=== PATIENT | male | born 1960 | race Caucasian/White ===

== ENCOUNTER 2016-08-26 09:21 | Observation (INO) | payer OTHER ==
[~2016-08-26] VITALS: Ht 182.9 cm; Wt 100.7 kg
[~2016-08-26 09:21] MED LIST: IBUP-103 PO; LEVO50TA6 PO
[2016-08-26 09:26] VITALS: Ht 182.9 cm; Wt 100.7 kg
[2016-08-26] MEDS ORDERED: SODIUM CHLORIDE 0.9% 1000ML 1,000 ML IV STA (10:02)
[2016-08-26] MEDS ORDERED: MoRPHine SULFATE 10 MG/ML CARP/VIAL IV STA (10:02)
[2016-08-26] MEDS ORDERED: ONDANSETRON INJ 2 MG/ML 2 ML VIAL IV STA (10:02)
[2016-08-26 10:05] LABS: BASO % 0.1 %; BASO ABS # 0.02 K/uL (0-0.2); COMPLETE YES; EOS % 0.1 %; HEMATOCRIT 48.1 % (42-52); IG% 0.3 %; LYMPH % 5.9 %; LYMPH ABS # 0.85 K/uL (1.2-3.4); MEAN CELL VOLUME 90.4 fL (80-100); MEAN CORPUSCULAR HEMOGLOBIN 30.1 pg (25-34); MEAN CORPUSCULAR HGB CONC 33.3 g/dl (32-36); MEAN PLATELET VOLUME 9.4 fL (7.4-10.4); MONO % 5.5 %; NEUT % 88.1 %; PLATELET COUNT 291 K/uL (130-400); RED BLOOD COUNT 5.32 M/uL (4.7-6.1)
[2016-08-26 10:35] LABS: ALT/SGPT 45 U/L (12-78); BLOOD UREA NITROGEN 16 mg/dl (7-18); BUN/CREATININE RATIO 14.1 (10-20); CALCIUM 9.2 mg/dl (8.5-10.1); CARBON DIOXIDE 25 mmol/L (21-32); CHLORIDE 105 mmol/L (98-107); GLUCOSE 131 mg/dl (70-99); POTASSIUM 3.9 mmol/L (3.5-5.1); SODIUM 139 mmol/L (136-145)
--- NOTE | 2016-08-26 10:35 | DIAGNOSTIC IMAGING REPORT ---
CHEST ONE VIEW PORTABLE HISTORY: Atypical chest pain. COMPARISON: Chest 02/26/2013. FINDINGS: The lungs are clear. Cardiac silhouette is normal in size. No pleural effusions. No pneumothorax. Cervical spinal fusion hardware is again noted. IMPRESSION: No significant change compared to the prior study. No acute process. Electronically signed by: Ranjith Whitman M.D. 08/26/2016 10:33 AM
[2016-08-26 10:39] LABS: ALKALINE PHOSPHATASE 82 U/L (45-117); AST/SGOT 27 U/L (15-37)
--- NOTE | 2016-08-26 11:49 | DIAGNOSTIC IMAGING REPORT ---
CT OF THE ABDOMEN AND PELVIS WITH CONTRAST CLINICAL HISTORY: Epigastric abdominal pain with vomiting. COMPARISON STUDY: None. TECHNIQUE: Following IV administration of 119 mL of Optiray-320, axial images of the abdomen and pelvis were obtained from the lung bases to the proximal femurs. Images were reviewed in the axial, sagittal, and coronal planes. IV contrast was administered without complication. CT DOSE: 998.14 mGycm FINDINGS: Visualized portions of the lower chest demonstrate groundglass opacities which favor atelectasis. No pneumatosis, free air or portal venous gas is present. The liver, spleen, adrenal glands and pancreas are normal. There is a 5 mm left renal calculus. There is no hydronephrosis. Images of the pelvis are degraded by streak artifact from bilateral hip arthroplasties. Note is made of at least one gallstone within the gallbladder. There is indistinctness of the gallbladder wall with mild to moderate pericholecystic infiltration. There is no peripancreatic infiltration. There is no biliary or pancreatic ductal dilatation. No suspicious osseous lesions are present with there is left colon diverticulosis without evidence for acute diverticulitis. IMPRESSION: 1. Cholelithiasis, gallbladder wall thickening and pericholecystic infiltration suggestive of acute cholecystitis. 2. No peripancreatic infiltration. No biliary or pancreatic ductal dilatation. 3. 5 mm left renal calculus. Electronically signed by: Abimael Frazier M.D. 08/26/2016 11:47 AM
[2016-08-26] MEDS ORDERED: PIPERACILLIN/TAZOBACTAM 4.5 GM/100ML D5W IV STA (12:02)
[2016-08-26] MEDS ORDERED: HYDROmorphone INJ 1 MG/ML SYR IV STA (12:05)
--- NOTE | 2016-08-26 12:42 | History and Physical ---
History & Physical Date & Time of Service: Aug 26, 2016 at 12:32 Chief Complaint: Gallstone Primary Care Physician: RV. Ross MD History of Present Illness Source: patient 56 y/o male began with epigastric pain at about midnight after eating a cheeseburger. The pain has persisted and is located in the epigastric and RUQ. The severity waxes and wanes. It sometimes radiates through to his back when he severity increases. It originally was radiating into his chest area. He has nausea and has had multiple episodes of vomiting. He had a normal bm yesterday morning. He has not had any melena or hematochezia and has not had any urinary symptoms. He has not had any fever. He had a similar episode about 1 1/2 years ago that resolved spontaneously. He had an ultrasound at that time that showed a gallstone Past Medical/Surgical History Medical Problems: (1) Alcohol abuse Status: Chronic Hypothyroidism PSH: Cervical disc Bilateral hip replacements Left inguinal hernia repair Family History Unobtainable due to patient's condition Social History Smoking Status: Current Every Day Smoker Smokeless Tobacco Use: No Alcohol Use: socially Occupational Status: employed Immunizations History of Influenza Vaccine: Yes History of Tetanus Vaccine?: Yes History of Pneumococcal: No History of Hepatitis B Vaccine: Unknown Multi-Drug Resistant Organisms History of MDRO: No Allergies Coded Allergies: Diphenhydramine (Verified Adverse Reaction, Mild, JITTERY/ANXIOUS, 03/20/16 ) ABLE TO TAKE REG. TYLENOL Home Medications Scheduled Levothyroxine Sodium (Levothyroxine Sodium), 1 TAB PO DAILY Review of Systems Constitutional: No chills, No fever Respiratory: No cough, No sputum Cardiovascular: + chest pain (as per hPI) Abdomen: + problem reported (as per HPI) Genitourinary - Male: + problem reported (as per HPI) Integumentary: No rash Physical Exam Vital Signs Date Time Temp Pulse Resp B/P Pulse Ox O2 Delivery O2 Flow Rate FiO2 08/26/16 11:06 83 18 189/118 97 Room Air 181/110 08/26/16 10:20 83 08/26/16 09:26 36.5 115 20 197/97 95 Room Air General Appearance: WD/WN Head: normocephalic Respiratory/Chest: chest non-tender, lungs clear Cardiovascular: regular rate, rhythm, no edema Abdomen/GI: normal bowel sounds, soft, + tenderness (right subcostal region) Back: normal inspection, no CVA tenderness Extremities/Musculoskelatal: normal inspection Skin: normal color Diagnostics Laboratory Results Results Past 24 Hours Test 08/26/16 09:50 08/26/16 09:53 Range/Units White Blood Count 14.40 4.8-10.8 K/uL Red Blood Count 5.32 4.7-6.1 M/uL Hemoglobin 16.0 14.0-18.0 g/dL Hematocrit 48.1 42-52 % Mean Corpuscular Volume 90.4 80-100 fL Mean Corpuscular Hemoglobin 30.1 25-34 pg Mean Corpuscular Hemoglobin Concent 33.3 32-36 g/dl Platelet Count 291 130-400 K/uL Mean Platelet Volume 9.4 7.4-10.4 fL Neutrophils (%) (Auto) 88.1 % Lymphocytes (%) (Auto) 5.9 % Monocytes (%) (Auto) 5.5 % Eosinophils (%) (Auto) 0.1 % Basophils (%) (Auto) 0.1 % Neutrophils # (Auto) 12.68 1.4-6.5 K/uL Lymphocytes # (Auto) 0.85 1.2-3.4 K/uL Monocytes # (Auto) 0.79 0.11-0.59 K/uL Eosinophils # (Auto) 0.01 0-0.5 K/uL Basophils # (Auto) 0.02 0-0.2 K/uL RDW Standard Deviation 47.4 36.4-46.3 fL RDW Coefficient of Variation 14.5 11.5-14.5 % Immature Granulocyte % (Auto) 0.3 % Immature Granulocyte # (Auto) 0.05 0.00-0.02 K/uL Sodium Level 139 136-145 mmol/L Potassium Level 3.9 3.5-5.1 mmol/L Chloride Level 105 98-107 mmol/L Carbon Dioxide Level 25 21-32 mmol/L Anion Gap 9.0 3-11 mmol/L Blood Urea Nitrogen 16 7-18 mg/dl Creatinine 1.10 0.60-1.40 mg/dl Est Creatinine Clear Calc Drug Dose 91.0 ml/min Estimated GFR () 85.9 Estimated GFR (Non- 74.1 BUN/Creatinine Ratio 14.1 10-20 Random Glucose 131 70-99 mg/dl Calcium Level 9.2 8.5-10.1 mg/dl Total Bilirubin 0.3 0.2-1 mg/dl Direct Bilirubin < 0.1 0-0.2 mg/dl Aspartate Amino Transf (AST/SGOT) 27 15-37 U/L Alanine Aminotransferase (ALT/SGPT) 45 12-78 U/L Alkaline Phosphatase 82 45-117 U/L Troponin I < 0.015 0-0.045 ng/ml Total Protein 7.8 6.4-8.2 gm/dl Albumin 3.8 3.4-5.0 gm/dl Lipase 91 73-393 U/L Diagnostic Radiology CT OF THE ABDOMEN AND PELVIS WITH CONTRAST CLINICAL HISTORY: Epigastric abdominal pain with vomiting. COMPARISON STUDY: None. TECHNIQUE: Following IV administration of 119 mL of Optiray-320, axial images of the abdomen and pelvis were obtained from the lung bases to the proximal femurs. Images were reviewed in the axial, sagittal, and coronal planes. IV contrast was administered without complication. CT DOSE: 998.14 mGycm FINDINGS: Visualized portions of the lower chest demonstrate groundglass opacities which favor atelectasis. No pneumatosis, free air or portal venous gas is present. The liver, spleen, adrenal glands and pancreas are normal. There is a 5 mm left renal calculus. There is no hydronephrosis. Images of the pelvis are degraded by streak artifact from bilateral hip arthroplasties. Note is made of at least one gallstone within the gallbladder. There is indistinctness of the gallbladder wall with mild to moderate pericholecystic infiltration. There is no peripancreatic infiltration. There is no biliary or pancreatic ductal dilatation. No suspicious osseous lesions are present with there is left colon diverticulosis without evidence for acute diverticulitis. IMPRESSION: 1. Cholelithiasis, gallbladder wall thickening and pericholecystic infiltration suggestive of acute cholecystitis. 2. No peripancreatic infiltration. No biliary or pancreatic ductal dilatation. 3. 5 mm left renal calculus. Impression Assessment and Plan This patient has RUQ and epigastric pain with a CT showing evidence of cholecystitis. I have recommend a laparoscopic cholecystectomy. I explained the possible need to convert to an open procedure and the possible complications. He has chosen to have the surgery and has signed a consent form.
[2016-08-26] MEDS ORDERED: LEVO50TA6 PO (12:46)
[2016-08-26] MEDS ORDERED: GLYCOPYRROLATE INJ 0.2 MG/ML VIAL ONE (14:51)
[2016-08-26] MEDS ORDERED: ROCURONIUM BROMIDE 10 MG/ML 5 ML VIAL ONE (14:51)
[2016-08-26] MEDS ORDERED: DEXAMETHASONE SOD INJ 4 MG/ML VIAL ONE (14:51)
[2016-08-26] MEDS ORDERED: NEOSTIGMINE METHYLSULFATE 5 MG/5 ML SYR ONE (14:51)
[2016-08-26] MEDS ORDERED: PROPOFOL IV EMULSION 10 MG/ML 20 ML VIAL IV ONE (14:51)
[2016-08-26] MEDS ORDERED: ONDANSETRON INJ 2 MG/ML 2 ML VIAL ONE (14:51)
[2016-08-26] MEDS ORDERED: LIDOCAINE HCL 2% 2 ML VIAL (20MG/ML) ONE (14:51)
[2016-08-26] MEDS ORDERED: FENTANYL CITRATE INJ 50 MCG/1 ML 2 ML VIAL ONE (14:52)
[2016-08-26] MEDS ORDERED: MIDAZOLAM HCL 1 MG/ML 2ML VIAL ONE (14:52)
[2016-08-26] MEDS ORDERED: HYDROmorphone INJ 2 MG/ML SYR/VIAL ONE (16:30)
[2016-08-26] MEDS ORDERED: CEFAZOLIN SOD 1 GM VIAL ONE (16:30)
--- NOTE | 2016-08-26 17:10 | EMERGENCY ROOM VISIT NOTE ---
History Report prepared by Mc: Dalia Cramer Under the Supervision of: Dr. Jakcson Noel D.O. First contact with patient: 09:51 Chief Complaint: ABDOMINAL PAIN Stated Complaint: GALLSTONE Nursing Triage Summary: Abdominal pain, started at approx midnight, hx of gallstone per pt History of Present Illness The patient is a 56 year old male who presents to the Emergency Room with complaints of persistent stabbing pains to his epigastrium, radiating up through his mid chest, over the past 10 hours.Currently, he rates his discomfort as a 10/10, and he describes it to feel like a stabbing sensation. Prior to the time of onset, the patient states that he ate a greasy hamburger, and shortly after, he developed the pain to his epigastrium, radiating through to his mid chest. Along with the pain, the patient states that he has felt nauseous, and he has had multiple episodes of mucousy emesis. He has not been able to keep any food or liquids down without bringing them back up since that time. Patient notes that he has a history of a gallstone, which was diagnosed 1.5 years prior, and he states that his symptoms today feel similar to that time. He has not yet followed up with surgery. Since that time, patient has been avoiding eating greasy foods and has not had additional episodes of discomfort until eating the hamburger last evening. Pt denies headache, change in vision, fevers, chest pain, shortness of breath, diarrhea, pain with urination, and melena. 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 A total of 10 systems reviewed and were otherwise negative. Past Medical & Surgical Medical Problems: (1) Alcohol abuse (2) Gallstone Family History Unobtainable due to patient's condition Social History Smoking Status: Current Every Day Smoker Alcohol Use: heavy Housing Status: lives alone Occupation Status: employed Current/Historical Medications Scheduled Levothyroxine Sodium (Levothyroxine Sodium), 1 TAB PO DAILY Allergies Coded Allergies: Diphenhydramine (Verified Adverse Reaction, Mild, JITTERY/ANXIOUS, 03/20/16 ) ABLE TO TAKE REG. TYLENOL Physical Exam Vital Signs Date Time Temp Pulse Resp B/P Pulse Ox O2 Delivery O2 Flow Rate FiO2 08/26/16 13:45 36.6 78 18 178/104 95 Room Air 08/26/16 13:38 82 18 162/126 95 Room Air 08/26/16 12:56 74 20 184/112 94 Room Air 08/26/16 11:06 83 18 189/118 97 Room Air 181/110 08/26/16 10:20 83 08/26/16 09:26 36.5 115 20 197/97 95 Room Air Physical Exam GENERAL: Sitting up in bed, uncomfortable appearing, in mild discomfort. EYE EXAM: normal conjunctiva. OROPHARYNX: no exudate, no erythema, lips, buccal mucosa, and tongue normal and mucous membranes are moist NECK: supple, no nuchal rigidity, no adenopathy, non-tender LUNGS: Clear to auscultation. Normal chest wall mechanics HEART: no murmurs, S1 normal and S2 normal ABDOMEN: abdomen soft, tender to palpation in the epigastrium, normo-active bowel sounds, no masses, no rebound or guarding. BACK: Back is symmetrical on inspection and there is no deformity, no midline tenderness, no CVA tenderness. SKIN: no rashes and no bruising UPPER EXTREMITIES: upper extremities are grossly normal. Radial pulses equal, bilaterally. LOWER EXTREMITIES: No pitting edema. NEURO EXAM: Normal sensorium, cranial nerves II-XII grossly intact, normal speech, no gross weakness of arms, no gross weakness of legs. Medical Decision & Procedures ER Provider Diagnostic Interpretation: Xray results per the radiologist and my interpretation. Other results have been interpreted by the radiologist and reviewed by me. CT:Per my review, radiologist interpretation. CHEST ONE VIEW PORTABLE HISTORY: Atypical chest pain. COMPARISON: Chest 02/26/2013. FINDINGS: The lungs are clear. Cardiac silhouette is normal in size. No pleural effusions. No pneumothorax. Cervical spinal fusion hardware is again noted. IMPRESSION: No significant change compared to the prior study. No acute process. Electronically signed by: Ranjith Whitman M.D. 08/26/2016 10:[address] OF THE ABDOMEN AND PELVIS WITH CONTRAST CLINICAL HISTORY: Epigastric abdominal pain with vomiting. COMPARISON STUDY: None. TECHNIQUE: Following IV administration of 119 mL of Optiray-320, axial images of the abdomen and pelvis were obtained from the lung bases to the proximal femurs. Images were reviewed in the axial, sagittal, and coronal planes. IV contrast was administered without complication. CT DOSE: 998.14 mGycm FINDINGS: Visualized portions of the lower chest demonstrate groundglass opacities which favor atelectasis. No pneumatosis, free air or portal venous gas is present. The liver, spleen, adrenal glands and pancreas are normal. There is a 5 mm left renal calculus. There is no hydronephrosis. Images of the pelvis are degraded by streak artifact from bilateral hip arthroplasties. Note is made of at least one gallstone within the gallbladder. There is indistinctness of the gallbladder wall with mild to moderate pericholecystic infiltration. There is no peripancreatic infiltration. There is no biliary or pancreatic ductal dilatation. No suspicious osseous lesions are present with there is left colon diverticulosis without evidence for acute diverticulitis. IMPRESSION: 1. Cholelithiasis, gallbladder wall thickening and pericholecystic infiltration suggestive of acute cholecystitis. 2. No peripancreatic infiltration. No biliary or pancreatic ductal dilatation. 3. 5 mm left renal calculus. Electronically signed by: Abimael Frazier M.D. 08/26/2016 11:47 AM Laboratory Results 08/26/16 09:50 Red Blood Count 5.32, Mean Corpuscular Volume 90.4, Mean Corpuscular Hemoglobin 30.1, Mean Corpuscular Hemoglobin Concent 33.3, Mean Platelet Volume 9.4, Neutrophils (%) (Auto) 88.1, Lymphocytes (%) (Auto) 5.9, Monocytes (%) (Auto) 5.5, Eosinophils (%) (Auto) 0.1, Basophils (%) (Auto) 0.1, Neutrophils # (Auto) 12.68, Lymphocytes # (Auto) 0.85, Monocytes # (Auto) 0.79, Eosinophils # (Auto) 0.01, Basophils # (Auto) 0.02 08/26/16 09:50 Test 08/26/16 09:50 White Blood Count 14.40 K/uL (4.8-10.8) Red Blood Count 5.32 M/uL (4.7-6.1) Hemoglobin 16.0 g/dL (14.0-18.0) Hematocrit 48.1 % (42-52) Mean Corpuscular Volume 90.4 fL (80-100) Mean Corpuscular Hemoglobin 30.1 pg (25-34) Mean Corpuscular Hemoglobin Concent 33.3 g/dl (32-36) Platelet Count 291 K/uL (130-400) Mean Platelet Volume 9.4 fL (7.4-10.4) Neutrophils (%) (Auto) 88.1 % Lymphocytes (%) (Auto) 5.9 % Monocytes (%) (Auto) 5.5 % Eosinophils (%) (Auto) 0.1 % Basophils (%) (Auto) 0.1 % Neutrophils # (Auto) 12.68 K/uL (1.4-6.5) Lymphocytes # (Auto) 0.85 K/uL (1.2-3.4) Monocytes # (Auto) 0.79 K/uL (0.11-0.59) Eosinophils # (Auto) 0.01 K/uL (0-0.5) Basophils # (Auto) 0.02 K/uL (0-0.2) RDW Standard Deviation 47.4 fL (36.4-46.3) RDW Coefficient of Variation 14.5 % (11.5-14.5) Immature Granulocyte % (Auto) 0.3 % Immature Granulocyte # (Auto) 0.05 K/uL (0.00-0.02) Anion Gap 9.0 mmol/L (3-11) Est Creatinine Clear Calc Drug Dose 91.0 ml/min Estimated GFR () 85.9 Estimated GFR (Non- 74.1 BUN/Creatinine Ratio 14.1 (10-20) Calcium Level 9.2 mg/dl (8.5-10.1) Total Bilirubin 0.3 mg/dl (0.2-1) Direct Bilirubin < 0.1 mg/dl (0-0.2) Aspartate Amino Transf (AST/SGOT) 27 U/L (15-37) Alanine Aminotransferase (ALT/SGPT) 45 U/L (12-78) Alkaline Phosphatase 82 U/L (45-117) Troponin I < 0.015 ng/ml (0-0.045) Total Protein 7.8 gm/dl (6.4-8.2) Albumin 3.8 gm/dl (3.4-5.0) Lipase 91 U/L (73-393) Laboratory results per my review. Medications Administered Medications (Trade) Dose Ordered Sig/Mariana Route Start Time Stop Time Status Last Admin Dose Admin Morphine Sulfate (MoRPHine SULFATE INJ) 6 mg NOW STAT IV 08/26/16 10:02 08/26/16 10:03 DC 08/26/16 10:16 6 MG Ondansetron HCl 4 mg 4 mg NOW STAT IV 08/26/16 10:02 08/26/16 10:03 DC 08/26/16 10:15 4 MG Sodium Chloride (Nss 1000ml) 1,000 ml @ 999 mls/hr Q1H1M STAT IV 08/26/16 10:02 08/26/16 11:02 DC 08/26/16 10:15 999 MLS/HR Piperacillin Sod/ Tazobactam Sod (Zosyn Iv) 4.5 gm NOW STAT IV 08/26/16 12:02 08/26/16 12:03 DC 08/26/16 12:12 4.5 GM Hydromorphone HCl (Dilaudid Inj) 1 mg NOW STAT IV 08/26/16 12:05 08/26/16 12:06 DC 08/26/16 12:13 1 MG ECG Indication: abdominal pain Rate (beats per minute): 85 Rhythm: normal sinus Findings: no ectopy, other (Normal axis. Early R wave progression.) ED Course ED COURSE: Vital signs were reviewed and showed hypertension and tachycardia. The patients medical record was reviewed The above diagnostic studies were performed and reviewed. ED treatments and interventions as stated above. 0956: The patient was evaluated in room B3. A complete history and physical examination was performed. 1002: NSS bolus IV, Zofran 4 mg IV and Morphine Sulfate 6 mg IV were ordered. 1202: I reevaluated the patient at this time and updated him on the results of his radiology reports and lab tests. Zosyn 6 mg IV and Dilaudid 1 mg IV were ordered. The general surgeon will be contacted. 1205: Discussed the patient's case with Dr. Summers of general surgery. he will evaluate the patient. 1245: Dr. Summers has evaluated the patient. He will take him for surgery. Patient verbalized understanding and agreement with this. Based on the patients age, coexisting illnesses, exam and lab findings the decision to treat as an inpatient was made. The patient remained stable while under my care. The patient will be evaluated for further management. Medical Decision Differential diagnoses includes but is not limited to gastritis, peptic ulcer disease, GERD, gallbladder disease, pancreatitis, small bowel obstruction, acute coronary syndrome, pericarditis, ischemic bowel, irritable bowel disease, irritable bowel syndrome, appendicitis, diverticulitis, malignancy, hernia, urinary tract infection, torsion, perforation, trauma, infectious. Patient is a 56-year-old male who presents the ER for epigastric bowel pain that started at 12:00 last night. He notes he does have a history of previous gallstones. On exam he is acutely tender. IV was established and is given a bolus normal saline along with 2 doses of Dilaudid. He had improvement of his pain. CT of the abdomen and pelvis shows acute cholecystitis. I discussed the findings with general surgery and I did give him a dose of Zosyn. Following this he was evaluated by general surgery and taken to the OR for acute cholecystitis. Consults Time Called: 1205 Consulting Physician: Dr. Summers Returned Call: 1205 and 1245 Discussed the patient's case. He will evaluate him 1245: Patient was evaluated by Dr. Summers. He will take him in for surgery. Impression Primary Impression: Acute cholecystitis Scribe Attestation The scribe's documentation has been prepared under my direction and personally reviewed by me in its entirety. I confirm that the note above accurately reflects all work, treatment, procedures, and medical decision making performed by me. Departure Information Dispostion Being Evaluated By Surgeon (Dr. Summers) Prescriptions Levothyroxine Sodium (LEVOTHYROXINE SODIUM) 50 Mcg Tab 1 TAB PO DAILY for 30 Days, #30 TAB 5 Refills Prov: Emiliano Summers M.D. 08/26/16 Referrals No Doctor, Assigned (PCP)
[2016-08-26] MEDS ORDERED: ONDANSETRON INJ 2 MG/ML 2 ML VIAL IV PRN ×2 (17:15→17:45)
[2016-08-26] MEDS ORDERED: ATROPINE SULFATE 0.1 MG/ML 5ML SYR IV PRN (17:15)
[2016-08-26] MEDS ORDERED: MEPERIDINE HCL 25 MG/ML CARP IV PRN (17:15)
[2016-08-26] MEDS ORDERED: FENTANYL CITRATE INJ 50 MCG/1 ML 2 ML VIAL IV PRN (17:15)
[2016-08-26] MEDS ORDERED: DEXAMETHASONE SOD INJ 4 MG/ML VIAL IV PRN (17:15)
[2016-08-26] MEDS ORDERED: EpHEDrine SULFATE INJ 50 MG/ML AMP IV PRN (17:15)
--- NOTE | 2016-08-26 17:32 | [facility] Post Operative Brief Note ---
Immediate Operative Summary Operative Date Aug 26, 2016. Pre-Operative Diagnosis CHOLECYSTITIS, CHOLELITHIASIS Post-Operative Diagnosis CHOLECYSTITIS Procedure(s) Performed LAPRASCOPIC CHOLECYSTECTOMY Surgeon DR Francie SKY Supervisor Yard Surgeon(s) EAN LYLES [facility] CENTERCharla Estimated Blood Loss 20 Findings See dictation Specimens GALLBLADDER Drains One J-P in the subhepatic space Complication(s) None Disposition Recovery Room / PACU
[2016-08-26] MEDS ORDERED: OXYCODONE/ACETAMINOPHEN 5-325 TAB PO PRN (17:45)
[2016-08-26] MEDS ORDERED: MoRPHine SULFATE 4 MG/ML 1 ML CARP\\VIAL IV PRN (17:45)
[2016-08-26 19:10] VITALS: BP 132/80; PULSE 81; TEMP 36.7; O2SAT 94
--- NOTE | 2016-08-26 19:19 | Anesthesiology Progress Note ---
Anesthesia Post Op Note Date & Time Aug 26, 2016 at 19:18 Vital Signs Pain Intensity: 0 Vital Signs Past 12 Hours Date Time Temp Pulse Resp B/P Pulse Ox O2 Delivery O2 Flow Rate FiO2 08/26/16 19:10 36.7 81 16 132/80 94 Nasal Cannula 2.0 08/26/16 18:50 89 20 123/79 96 Nasal Cannula 2 08/26/16 18:40 84 17 122/69 94 Nasal Cannula 2 08/26/16 18:30 84 17 121/76 96 Nasal Cannula 2 08/26/16 18:20 36.7 84 17 124/83 96 Nasal Cannula 2 08/26/16 18:10 89 17 135/75 96 Mask 10 08/26/16 18:00 87 15 132/72 99 Mask 10 08/26/16 17:50 85 15 131/71 96 Mask 10 08/26/16 17:43 36.2 79 16 123/82 98 Mask 10 08/26/16 13:45 36.6 78 18 178/104 95 Room Air 08/26/16 13:38 82 18 162/126 95 Room Air 08/26/16 12:56 74 20 184/112 94 Room Air 08/26/16 11:06 83 18 189/118 97 Room Air 181/110 08/26/16 10:20 83 08/26/16 09:26 36.5 115 20 197/97 95 Room Air Notes Mental Status: alert / awake / arousable Nausea / Vomiting: adequately controlled Pain: adequately controlled Airway Patency, RR, SpO2: stable & adequate BP & HR: stable & adequate Hydration State: stable & adequate Anesthetic Complications: no major complications apparent
--- NOTE | 2016-08-26 19:28 | Discharge Instructions ---
Discharge Instructions Admission Reason for Admission: Cholecystitis, Cholelithiasis Discharge Discharge Diagnosis / Problem: Same Discharge Goals Goal(s): Decrease discomfort Activity Recommendations Activity Limitations: per Instructions/Follow-up section Lifting Limitations: no more than 10 pounds Shower/Bathe: tomorrow (Shower only) . Instructions / Follow-Up Instructions / Follow-Up Post-Surgical ~ Discharge Instructions Activity Recommendations: - lifting limitation: (10 pounds for 2 weeks), - exercise/sex/sports limit: (nonstrenuous for 2 weeks), - driving or machine use limit: (none for 1 week), - Shower/bathe limit: (may shower beginning tomorrow) Diet: - Resume previous diet SPECIAL CARE INSTRUCTIONS: - May shower in 24 hours. Let water run over area and pat dry. - Leave steri strips on for one week. - Call the surgeon's office with any questions or concerns - - (ex. temperature higher than 101 degrees F, excessive bleeding or pain). MEDICATIONS: - Resume previous medications unless instructed otherwise by your surgeon. - Ibuprofen 600 mg every 6 hours with food - Percocet 1 every 4 hours, as needed for pain FOLLOW UP VISIT: - If not already scheduled, please call the office to schedule a two week follow-up appointment. Office number Current Hospital Diet Patient's current hospital diet: Regular Diet Discharge Diet Recommended Diet: Regular Diet Procedures Procedures Performed: LAPRASCOPIC CHOLECYSTECTOMY Pending Studies Studies pending at discharge: no Medical Emergencies . Who to Call and When: Medical Emergencies: If at any time you feel your situation is an emergency, please call 911 immediately. . Non-Emergent Contact Non-Emergency issues call your: Primary Care Provider, Surgeon Call Non-Emergent contact if: your pain is worsening, wound has increased redness, wound has increased pain . "Provider Documentation" section prepared by Emiliano Summers. VTE Core Measure Inpt VTE Proph given/why not?: Treatment not indicated
[2016-08-26 19:40] VITALS: BP 130/78; PULSE 79; TEMP 36.3; O2SAT 95
--- NOTE | 2016-08-26 20:00 | OPERATIVE REPORT ---
DATE OF OPERATION: 08/26/2016 PREOPERATIVE DIAGNOSES: Acute cholecystitis, cholelithiasis. POSTOPERATIVE DIAGNOSES: Same. PROCEDURE: Laparoscopic cholecystectomy. SURGEON: Emiliano Summers MD FINDINGS: Gallbladder wall was thickened. The gallbladder was dilated. There was omental adhesion caking the body and infundibulum area. The cystic duct was not dilated. The liver was of normal size and contour. The visible bowel appeared normal. There were stones within the lumen of the gallbladder. TECHNIQUE: The patient was given a general anesthetic and the area was prepped and draped in the usual sterile fashion. Transverse incision was made below the umbilicus, carried down through the subcutaneous tissue to the fascia which was grasped with 2 Jonathan clamps and incised between. The peritoneum was identified, incised, and the introducer was placed bluntly. The abdomen was then insufflated to a pressure of 15 mmHg with carbon dioxide. The upper midline, midclavicular and anterior axillary introducers were placed under direct vision through small skin incisions. I could not grasp the gallbladder, so was drained using the drainage needle. It was then able to be grasped and elevated. The omentum was caked to the gallbladder wall and it was dissected away from the gallbladder wall using cautery, working from the fundus distal portion of the body down to the infundibulum. There were some adhesions also to the undersurface of the right lobe of the liver that were divided as well so as to not tear the capsule with elevation of the gallbladder. Careful dissection using blunt and cautery dissection exposed the lateral and anterior aspects of the gallbladder. I was then able to elevate the infundibulum and dissect over towards the triangle of Calot and peeling additional adhesions down towards the common bile duct. That exposed the undersurface of the infundibulum. The tissues there had a lot of edema within them. That some of the spaces and I was able to elevate the infundibulum first on the lateral side and separate the infundibulum away from the liver on the lateral side and then I worked with a similar dissection on the medial side allowing better mobility of the infundibulum. That allowed me to peel connective tissue and some lymphatics away from the anterior surface of the infundibulum and identify the cystic duct. I was able to isolate the cystic duct in 360 degrees and identified its junction with the gallbladder. Three clips were placed on the proximal cystic duct, 1 near the junction with the gallbladder and was divided. That allowed me then to further dissect in the triangle of Calot and isolate the cystic artery which was clamped twice proximally and once near the gallbladder and divided. There was another posterior branch of the artery or a large lymphatic that was isolated, clamped and divided. There was 1 additional other small area of bleeding behind the cystic artery from a small branch that was clamped. The gallbladder was then peeled off the liver bed using electrocautery. It was placed into an Endobag and brought out through the upper midline incision. I had to enlarge the skin incision as well as the fascial incision in order to extract the gallbladder within the bag, and that was accomplished. That introducer was replaced and liver edge was elevated. Subdiaphragmatic and subhepatic spaces were irrigated with a copious amount of saline solution, that was removed. The gallbladder bed of the liver was inspected. There was no bleeding. The previously placed clips were inspected and were intact. The subdiaphragmatic and subhepatic spaces were again irrigated, and the irrigation removed. A 10 mm flat Kieran-Mccord drain was placed in the subhepatic space and brought out through the anterior axillary introducer site, secured there with a 3-0 nylon. The gas was allowed to escape and the introducers were removed. The fascia of the umbilical and upper midline introducer sites were closed with interrupted 0 Vicryl and skin of all the incisions was closed with 4-0 Monocryl in either interrupted or running subcuticular fashion. The skin was anesthetized with 0.5% Marcaine. The skin was cleansed, dried, benzoin placed, Steri-Strips applied. Estimated blood loss was 20 mL. Sponge, needle and instrument counts were correct prior to closure. The patient tolerated the surgical procedure without complication and was transferred to recovery. I attest to the content of the Intraoperative Record and any orders documented therein. Any exceptio ns are noted below.
[2016-08-26 20:10] VITALS: BP 133/84; PULSE 8; PULSE 80; TEMP 36.6; O2SAT 96
[2016-08-26] MEDS: D5W AND 1/2NSS + 20MEQ KCL 1,000 ML IV SCH (20:12)
[2016-08-26 21:10] VITALS: BP 138/79; PULSE 87; TEMP 36.6; O2SAT 96
[2016-08-26] MEDS ORDERED: INFLUENZA VIRUS QUAD VACCINE 0.5 ML SYR IM. ONE (22:00)
[2016-08-26] MEDS ORDERED: INFLUENZA ADMINISTRATION CHARGE ONE (22:00)
[2016-08-26 22:10] VITALS: BP 158/82; PULSE 73; TEMP 36.4; O2SAT 93
[2016-08-26 23:00] VITALS: BP 152/79; PULSE 81; TEMP 36.7; O2SAT 93
[2016-08-27 03:11] VITALS: BP 151/78; PULSE 84; TEMP 36.7; O2SAT 92
[2016-08-27] MEDS: D5W AND 1/2NSS + 20MEQ KCL 1,000 ML IV SCH (05:54)
[2016-08-27 07:00] VITALS: BP 150/83; PULSE 75; TEMP 36.8; O2SAT 92
--- NOTE | 2016-08-27 08:39 | Anesthesiology Progress Note ---
Anesthesia Post Op Note Date & Time Aug 27, 2016 at 08:38 Vital Signs Pain Intensity: 0.0 Vital Signs Past 12 Hours Date Time Temp Pulse Resp B/P Pulse Ox O2 Delivery O2 Flow Rate FiO2 08/27/16 07:00 36.8 75 20 150/83 92 Room Air 08/27/16 03:11 36.7 84 16 151/78 92 Room Air 08/27/16 00:10 Room Air 08/26/16 23:00 36.7 81 16 152/79 93 Room Air 08/26/16 22:10 36.4 73 18 158/82 93 Room Air 08/26/16 21:10 36.6 87 18 138/79 96 Nasal Cannula 2.0 Notes Mental Status: alert / awake / arousable, participated in evaluation Pt Amnestic to Procedure: Yes Nausea / Vomiting: adequately controlled Pain: adequately controlled Airway Patency, RR, SpO2: stable & adequate BP & HR: stable & adequate Hydration State: stable & adequate Anesthetic Complications: no major complications apparent
--- NOTE | 2016-08-27 11:52 | Surgery Progress Note ---
Surgery Progress Note Date of Service Aug 27, 2016. Subjective Post OP Day: 1 + diet (toerated regular diet), No nausea, No vomiting Objective Vital Signs: Date Time Temp Pulse Resp B/P Pulse Ox O2 Delivery O2 Flow Rate FiO2 08/27/16 08:30 Room Air 08/27/16 07:00 36.8 75 20 150/83 92 Room Air 08/27/16 03:11 36.7 84 16 151/78 92 Room Air 08/27/16 00:10 Room Air 08/26/16 23:00 36.7 81 16 152/79 93 Room Air 08/26/16 22:10 36.4 73 18 158/82 93 Room Air 08/26/16 21:10 36.6 87 18 138/79 96 Nasal Cannula 2.0 08/26/16 20:10 36.6 80 18 133/84 96 Nasal Cannula 2.0 08/26/16 19:40 36.3 79 16 130/78 95 Nasal Cannula 2.0 08/26/16 19:10 94 Nasal Cannula 2.0 08/26/16 19:10 94 Nasal Cannula 2.0 08/26/16 19:10 36.7 81 16 132/80 94 Nasal Cannula 2.0 08/26/16 18:50 89 20 123/79 96 Nasal Cannula 2 08/26/16 18:40 84 17 122/69 94 Nasal Cannula 2 08/26/16 18:30 84 17 121/76 96 Nasal Cannula 2 08/26/16 18:20 36.7 84 17 124/83 96 Nasal Cannula 2 08/26/16 18:10 89 17 135/75 96 Mask 10 08/26/16 18:00 87 15 132/72 99 Mask 10 08/26/16 17:50 85 15 131/71 96 Mask 10 08/26/16 17:43 36.2 79 16 123/82 98 Mask 10 08/26/16 13:45 36.6 78 18 178/104 95 Room Air 08/26/16 13:38 82 18 162/126 95 Room Air 08/26/16 12:56 74 20 184/112 94 Room Air Physical Exam: STEVENSON drainage (20 cc yesterday, 10 cc last shift, serosanguinous) Abdomen: normal bowel sounds, non distended, soft Incision(s): clean, dry, intact, no erythema, no drainage Laboratory Results: Results Past 24 Hours Test 08/27/16 06:48 Range/Units Hepatitis C Antibody NEG NEG Assessment & Plan S/P lap laxmi Doing well D/C to home Instructions discussed D/C J-P drain
[2016-08-27 12:09] VITALS: BP 150/83; PULSE 75; TEMP 36.8; O2SAT 92
--- NOTE | 2016-09-14 00:52 | DISCHARGE SUMMARY ---
PRINCIPAL DIAGNOSIS: Acute and chronic cholecystitis. SECONDARY DIAGNOSIS: Hypothyroidism. PRINCIPAL PROCEDURE: Laparoscopic cholecystectomy. OTHER PROCEDURES: None. CONSULTATIONS: None. HISTORY AND PHYSICAL: As per H\T\P on chart. Briefly, this is a 56-year-old male who developed epigastric pain after eating a cheeseburger at about midnight prior to admission. The pain persisted in the epigastric and right upper quadrant. It originally radiated to the chest area. He had some nausea and had multiple episodes of vomiting. He had normal bowel habits the day before. There was no hematochezia or any urinary symptoms. He had no fever. Physical exam revealed normal bowel sounds. His abdomen was soft. There was tenderness in the right subcostal region. His white blood cell count was 14.4. CT scan of the abdomen and pelvis showed cholelithiasis with gallbladder wall thickening and pericholecystic inflammation, suggestive of acute cholecystitis. There was no peripancreatic inflammation. The patient was felt to have acute cholecystitis and was taken to the operating room. HOSPITAL COURSE: The patient underwent laparoscopic cholecystectomy. Findings at that time revealed a thickened gallbladder wall. The gallbladder was dilated. There was omental adhesion and caking to the body and infundibulum area. The cystic duct was not dilated. The liver was of normal size and contour. The visible bowel appeared normal. There were stones within the lumen of the gallbladder. Pathology on the specimen revealed evidence of acute and chronic cholecystitis. By postoperative day 1, he was feeling well. He had no vomiting. He was tolerating a regular diet. He remained afebrile. His abdomen was soft and nondistended with active bowel sounds. He was discharged to home on that day in stable condition. His discharge medications included only levothyroxine that he was on prior to discharge as well as Percocet and ibuprofen for pain. He is to follow up with me in 2 weeks.
[2016-12-03] MEDS ORDERED: MULT-589 PO (12:47)
[2016-12-03] MEDS ORDERED: LORA-741 PO (12:47)
[2016-12-03] MEDS ORDERED: NCDT21 TD (12:47)
[2016-12-03] MEDS ORDERED: FLV1 PO (12:47)
[2016-12-03] MEDS ORDERED: CTP1 PO (12:47)
[2016-12-03] MEDS ORDERED: THM100 PO (12:47)
[2016-12-03] MEDS ORDERED: LPR25 PO (12:47)
[2017-04-16] MEDS ORDERED: TPRSR50 PO (12:01)
[2017-04-16] MEDS ORDERED: NRV5 PO (12:01)
== END 2016-08-27 12:37 | disposition home or self-care (01) ==
LOC: ENRESERVTM → ENRESERVDT → C.EDB 09:23 → C.MSW 17:35
PROVIDERS: ADMIT Surgery; ATTEND Surgery
DX: K80.13 Calculus of gallbladder with acute and chronic cholecystitis with obstruction (principal); K66.0 Peritoneal adhesions (postprocedural) (postinfection); F17.200 Nicotine dependence, unspecified, uncomplicated; F10.10 Alcohol abuse, uncomplicated; E03.9 Hypothyroidism, unspecified; Z96.643 Presence of artificial hip joint, bilateral

== ENCOUNTER 2016-11-29 23:50 | Observation (INO) | payer OTHER ==
[~2016-11-29] VITALS: Ht 182.9 cm; Wt 97.1 kg
[~2016-11-29 23:50] MED LIST changes: -IBUP-103 PO
[2016-11-30] VITALS (7 sets, daily range): BP systolic 168–180; BP diastolic 92–118; PULSE 71–99; TEMP 36.4–36.8; O2SAT 91–99; Ht 182.9 cm; Wt 97.1 kg
--- NOTE | 2016-11-30 00:09 | EMERGENCY ROOM VISIT NOTE ---
History Report prepared by Mc: Omar Fuentes Under the Supervision of: Dr. Dm Nickerson M.D. First contact with patient: 23:56 Chief Complaint: ALCOHOL OVERDOSE Stated Complaint: MENTAL HEALTH History of Present Illness The patient is a 56 year old male who presents to the Emergency Room with an acute alcohol overdose that occurred earlier tonight. The patient drove himself to [employer] while intoxicated and attempted to check himself in for suicidal ideations. He now denies being suicidal. The patient blew a 0.40 UMU into a breathalyzer afterwards. The patient admits that he was drinking vodka tonight. He stated earlier that he drank poison, which he is now denying. 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 He admits to being an alcoholic. He has had withdrawal symptoms in the past, including seizure. The patient has been to rehab several times. Complete history is limited secondary to intoxication. Source of History: patient History Limited By: intoxication Onset: earlier tonight Position: other (global) Quality: other (alcohol overdose) Timing: other (acute) Review of Systems ROS is limited secondary to intoxication. Past Medical & Surgical Medical Problems: (1) Alcohol abuse (2) Gallstone Family History Unobtainable due to patient's condition Social History Smoking Status: Current Every Day Smoker Alcohol Use: heavy Housing Status: lives alone Occupation Status: employed Current/Historical Medications No Active Prescriptions or Reported Meds Allergies Coded Allergies: Diphenhydramine (Verified Adverse Reaction, Mild, JITTERY/ANXIOUS, 11/30/16 ) ABLE TO TAKE REG. TYLENOL Physical Exam Vital Signs Date Time Temp Pulse Resp B/P Pulse Ox O2 Delivery O2 Flow Rate FiO2 11/30/16 01:57 79 16 148/87 96 Room Air 11/30/16 00:43 93 Nasal Cannula 2.0 11/30/16 00:36 88 16 148/98 92 Room Air 11/30/16 00:23 81 11/30/16 00:02 36.6 84 18 145/93 94 Room Air Physical Exam GENERAL: Patient is heavily intoxicated. Slurring speech. Smells of alcohol. Well appearing and in no acute distress. HEAD: No evidence of Trauma. AT/NC EYES: Injected conjunctiva. Normal EOM. Pupils equal/reactive. ENT: Mucous membranes moist, no nasal congestion, . NECK: No step-offs, no adenopathy, no meningismus, trachea is midline. LUNGS: No dyspnea. Clear to auscultation and equal bilaterally. No wheeze, no rhonchi. HEART: Regular rate and rhythm. No murmurs, rubs, gallops appreciated. ABDOMEN: Soft, nontender, bowel sounds positive, no masses appreciated, no peritonitis. BACK: No midline tenderness, no CVA tenderness EXTREMITIES: Normal motion all extremities, no cyanosis, no edema. NEUROLOGIC: Intoxicated. No acute motor or sensory deficits, no focal weakness, cranial nerves grossly intact. SKIN: No rash, no jaundice, no diaphoresis. PSYCH: Talking about killing himself, but unable to comprehend if he has a plan. Medical Decision & Procedures ER Provider Diagnostic Interpretation: X ray results are stated below per my interpretation: Chest: 1 view: No infiltrate, no effusion, normal cardiac border. Laboratory Results 11/30/16 00:26 Red Blood Count 5.28, Mean Corpuscular Volume 91.1, Mean Corpuscular Hemoglobin 30.7, Mean Corpuscular Hemoglobin Concent 33.7, Mean Platelet Volume 8.8, Neutrophils (%) (Auto) 61.8, Lymphocytes (%) (Auto) 30.2, Monocytes (%) (Auto) 6.1, Eosinophils (%) (Auto) 1.0, Basophils (%) (Auto) 0.4, Neutrophils # (Auto) 5.80, Lymphocytes # (Auto) 2.84, Monocytes # (Auto) 0.57, Eosinophils # (Auto) 0.09, Basophils # (Auto) 0.04 11/30/16 00:26 Test 11/30/16 00:26 White Blood Count 9.39 K/uL (4.8-10.8) Red Blood Count 5.28 M/uL (4.7-6.1) Hemoglobin 16.2 g/dL (14.0-18.0) Hematocrit 48.1 % (42-52) Mean Corpuscular Volume 91.1 fL (80-100) Mean Corpuscular Hemoglobin 30.7 pg (25-34) Mean Corpuscular Hemoglobin Concent 33.7 g/dl (32-36) Platelet Count 292 K/uL (130-400) Mean Platelet Volume 8.8 fL (7.4-10.4) Neutrophils (%) (Auto) 61.8 % Lymphocytes (%) (Auto) 30.2 % Monocytes (%) (Auto) 6.1 % Eosinophils (%) (Auto) 1.0 % Basophils (%) (Auto) 0.4 % Neutrophils # (Auto) 5.80 K/uL (1.4-6.5) Lymphocytes # (Auto) 2.84 K/uL (1.2-3.4) Monocytes # (Auto) 0.57 K/uL (0.11-0.59) Eosinophils # (Auto) 0.09 K/uL (0-0.5) Basophils # (Auto) 0.04 K/uL (0-0.2) RDW Standard Deviation 52.6 fL (36.4-46.3) RDW Coefficient of Variation 15.8 % (11.5-14.5) Immature Granulocyte % (Auto) 0.5 % Immature Granulocyte # (Auto) 0.05 K/uL (0.00-0.02) Anion Gap 8.0 mmol/L (3-11) Est Creatinine Clear Calc Drug Dose 89.1 ml/min Estimated GFR () 85.9 Estimated GFR (Non- 74.1 BUN/Creatinine Ratio 12.7 (10-20) Osmolality 385 mOsm/kg (280-300) Calcium Level 8.3 mg/dl (8.5-10.1) Total Bilirubin 0.2 mg/dl (0.2-1) Aspartate Amino Transf (AST/SGOT) 32 U/L (15-37) Alanine Aminotransferase (ALT/SGPT) 52 U/L (12-78) Alkaline Phosphatase 106 U/L (45-117) Total Protein 7.5 gm/dl (6.4-8.2) Albumin 3.5 gm/dl (3.4-5.0) Globulin 4.0 gm/dl (2.5-4.0) Albumin/Globulin Ratio 0.9 (0.9-2) Thyroid Stimulating Hormone (TSH) 3.840 uIu/ml (0.300-4.500) Salicylates Level < 1.7 mg/dl (2.8-20) Acetaminophen Level < 2 ug/ml (10-30) Ethyl Alcohol mg/dL 298.0 mg/dl (0-3) Laboratory results as reviewed by me. Medications Administered Medications (Trade) Dose Ordered Sig/Mariana Route Start Time Stop Time Status Last Admin Dose Admin Multivitamins/ Thiamine HCl/ Folic Acid/Sodium Chloride (Mvi Infusion Inj/Vitamin B-1 Inj/Folvite Inj/ Nss 1000ml) 1,011.2 ml @ 200 mls/ hr Q5H4M ONCE IV 11/30/16 00:15 11/30/16 05:18 DC 11/30/16 01:17 200 MLS/HR ECG Indication: toxicologic Rate (beats per minute): 83 Rhythm: normal sinus Findings: no acute ischemic change, no ectopy ED Course 2355: The patient was evaluated in room B7. A complete history and physical exam was performed. 0015 Multivitamins 10 ml / thiamine HCl 100 mg / folic acid 1 mg / NSS 1011.2 ml @ 200 mls/hr IV. 0045: The patient fell asleep and was hypoxic. He is now on nasal cannula oxygen. 0140: The case was discussed the Dr. Cordova's resident, [facility]. The patient will be evaluated. 0315: Discussed the case with Poison Control. Medical Decision Differential: Mood Disorder, Overdose, Infectious, Electrolyte Abnormality, Cardiac, Hepatic, Endocrine, Toxicologic, Neurologic, amongst other pathologies entertained. 56 yr old heavily intoxicated poor history with somewhat confusing story. Apparently went to the [employer] [place] and started drinking heavily. Told someone there that he wished to kill himself and that he may or may not have drank other substance than alcohol. He denies this here in ER. Admits seizure with withdrawal from alcohol. Labs unremarkable other than significantly elevated Etoh. Osmolality consistent with amount he has consumed and gap is just above normal at 11. Regardless treatment is hydration. Unable to medically clear for mental health evaluation due to intoxication, hypoxia, and fact he reports seizures with withdrawal, plus he may or may not have ingested foreign substance. Will bring in to medicine for further work-up and evaluation. Consults Time Called: 129 Consulting Physician: Dr. Cordova's resident, [facility]. Returned Call: [phone]: The case was discussed the Dr. Cordova's resident, [facility]. The patient will be evaluated. Impression Primary Impression: Alcoholic intoxication Additional Impressions: Suicidal ideation Hypoxia Scribe Attestation The scribe's documentation has been prepared under my direction and personally reviewed by me in its entirety. I confirm that the note above accurately reflects all work, treatment, procedures, and medical decision making performed by me. Departure Information Dispostion Being Evaluated By Hospitalist Prescriptions No Active Prescriptions or Reported Meds Referrals RV. Ross MD (PCP) Patient Instructions My [facility] Health Problem Qualifiers Primary Impression: Alcoholic intoxication Complication of substance-induced condition: with delirium Qualified Codes: F10.121 - Alcohol abuse with intoxication delirium
[2016-11-30] MEDS ORDERED: MULTI-VITAMIN INFUSION INJ 10 ML, THIAMINE HCL INJ 100 MG, FoLIC ACID INJ 1 MG in SODIU... IV ONE ×2 (00:15→16:15)
[2016-11-30 00:36] LABS: BASO % 0.4 %; BASO ABS # 0.04 K/uL (0-0.2); COMPLETE YES; HEMATOCRIT 48.1 % (42-52); IG% 0.5 %; LYMPH % 30.2 %; LYMPH ABS # 2.84 K/uL (1.2-3.4); MEAN CELL VOLUME 91.1 fL (80-100); MEAN CORPUSCULAR HEMOGLOBIN 30.7 pg (25-34); MEAN CORPUSCULAR HGB CONC 33.7 g/dl (32-36); MEAN PLATELET VOLUME 8.8 fL (7.4-10.4); MONO % 6.1 %; NEUT % 61.8 %; PLATELET COUNT 292 K/uL (130-400); RED BLOOD COUNT 5.28 M/uL (4.7-6.1); WHITE BLOOD COUNT 9.39 K/uL (4.8-10.8)
[2016-11-30 01:07] LABS: BUN/CREATININE RATIO 12.7 (10-20); CALCIUM 8.3 mg/dl (8.5-10.1); CREATININE 1.1 mg/dl (0.60-1.40); POTASSIUM 3.6 mmol/L (3.5-5.1)
[2016-11-30 01:17] LABS: ACETAMINOPHEN < 2 ug/ml (10-30)
[2016-11-30 01:18] LABS: ALB/GLOB RATIO 0.9 (0.9-2); THYROID STIMULATING HORMONE 3.84 uIu/ml (0.300-4.500)
[2016-11-30] MEDS ORDERED: LORAZEPAM 1 MG TAB PO PRN ×2 (03:00→16:15)
[2016-11-30] MEDS ORDERED: ONDANSETRON INJ 2 MG/ML 2 ML VIAL IV PRN (03:00)
[2016-11-30] MEDS ORDERED: ALUMINUM/MAGNESIUM/SIMETH (MAALOX MAX) 30 ML UDC PO PRN (03:00)
[2016-11-30] MEDS ORDERED: MAGNESIUM HYDROXIDE SUSP 30 ML UDC PO PRN (03:00)
[2016-11-30] MEDS ORDERED: GABAPENTIN 600 MG TAB PO SCH ×2 (03:00→16:15)
[2016-11-30] MEDS ORDERED: POLYETHYLENE (MIRALAX) 17 GM PACK PO PRN (03:00)
[2016-11-30] MEDS ORDERED: ACETAMINOPHEN 325 MG TAB PO PRN (03:00)
[2016-11-30] MEDS ORDERED: IV FLUIDS COMPLETED PRN (04:15)
[2016-11-30] MEDS ORDERED: GABAPENTIN 1200MG LOADING DOSE PO SCH (05:00)
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
--- NOTE | 2016-11-30 07:52 | DIAGNOSTIC IMAGING REPORT ---
SINGLE VIEW CHEST CLINICAL HISTORY: Intoxication. Hypoxia. FINDINGS: An AP, portable, upright chest radiograph is compared to study dated 08/26/2016. The heart is mildly enlarged. The pulmonary vasculature is noncongested. Emphysema and chronic interstitial thickening are similar to previous. No airspace consolidation or large pleural effusion is identified. No pneumothorax is seen. The bony thorax is grossly intact. Fusion hardware is noted in the lower cervical region. Degenerative change is noted in the thoracic spine. IMPRESSION: Mild cardiac enlargement and emphysema. There is no acute cardiopulmonary abnormality. Electronically signed by: Alejanrdo Murphy M.D. 11/30/2016 7:50 AM Dictated Date/Time: 11/30/2016 7:49 AM
[2016-11-30] MEDS: GABAPENTIN 600MG Q6H DOSE PO SCH ×2 (12:07→17:05)
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
[2016-11-30] MEDS ORDERED: NURSING VERBAL MED ORDER ONE ×5 (15:15→22:00)
--- NOTE | 2016-11-30 16:01 | Progress Note ---
Subjective Date of Service: Nov 30, 2016. Subjective Pt evaluation today including: conversation w/ patient, conversation w/ family , physical exam, chart review, lab review, review of studies, review of inpatient medication list Feeling anxious and requests Ativan, he was wanting to go home this morning Problem List Medical Problems: (1) Acute cholecystitis Status: Acute (2) Alcoholic intoxication Status: Acute (3) Hypoxia Status: Acute (4) Suicidal ideation Status: Acute Review of Systems Constitutional: No chills, No fatigue, No fever, No problem reported, No sweats , No weakness, No weight loss Eyes: No diplopia, No discharge, No eye pain, No redness, No worsening of vision ENT: No dental problems, No hearing loss, No nasal symptoms, No sore throat, No tinnitus, No trouble swallowing, No unusual epistaxis Respiratory: No cough, No dyspnea at rest, No dyspnea on exertion, No hemoptysis, No shortness of breath, No sputum, No wheezing Cardiac: No PND, No chest pain, No claudication, No edema, No orthopnea, No palpitations Abdomen: No constipation, No diarrhea, No nausea, No pain, No vomiting Musculoskeletal: No calf pain, No joint pain, No muscle pain, No swelling Male : No dysuria, No hematuria, No incontinence, No nocturia more than once/ night, No slowing stream, No urinary frequency Neurologic: No balance problems, No memory loss, No numbness/tingling, No paralysis, No vertigo, No weakness Psychiatric: + anxiety, No anhedonism, No depression symptoms, No insomnia, No substance abuse Heme: No abnormal bleeding/bruising, No clotting problems, No night sweats, No swollen lymph nodes Endo: No excessive thirst, No excessive urination, No fatigue Skin: No bleeding, No color change, No itch, No new/changing skin lesions, No rash Objective Vital Signs Date Time Temp Pulse Resp B/P Pulse Ox O2 Delivery O2 Flow Rate FiO2 11/30/16 12:00 Nasal Cannula 2.0 11/30/16 11:42 36.7 89 20 180/92 95 Room Air 11/30/16 08:12 36.4 95 19 170/97 96 Nasal Cannula 2.0 11/30/16 08:00 Nasal Cannula 2.0 11/30/16 04:25 36.4 71 20 168/96 99 Room Air 11/30/16 03:30 71 20 151/91 98 11/30/16 01:57 79 16 148/87 96 Room Air 11/30/16 00:43 93 Nasal Cannula 2.0 11/30/16 00:36 88 16 148/98 92 Room Air 11/30/16 00:23 81 11/30/16 00:02 36.6 84 18 145/93 94 Room Air Physical Exam General Appearance: WD/WN, no apparent distress, + obese Eyes: normal inspection, PERRL, EOMI, sclerae normal ENT: normal ENT inspection, hearing grossly normal, pharynx normal Neck: supple, no adenopathy, thyroid normal, no JVD, no carotid bruits, trachea midline Respiratory/Chest: chest non-tender, lungs clear, normal breath sounds, no respiratory distress, no accessory muscle use Cardiovascular: regular rate, rhythm, no edema, no gallop, no JVD, no murmur Abdomen: normal bowel sounds, non tender, soft, no organomegaly, no pulsatile mass Extremities: normal range of motion, non-tender, normal inspection, no pedal edema, no calf tenderness, normal capillary refill, pelvis stable Neurologic/Psychiatric: 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 as tested, no motor/sensory deficits, alert, normal mood/affect, oriented x 3 Skin: normal color, warm/dry, no rash Lymphatic: no adenopathy Laboratory Results Last 24 Hours Test 11/30/16 00:00 11/30/16 00:26 11/30/16 04:30 11/30/16 06:04 Urine Osmolality 1016 mOms/kg White Blood Count 9.39 K/uL Red Blood Count 5.28 M/uL Hemoglobin 16.2 g/dL Hematocrit 48.1 % Mean Corpuscular Volume 91.1 fL Mean Corpuscular Hemoglobin 30.7 pg Mean Corpuscular Hemoglobin Concent 33.7 g/dl Platelet Count 292 K/uL Mean Platelet Volume 8.8 fL Neutrophils (%) (Auto) 61.8 % Lymphocytes (%) (Auto) 30.2 % Monocytes (%) (Auto) 6.1 % Eosinophils (%) (Auto) 1.0 % Basophils (%) (Auto) 0.4 % Neutrophils # (Auto) 5.80 K/uL Lymphocytes # (Auto) 2.84 K/uL Monocytes # (Auto) 0.57 K/uL Eosinophils # (Auto) 0.09 K/uL Basophils # (Auto) 0.04 K/uL RDW Standard Deviation 52.6 fL RDW Coefficient of Variation 15.8 % Immature Granulocyte % (Auto) 0.5 % Immature Granulocyte # (Auto) 0.05 K/uL Sodium Level 149 mmol/L Potassium Level 3.6 mmol/L Chloride Level 110 mmol/L Carbon Dioxide Level 31 mmol/L Anion Gap 8.0 mmol/L Blood Urea Nitrogen 14 mg/dl Creatinine 1.10 mg/dl Est Creatinine Clear Calc Drug Dose 89.1 ml/min Estimated GFR () 85.9 Estimated GFR (Non- 74.1 BUN/Creatinine Ratio 12.7 Random Glucose 104 mg/dl Osmolality 385 mOsm/kg Calcium Level 8.3 mg/dl Total Bilirubin 0.2 mg/dl Aspartate Amino Transf (AST/SGOT) 32 U/L Alanine Aminotransferase (ALT/SGPT) 52 U/L Alkaline Phosphatase 106 U/L Total Protein 7.5 gm/dl Albumin 3.5 gm/dl Globulin 4.0 gm/dl Albumin/Globulin Ratio 0.9 Thyroid Stimulating Hormone (TSH) 3.840 uIu/ml Salicylates Level < 1.7 mg/dl Acetaminophen Level < 2 ug/ml Ethyl Alcohol mg/dL 298.0 mg/dl Lactic Acid Level 2.1 mmol/L 2.8 mmol/L Test 11/30/16 15:33 Assessment and Plan 56-year-old male with a past medical history of chronic alcohol abuse presented with an acute alcohol intoxication on 11/29/2016 Admitted to telemetry to monitor for withdrawal symptoms. Acute alcohol intoxication: - Blood alcohol level 298 - Banana bag started in ER, will continue - Alcohol withdrawal protocol with gabapentin, we'll continue - fall precautions - Seizure precautions Hypernatremia: Likely hypovolemic, encourage plenty oral intake Sodium at 149 Continue follow-up Suicidal ideation: Psychiatry saw patient Will reevaluation Not allowed even he want to AMA to home, If he want AMA we need to call to please possible need 302 him Tobacco abuse disorder, nicotine patch DVT prophylaxis: SCDs Full code Disposition: Telemetry. monitor for withdrawal Continued [facility] stay due to: multiple IV medications needed Discharge planning: uncertain
[2016-11-30 16:23] LABS: BASO % 0.6 %; BASO ABS # 0.05 K/uL (0-0.2); COMPLETE YES; HEMATOCRIT 43.4 % (42-52); IG% 0.3 %; LYMPH % 22.7 %; LYMPH ABS # 2.01 K/uL (1.2-3.4); MEAN CELL VOLUME 88.9 fL (80-100); MEAN CORPUSCULAR HEMOGLOBIN 30.1 pg (25-34); MEAN CORPUSCULAR HGB CONC 33.9 g/dl (32-36); MEAN PLATELET VOLUME 8.7 fL (7.4-10.4); MONO % 8.1 %; NEUT % 67.3 %; PLATELET COUNT 264 K/uL (130-400); RED BLOOD COUNT 4.88 M/uL (4.7-6.1); WHITE BLOOD COUNT 8.87 K/uL (4.8-10.8)
[2016-11-30 17:01] LABS: BUN/CREATININE RATIO 13.2 (10-20); CREATININE 0.94 mg/dl (0.60-1.40); MAGNESIUM 1.8 mg/dl (1.8-2.4); POTASSIUM 3.6 mmol/L (3.5-5.1)
[2016-11-30] MEDS: NICOTINE 21 MG/24 HR TDSY TD SCH (17:05)
[2016-11-30] MEDS ORDERED: GABAPENTIN 1200MG LOADING DOSE PO ONE (18:00)
[2016-11-30] MEDS ORDERED: LORAZEPAM 1 MG TAB ONE (20:02)
[2016-11-30] MEDS ORDERED: CLONIDINE HCL 0.1 MG TAB PO ONE (21:45)
[2016-11-30] MEDS ORDERED: LORAZEPAM 2 MG/ML 1 ML VIAL ONE (22:04)
[2016-11-30] MEDS: CLONIDINE HCL 0.1 MG TAB PO SCH (23:50)
[2016-12-01] VITALS (7 sets, daily range): BP systolic 152–165; BP diastolic 88–108; PULSE 66–86; TEMP 36.6–37; O2SAT 95–97
[2016-12-01] MEDS ORDERED: GABAPENTIN 600MG Q6H DOSE PO SCH
[2016-12-01] MEDS: GABAPENTIN 600MG Q8H DOSE PO SCH ×3 (05:26→21:29)
[2016-12-01] MEDS: CLONIDINE HCL 0.1 MG TAB PO SCH ×3 (05:26→17:44)
[2016-12-01 06:35] LABS: BASO % 0.3 %; BASO ABS # 0.03 K/uL (0-0.2); COMPLETE YES; IG% 0.2 %; LYMPH % 14.9 %; LYMPH ABS # 1.61 K/uL (1.2-3.4); MEAN CELL VOLUME 90.3 fL (80-100); MEAN CORPUSCULAR HEMOGLOBIN 30.8 pg (25-34); MEAN CORPUSCULAR HGB CONC 34.1 g/dl (32-36); MONO % 10.4 %; NEUT % 73.2 %; PLATELET COUNT 252 K/uL (130-400); RED BLOOD COUNT 4.54 M/uL (4.7-6.1); WHITE BLOOD COUNT 10.82 K/uL (4.8-10.8)
[2016-12-01 06:51] LABS: BUN/CREATININE RATIO 11.5 (10-20); CALCIUM 8.2 mg/dl (8.5-10.1); CREATININE 0.9 mg/dl (0.60-1.40); MAGNESIUM 1.9 mg/dl (1.8-2.4); POTASSIUM 3.6 mmol/L (3.5-5.1)
[2016-12-01] MEDS: NICOTINE 21 MG/24 HR TDSY TD SCH (08:59)
[2016-12-01] MEDS ORDERED: MULTI-VITAMIN INFUSION INJ 10 ML, THIAMINE HCL INJ 100 MG, FoLIC ACID INJ 1 MG in SODIU... IV SCH (09:00)
[2016-12-01] MEDS ORDERED: GABAPENTIN 600MG Q8H DOSE PO SCH (14:00)
[2016-12-01] MEDS ORDERED: METOPROLOL TARTRATE 25 MG TAB PO STA (14:02)
[2016-12-01 14:57] LABS: CALCIUM 8.7 mg/dl (8.5-10.1)
--- NOTE | 2016-12-01 15:43 | Progress Note ---
Subjective Date of Service: Dec 01, 2016. Subjective Pt evaluation today including: conversation w/ patient, physical exam, chart review, lab review, review of studies, review of inpatient medication list Voiding: no voiding problems Sitting up, feeling okay, however heart rate and blood pressure is accelerated, patient reported feeling anxious need oral Ativan now Problem List Medical Problems: (1) Acute cholecystitis Status: Acute (2) Alcoholic intoxication Status: Acute (3) Hypoxia Status: Acute (4) Suicidal ideation Status: Acute Review of Systems Constitutional: + fatigue, + weakness, No chills, No fever, No problem reported , No sweats, No weight loss Eyes: No diplopia, No discharge, No eye pain, No redness, No worsening of vision ENT: No dental problems, No hearing loss, No nasal symptoms, No sore throat, No tinnitus, No trouble swallowing, No unusual epistaxis Respiratory: No cough, No dyspnea at rest, No dyspnea on exertion, No hemoptysis, No shortness of breath, No sputum, No wheezing Cardiac: No PND, No chest pain, No claudication, No edema, No orthopnea, No palpitations Abdomen: No constipation, No diarrhea, No nausea, No pain, No vomiting Musculoskeletal: No calf pain, No joint pain, No muscle pain, No swelling Male : No dysuria, No hematuria, No incontinence, No nocturia more than once/ night, No slowing stream, No urinary frequency Neurologic: No balance problems, No memory loss, No numbness/tingling, No paralysis, No vertigo, No weakness Psychiatric: + anxiety, No anhedonism, No depression symptoms, No insomnia, No substance abuse Heme: No abnormal bleeding/bruising, No clotting problems, No night sweats, No swollen lymph nodes Endo: No excessive thirst, No excessive urination, No fatigue Skin: No bleeding, No color change, No itch, No new/changing skin lesions, No rash Objective Vital Signs Date Time Temp Pulse Resp B/P Pulse Ox O2 Delivery O2 Flow Rate FiO2 12/01/16 12:00 Room Air 12/01/16 11:29 36.6 81 18 164/104 95 Room Air 12/01/16 08:20 Room Air 12/01/16 07:02 37.0 75 20 152/100 95 Room Air 153/88 12/01/16 04:00 Nasal Cannula 2.0 12/01/16 03:28 36.6 86 20 165/97 97 Room Air 11/30/16 23:59 Nasal Cannula 2.0 11/30/16 23:25 36.7 99 20 176/103 91 Room Air 11/30/16 22:35 170/110 11/30/16 20:00 Nasal Cannula 2.0 11/30/16 19:37 36.8 91 18 177/118 92 Room Air 11/30/16 16:00 Nasal Cannula 2.0 Physical Exam General Appearance: WD/WN, no apparent distress, + obese Eyes: normal inspection, PERRL, EOMI, sclerae normal ENT: normal ENT inspection, hearing grossly normal, pharynx normal Neck: supple, no adenopathy, thyroid normal, no JVD, no carotid bruits, trachea midline Respiratory/Chest: chest non-tender, lungs clear, normal breath sounds, no respiratory distress, no accessory muscle use Cardiovascular: regular rate, rhythm, no edema, no gallop, no JVD, no murmur, + tachycardia Abdomen: normal bowel sounds, non tender, soft, no organomegaly, no pulsatile mass Extremities: normal range of motion, non-tender, normal inspection, no pedal edema, no calf tenderness, normal capillary refill, pelvis stable Neurologic/Psychiatric: 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 nml as tested, no motor/sensory deficits, alert, normal mood/affect, oriented x 3 Skin: normal color, warm/dry, no rash Lymphatic: no adenopathy Laboratory Results Last 24 Hours Test 11/30/16 16:13 12/01/16 06:10 White Blood Count 8.87 K/uL 10.82 K/uL Red Blood Count 4.88 M/uL 4.54 M/uL Hemoglobin 14.7 g/dL 14.0 g/dL Hematocrit 43.4 % 41.0 % Mean Corpuscular Volume 88.9 fL 90.3 fL Mean Corpuscular Hemoglobin 30.1 pg 30.8 pg Mean Corpuscular Hemoglobin Concent 33.9 g/dl 34.1 g/dl Platelet Count 264 K/uL 252 K/uL Mean Platelet Volume 8.7 fL 9.0 fL Neutrophils (%) (Auto) 67.3 % 73.2 % Lymphocytes (%) (Auto) 22.7 % 14.9 % Monocytes (%) (Auto) 8.1 % 10.4 % Eosinophils (%) (Auto) 1.0 % 1.0 % Basophils (%) (Auto) 0.6 % 0.3 % Neutrophils # (Auto) 5.97 K/uL 7.92 K/uL Lymphocytes # (Auto) 2.01 K/uL 1.61 K/uL Monocytes # (Auto) 0.72 K/uL 1.13 K/uL Eosinophils # (Auto) 0.09 K/uL 0.11 K/uL Basophils # (Auto) 0.05 K/uL 0.03 K/uL RDW Standard Deviation 48.7 fL 49.4 fL RDW Coefficient of Variation 15.0 % 14.8 % Immature Granulocyte % (Auto) 0.3 % 0.2 % Immature Granulocyte # (Auto) 0.03 K/uL 0.02 K/uL Sodium Level 140 mmol/L 138 mmol/L Potassium Level 3.6 mmol/L 3.6 mmol/L Chloride Level 105 mmol/L 103 mmol/L Carbon Dioxide Level 28 mmol/L 29 mmol/L Anion Gap 7.0 mmol/L 6.0 mmol/L Blood Urea Nitrogen 12 mg/dl 10 mg/dl Creatinine 0.94 mg/dl 0.90 mg/dl Est Creatinine Clear Calc Drug Dose 104.3 ml/min 110.6 ml/min Estimated GFR () 103.9 109.5 Estimated GFR (Non- 89.6 94.5 BUN/Creatinine Ratio 13.2 11.5 Random Glucose 112 mg/dl 122 mg/dl Calcium Level 8.7 mg/dl 8.2 mg/dl Magnesium Level 1.8 mg/dl 1.9 mg/dl Assessment and Plan 56-year-old male with a past medical history of chronic alcohol abuse presented with an acute alcohol intoxication on 11/29/2016 Admitted to telemetry to monitor for withdrawal symptoms. Acute alcohol intoxication: Stable and improving Banana bag started in ER, will continue Alcohol withdrawal protocol with gabapentin, we'll continue fall precautions Seizure precautions Hypernatremia: Likely hypovolemic, encourage plenty oral intake Resolved Continue follow-up Accelerated hypertension, likely from alcohol intoxication of alcohol withdrawal , possible has underlying hypertension Because of tachycardia and hypertension has started beta obdulia Suicidal ideation: No more has suicidal ideation or homicidal ideation Psychiatry saw patient Will reevaluation Not allowed even he want to AMA to home, If he want AMA we need to call to please possible need 302 him Psychiatry service call me this morning possible referral to behavioral health rehabilitation Tobacco abuse disorder, nicotine patch DVT prophylaxis: SCDs Full code Disposition: Telemetry. monitor for withdrawal Continued [facility] stay due to: multiple IV medications needed Discharge planning: uncertain
[2016-12-01] MEDS: LORAZEPAM 1 MG TAB PO PRN (19:25)
[2016-12-01 20:51] LABS: URINE APPEARANCE CLEAR (CLEAR); URINE BILIRUBIN NEG (NEG); URINE COLOR YELLOW; URINE NITRITE NEG (NEG); URINE SPECIFIC GRAVITY 1.009 (1.000-1.030); UROBILINOGEN NEG (NEG)
[2016-12-01 20:55] LABS: MANUAL MICROSCOPIC REQUIRED? NO; REVIEW REQ? NO
[2016-12-02] MEDS: CLONIDINE HCL 0.1 MG TAB PO SCH ×4 (00:30→23:36)
[2016-12-02 03:34] VITALS: BP 130/89; PULSE 61; TEMP 36.6; O2SAT 96
[2016-12-02 07:50] VITALS: BP_SYST 154; BP_SYST 170; BP_DIAS 102; PULSE 73; TEMP 36.8; O2SAT 95
[2016-12-02] MEDS: GABAPENTIN 600MG Q12H DOSE PO SCH ×2 (08:15→20:44)
[2016-12-02] MEDS: METOPROLOL TARTRATE 25 MG TAB PO SCH (08:15)
[2016-12-02] MEDS: MULTIVITAMIN TAB PO SCH (09:00)
[2016-12-02] MEDS: THIAMINE HCL 100 MG TAB PO SCH (09:00)
[2016-12-02] MEDS: LORAZEPAM 1 MG TAB PO PRN (09:00)
[2016-12-02] MEDS: NICOTINE 21 MG/24 HR TDSY TD SCH (10:09)
[2016-12-02 10:52] VITALS: BP 136/83; PULSE 60; TEMP 36.4; O2SAT 95
[2016-12-02] MEDS ORDERED: DOCUSATE SODIUM 100 MG CAP PO PRN (15:30)
[2016-12-02] MEDS ORDERED: POLYETHYLENE (MIRALAX) 17 GM PACK PO PRN (15:30)
--- NOTE | 2016-12-02 15:36 | Progress Note ---
Subjective Date of Service: Dec 02, 2016. Subjective Pt evaluation today including: conversation w/ patient, physical exam, chart review, lab review, review of studies, conversation w/ hr consultant, review of inpatient medication list Was having anxiousness morning, need Ativan by mouth, blood pressure was accelerated, which improved this pm, eating /voiding okay Problem List Medical Problems: (1) Acute cholecystitis Status: Acute (2) Alcoholic intoxication Status: Acute (3) Hypoxia Status: Acute (4) Suicidal ideation Status: Acute Review of Systems Constitutional: + fatigue, + weakness, No chills, No fever, No problem reported , No sweats, No weight loss Eyes: No diplopia, No discharge, No eye pain, No redness, No worsening of vision ENT: No dental problems, No hearing loss, No nasal symptoms, No sore throat, No tinnitus, No trouble swallowing, No unusual epistaxis Respiratory: No cough, No dyspnea at rest, No dyspnea on exertion, No hemoptysis, No shortness of breath, No sputum, No wheezing Cardiac: No PND, No chest pain, No claudication, No edema, No orthopnea, No palpitations Abdomen: No constipation, No diarrhea, No nausea, No pain, No vomiting Musculoskeletal: No calf pain, No joint pain, No muscle pain, No swelling Male : No dysuria, No hematuria, No incontinence, No nocturia more than once/ night, No slowing stream, No urinary frequency Neurologic: No balance problems, No memory loss, No numbness/tingling, No paralysis, No vertigo, No weakness Psychiatric: + anxiety, No anhedonism, No depression symptoms, No insomnia, No substance abuse Heme: No abnormal bleeding/bruising, No clotting problems, No night sweats, No swollen lymph nodes Endo: No excessive thirst, No excessive urination, No fatigue Skin: No bleeding, No color change, No itch, No new/changing skin lesions, No rash Objective Vital Signs Date Time Temp Pulse Resp B/P Pulse Ox O2 Delivery O2 Flow Rate FiO2 12/02/16 10:52 36.4 60 20 136/83 95 Room Air 12/02/16 08:00 Room Air 12/02/16 07:50 36.8 73 20 170/102 95 Room Air 154/102 12/02/16 04:00 Room Air 12/02/16 03:34 36.6 61 20 130/89 96 Room Air 12/01/16 23:59 Room Air 12/01/16 23:53 36.6 66 18 161/89 96 Room Air 12/01/16 20:00 36.9 78 20 165/91 95 Room Air 12/01/16 20:00 Room Air 12/01/16 16:16 84 97 12/01/16 16:00 Room Air 12/01/16 15:57 36.6 71 18 156/96 97 Room Air Physical Exam General Appearance: WD/WN, no apparent distress Eyes: normal inspection, PERRL, EOMI, sclerae normal ENT: normal ENT inspection, hearing grossly normal, pharynx normal Neck: supple, no adenopathy, thyroid normal, no JVD, no carotid bruits, trachea midline Respiratory/Chest: chest non-tender, lungs clear, normal breath sounds, no respiratory distress, no accessory muscle use Cardiovascular: regular rate, rhythm, no edema, no gallop, no JVD, no murmur Abdomen: normal bowel sounds, non tender, soft, no organomegaly, no pulsatile mass Extremities: normal range of motion, non-tender, normal inspection, no pedal edema, no calf tenderness, normal capillary refill, pelvis stable 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 Acute alcohol intoxication: Stable and slowly improving Banana bag started in ER, will continue Alcohol withdrawal protocol with gabapentin, we'll continue fall precautions Seizure precautions Hypernatremia: Likely hypovolemic, encourage plenty oral intake Resolved Continue follow-up Accelerated hypertension, Continue little frustration likely from alcohol intoxication of alcohol withdrawal, possible has underlying hypertension Generally getting better after add beta obdulia Suicidal ideation: No more has suicidal ideation or homicidal ideation Psychiatry saw patient Discussed with psychiatry service, possible referral to and discharge to [facility] Psychiatry service call me this morning possible referral to behavioral health rehabilitation Tobacco abuse disorder, nicotine patch Discontinue IV fluid, start oral thiamine, folic acid and multiple vitamin by mouth, and Ativan as needed DVT prophylaxis: SCDs Full code Continued [facility] stay due to: multiple IV medications needed Discharge planning: uncertain, other (acute mental health rehabilitation facility)
[2016-12-02 15:42] VITALS: BP_SYST 165; BP_SYST 166; BP_DIAS 101; BP_DIAS 103; PULSE 74; TEMP 36.6; O2SAT 95
[2016-12-02] MEDS ORDERED: DOCUSATE SODIUM 100 MG CAP PO ONE (16:00)
[2016-12-02] MEDS ORDERED: POLYETHYLENE (MIRALAX) 17 GM PACK PO ONE (16:00)
[2016-12-02] MEDS ORDERED: GABAPENTIN 600MG Q12H DOSE PO SCH (18:00)
[2016-12-02 19:53] VITALS: BP 154/95; PULSE 74; TEMP 36.9; O2SAT 95
[2016-12-02 23:36] VITALS: BP_SYST 157; BP_SYST 163; BP_DIAS 105; BP_DIAS 111; PULSE 75; TEMP 36.4; O2SAT 95
[2016-12-03 03:13] VITALS: BP 153/90; PULSE 72; TEMP 36.6; O2SAT 95
[2016-12-03] MEDS: CLONIDINE HCL 0.1 MG TAB PO SCH ×2 (06:17→12:12)
[2016-12-03 07:01] LABS: BUN/CREATININE RATIO 10.8 (10-20); CALCIUM 8.7 mg/dl (8.5-10.1); CREATININE 0.92 mg/dl (0.60-1.40); MAGNESIUM 2.1 mg/dl (1.8-2.4); POTASSIUM 3.8 mmol/L (3.5-5.1)
[2016-12-03 07:45] VITALS: BP 147/88; PULSE 65; TEMP 36.5; O2SAT 97
[2016-12-03] MEDS: METOPROLOL TARTRATE 25 MG TAB PO SCH (08:19)
[2016-12-03] MEDS: THIAMINE HCL 100 MG TAB PO SCH (08:19)
[2016-12-03] MEDS: MULTIVITAMIN TAB PO SCH (08:20)
[2016-12-03] MEDS ORDERED: GABAPENTIN 600MG X1 DOSE PO SCH (09:00)
[2016-12-03] MEDS ORDERED: NICOTINE 21 MG/24 HR TDSY TD SCH (09:00)
--- NOTE | 2016-12-03 11:27 | Psychiatric Progress Notes ---
Psychiatric Progress Note Date of Service Dec 03, 2016. Notes ID: Patient reviewed with liaison nurse. Initial consult completed by KENDRA Brothers on 11/30/16. Patient presented to the [facility] with depression/SI and intoxicated. CC: "I want to go back to the [facility]" HPI: no issues overnight, tremors improved. BP also improving. Taking PO. No longer requiring prn benzos ROS: denies N/V/D/DANG MSE: alert, cooperative, thoughts organized, oriented, no SI/HI/murphy currently, desires treatment for depression Imp: same as initial consult Plan: 302 petition on chart, patient remains very agreeable to a 201. Liaison to facilitate referral when medically cleared.
[2016-12-03 11:31] VITALS: BP 152/91; PULSE 69; TEMP 36.4; O2SAT 97
[2016-12-03] MEDS ORDERED: NCDT21 TD (12:47)
[2016-12-03] MEDS ORDERED: FLV1 PO (12:47)
[2016-12-03] MEDS ORDERED: THM100 PO (12:47)
[2016-12-03] MEDS ORDERED: MULT-589 PO (12:47)
[2016-12-03] MEDS ORDERED: CTP1 PO (12:47)
[2016-12-03] MEDS ORDERED: LPR25 PO (12:47)
[2016-12-03] MEDS ORDERED: LORA-741 PO (12:47)
--- NOTE | 2016-12-03 12:48 | Discharge Instructions ---
Discharge Instructions Date of Service Dec 03, 2016. Admission Reason for Admission: Alcohol Overdose Discharge Discharge Diagnosis / Problem: Acute alcohol intoxication Discharge Goals Goal(s): Decrease discomfort, Improve function, Increase independence, Improve disease control, Improve nutritional status, Learn about illness, Diagnostic testing, Therapeutic intervention, Prevent Disease Progression, Specific goals Activity Recommendations Activity Limitations: resume your previous activity (fall precaution) . Instructions / Follow-Up Instructions / Follow-Up you have Acute alcohol intoxication: you have Hypernatremia: you have Accelerated hypertension, your blood pressure medicine need to be adjusted by your famil continue [facility] you was smoking, I recommend stop smoking, and continue nicotine patch - you need to follow up with your primary care physician in 1 week, - take medication as instructed, never overdose or any misuse, or take with alcohol, because misuse of medicine may cause organ damage or , call your primary care physician if have questions of medicaitons. - call your primary care physician OR go to local emergency room if has any fever/chill, chest pain, shortness of breathing, nausea/vomiting/abdominal pain , facial droop/slurry speech/local weakness, or if has any questions. - fall precaution - diet as instructed - you should understand that it is important to follow up the above instruction , and "not following the above instruction" may cause delayed or missed care of your medical conditions which may cause permanent organ damage and even . Current Hospital Diet Patient's current hospital diet: Regular Diet Discharge Diet Recommended Diet: Regular Diet Pending Studies Studies pending at discharge: no Medical Emergencies . Who to Call and When: Medical Emergencies: If at any time you feel your situation is an emergency, please call 911 immediately. . Non-Emergent Contact Non-Emergency issues call your: Primary Care Provider, Specialist (psychiatry) . . "Provider Documentation" section prepared by Dm Shearer. VTE Core Measure Inpt VTE Proph given/why not?: SCD's
--- NOTE | 2016-12-03 13:05 | Discharge Summary ---
Discharge Summary Date of Service Dec 03, 2016. Discharge Summary Admission Date: Nov 30, 2016 at 03:00 Discharge Date: Dec 03, 2016 Principal Diagnosis: Acute alcohol intoxication: Problems/Secondary Diagnoses: HTN Immunizations: Have You Had Influenza Vaccine: Yes History of Tetanus Vaccine?: Yes History of Pneumococcal: No History of Hepatitis B Vaccine: Unknown Procedures: no Consultations: psych Medication Reconciliation New Medications: Lorazepam (Ativan) 0.5 Mg Tab 0.5 MG PO Q6H PRN for Anxiety for 3 Days, #12 TAB Clonidine HCl (Clonidine HCl) 0.1 Mg Tab 0.1 MG PO Q6 for 7 Days, #28 TAB Folic Acid (Folic Acid) 1 Mg Tab 1 MG PO QAM for 30 Days, #30 TAB Metoprolol Tartrate (Lopressor) 25 Mg Tab 25 MG PO QAM for 30 Days, #30 TAB Multivitamins (Daily Calin) 1 Tab Tab 1 TAB PO QAM for 30 Days, #30 TAB Nicotine (Nicotine) 1 Patch Tdsy 1 PATCH TD QAM for 30 Days Thiamine HCl (Vitamin B-1) 100 Mg Tab 100 MG PO QAM for 30 Days, #30 TAB Discharge Exam doing ok, BP better, last dose of Ativan was last night Review of Systems: Constitutional: No chills, No fatigue, No fever, No problem reported, No sweats, No weakness, No weight loss Eyes: No diplopia, No discharge, No eye pain, No problem reported, No redness, No worsening of vision ENT: No dental problems, No hearing loss, No nasal symptoms, No problem reported, No sore throat, No tinnitus, No trouble swallowing, No unusual epistaxis Respiratory: No cough, No dyspnea at rest, No dyspnea on exertion, No hemoptysis, No problem reported, No shortness of breath, No sputum, No wheezing Cardiovascular: No PND, No chest pain, No claudication, No edema, No orthopnea, No palpitations, No problem reported Genitourinary - Male: No dysuria, No hematuria, No impotence, No lesions, No penile discharge, No problem reported, No urinary frequency, No urinary hesitancy, No urinary incontinence, No urinary retention, No urinary urgency Neurologic: + problem reported (mild anxious), No balance problems, No memory loss, No numbness/tingling, No paralysis, No vertigo, No weakness Psychiatric: No anhedonism, No anxiety, No depression symptoms, No insomnia , No problem reported, No substance abuse Endocrine: No excessive thirst, No excessive urination, No fatigue, No problem reported Hematologic / Lymphatic: No abnormal bleeding/bruising, No clotting problems , No night sweats, No problem reported, No swollen lymph nodes Integumentary: No bleeding, No color change, No itch, No new/changing skin lesions, No problem reported, No rash Physical Exam: General Appearance: WD/WN, no apparent distress Eyes: normal inspection, PERRL ENT: normal ENT inspection, hearing grossly normal Neck: supple, no adenopathy Respiratory/Chest: chest non-tender, normal breath sounds, no respiratory distress, no accessory muscle use, + decreased breath sounds Cardiovascular: regular rate, rhythm, no edema, no gallop Abdomen / GI: normal bowel sounds, non tender, soft, no organomegaly, no pulsatile mass Extremities: normal inspection, no calf tenderness, normal capillary refill 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 Acute alcohol intoxication: Stable and slowly improving has been on Banana bag started in ER,, Alcohol withdrawal protocol with gabapentin, Hypernatremia Upon admission : Likely hypovolemic, encourage plenty oral intake Resolved Accelerated hypertension, better likely from alcohol intoxication of alcohol withdrawal, possible has underlying hypertension Generally getting better after add beta obdulia, cont bb Suicidal ideation: No more has suicidal ideation or homicidal ideation Psychiatry saw patient Discussed with psychiatry service, possible referral to and discharge to [facility] Psychiatry service call me this morning possible referral to behavioral health rehabilitation Tobacco abuse disorder, nicotine patch cont oral thiamine, folic acid and multiple vitamin by mouth, and Ativan as needed DVT prophylaxis: SCDs Full code Instructions / Follow-Up you have Acute alcohol intoxication: you have Hypernatremia: you have Accelerated hypertension, your blood pressure medicine need to be adjusted by your famil continue [facility] rehab you was smoking, I recommend stop smoking, and continue nicotine patch - you need to follow up with your primary care physician in 1 week, - take medication as instructed, never overdose or any misuse, or take with alcohol, because misuse of medicine may cause organ damage or , call your primary care physician if have questions of medicaitons. - call your primary care physician OR go to local emergency room if has any fever/chill, chest pain, shortness of breathing, nausea/vomiting/abdominal pain , facial droop/slurry speech/local weakness, or if has any questions. - fall precaution - diet as instructed - you should understand that it is important to follow up the above instruction , and "not following the above instruction" may cause delayed or missed care of your medical conditions which may cause permanent organ damage and even . Total Time Spent: Greater than 30 minutes This includes examination of the patient, discharge planning, medication reconciliation, and communication with other providers. Discharge Instructions Please refer to the electronic Patient Visit Report (Discharge Instructions) for additional information. Additional Copies To RV. Ross MD
[2016-12-03 13:13] VITALS: BP 152/91; PULSE 69; TEMP 36.4; O2SAT 97
[2016-12-04] MEDS ORDERED: GABAPENTIN 600MG X1 DOSE PO SCH (06:00)
[2017-04-16] MEDS ORDERED: TPRSR50 PO (12:01)
[2017-04-16] MEDS ORDERED: NRV5 PO (12:01)
== END 2016-12-03 15:22 ==
LOC: ENRESERVDT → ENRESERVTM → EDBD 23:50 → C.EDA 23:52 → C.2T 11-30 03:00
PROVIDERS: ADMIT Family Medicine; ATTEND Hospitalist
DX: F10.129 Alcohol abuse with intoxication, unspecified (principal); I10 Essential (primary) hypertension; Z79.899 Other long term (current) drug therapy; R45.851 Suicidal ideations; F17.210 Nicotine dependence, cigarettes, uncomplicated; R09.02 Hypoxemia; K81.0 Acute cholecystitis; F32.9 Major depressive disorder, single episode, unspecified; K44.9 Diaphragmatic hernia without obstruction or gangrene; M19.91 Primary osteoarthritis, unspecified site

== ENCOUNTER 2016-12-29 13:48 | Emergency (ER) | payer OTHER ==
[~2016-12-29] VITALS: Ht 180.3 cm; Wt 97.8 kg
[~2016-12-29 13:48] MED LIST changes: +CTP1 PO; +FLV1 PO; -LEVO50TA6 PO; +LPR25 PO; +MULT-589 PO; +NCDT21 TD; +THM100 PO
[2016-12-29 13:52] VITALS: Ht 180.3 cm; Wt 97.8 kg
[2016-12-29 14:26] VITALS: O2SAT 96
[2016-12-29] MEDS ORDERED: CHLORDIAZEPOXIDE 25 MG CAP PO ONE ×2 (14:30→18:00)
[2016-12-29] MEDS ORDERED: MULTI-VITAMIN INFUSION INJ 10 ML, THIAMINE HCL INJ 100 MG, FoLIC ACID INJ 1 MG in SODIU... IV ONE (14:30)
[2016-12-29 14:47] LABS: BASO % 0.3 %; BASO ABS # 0.05 K/uL (0-0.2); COMPLETE YES; EOS % 0.3 %; HEMATOCRIT 46.8 % (42-52); IG% 0.3 %; LYMPH % 8.9 %; LYMPH ABS # 1.35 K/uL (1.2-3.4); MEAN CELL VOLUME 90.7 fL (80-100); MEAN CORPUSCULAR HEMOGLOBIN 30.8 pg (25-34); MONO % 6.7 %; NEUT % 83.5 %; PLATELET COUNT 277 K/uL (130-400); RED BLOOD COUNT 5.16 M/uL (4.7-6.1); WHITE BLOOD COUNT 15.19 K/uL (4.8-10.8)
[2016-12-29 15:15] LABS: BUN/CREATININE RATIO 17.2 (10-20); CALCIUM 9.2 mg/dl (8.5-10.1); CREATININE 0.99 mg/dl (0.60-1.40); POTASSIUM 3.4 mmol/L (3.5-5.1)
--- NOTE | 2016-12-29 16:29 | DIAGNOSTIC IMAGING REPORT ---
CHEST 2 VIEWS ROUTINE CLINICAL HISTORY: cough eval for pnea dyspnea COMPARISON STUDY: 11/30/2016 FINDINGS: The bones soft tissues and hemidiaphragms are normal. The cardiomediastinal silhouette is normal. The lungs are clear. The pulmonary vasculature is normal. IMPRESSION: Negative chest. Electronically signed by: Emiliano De La Rosa M.D. 12/29/2016 4:28 PM Dictated Date/Time: 12/29/2016 4:27 PM
[2016-12-29 17:50] VITALS: BP 170/85; PULSE 71; TEMP 36.6; O2SAT 98
--- NOTE | 2016-12-29 17:52 | EMERGENCY ROOM VISIT NOTE ---
History Report prepared by Mc: Etta Villegas Under the Supervision of: Dr. Fuentes Garber M.D. First contact with patient: 14:11 Chief Complaint: DETOX REQUEST Stated Complaint: PRISON DRINKING,NEED TO DETOX Nursing Triage Summary: request detox. last detox a month ago at [facility], [place] History of Present Illness The patient is a 56 year old male who presents to the Emergency Room for alcohol detox request. The patient started drinking about 5-6 days ago and has been drinking about a fifth a day. His last alcoholic drink was at 2 am last night. The patient currently feels anxious and restless with palpitations. He has a history of similar withdrawal symptoms. The patient denies any history of seizures with alcohol withdrawal or delirium tremens. The patient was here last month for detox. He states he was admitted at that time because his alcohol level was in the 400s. He has been drinking alcohol for the past 40 years. He was recently fired from his job and states that he has no coping skills so he binge drink for 5-6 days. The patient denies any suicidal ideation. He currently denies any pain. He denies chest discomfort, shortness of breath, or any other complaints. He does not have any medical problems. Source of History: patient Onset: today Position: other (global) Symptom Intensity: moderate (No pain) Quality: other (withdrawal symptoms) Timing: constant Associated Symptoms: No SOB, No chest pain Review of Systems See HPI for pertinent positives & negatives. A total of 10 systems reviewed and were otherwise negative. Past Medical & Surgical Medical Problems: (1) Alcohol abuse (2) Alcohol dependence (3) Gallstone (4) Hiatal hernia (5) Osteoarthritis Family History Unobtainable due to patient's condition Social History Smoking Status: Current Every Day Smoker Alcohol Use: heavy Housing Status: lives alone Occupation Status: employed Current/Historical Medications No Active Prescriptions or Reported Meds Allergies Coded Allergies: Diphenhydramine (Verified Adverse Reaction, Mild, JITTERY/ANXIOUS, 11/30/16 ) ABLE TO TAKE REG. TYLENOL Physical Exam Vital Signs Date Time Temp Pulse Resp B/P Pulse Ox O2 Delivery O2 Flow Rate FiO2 12/29/16 16:46 175/91 12/29/16 16:44 85 18 176/104 96 Room Air 12/29/16 14:28 100 16 167/95 96 Room Air 12/29/16 14:27 82 5/10/17 14:26 96 Room Air 12/29/16 13:52 36.6 110 20 148/81 94 Room Air Physical Exam Constitutional: Vital signs reviewed. Eyes: Pupils are equal round reactive to light. Conjunctiva are noninjected. ENT: Pharynx is clear without erythema or exudate. Mucous membranes are moist. Neck supple without meningeal signs. Respiratory: Clear to auscultation bilaterally. Breath sounds are equal bilaterally. Cardiovascular: Regular rate and rhythm. No rubs or gallops. GI: Soft, nondistended and nontender. Bowel sounds are present. Musculoskeletal: No peripheral edema. Integumentary: No cyanosis. Neurological: The patient is awake and alert. No focal deficits. Psychiatric: Anxious. Medical Decision & Procedures ER Provider Diagnostic Interpretation: X-ray results as stated below per interpretation by me and the radiologist: CHEST 2 VIEWS ROUTINE CLINICAL HISTORY: cough eval for pnea dyspnea COMPARISON STUDY: 11/30/2016 FINDINGS: The bones soft tissues and hemidiaphragms are normal. The cardiomediastinal silhouette is normal. The lungs are clear. The pulmonary vasculature is normal. IMPRESSION: Negative chest. Electronically signed by: Emiliano De La Rosa M.D. 12/29/2016 4:28 PM Dictated Date/Time: 12/29/2016 4:27 PM Laboratory Results 12/29/16 14:20 Red Blood Count 5.16, Mean Corpuscular Volume 90.7, Mean Corpuscular Hemoglobin 30.8, Mean Corpuscular Hemoglobin Concent 34.0, Mean Platelet Volume 9.0, Neutrophils (%) (Auto) 83.5, Lymphocytes (%) (Auto) 8.9, Monocytes (%) (Auto) 6.7, Eosinophils (%) (Auto) 0.3, Basophils (%) (Auto) 0.3, Neutrophils # (Auto) 12.69, Lymphocytes # (Auto) 1.35, Monocytes # (Auto) 1.02, Eosinophils # (Auto) 0.04, Basophils # (Auto) 0.05 12/29/16 14:20 Test 12/29/16 14:20 White Blood Count 15.19 K/uL (4.8-10.8) Red Blood Count 5.16 M/uL (4.7-6.1) Hemoglobin 15.9 g/dL (14.0-18.0) Hematocrit 46.8 % (42-52) Mean Corpuscular Volume 90.7 fL (80-100) Mean Corpuscular Hemoglobin 30.8 pg (25-34) Mean Corpuscular Hemoglobin Concent 34.0 g/dl (32-36) Platelet Count 277 K/uL (130-400) Mean Platelet Volume 9.0 fL (7.4-10.4) Neutrophils (%) (Auto) 83.5 % Lymphocytes (%) (Auto) 8.9 % Monocytes (%) (Auto) 6.7 % Eosinophils (%) (Auto) 0.3 % Basophils (%) (Auto) 0.3 % Neutrophils # (Auto) 12.69 K/uL (1.4-6.5) Lymphocytes # (Auto) 1.35 K/uL (1.2-3.4) Monocytes # (Auto) 1.02 K/uL (0.11-0.59) Eosinophils # (Auto) 0.04 K/uL (0-0.5) Basophils # (Auto) 0.05 K/uL (0-0.2) RDW Standard Deviation 49.0 fL (36.4-46.3) RDW Coefficient of Variation 14.7 % (11.5-14.5) Immature Granulocyte % (Auto) 0.3 % Immature Granulocyte # (Auto) 0.04 K/uL (0.00-0.02) Anion Gap 9.0 mmol/L (3-11) Est Creatinine Clear Calc Drug Dose 98.1 ml/min Estimated GFR () 97.6 Estimated GFR (Non- 84.2 BUN/Creatinine Ratio 17.2 (10-20) Calcium Level 9.2 mg/dl (8.5-10.1) Troponin I 0.034 ng/ml (0-0.045) Ethyl Alcohol mg/dL < 3.0 mg/dl (0-3) Laboratory results as reviewed by me. Medications Administered Medications (Trade) Dose Ordered Sig/Mariana Route Start Time Stop Time Status Last Admin Dose Admin Multivitamins/ Thiamine HCl/ Folic Acid/Sodium Chloride (Mvi Infusion Inj/Vitamin B-1 Inj/Folvite Inj/ Nss 1000ml) 1,011.2 ml @ 500 mls/ hr Q2H2M ONCE IV 12/29/16 14:30 5/10/17 16:31 DC 12/29/16 15:13 500 MLS/HR Chlordiazepoxide (Librium Cap) 50 mg NOW ONCE PO 12/29/16 14:30 12/29/16 14:31 DC 12/29/16 14:33 50 MG ECG Indication: palpitations Rate (beats per minute): 86 Rhythm: sinus rhythm Findings: PAC, no acute ischemic change ED Course 1411: The patient was evaluated in room C11B. A complete history and physical exam was performed. 1430: Librium Cap 50 mg PO, Multivitamins 10 ml/Thiamine HCl 100 mg/Folic Acid 1 mg/Sodium Chloride 1,011.2 ml @ 500 mls/hr IV 1510: I reevaluated the patient who is feeling better. His vital signs are normal. He does complain of a cough but denies any fevers or signs of infection. I discussed test results with him. 1652: The patient is slightly hypertensive but denies any worsening of his symptoms. He is waiting to talk to the case management director. Medical Decision This is a 56-year-old male who presents with palpitations. Differential diagnosis includes alcohol withdrawal, delirium tremens, alcohol intoxication, anxiety, metabolic derangement, electrolyte abnormality. I did perform a limited focused review of portions of the patient's old chart on the electronic medical record. The patient was admitted in November for alcohol detox and was discharged on December 03. He has prior history of severe withdrawal. I did evaluate the patient as noted above. IV access was established. The patient was placed on a continuous court monitor. I did order and personally review the patient's 12-lead EKG and chest x-ray as described above. I did order and review the patient's blood work as noted in the electronic medical record. I did treat patient with Librium 50 mg. He was also given a banana bag IV. I did reevaluate the patient several times. He is feeling better. I did discuss the case with the case management director who evaluated the patient and got him admitted to [facility] for alcohol detox. He will be discharged home and they will pick him up later this evening. The patient was given a dose of Librium 25 mg to take later today should he need it. He was discharged in good condition. Impression Primary Impression: Alcohol withdrawal Scribe Attestation The scribe's documentation has been prepared under my direct and personally reviewed by me in its entirety. I confirm that the note above accurately reflects all work, treatment, procedures, and medical decision making performed by me. Departure Information Dispostion Other (home to let her go to alcohol detox) Prescriptions No Active Prescriptions or Reported Meds Referrals No Doctor, Assigned (PCP) Patient Instructions My [facility] Problem Qualifiers Primary Impression: Alcohol withdrawal Complication of substance-induced condition: uncomplicated Qualified Codes: F10.230 - Alcohol dependence with withdrawal, uncomplicated
[2017-04-16] MEDS ORDERED: TPRSR50 PO (12:01)
[2017-04-16] MEDS ORDERED: NRV5 PO (12:01)
== END 2016-12-29 17:50 | disposition home or self-care (01) ==
LOC: C.EDB 13:50 → C.EDC 17:50
DX: F10.230 Alcohol dependence with withdrawal, uncomplicated (principal); M19.90 Unspecified osteoarthritis, unspecified site; K80.20 Calculus of gallbladder without cholecystitis without obstruction; F17.200 Nicotine dependence, unspecified, uncomplicated; Z88.8 Allergy status to other drugs, medicaments and biological substances

== ENCOUNTER 2017-04-05 18:30 | Inpatient (IN) | payer OTHER ==
[~2017-04-05] VITALS: Ht 180.3 cm; Wt 102.0 kg
[2017-04-05] MEDS ORDERED: SODIUM CHLORIDE 0.9% 1000ML 1,000 ML IV STA ×2 (19:15→20:39)
[2017-04-05 19:40] LABS: BASO % 0.3 %; BASO ABS # 0.04 K/uL (0-0.2); COMPLETE YES; EOS % 0.8 %; HEMATOCRIT 50.8 % (42-52); IG% 0.4 %; MEAN CORPUSCULAR HEMOGLOBIN 30.7 pg (25-34); MEAN CORPUSCULAR HGB CONC 32.3 g/dl (32-36); MEAN PLATELET VOLUME 9.2 fL (7.4-10.4); NEUT % 80.5 %; PLATELET COUNT 278 K/uL (130-400); RED BLOOD COUNT 5.35 M/uL (4.7-6.1); WHITE BLOOD COUNT 15.93 K/uL (4.8-10.8)
[2017-04-05] MEDS ORDERED: BUPR100T8 PO (19:40)
[2017-04-05 19:44] LABS: PARTIAL THROMBOPLASTIN RATIO 1.3; PROTHROMBIN TIME (PATIENT) 10.6 SECONDS (9.0-12.0)
[2017-04-05] MEDS ORDERED: MULT-506 PO (19:46)
[2017-04-05 20:07] LABS: ACETAMINOPHEN < 2 ug/ml (10-30)
[2017-04-05 20:28] LABS: BUN/CREATININE RATIO 7.7 (10-20); CALCIUM 8.2 mg/dl (8.5-10.1); CREATININE 2.6 mg/dl (0.60-1.40); POTASSIUM 4.6 mmol/L (3.5-5.1); THYROID STIMULATING HORMONE 3.41 uIu/ml (0.300-4.500)
[2017-04-05] MEDS ORDERED: MULTI-VITAMIN INFUSION INJ 10 ML, THIAMINE HCL INJ 100 MG, FoLIC ACID INJ 1 MG in SODIU... IV ONE (21:00)
[2017-04-05] MEDS ORDERED: LORAZEPAM 1 MG TAB PO PRN (21:15)
[2017-04-05 21:19] LABS: MAGNESIUM 2.1 mg/dl (1.8-2.4)
--- NOTE | 2017-04-05 21:50 | History and Physical ---
History & Physical Date & Time of Service: Apr 05, 2017 at 21:34 Chief Complaint: Overdose, Dizzy Primary Care Physician: RV. Ross MD History of Present Illness Source: patient, hospital records This is a 57 yo m with a history of alcohol abuse that is presenting to us with a presumed accidental overdose of Vistiril and Clonidine. The patient is lethargic but conversive. He states that he was recently fired from his job and he needed to "calm down". He had taken seven Vistiril and seven clonidine over the past 24 hours. He was concerned because of how dizzy he was and came to the ED for evaluation. He notes the dizziness has subsided, he also denies any pain. He states that his PCP did not prescribe the medications but the rehab that he was at recently. He notes that was his second visit to rehab for alcohol however he has been drinking since. He had a pint of alcohol yesterday. He notes he has not eaten or drank anything in the last 24 hours as well. Poison control was contacted by ED physician and recommend supportive care. Past Medical/Surgical History Medical Problems: (1) Alcohol abuse Status: Chronic (2) Alcohol dependence Status: Chronic Family History Unobtainable due to patient's condition Social History Smoking Status: Current Every Day Smoker Smokeless Tobacco Use: No Alcohol Use: heavy Drug Use: none Marital Status: single Housing status: lives alone Occupational Status: employed Immunizations History of Influenza Vaccine: Yes History of Tetanus Vaccine?: Yes History of Pneumococcal: No History of Hepatitis B Vaccine: Unknown Multi-Drug Resistant Organisms History of MDRO: No Allergies Coded Allergies: Diphenhydramine (Verified Adverse Reaction, Mild, JITTERY/ANXIOUS, 11/30/16 ) ABLE TO TAKE REG. TYLENOL Home Medications Scheduled Bupropion (Wellbutrin Sr), 100 MG PO DAILY Multivitamin (Multivitamin), 1 TAB PO DAILY Review of Systems Constitutional: + fatigue, No fever Eyes: No worsening of vision ENT: No hearing loss Respiratory: No cough, No sputum, No wheezing, No shortness of breath Cardiovascular: No chest pain Abdomen: No pain, No nausea, No vomiting, No diarrhea, No constipation Musculoskeletal: No joint pain, No muscle pain Genitourinary - Male: No hematuria Neurologic: + balance problems, No weakness, No numbness/tingling Psychiatric: + substance abuse Endocrine: + fatigue Hematologic / Lymphatic: No abnormal bleeding/bruising Integumentary: No rash Physical Exam Vital Signs Date Time Temp Pulse Resp B/P (MAP) Pulse Ox O2 Delivery O2 Flow Rate FiO2 04/05/17 19:07 73 04/05/17 18:41 36.4 73 20 103/70 99 Room Air General Appearance: no apparent distress Head: normocephalic, atraumatic Eyes: normal inspection ENT: + pertinent finding (dry mucus membranes) Neck: supple Respiratory/Chest: normal breath sounds, no respiratory distress, no accessory muscle use Cardiovascular: regular rate, rhythm, no murmur Abdomen/GI: normal bowel sounds, non tender, soft Back: normal inspection Extremities/Musculoskelatal: no calf tenderness, no pedal edema, normal range of motion Neurologic/Psych: oriented x 3 (but lethargic) Skin: normal color, warm/dry, no rash Lymphatic: no adenopathy Diagnostics Laboratory Results Results Past 24 Hours Test 04/05/17 17:30 04/05/17 19:44 Range/Units White Blood Count 15.93 4.8-10.8 K/uL Red Blood Count 5.35 4.7-6.1 M/uL Hemoglobin 16.4 14.0-18.0 g/dL Hematocrit 50.8 42-52 % Mean Corpuscular Volume 95.0 80-100 fL Mean Corpuscular Hemoglobin 30.7 25-34 pg Mean Corpuscular Hemoglobin Concent 32.3 32-36 g/dl Platelet Count 278 130-400 K/uL Mean Platelet Volume 9.2 7.4-10.4 fL Neutrophils (%) (Auto) 80.5 % Lymphocytes (%) (Auto) 10.0 % Monocytes (%) (Auto) 8.0 % Eosinophils (%) (Auto) 0.8 % Basophils (%) (Auto) 0.3 % Neutrophils # (Auto) 12.83 1.4-6.5 K/uL Lymphocytes # (Auto) 1.60 1.2-3.4 K/uL Monocytes # (Auto) 1.27 0.11-0.59 K/uL Eosinophils # (Auto) 0.13 0-0.5 K/uL Basophils # (Auto) 0.04 0-0.2 K/uL RDW Standard Deviation 54.6 36.4-46.3 fL RDW Coefficient of Variation 15.8 11.5-14.5 % Immature Granulocyte % (Auto) 0.4 % Immature Granulocyte # (Auto) 0.06 0.00-0.02 K/uL Prothrombin Time 10.6 9.0-12.0 SECONDS Prothromb Time International Ratio 1.0 0.9-1.1 Activated Partial Thromboplast Time 32.5 21.0-31.0 SECONDS Partial Thromboplastin Ratio 1.3 Sodium Level 139 136-145 mmol/L Potassium Level 4.6 3.5-5.1 mmol/L Chloride Level 105 98-107 mmol/L Carbon Dioxide Level 14 21-32 mmol/L Anion Gap 20.0 3-11 mmol/L Blood Urea Nitrogen 20 7-18 mg/dl Creatinine 2.60 0.60-1.40 mg/dl Est Creatinine Clear Calc Drug Dose 37.2 ml/min Estimated GFR () 30.2 Estimated GFR (Non- 26.0 BUN/Creatinine Ratio 7.7 10-20 Random Glucose 100 70-99 mg/dl Calcium Level 8.2 8.5-10.1 mg/dl Magnesium Level 2.1 1.8-2.4 mg/dl Total Bilirubin 0.5 0.2-1 mg/dl Direct Bilirubin 0.1 0-0.2 mg/dl Aspartate Amino Transf (AST/SGOT) 37 15-37 U/L Alanine Aminotransferase (ALT/SGPT) 54 12-78 U/L Alkaline Phosphatase 96 45-117 U/L Total Creatine Kinase 160 39-308 U/L Total Protein 7.7 6.4-8.2 gm/dl Albumin 3.6 3.4-5.0 gm/dl Thyroid Stimulating Hormone (TSH) 3.410 0.300-4.500 uIu/ml Free Thyroxine 0.74 0.80-1.60 ng/dl Salicylates Level < 1.7 2.8-20 mg/dl Acetaminophen Level < 2 10-30 ug/ml Ethyl Alcohol mg/dL < 3.0 0-3 mg/dl Diagnostic Radiology Normal sinus rhythm Normal ECG When compared with ECG of 29-DEC-2016 14:16, Premature atrial complexes are no longer Present QTc 475 Impression Assessment and Plan This is a 57 yo m here for overdose of Vistiril and Clondine resulting in NITIN; questionably other substances; history of alcohol abuse; assumption that this is accidental Overdose of medications - tele admission - psych consult - supportive care - O2 per nursing protocol - prolonged QTc from medications most likely; recheck EKG in am NITIN secondary to dehydration vs overdose - NSS @150cc/h - recheck BMP in am History of alcohol abuse - alcohol withdrawal protocol - received banana bag in ED Depression - on Wellbutrin however with prolonged QTc will hold overnight and if normalized can restart tomorrow DVT Prophylaxis heparin bid Resident Physician Supervision Note: Pt seen/examined independently. I discussed the case with the resident and agree with the findings and plan as documented in the note. Any exceptions or clarifications are listed here: 57 y/o M Hx ETOH abuse, depression - stated he overdosed on Vistaril and Clonidine Labs notable for ARF Flushed and anxious middle-aged male - AAO x 1 S1,2 R CTAB NT, ND No CCE P: Treat for ETOH withdrawal - psych consult Aggressive IVF and trend BMP - consult renal if no immed improvement Documented By: William Daniels Level of Care Telemetry Resuscitation Status FULL RESUSCITATION VTE Prophylaxis VTE Risk Assessment Done? Y/N: Yes Risk Level: Moderate Given or contraindicated: Unfractionated heparin SQ Note Total Time: Critical Care 30 - 74 minutes Additional Copies To RV. Ross MD
[2017-04-05 22:25] LABS: URINE APPEARANCE CLEAR (CLEAR); URINE BILIRUBIN NEG (NEG); URINE COLOR YELLOW; URINE NITRITE NEG (NEG); UROBILINOGEN NEG (NEG); ZZUR CULT IF INDIC CLEAN CATCH NO
[2017-04-05 22:27] LABS: MANUAL MICROSCOPIC REQUIRED? NO; REVIEW REQ? NO
[2017-04-05 22:45] LABS: BENZODIAZEPINE, URINE NEG (NEG); COCAINE,URINE NEG (NEG); PHENCYCLIDINE, URINE NEG (NEG)
[2017-04-05 22:50] VITALS: BP 120/76; PULSE 75; TEMP 36.6; O2SAT 96
[2017-04-05 23:47] VITALS: BP 121/76; PULSE 74; TEMP 36.5; O2SAT 97
[2017-04-06] VITALS (8 sets, daily range): BP systolic 121–166; BP diastolic 76–97; PULSE 69–88; TEMP 36.5–37.5; O2SAT 95–98; Ht 180.3 cm; Wt 102.0 kg
--- NOTE | 2017-04-06 00:33 | EMERGENCY ROOM VISIT NOTE ---
History Report prepared by Mc: Junior Jones Under the Supervision of: Dr. Fuentes Garber M.D. First contact with patient: 19:03 Chief Complaint: OVERDOSE (ACCIDENTAL) Stated Complaint: OVERDOSE, DIZZY Nursing Triage Summary: Patient arrived ALS. Patient called EMS due to dizziness. Patient overdosed on vistaril and clonidine, patient able to name medications. Patient states he got fired from his job a few days ago and was feeling anxious. Patient states he was not trying to harm himself he was just trying to relax. Patient states he has done this before. When asked how many pills he took he states he took 7-8 of each but then when questioned again he states he took a couple of each last nigth and a couple of each this morning. Patient was unclear with EMS as well. History of Present Illness The patient is a 57 year old male who presents to the Emergency Room via EMS with a drug overdose. This history is limited secondary to the patient's mental status. This morning at 0400, the patient took 4 Clonidine 0.1 mg PO and 4 Vistaril 25 mg PO. He took the same amount last night. He was just trying to relax. He has these medications for his anxiety. He states that he has been going through a lot of stress lately, and he was recently fired from his job. He states that he was not trying to hurt himself. He denies any suicidal or homicidal ideation. He did not drink any alcohol today or take any other medications. He denies any physical complaints other than feeling tired. Source of History: patient History Limited By: AMS Onset: Last night and this morning Position: other (global) Symptom Intensity: 8 Clonidine, 8Vistaril Quality: other (Drug overdose) Timing: constant Associated Symptoms: No vomiting Review of Systems ROS limited secondary to altered mental status. Past Medical & Surgical Medical Problems: (1) Accidental overdose (2) NITIN (acute kidney injury) (3) Alcohol abuse (4) Alcohol dependence (5) Gallstone (6) Hiatal hernia (7) Osteoarthritis Family History Unobtainable due to patient's condition Social History Smoking Status: Current Every Day Smoker Alcohol Use: heavy Housing Status: lives alone Occupation Status: employed Current/Historical Medications Scheduled Bupropion (Wellbutrin Sr), 100 MG PO DAILY Multivitamin (Multivitamin), 1 TAB PO DAILY Allergies Coded Allergies: Diphenhydramine (Verified Adverse Reaction, Mild, JITTERY/ANXIOUS, 11/30/16 ) ABLE TO TAKE REG. TYLENOL Physical Exam Vital Signs Date Time Temp Pulse Resp B/P (MAP) Pulse Ox O2 Delivery O2 Flow Rate FiO2 04/05/17 21:00 73 19 117/71 95 Room Air 04/05/17 20:30 69 23 119/70 100 Room Air 04/05/17 20:05 75 20 105/71 98 Room Air 04/05/17 19:30 76 30 97 Room Air 04/05/17 19:07 73 04/05/17 19:00 74 29 97 Room Air 04/05/17 18:41 36.4 73 20 103/70 99 Room Air 04/05/17 18:32 103/70 Physical Exam Constitutional: Vital signs reviewed. Eyes: Pupils are equal round reactive to light. Conjunctiva are noninjected. ENT: Pharynx is clear without erythema or exudate. Mucous membranes are dry. Neck supple without meningeal signs. Respiratory: Clear to auscultation bilaterally. Breath sounds are equal bilaterally. Cardiovascular: Regular rate and rhythm. No rubs or gallops. GI: Soft, nondistended and nontender. Bowel sounds are present. Musculoskeletal: No peripheral edema. No lower extremity tenderness. Integumentary: No cyanosis. Neurological: No focal deficits. Lethargic, slurred speech. Psychiatric: Unable to assess. Medical Decision & Procedures Laboratory Results 04/05/17 17:30 Red Blood Count 5.35, Mean Corpuscular Volume 95.0, Mean Corpuscular Hemoglobin 30.7, Mean Corpuscular Hemoglobin Concent 32.3, Mean Platelet Volume 9.2, Neutrophils (%) (Auto) 80.5, Lymphocytes (%) (Auto) 10.0, Monocytes (%) (Auto) 8.0, Eosinophils (%) (Auto) 0.8, Basophils (%) (Auto) 0.3, Neutrophils # (Auto) 12.83, Lymphocytes # (Auto) 1.60, Monocytes # (Auto) 1.27, Eosinophils # (Auto) 0.13, Basophils # (Auto) 0.04 04/05/17 17:30 Test 04/05/17 17:30 04/05/17 19:44 White Blood Count 15.93 K/uL (4.8-10.8) Red Blood Count 5.35 M/uL (4.7-6.1) Hemoglobin 16.4 g/dL (14.0-18.0) Hematocrit 50.8 % (42-52) Mean Corpuscular Volume 95.0 fL (80-100) Mean Corpuscular Hemoglobin 30.7 pg (25-34) Mean Corpuscular Hemoglobin Concent 32.3 g/dl (32-36) Platelet Count 278 K/uL (130-400) Mean Platelet Volume 9.2 fL (7.4-10.4) Neutrophils (%) (Auto) 80.5 % Lymphocytes (%) (Auto) 10.0 % Monocytes (%) (Auto) 8.0 % Eosinophils (%) (Auto) 0.8 % Basophils (%) (Auto) 0.3 % Neutrophils # (Auto) 12.83 K/uL (1.4-6.5) Lymphocytes # (Auto) 1.60 K/uL (1.2-3.4) Monocytes # (Auto) 1.27 K/uL (0.11-0.59) Eosinophils # (Auto) 0.13 K/uL (0-0.5) Basophils # (Auto) 0.04 K/uL (0-0.2) RDW Standard Deviation 54.6 fL (36.4-46.3) RDW Coefficient of Variation 15.8 % (11.5-14.5) Immature Granulocyte % (Auto) 0.4 % Immature Granulocyte # (Auto) 0.06 K/uL (0.00-0.02) Prothrombin Time 10.6 SECONDS (9.0-12.0) Prothromb Time International Ratio 1.0 (0.9-1.1) Activated Partial Thromboplast Time 32.5 SECONDS (21.0-31.0) Partial Thromboplastin Ratio 1.3 Anion Gap 20.0 mmol/L (3-11) Est Creatinine Clear Calc Drug Dose 37.2 ml/min Estimated GFR () 30.2 Estimated GFR (Non- 26.0 BUN/Creatinine Ratio 7.7 (10-20) Calcium Level 8.2 mg/dl (8.5-10.1) Magnesium Level 2.1 mg/dl (1.8-2.4) Total Bilirubin 0.5 mg/dl (0.2-1) Direct Bilirubin 0.1 mg/dl (0-0.2) Aspartate Amino Transf (AST/SGOT) 37 U/L (15-37) Alanine Aminotransferase (ALT/SGPT) 54 U/L (12-78) Alkaline Phosphatase 96 U/L (45-117) Total Creatine Kinase 160 U/L (39-308) Total Protein 7.7 gm/dl (6.4-8.2) Albumin 3.6 gm/dl (3.4-5.0) Lipase 89 U/L (73-393) Thyroid Stimulating Hormone (TSH) 3.410 uIu/ml (0.300-4.500) Free Thyroxine 0.74 ng/dl (0.80-1.60) Salicylates Level < 1.7 mg/dl (2.8-20) Acetaminophen Level < 2 ug/ml (10-30) Ethyl Alcohol mg/dL < 3.0 mg/dl (0-3) Laboratory results as reviewed by me. Medications Administered Medications (Trade) Dose Ordered Sig/Mariana Route Start Time Stop Time Status Last Admin Dose Admin Sodium Chloride 1,000 ml @ 999 mls/hr Q1H1M STAT IV 04/05/17 19:15 04/05/17 20:15 DC 04/05/17 20:00 999 MLS/HR Multivitamins 10 ml/Thiamine HCl 100 mg/Folic Acid 1 mg/Sodium Chloride 1,011.2 ml @ 500 mls/ hr Q2H2M ONCE IV 04/05/17 21:00 04/05/17 23:01 DC 04/05/17 21:34 500 MLS/HR Sodium Chloride 1,000 ml @ 150 mls/hr Q6H40M IV 04/05/17 21:15 05/05/17 21:14 04/06/17 00:00 150 MLS/HR ECG Indication: toxicologic Rate (beats per minute): 71 Rhythm: normal sinus Findings: no acute ischemic change, no ectopy ED Course 1902: The patient was evaluated in room C9. A complete history and physical exam was performed. 1914: Ordered Sodium Chloride 1000 ml @ 999 mls/hr IV 1999: I reassessed the patient at this time. He appears to be less lethargic and he is answering questions more easily. His speech is a little clearer, and he is complaining of being thirsty. 2038: Ordered Sodium Chloride 1000 ml @ 200 mls/hr IV 2040: I spoke with [facility] at this time. We discussed the patient's case. They recommended supportive care for the patient. I also reassessed the patient soon after and updated him. I discussed his results and the plan with him as well. His blood pressure is 119/70. 2044: I spoke with Dr. Daniels of [facility] at this time. We discussed the patient's case. He will be evaluating the patient for further management and care. Medical Decision This is a 57-year-old male who presents with lethargy. Differential diagnosis includes medication overdose, alcohol intoxication, illicit drug use, metabolic derangement, mood disorder, substance abuse disorder. I did perform a limited focused review of portions of the patient's old chart on the electronic medical record. The patient was seen by me in December of this year requesting alcohol detoxification. He was accepted into a detox facility and transferred there. I did evaluate the patient as noted above. The patient is somewhat lethargic and has significantly slurred speech. He does admit to an overdose on Vistaril and clonidine. He denies suicidal ideation. IV access was established. The patient was placed on a continuous rn cardiac. His blood pressure was slightly low. I did treat him with normal saline IV. I did order and personally review the patient's 12-lead EKG as described above. I did order and review the patient's blood work as noted in the electronic medical record. He does have acute renal failure. His white count is also elevated. I did treat him with a banana bag IV. I did recommend hospitalization for further care and evaluation. He did agree to this. His blood pressure did improve in his mental status seemed to be improved as well. I did discuss the case with poison control who recommended supportive care. I did discuss the case with the hospitalist and director case. Medication Reconcilliation Current Medication List: was personally reviewed by me Blood Pressure Screening Patient's blood pressure: Low blood pressure Consults Time Called: 2040 Consulting Physician: [facility] Returned Call: N/A We discussed the patient's case. They recommended supportive care. Additional Consults: Time Called: 2042 Consulted Physician: Dr. Daniels - [facility] Returned Call: 2044 Additional Comments: We discussed the patient's case. He will be evaluating the patient for further management and care. Impression Primary Impression: Acute renal failure Additional Impressions: Overdose Altered mental status Scribe Attestation The scribe's documentation has been prepared under my direct and personally reviewed by me in its entirety. I confirm that the note above accurately reflects all work, treatment, procedures, and medical decision making performed by me. Departure Information Referrals RV. Ross MD (PCP) Patient Instructions My [facility] Problem Qualifiers Primary Impression: Acute renal failure Acute renal failure type: unspecified Qualified Codes: N17.9 - Acute kidney failure, unspecified Additional Impressions: Overdose Encounter type: initial encounter Injury intent: undetermined intent Qualified Codes: T50.904A - Poisoning by unspecified drugs, medicaments and biological substances, undetermined, initial encounter Altered mental status Altered mental status type: somnolence Qualified Codes: R40.0 - Somnolence
[2017-04-06] MEDS ORDERED: GABAPENTIN 600 MG TAB PO SCH (04:45)
[2017-04-06] MEDS: SODIUM CHLORIDE 0.9% 1000ML 1,000 ML IV SCH ×5 (05:12→23:14)
[2017-04-06 05:48] LABS: BASO % 0.2 %; BASO ABS # 0.03 K/uL (0-0.2); COMPLETE YES; EOS % 0.7 %; IG% 0.3 %; LYMPH % 9.8 %; MEAN CELL VOLUME 91.9 fL (80-100); MEAN CORPUSCULAR HEMOGLOBIN 31.2 pg (25-34); MEAN CORPUSCULAR HGB CONC 33.9 g/dl (32-36); MONO % 9.4 %; NEUT % 79.6 %; PLATELET COUNT 211 K/uL (130-400); RED BLOOD COUNT 4.46 M/uL (4.7-6.1); WHITE BLOOD COUNT 15.32 K/uL (4.8-10.8)
[2017-04-06 06:10] LABS: PARTIAL THROMBOPLASTIN RATIO 1.3; PROTHROMBIN TIME (PATIENT) 10.8 SECONDS (9.0-12.0)
[2017-04-06] MEDS: GABAPENTIN 1200MG LOADING DOSE PO SCH (06:30)
[2017-04-06] MEDS ORDERED: LORAZEPAM INJ 1 MG in SYRINGE 0.5 ML IV PRN (06:30)
[2017-04-06] MEDS ORDERED: LORAZEPAM INJ 2 MG in SYRINGE 1 ML IV PRN (06:30)
[2017-04-06 06:33] LABS: ALB/GLOB RATIO 0.9 (0.9-2); BUN/CREATININE RATIO 8.4 (10-20); CALCIUM 6.7 mg/dl (8.5-10.1); CREATININE 3.4 mg/dl (0.60-1.40); POTASSIUM 3.8 mmol/L (3.5-5.1)
[2017-04-06] MEDS: MULTIVITAMIN TAB PO SCH (07:31)
[2017-04-06] MEDS: HEPARIN SOD 5000 UNIT/0.5 ML CARP SQ SCH ×2 (07:32→21:37)
[2017-04-06] MEDS: GABAPENTIN 600MG Q6H DOSE PO SCH ×2 (11:44→18:14)
--- NOTE | 2017-04-06 13:07 | Psychiatric Consultation ---
Consultation Date of Consultation Apr 06, 2017. Identifying Data 57-year-old single white male from [place] who has a history of alcohol dependence and depression, and presented to the emergency room last night via EMS for overdose. He reported taking clonidine and hydroxyzine to relax, is very lethargic, and was admitted to the hospitalist service. Psychiatry is consulted for overdose. Chief Complaint "I took too many pills". History of Present Illness The patient is very sedated, and although he will wake up briefly to respond to questions, quickly falls back asleep, and the full interview could not be completed. According to records, and presented to the emergency room last night via EMS after an overdose on hydroxyzine and clonidine, which he stated he took to relax. He has given various reports about what happened, telling the emergency room physician that he took 4 tablets each of clonidine and Vistaril, but told the hospitalist that he took 7 tablets of each. He admitted to being under a lot of stress as he was recently fired from his job, but denied that he was trying to harm himself with the overdose, and stated he was just trying to relax. He then felt dizzy, so called EMS and came to the emergency room. He said he receives the prescriptions from an inpatient rehabilitation he recently attended for his alcoholism, and admitted that he continued to drink after discharge from rehabilitation, last drink 04/04/2017. His EKG showed prolonged QTC, and drug screen was negative. He has been started on alcohol withdrawal protocol. Case management met with his sisters who were at the bedside, and expressed concerns about him returning home alone at discharge, as they believe he is at risk for harming himself. They feel he needs to go to rehabilitation or a mental health facility. The patient was only partially cooperative with my assessment, as he was repeatedly falling asleep. He states that he overdosed on 7 or 8 tablets each of clonidine and Vistaril, and says he took them all at once and intentionally because "things weren't going well at work." He says he "wasn't really" trying to kill himself , but understands that the overdose could have been dangerous. He says he is not sure what he thought would happen after he took the medications or what is true intent was. He admits to feeling depressed lately, but was unable to continue with the interview as he continued to fall asleep repeatedly. Of note, the patient was recently seen by Jazmyn GARDNER on 11/30/2016 when he was admitted medically for alcohol withdrawal. He reported drinking at least a pint of vodka daily. At that time, he stated he had just been fired from his job due to coming to work intoxicated, reported a history of multiple DUIs having lost his license and being placed on probation. He had gone to the [facility][1] the night before for suicidal thoughts, and was then sent to our emergency room for medical clearance, where he was admitted medically due to intoxication and withdrawal. On her assessment, he had sobered up, and was denying suicidal thoughts. He stated that he typically only feel suicidal when under the influence. He was reported to [facility].due to driving while under the influence with recommendations that his license be revoked. The recommendations were for inpatient rehabilitation, which he refused. He ultimately was transferred back to the [facility][1] for inpatient psychiatric treatment. He was then seen in the interim in the emergency room on 12/29/2016 for alcohol withdrawal and a request for detox. He was referred to peer med and discharged to home with a plan to go to rehabilitation that evening. Past Psychiatric History Current OP Treatment: no current treatment Prior OP Treatment: no prior treatment Prior Psych Hospitalizations: [facility] (December 2016) Access to a Gun: No Suicide Attempts: No Past Medical/Surgical History (1) Hiatal hernia (2) Osteoarthritis (3) Alcohol dependence (4) Acute renal failure (5) Overdose Allergies Allergies: Coded Allergies: Diphenhydramine (Verified Adverse Reaction, Mild, JITTERY/ANXIOUS, 11/30/16 ) ABLE TO TAKE REG. TYLENOL Home Medications Scheduled Bupropion (Wellbutrin Sr), 100 MG PO DAILY Multivitamin (Multivitamin), 1 TAB PO DAILY Family History Unobtainable due to patient's condition Alcohol Use Alcohol Use In Past 12 Months: Yes (daily heavy drinker, history of withdrawal) Has been admitted multiple times for alcohol withdrawal, and was referred to [facility] in December 2016. Attended [facility] in 2002 and was able to maintain sobriety for 2-1/2 years. Previously seen [facility] as a condition of probation for DUI. Smoking Use Smoking Status: Current Every Day Smoker Personal History [place] Education: graduated from high school, graduated college Work History: Recently fired from job due to coming to work intoxicated Relationship History: never Children: none Legal History: reported (DUI in 2016, public drunkenness, probation) Review of Systems Patient unable to participate in review of systems due to somnolence. Examination Vital Signs Vital Signs Past 12 Hours Date Time Temp Pulse Resp B/P (MAP) Pulse Ox O2 Delivery O2 Flow Rate FiO2 04/06/17 12:00 Room Air 04/06/17 11:38 37.5 75 18 149/85 (106) 98 Room Air 04/06/17 08:00 Room Air 04/06/17 07:59 36.8 69 20 149/91 (110) 97 Room Air 04/06/17 04:00 Room Air 04/06/17 04:00 36.8 76 20 124/78 (93) 97 Room Air Laboratory Results Last 24 Hours Test 04/05/17 17:30 04/05/17 19:44 04/05/17 22:10 04/06/17 05:14 White Blood Count 15.93 K/uL 15.32 K/uL Red Blood Count 5.35 M/uL 4.46 M/uL Hemoglobin 16.4 g/dL 13.9 g/dL Hematocrit 50.8 % 41.0 % Mean Corpuscular Volume 95.0 fL 91.9 fL Mean Corpuscular Hemoglobin 30.7 pg 31.2 pg Mean Corpuscular Hemoglobin Concent 32.3 g/dl 33.9 g/dl Platelet Count 278 K/uL 211 K/uL Mean Platelet Volume 9.2 fL 9.0 fL Neutrophils (%) (Auto) 80.5 % 79.6 % Lymphocytes (%) (Auto) 10.0 % 9.8 % Monocytes (%) (Auto) 8.0 % 9.4 % Eosinophils (%) (Auto) 0.8 % 0.7 % Basophils (%) (Auto) 0.3 % 0.2 % Neutrophils # (Auto) 12.83 K/uL 12.19 K/uL Lymphocytes # (Auto) 1.60 K/uL 1.50 K/uL Monocytes # (Auto) 1.27 K/uL 1.44 K/uL Eosinophils # (Auto) 0.13 K/uL 0.11 K/uL Basophils # (Auto) 0.04 K/uL 0.03 K/uL RDW Standard Deviation 54.6 fL 52.6 fL RDW Coefficient of Variation 15.8 % 15.6 % Immature Granulocyte % (Auto) 0.4 % 0.3 % Immature Granulocyte # (Auto) 0.06 K/uL 0.05 K/uL Prothrombin Time 10.6 SECONDS 10.8 SECONDS Prothromb Time International Ratio 1.0 1.0 Activated Partial Thromboplast Time 32.5 SECONDS 32.6 SECONDS Partial Thromboplastin Ratio 1.3 1.3 Sodium Level 139 mmol/L 140 mmol/L Potassium Level 4.6 mmol/L 3.8 mmol/L Chloride Level 105 mmol/L 110 mmol/L Carbon Dioxide Level 14 mmol/L 20 mmol/L Anion Gap 20.0 mmol/L 10.0 mmol/L Blood Urea Nitrogen 20 mg/dl 29 mg/dl Creatinine 2.60 mg/dl 3.40 mg/dl Est Creatinine Clear Calc Drug Dose 37.2 ml/min 28.5 ml/min Estimated GFR () 30.2 21.8 Estimated GFR (Non- 26.0 18.8 BUN/Creatinine Ratio 7.7 8.4 Random Glucose 100 mg/dl 110 mg/dl Calcium Level 8.2 mg/dl 6.7 mg/dl Magnesium Level 2.1 mg/dl Total Bilirubin 0.5 mg/dl 0.6 mg/dl Direct Bilirubin 0.1 mg/dl Aspartate Amino Transf (AST/SGOT) 37 U/L 21 U/L Alanine Aminotransferase (ALT/SGPT) 54 U/L 40 U/L Alkaline Phosphatase 96 U/L 83 U/L Total Creatine Kinase 160 U/L Total Protein 7.7 gm/dl 6.2 gm/dl Albumin 3.6 gm/dl 2.9 gm/dl Lipase 89 U/L Thyroid Stimulating Hormone (TSH) 3.410 uIu/ml Free Thyroxine 0.74 ng/dl Salicylates Level < 1.7 mg/dl Acetaminophen Level < 2 ug/ml Ethyl Alcohol mg/dL < 3.0 mg/dl Urine Color YELLOW Urine Appearance CLEAR Urine pH 5.0 Urine Specific [place] 1.020 Urine Protein 2+ Urine Glucose (UA) TRACE Urine Ketones NEG Urine Occult Blood 2+ Urine Nitrite NEG Urine Bilirubin NEG Urine Urobilinogen NEG Urine Leukocyte Esterase SMALL Urine WBC (Auto) 1-5 /hpf Urine RBC (Auto) 10-30 /hpf Urine Hyaline Casts (Auto) 1-5 /lpf Urine Epithelial Cells (Auto) 10-20 /lpf Urine Bacteria (Auto) NEG Urine Opiates Screen NEG Urine Methadone, Qualitative NEG Urine Barbiturates NEG Urine Phencyclidine (PCP) Level NEG Ur Amphetamine/Methamphetamine NEG MDMA (Ecstasy) Screen NEG Urine Benzodiazepines Screen NEG Urine Cocaine Metabolite NEG Urine Marijuana (THC) NEG Globulin 3.3 gm/dl Albumin/Globulin Ratio 0.9 Mental Examination During interview pt is: other (oversedated and only partially able to participate in interview) Eye contact is: poor Speech: other (minimal, slowed) Affect: constricted (2 sedated) Mood is: other (depressed) Thought process: goal directed Thought content: reality based without delusions Cognition: other (all spheres impaired) Insight: impaired Judgement: impaired Impression / Recommendations Impression Patient admits to intentionally overdosing on prescription medications due to stress, unable to clearly state whether or not this was a suicide attempt. He will require reassessment by psychiatry prior to discharge from the hospital, as it is unclear at this time whether inpatient rehabilitation or inpatient mental health would be the most appropriate disposition for him. Recommendations (1) Overdose Medical care per primary team. He admits to intentional overdose on prescription medications, stating he was overwhelmed, and is unclear what his intent was. He should not be discharged from the hospital until reassessed by psychiatry. His sisters expressed concerns about his safety at home, and would recommend that he be discharged either to inpatient rehabilitation to address his ongoing substance abuse, or inpatient mental health, depending on the outcome of assessment once he is more alert. (2) Major depressive disorder May resume home dose of bupropion when medically stable to do so. We will need to identify his outpatient provider for coordination of care. (3) Alcohol dependence Patient continues to abuse substances, and would not recommend he have access to any controlled substances or medications that are addictive or abusable outside of the hospital due to the high risk of him abusing them.
--- NOTE | 2017-04-06 13:58 | Progress Note ---
Subjective Date of Service: Apr 06, 2017. Subjective Pt evaluation today including: conversation w/ patient, conversation w/ family Pt is still feeling groggy. Denies lightheadedness in bed, but states he hasn' t been OOB much to test this otherwise. Tolerated some PO earlier. No SOB or chest pain. Pt denies fever, abd pain, n/v/c/d, LE pain or swelling. Sisters are present and pt states that I can speak with them about his care. They are concerned about pt as he has hx of SI/SA. Problem List Medical Problems: (1) Acute cholecystitis Status: Acute (2) Acute renal failure Status: Acute (3) Alcohol withdrawal Status: Acute (4) Alcoholic intoxication Status: Acute (5) Altered mental status Status: Acute (6) Hypoxia Status: Acute (7) Overdose Status: Acute (8) Suicidal ideation Status: Acute Review of Systems All Other Systems: Reviewed and Negative Objective Vital Signs Date Time Temp Pulse Resp B/P (MAP) Pulse Ox O2 Delivery O2 Flow Rate FiO2 04/06/17 12:00 Room Air 04/06/17 11:38 37.5 75 18 149/85 (106) 98 Room Air 04/06/17 08:00 Room Air 04/06/17 07:59 36.8 69 20 149/91 (110) 97 Room Air 04/06/17 04:00 Room Air 04/06/17 04:00 36.8 76 20 124/78 (93) 97 Room Air 04/06/17 00:00 36.5 74 20 121/76 Room Air 04/05/17 23:47 36.5 74 20 121/76 (91) 97 Room Air 04/05/17 22:50 36.6 75 20 120/76 (91) 96 Room Air 04/05/17 22:30 74 21 114/65 95 Room Air 04/05/17 22:05 74 21 95 04/05/17 22:00 74 19 119/72 95 Room Air 04/05/17 21:30 74 21 109/66 95 Room Air 04/05/17 21:00 73 19 117/71 95 Room Air 04/05/17 20:30 69 23 119/70 100 Room Air 04/05/17 20:05 75 20 105/71 98 Room Air 04/05/17 19:30 76 30 97 Room Air 04/05/17 19:07 73 04/05/17 19:00 74 29 97 Room Air 04/05/17 18:41 36.4 73 20 103/70 99 Room Air 04/05/17 18:32 103/70 Physical Exam General Appearance: WD/WN, no apparent distress Eyes: normal inspection, EOMI Respiratory/Chest: normal breath sounds, no respiratory distress Cardiovascular: regular rate, rhythm, no edema Abdomen: non tender, soft, + distended Extremities: non-tender, no pedal edema Neurologic/Psychiatric: alert (but falls asleep easily), + pertinent finding ( answers questions appropriately) Skin: normal color, warm/dry Laboratory Results Last 24 Hours Test 04/05/17 17:30 04/05/17 19:44 04/05/17 22:10 04/06/17 05:14 White Blood Count 15.93 K/uL 15.32 K/uL Red Blood Count 5.35 M/uL 4.46 M/uL Hemoglobin 16.4 g/dL 13.9 g/dL Hematocrit 50.8 % 41.0 % Mean Corpuscular Volume 95.0 fL 91.9 fL Mean Corpuscular Hemoglobin 30.7 pg 31.2 pg Mean Corpuscular Hemoglobin Concent 32.3 g/dl 33.9 g/dl Platelet Count 278 K/uL 211 K/uL Mean Platelet Volume 9.2 fL 9.0 fL Neutrophils (%) (Auto) 80.5 % 79.6 % Lymphocytes (%) (Auto) 10.0 % 9.8 % Monocytes (%) (Auto) 8.0 % 9.4 % Eosinophils (%) (Auto) 0.8 % 0.7 % Basophils (%) (Auto) 0.3 % 0.2 % Neutrophils # (Auto) 12.83 K/uL 12.19 K/uL Lymphocytes # (Auto) 1.60 K/uL 1.50 K/uL Monocytes # (Auto) 1.27 K/uL 1.44 K/uL Eosinophils # (Auto) 0.13 K/uL 0.11 K/uL Basophils # (Auto) 0.04 K/uL 0.03 K/uL RDW Standard Deviation 54.6 fL 52.6 fL RDW Coefficient of Variation 15.8 % 15.6 % Immature Granulocyte % (Auto) 0.4 % 0.3 % Immature Granulocyte # (Auto) 0.06 K/uL 0.05 K/uL Prothrombin Time 10.6 SECONDS 10.8 SECONDS Prothromb Time International Ratio 1.0 1.0 Activated Partial Thromboplast Time 32.5 SECONDS 32.6 SECONDS Partial Thromboplastin Ratio 1.3 1.3 Sodium Level 139 mmol/L 140 mmol/L Potassium Level 4.6 mmol/L 3.8 mmol/L Chloride Level 105 mmol/L 110 mmol/L Carbon Dioxide Level 14 mmol/L 20 mmol/L Anion Gap 20.0 mmol/L 10.0 mmol/L Blood Urea Nitrogen 20 mg/dl 29 mg/dl Creatinine 2.60 mg/dl 3.40 mg/dl Est Creatinine Clear Calc Drug Dose 37.2 ml/min 28.5 ml/min Estimated GFR () 30.2 21.8 Estimated GFR (Non- 26.0 18.8 BUN/Creatinine Ratio 7.7 8.4 Random Glucose 100 mg/dl 110 mg/dl Calcium Level 8.2 mg/dl 6.7 mg/dl Magnesium Level 2.1 mg/dl Total Bilirubin 0.5 mg/dl 0.6 mg/dl Direct Bilirubin 0.1 mg/dl Aspartate Amino Transf (AST/SGOT) 37 U/L 21 U/L Alanine Aminotransferase (ALT/SGPT) 54 U/L 40 U/L Alkaline Phosphatase 96 U/L 83 U/L Total Creatine Kinase 160 U/L Total Protein 7.7 gm/dl 6.2 gm/dl Albumin 3.6 gm/dl 2.9 gm/dl Lipase 89 U/L Thyroid Stimulating Hormone (TSH) 3.410 uIu/ml Free Thyroxine 0.74 ng/dl Salicylates Level < 1.7 mg/dl Acetaminophen Level < 2 ug/ml Ethyl Alcohol mg/dL < 3.0 mg/dl Urine Color YELLOW Urine Appearance CLEAR Urine pH 5.0 Urine Specific [place] 1.020 Urine Protein 2+ Urine Glucose (UA) TRACE Urine Ketones NEG Urine Occult Blood 2+ Urine Nitrite NEG Urine Bilirubin NEG Urine Urobilinogen NEG Urine Leukocyte Esterase SMALL Urine WBC (Auto) 1-5 /hpf Urine RBC (Auto) 10-30 /hpf Urine Hyaline Casts (Auto) 1-5 /lpf Urine Epithelial Cells (Auto) 10-20 /lpf Urine Bacteria (Auto) NEG Urine Opiates Screen NEG Urine Methadone, Qualitative NEG Urine Barbiturates NEG Urine Phencyclidine (PCP) Level NEG Ur Amphetamine/Methamphetamine NEG MDMA (Ecstasy) Screen NEG Urine Benzodiazepines Screen NEG Urine Cocaine Metabolite NEG Urine Marijuana (THC) NEG Globulin 3.3 gm/dl Albumin/Globulin Ratio 0.9 Assessment and Plan This is a 57 yo m here for overdose of Vistiril and Clondine resulting in NITIN; questionably other substances; history of alcohol abuse; states that this is accidental Overdose of medications - tele admission QTc prolongation on arrival with some improvement however still not WNL - psych consult attempted however pt has been too groggy for complete assessment - supportive care - O2 per nursing protocol NITIN secondary to dehydration vs overdose - NSS @150cc/h - continue to monitor, will recheck this afternoon ALBARO??--pt feels this may been an issue contributing to his anxiety Overnight pulse ox and monitor History of alcohol abuse - alcohol withdrawal protocol - received banana bag in ED Depression - on Wellbutrin however with prolonged QTc will continue to hold DVT Prophylaxis heparin bid
[2017-04-06 14:34] LABS: BUN/CREATININE RATIO 8.5 (10-20); CALCIUM 7.1 mg/dl (8.5-10.1); CREATININE 4.1 mg/dl (0.60-1.40); POTASSIUM 4.2 mmol/L (3.5-5.1)
[2017-04-06] MEDS: ACETAMINOPHEN 325 MG TAB PO PRN (23:15)
[2017-04-07] VITALS (9 sets, daily range): BP systolic 143–195; BP diastolic 68–116; PULSE 69–80; TEMP 36.4–37.4; O2SAT 95–97
[2017-04-07] MEDS: GABAPENTIN 1200MG LOADING DOSE PO SCH (05:25)
[2017-04-07] MEDS: SODIUM CHLORIDE 0.9% 1000ML 1,000 ML IV SCH ×4 (05:26→22:08)
[2017-04-07 06:54] LABS: BUN/CREATININE RATIO 8.2 (10-20); CALCIUM 7.3 mg/dl (8.5-10.1); CREATININE 5.3 mg/dl (0.60-1.40)
[2017-04-07] MEDS: MULTIVITAMIN TAB PO SCH (08:15)
[2017-04-07] MEDS: HEPARIN SOD 5000 UNIT/0.5 ML CARP SQ SCH ×2 (08:16→21:34)
[2017-04-07] MEDS: GABAPENTIN 600MG Q8H DOSE PO SCH ×3 (08:16→21:27)
--- NOTE | 2017-04-07 13:33 | Psychiatric Progress Notes ---
Progress Note Date of Service Apr 07, 2017. Interval History 57-year-old single white male from [place] who has a history of alcohol dependence and depression, and presented to the emergency room via EMS for overdose. He reported taking clonidine and hydroxyzine, and was admitted to the hospitalist service. Psychiatry was consulted for overdose, and he was seen yesterday, but was quite sedated. He is seen today in follow-up. Chief Complaint "I took too much of my medicines". Subjective Patient was seen & assessed, and interval progress reviewed. He states that he intentionally took 6 or 7 each of clonidine and hydroxyzine on Tuesday, as he was "feeling very anxious, had just been fired." He then says he is not sure if he was actually fired, "but there was a misunderstanding. I'm not sure it wasn't age discrimination." He states that this past weekend, he did not show up for a wedding he was scheduled to work through his job at the [employer], he says because he was not told he was supposed to work it, and thought he was working a different shift. He was told not to bother coming in, and then Tuesday night when he tried to check his work schedule online, he was unable to walk into it, "and I know what that means." He states he was also fired from a job at [employer] [place] in November 2016, when he last saw him on the consult service, after coming to work intoxicated. He says that he was feeling upset about losing another job, and took the overdose "to forget about life for a while, thought I'd just sorta get numb and stupid for a while, didn't expect it to be that strong." He himself called 911 because he felt dizzy. He denies that he was feeling depressed prior to the incident with his work, and states that he only felt anxious and upset for about a day. He denies current symptoms of depression, suicidal thoughts, and anxiety. He admits to at times thinking that "it would be easier" if he were not alive, as "I wouldn't have any more problems." He denies any plan or intent to harm himself however. He states that he did go to rehabilitation after his emergency room visit here in December, and was able to maintain sobriety for about a month, but is now drinking a pint of vodka 2-3 times a week. He says his last drink was on Tuesday, and denies that he was drinking on Tuesday when he took the overdose. He denies abusing any other substances. He is in outpatient substance abuse treatment at [facility] where he sees a therapist, but has not been honest with her about the fact that he continues to drink. He states that he is on probation, and that his substance abuse treatment is court ordered. He says he was started on multiple medications at rehabilitation, including bupropion, clonidine, and Vistaril, the last 2 of which were used when necessary for anxiety. He does not see an outpatient psychiatrist, and was planning to have his PCP, Dr. Murry, prescribes his psychotropic medications. When informed that his sisters expressed concerns to hospital staff about his safety, he states "they' re probably worried I'm drinking." Mental Status Exam During interview pt is: alert and oriented, cooperative Appearance: appropriately dressed, appropriately groomed, other (red-faced, appears older than stated age) Eye contact is: good Motor behavior is: no abnormal motor movements Speech: normal in rate, rhythm & volume, other (minimal, slowed) Affect: mood congruent, euthymic Mood is: other ("okay") Thought process: goal directed Thought content: reality based without delusions Suicidal thought are: denied Homicidal thoughts are: denied Hallucinations: denies auditory, denies visual Cognition: memory grossly intact, attention grossly intact, language grossly intact Intelligence estimated to be: average Insight: impaired Judgement: impaired Impression Patient admits to intentionally overdosing on prescription medications due to stress, but denies that it was a suicide attempt, and states that he intended only to make himself feel numb as he was distraught about being fired from another job. He denies depressive symptoms other then in the immediate 24 hours after being fired, but admits to ongoing alcohol abuse, and has not been honest with his outpatient substance abuse counselor about that. Ideally, he would return to inpatient rehabilitation, as his ongoing alcohol abuse presents the biggest risk factor, however he is unwilling to consider this. We'll need to coordinate care with his substance abuse counselor, get collateral from his sisters who have expressed concerns about his safety, and coordinate with his PCP will be prescribing his medications in order to provide for safety discharge plan. Plan (1) Overdose Patient states the overdose was intentional, but denies that he intended to harm or kill himself. He should not be prescribed any medications that are addictive, abusable, or dangerous in overdose. Would recommend that hydroxyzine and clonidine both be discontinued. Ideally, somebody at home would hold his medications and dispense them daily, but he lives alone and says there is no one to do this. I do not believe he meets involuntary commitment criteria, but he has agreed to allow staff to speak with his sisters to determine if he is made suicidal statements or if they have any recent believe the overdose was a suicide attempt. (2) Major depressive disorder May resume home dose of bupropion when medically stable to do so. Patient states he was planning on having his PCP prescribe an antidepressant. We will get a release for Dr. Murry, so that she can be sent our records, and would encourage him to see a psychiatrist, possibly through [facility]. (3) Alcohol dependence Patient continues to abuse substances, and would not recommend he have access to any controlled substances or medications that are addictive or abusable outside of the hospital due to the high risk of him abusing them. 04/07 - patient admits to ongoing alcohol abuse. Recommend a return to inpatient rehabilitation, which she declines. He has agreed to sign a release and I will ask the psychiatric nurse liaison to call his counselor at [facility] to advise them of his ongoing drinking and this admission, to determine whether they can continue to see him there, or whether they recommended a higher level of care. Visit Code E&M Code: 73537 Data Vital Signs Last 24 Hrs: Date Time Temp Pulse Resp B/P (MAP) Pulse Ox O2 Delivery O2 Flow Rate FiO2 04/07/17 12:22 36.8 77 18 195/116 (142) 96 186/105 (132) 04/07/17 08:00 Room Air 04/07/17 07:48 36.4 69 18 162/109 (126) 96 Room Air 156/102 (120) 04/07/17 04:00 Room Air 04/07/17 03:20 36.6 74 18 145/93 (110) 96 Room Air 04/07/17 00:00 Room Air 04/06/17 23:37 36.9 88 20 166/97 (120) 95 Room Air 04/06/17 20:15 Room Air 04/06/17 20:00 36.8 81 18 141/92 (108) 95 Room Air 04/06/17 16:30 97 Room Air 04/06/17 16:30 97 Room Air 04/06/17 15:49 36.8 81 20 143/96 (112) 97 Room Air Meds Administered Last 24 Hrs: Meds Administered (Past 24Hrs) Medications (Trade) Dose Ordered Sig/Mariana Route Start Time Stop Time Status Last Admin Dose Admin Sodium Chloride 1,000 ml @ 999 mls/hr Q1H1M STAT IV 04/05/17 19:15 04/05/17 20:15 DC 04/05/17 20:00 999 MLS/HR Multivitamins 10 ml/Thiamine HCl 100 mg/Folic Acid 1 mg/Sodium Chloride 1,011.2 ml @ 500 mls/ hr Q2H2M ONCE IV 04/05/17 21:00 04/05/17 23:01 DC 04/05/17 21:34 500 MLS/HR Sodium Chloride 1,000 ml @ 200 mls/hr Q5H IV 04/05/17 21:15 05/05/17 21:14 04/07/17 12:58 200 MLS/HR Heparin Sodium (Porcine) (Heparin Sq 5000 Unit/0.5ml) 5,000 unit Q12H SQ 04/06/17 09:00 05/06/17 08:59 04/06/17 21:37 5,000 UNIT Acetaminophen (Tylenol Tab) 650 mg Q4H PRN PO 04/05/17 21:15 05/05/17 21:14 04/06/17 23:15 650 MG Lorazepam (Ativan Tab) 1 mg ONE PRN PO 04/05/17 21:15 04/07/17 12:58 DC 04/07/17 12:58 1 MG Multivitamins (Multivitamin Tab) 1 tab DAILY PO 04/06/17 09:00 05/06/17 08:59 04/07/17 08:15 1 TAB Gabapentin (Neurontin Tab) 1,200 mg TODAY@0600 PO 04/06/17 06:00 05/06/17 05:59 04/07/17 05:25 1,200 MG Gabapentin (Neurontin Tab) 600 mg Q6H PO 04/06/17 12:00 04/06/17 18:01 DC 04/06/17 18:14 600 MG Gabapentin (Neurontin Tab) 600 mg Q8H PO 04/07/17 06:00 04/07/17 22:01 04/07/17 08:16 600 MG Lorazepam 2 mg/ Syringe 2 ml @ 0.5 mls/min Q4H PRN IV 04/06/17 06:30 05/06/17 06:29 04/06/17 07:56 0.5 MLS/MIN Lab Results Last 24 Hrs: Last 24 Hours Test 04/06/17 13:56 04/07/17 05:18 Sodium Level 139 mmol/L 140 mmol/L Potassium Level 4.2 mmol/L 4.0 mmol/L Chloride Level 110 mmol/L 113 mmol/L Carbon Dioxide Level 22 mmol/L 18 mmol/L Anion Gap 7.0 mmol/L 9.0 mmol/L Blood Urea Nitrogen 35 mg/dl 44 mg/dl Creatinine 4.10 mg/dl 5.30 mg/dl Est Creatinine Clear Calc Drug Dose 24.2 ml/min 18.9 ml/min Estimated GFR () 17.4 12.7 Estimated GFR (Non- 15.0 11.0 BUN/Creatinine Ratio 8.5 8.2 Random Glucose 98 mg/dl 109 mg/dl Calcium Level 7.1 mg/dl 7.3 mg/dl Problem Qualifiers (1) Overdose: Encounter type: initial encounter Injury intent: undetermined intent Qualified Codes: T50.904A - Poisoning by unspecified drugs, medicaments and biological substances, undetermined, initial encounter
[2017-04-07 14:43] LABS: BUN/CREATININE RATIO 7.8 (10-20); CALCIUM 7.9 mg/dl (8.5-10.1); CREATININE 5.9 mg/dl (0.60-1.40); POTASSIUM 4.1 mmol/L (3.5-5.1)
[2017-04-07] MEDS ORDERED: NURSING VERBAL MED ORDER ONE ×2 (15:45→17:30)
[2017-04-07] MEDS: METOPROLOL TARTRATE 1 MG/ML VIAL IV PRN ×2 (16:32→17:36)
--- NOTE | 2017-04-07 16:48 | Progress Note ---
Subjective Date of Service: Apr 07, 2017. Subjective Pt evaluation today including: conversation w/ patient Pt is feeling much improved today. Still tired, but has been out walking around a bit. Tolerating PO without issue. States he is urinating without issue. Pt denies fever, SOB, chest pain, abd pain, n/v/c/d, LE pain or swelling. Problem List Medical Problems: (1) Acute cholecystitis Status: Acute (2) Acute renal failure Status: Acute (3) Alcohol withdrawal Status: Acute (4) Alcoholic intoxication Status: Acute (5) Altered mental status Status: Acute (6) Hypoxia Status: Acute (7) Overdose Status: Acute (8) Suicidal ideation Status: Acute Review of Systems All Other Systems: Reviewed and Negative Objective Vital Signs Date Time Temp Pulse Resp B/P (MAP) Pulse Ox O2 Delivery O2 Flow Rate FiO2 04/07/17 16:32 76 177/107 04/07/17 15:23 37.4 76 20 177/107 (130) 97 04/07/17 12:22 36.8 77 18 195/116 (142) 96 186/105 (132) 04/07/17 12:00 Room Air 04/07/17 08:00 Room Air 04/07/17 07:48 36.4 69 18 162/109 (126) 96 Room Air 156/102 (120) 04/07/17 04:00 Room Air 04/07/17 03:20 36.6 74 18 145/93 (110) 96 Room Air 04/07/17 00:00 Room Air 04/06/17 23:37 36.9 88 20 166/97 (120) 95 Room Air 04/06/17 20:15 Room Air 04/06/17 20:00 36.8 81 18 141/92 (108) 95 Room Air Physical Exam Comments: General Appearance: WD/WN, no apparent distress Eyes: normal inspection, EOMI Respiratory/Chest: normal breath sounds, no respiratory distress Cardiovascular: regular rate, rhythm, no edema Abdomen: non tender, soft, + distended--improved Extremities: non-tender, no pedal edema Neurologic/Psychiatric: alert, + pertinent finding (appears fully awake and much more interactive than yesterday) Skin: normal color, warm/dry Laboratory Results Last 24 Hours Test 04/07/17 05:18 04/07/17 14:06 Sodium Level 140 mmol/L 141 mmol/L Potassium Level 4.0 mmol/L 4.1 mmol/L Chloride Level 113 mmol/L 113 mmol/L Carbon Dioxide Level 18 mmol/L 20 mmol/L Anion Gap 9.0 mmol/L 8.0 mmol/L Blood Urea Nitrogen 44 mg/dl 46 mg/dl Creatinine 5.30 mg/dl 5.90 mg/dl Est Creatinine Clear Calc Drug Dose 18.9 ml/min 16.9 ml/min Estimated GFR () 12.7 11.2 Estimated GFR (Non- 11.0 9.7 BUN/Creatinine Ratio 8.2 7.8 Random Glucose 109 mg/dl 101 mg/dl Calcium Level 7.3 mg/dl 7.9 mg/dl Assessment and Plan This is a 57 yo m here for overdose of Vistiril and Clondine resulting in NITIN; questionably other substances; history of alcohol abuse; states that this is accidental Overdose of medications - tele admission QTc prolongation on arrival is now resolved - psych consult noted, they will be meeting with pt and family to discuss psych care moving forward, possible inpt psych if pt is interested vs rehab vs outpt care - supportive care - O2 per nursing protocol NITIN secondary to dehydration vs overdose - NSS increased to 200cc/hr today given ongoing increase in cr - pt continues to make urine without issue -renal US pending ALBARO??--pt feels this may been an issue contributing to his anxiety Overnight pulse ox was neg Pt is possibly having irregular breathing patterns at home due to substance abuse History of alcohol abuse - alcohol withdrawal protocol - received banana bag in ED Depression - on Wellbutrin but held due to prolonged QT/QTc, will resume once renal function is more stable DVT Prophylaxis heparin bid
[2017-04-07] MEDS: ACETAMINOPHEN 325 MG TAB PO PRN (17:23)
[2017-04-07] MEDS ORDERED: METOPROLOL TARTRATE 1 MG/ML VIAL IV ONE (18:45)
--- NOTE | 2017-04-07 23:02 | DIAGNOSTIC IMAGING REPORT ---
(RENAL)RETROPERITON COMP CLINICAL HISTORY: 57 years-old Male presenting with ARF. TECHNIQUE: Real-time grayscale and limited color Doppler ultrasound imaging of the kidneys and bladder was performed. COMPARISON: CT from 08/26/2016. FINDINGS: Right kidney: Normal echogenicity. Right kidney measures 13.9 cm. No hydronephrosis. No convincing evidence of calculus or mass. Normal perfusion. Left kidney: Normal echogenicity. Left kidney measures 14.2 cm. No hydronephrosis. Echogenic focus at the lower pole measuring 8 mm with posterior acoustic shadowing and twinkling artifact, consistent with nonobstructing renal calculus. Normal perfusion. Bladder: Under distended and incompletely evaluated. Other: None. IMPRESSION: 1. Nonobstructing 8 mm calculus at the left lower pole. No hydronephrosis. Electronically signed by: Frank Elizondo M.D. 04/07/2017 11:01 PM Dictated Date/Time: 04/07/2017 10:59 PM
[2017-04-08] VITALS (7 sets, daily range): BP systolic 125–156; BP diastolic 79–91; PULSE 60–69; TEMP 36.6–36.9; O2SAT 94–98
[2017-04-08] MEDS: SODIUM CHLORIDE 0.9% 1000ML 1,000 ML IV SCH ×3 (03:27→13:00)
[2017-04-08] MEDS: GABAPENTIN 1200MG LOADING DOSE PO SCH (06:03)
[2017-04-08 06:48] LABS: HEMATOCRIT 39.7 % (42-52); MEAN CELL VOLUME 93.2 fL (80-100); MEAN CORPUSCULAR HEMOGLOBIN 30.3 pg (25-34); MEAN CORPUSCULAR HGB CONC 32.5 g/dl (32-36); MEAN PLATELET VOLUME 9.6 fL (7.4-10.4); PLATELET COUNT 189 K/uL (130-400); RED BLOOD COUNT 4.26 M/uL (4.7-6.1); WHITE BLOOD COUNT 9.44 K/uL (4.8-10.8)
[2017-04-08] MEDS: MULTIVITAMIN TAB PO SCH (08:05)
[2017-04-08] MEDS: HEPARIN SOD 5000 UNIT/0.5 ML CARP SQ SCH ×2 (08:06→21:10)
[2017-04-08] MEDS: GABAPENTIN 600MG Q12H DOSE PO SCH ×2 (09:25→21:10)
[2017-04-08 09:41] LABS: URINE APPEARANCE CLEAR (CLEAR); URINE BILIRUBIN NEG (NEG); URINE COLOR YELLOW; URINE NITRITE NEG (NEG); URINE SPECIFIC GRAVITY 1.016 (1.000-1.030); UROBILINOGEN NEG (NEG)
--- NOTE | 2017-04-08 09:47 | Psychiatric Progress Notes ---
Psychiatric Progress Note Date of Service Apr 08, 2017. Notes ID: Patient reviewed with liaison nurse. Interim progress reviewed CC: depression HPI: patient's sisters were contacted (3 hours away) and expressed concerns about his drinking and impact on his mood, has made passive SI statements in the past. He did admit to minimize his depressive symptoms initially on follow up communications with out staff. Weight is apparently up a significant amount today and concerns exist about fluid balance. Renal status discussed briefly with attending on floor. ROS: states he feels a pit puffy/distended, denies acute pain this am, denies any intention to harm himself on medical floor, denies withdrawal symptoms. MSE: alert, cooperative, speech normal, thoughts organized, denies SI currently , no HI, no murphy. Continues to state ingestion wasn't a suicide attempt Imp: unspecified depressive disorder with substance use disorder Plan: patient is high risk given limited social support and co-morbid substance abuse, I agree with Dr. Jensen's assessment that he is not actively commitable on a 302 at this time but do feel he would benefit from inpatient mental health hospitalization. He is agreeable to a 201 voluntary stay when medically cleared. It is not anticipated he will be cleared today. If patient is discharged unexpectedly, please notify liaison.
[2017-04-08 09:51] LABS: MANUAL MICROSCOPIC REQUIRED? NO; REVIEW REQ? NO
[2017-04-08 09:53] LABS: ALB/GLOB RATIO 0.7 (0.9-2); BUN/CREATININE RATIO 7.3 (10-20); CALCIUM 7.8 mg/dl (8.5-10.1); CREATININE 6.5 mg/dl (0.60-1.40); POTASSIUM 4.2 mmol/L (3.5-5.1)
--- NOTE | 2017-04-08 14:54 | Progress Note ---
Subjective Date of Service: Apr 08, 2017. Subjective Pt evaluation today including: conversation w/ patient, physical exam, chart review, lab review, review of studies, review of inpatient medication list Resting in bed comfortably No concerns Good urine output Agreeable for voluntary 201 admission to psych Problem List Medical Problems: (1) Acute cholecystitis Status: Acute (2) Acute renal failure Status: Acute (3) Alcohol withdrawal Status: Acute (4) Alcoholic intoxication Status: Acute (5) Altered mental status Status: Acute (6) Hypoxia Status: Acute (7) Overdose Status: Acute (8) Suicidal ideation Status: Acute Review of Systems Constitutional: No fever, No chills, No sweats, No weakness Respiratory: No cough, No sputum, No wheezing, No shortness of breath Cardiac: + edema, No chest pain, No orthopnea, No PND Abdomen: No pain, No nausea, No vomiting, No diarrhea, No constipation Musculoskeletal: No joint pain, No muscle pain, No swelling, No calf pain Male : No dysuria, No urinary frequency, No incontinence, No slowing stream Neurologic: No memory loss, No paralysis, No weakness, No numbness/tingling Psychiatric: No depression symptoms, No anhedonism, No anxiety, No insomnia Skin: No rash, No itch Objective Vital Signs Date Time Temp Pulse Resp B/P (MAP) Pulse Ox O2 Delivery O2 Flow Rate FiO2 04/08/17 12:05 Room Air 04/08/17 11:35 36.6 60 16 135/79 (97) 96 Room Air 04/08/17 08:00 Room Air 04/08/17 07:05 98 Room Air 04/08/17 07:02 36.7 68 16 137/87 (104) Room Air 04/08/17 04:00 Room Air 04/08/17 04:00 36.6 69 20 125/80 (95) 94 Room Air 69 04/08/17 00:01 Room Air 04/07/17 23:28 36.5 74 20 176/91 (119) 96 Room Air 04/07/17 20:33 73 161/95 (117) 04/07/17 20:15 Room Air 04/07/17 19:32 80 167/103 04/07/17 19:11 37.0 78 20 167/103 (124) 95 Room Air 04/07/17 18:09 80 171/103 (125) 04/07/17 17:36 76 183/113 04/07/17 16:32 76 177/107 04/07/17 16:20 Room Air 04/07/17 15:23 37.4 76 20 177/107 (130) 97 Physical Exam General Appearance: WD/WN, no apparent distress Eyes: normal inspection, PERRL, EOMI, sclerae normal Neck: supple, no adenopathy, thyroid normal, no JVD Respiratory/Chest: chest non-tender, lungs clear, normal breath sounds, no respiratory distress Cardiovascular: regular rate, rhythm, no gallop, no JVD, no murmur Abdomen: normal bowel sounds, non tender, soft, no organomegaly Extremities: normal range of motion, non-tender, normal inspection, + pedal edema Neurologic/Psychiatric: no motor/sensory deficits, alert, normal mood/affect, oriented x 3 Laboratory Results Last 24 Hours Test 04/08/17 06:22 04/08/17 08:41 04/08/17 09:20 White Blood Count 9.44 K/uL Red Blood Count 4.26 M/uL Hemoglobin 12.9 g/dL Hematocrit 39.7 % Mean Corpuscular Volume 93.2 fL Mean Corpuscular Hemoglobin 30.3 pg Mean Corpuscular Hemoglobin Concent 32.5 g/dl RDW Standard Deviation 51.9 fL RDW Coefficient of Variation 15.3 % Platelet Count 189 K/uL Mean Platelet Volume 9.6 fL Sodium Level 142 mmol/L Potassium Level 4.2 mmol/L Chloride Level 116 mmol/L Carbon Dioxide Level 17 mmol/L Anion Gap 9.0 mmol/L Blood Urea Nitrogen 48 mg/dl Creatinine 6.50 mg/dl Est Creatinine Clear Calc Drug Dose 15.7 ml/min Estimated GFR () 10.0 Estimated GFR (Non- 8.6 BUN/Creatinine Ratio 7.3 Random Glucose 133 mg/dl Osmolality 302 mOsm/kg Calcium Level 7.8 mg/dl Total Bilirubin 0.3 mg/dl Aspartate Amino Transf (AST/SGOT) 19 U/L Alanine Aminotransferase (ALT/SGPT) 31 U/L Alkaline Phosphatase 65 U/L Total Protein 5.8 gm/dl Albumin 2.4 gm/dl Globulin 3.4 gm/dl Albumin/Globulin Ratio 0.7 Urine Color YELLOW Urine Appearance CLEAR Urine pH 5.0 Urine Specific [place] 1.016 Urine Protein TRACE Urine Glucose (UA) NEG Urine Ketones NEG Urine Occult Blood 1+ Urine Nitrite NEG Urine Bilirubin NEG Urine Urobilinogen NEG Urine Leukocyte Esterase TRACE Urine WBC (Auto) 1-5 /hpf Urine RBC (Auto) 5-10 /hpf Urine Hyaline Casts (Auto) 5-10 /lpf Urine Epithelial Cells (Auto) 10-20 /lpf Urine Bacteria (Auto) NEG Urine Osmolality 255 mOms/kg Urine Random Creatinine 100.0 mg/dl Urine Random Sodium 47 mEq/L Assessment and Plan This is a 57 yo m here for overdose of Vistiril and Clondine resulting in NITIN; questionably other substances; history of alcohol abuse; states that this is accidental Overdose of medications -Admitted to tele -QTc prolongation now resolved -Psych consult, pt agreeable to 20 voluntary stay for substance abuse NITIN secondary to dehydration vs overdose -Worsening despite IVF -Stop IVF due to hypervolemia and congestion -Nephrology consulted, urine lytes ordered, renal US unremarkable ALBARO?? --pt feels this may been an issue contributing to his anxiety Overnight pulse ox was neg Pt is possibly having irregular breathing patterns at home due to substance abuse History of alcohol abuse - alcohol withdrawal protocol - received banana bag in ED Depression - on Wellbutrin but held due to prolonged QT/QTc, will resume once renal function is more stable DVT Prophylaxis heparin bid
--- NOTE | 2017-04-08 15:19 | Nephrology Consultation ---
Nephrology Consultation Date & Providers Date of Consultation: Apr 08, 2017. Primary Care Provider: RV. Ross MD Referring Provider: Reason for Consultation Acute renal insufficiency History of Present Illness Mr. Alejandro Centeno is a 57-year-old male Who was admitted to [facility] on April 05 with alcohol intoxication as well as an overdose on clonidine and Vistaril. he presented dizziness and some confusion. Patient reports that he had situational depression associated with recent loss of his job. He has a history of depression in the past. He also has a history of alcohol abuse and dependence. There is no reported history of alcohol withdrawal. He denies any intention for self-harm. he is planning on a voluntary psychiatric commitment following discharge from hospital. Unfortunately, his hospitalization has been complicated by evolving acute renal insufficiency. The patient is nonoliguric. Baseline creatinine in December was 0.9 milligram/deciliter. On admission serum creatinine was 2.6 milligram/ deciliter. It has steadily been increasing since that time. Metabolic profile is otherwise appropriate. Initial toxic effect including QT prolongation which is improving. Renal ultrasound documented a 14 centimeter right kidney and a 14 centimeter left kidney. A nonobstructing 8 millimeter renal calculus in the right. There is no evidence of hydronephrosis or obstruction. Urinalysis with microcopy documented microscopic hematuria and 2+ proteinuria as well as hyaline cast on admission. Urinalysis with microscopy was repeated this morning showed improving microscopic hematuria, no pyuria, improving proteinuria and persistent hyaline cast. Alejandro was seen and evaluated in his hospital room this morning. He felt well and denies any acute complaints. He denies significant NSAID use and toxicology screen was negative for salicylates. Past Medical/Surgical History Medical: Alcohol abuse and dependence Depression Surgical: None Allergies Coded Allergies: Diphenhydramine (Verified Adverse Reaction, Mild, JITTERY/ANXIOUS, 11/30/16 ) ABLE TO TAKE REG. TYLENOL Inpatient Medications Current Inpatient Medications Medications (Trade) Dose Ordered Sig/Mariana Route Start Time Stop Time Status Last Admin Dose Admin Sodium Chloride 1,000 ml @ 200 mls/hr Q5H IV 04/05/17 21:15 05/05/17 21:14 04/08/17 03:27 200 MLS/HR Heparin Sodium (Porcine) (Heparin Sq 5000 Unit/0.5ml) 5,000 unit Q12H SQ 04/06/17 09:00 05/06/17 08:59 04/08/17 08:06 5,000 UNIT Acetaminophen (Tylenol Tab) 650 mg Q4H PRN PO 04/05/17 21:15 05/05/17 21:14 04/07/17 17:23 650 MG Multivitamins (Multivitamin Tab) 1 tab DAILY PO 04/06/17 09:00 05/06/17 08:59 04/08/17 08:05 1 TAB Gabapentin (Neurontin Tab) 1,200 mg TODAY@0600 PO 04/06/17 06:00 05/06/17 05:59 04/08/17 06:03 1,200 MG Gabapentin (Neurontin Tab) 600 mg Q12H PO 04/08/17 10:00 04/08/17 22:01 04/08/17 09:25 600 MG Gabapentin (Neurontin Tab) 600 mg Q24H PO 04/09/17 22:00 04/09/17 22:01 Lorazepam 1 mg/ Syringe 1 ml @ 0.5 mls/min Q4H PRN IV 04/06/17 06:30 05/06/17 06:29 Lorazepam 2 mg/ Syringe 2 ml @ 0.5 mls/min Q4H PRN IV 04/06/17 06:30 05/06/17 06:29 04/06/17 07:56 0.5 MLS/MIN Metoprolol Tartrate (Lopressor Iv) 5 mg Q6H PRN IV 04/06/17 21:00 05/06/17 20:59 04/07/17 17:36 5 MG Family History Unobtainable due to patient's condition Social History Smoking Status: Current Every Day Smoker Smokeless Tobacco Use: No Alcohol Use: heavy Drug Use: none Marital Status: single Housing Status: lives alone Occupation: employed Review of Systems Constitutional: No weight loss, No weakness A complete review of systems was performed. Pertinent positives are noted above. All other systems are negative. Physical Exam Date Time Temp Pulse Resp B/P (MAP) Pulse Ox O2 Delivery O2 Flow Rate FiO2 04/08/17 12:05 Room Air 04/08/17 11:35 36.6 60 16 135/79 (97) 96 Room Air 04/08/17 08:00 Room Air 04/08/17 07:05 98 Room Air 04/08/17 07:02 36.7 68 16 137/87 (104) Room Air 04/08/17 04:00 Room Air 04/08/17 04:00 36.6 69 20 125/80 (95) 94 Room Air 69 04/08/17 00:01 Room Air 04/07/17 23:28 36.5 74 20 176/91 (119) 96 Room Air 04/07/17 20:33 73 161/95 (117) 04/07/17 20:15 Room Air 04/07/17 19:32 80 167/103 04/07/17 19:11 37.0 78 20 167/103 (124) 95 Room Air 04/07/17 18:09 80 171/103 (125) 04/07/17 17:36 76 183/113 04/07/17 16:32 76 177/107 04/07/17 16:20 Room Air 04/07/17 15:23 37.4 76 20 177/107 (130) 97 General Appearance: WD/WN, no apparent distress Head: normocephalic, atraumatic Eyes: normal inspection, sclerae normal ENT: normal ENT inspection, pharynx normal Neck: supple, no JVD Respiratory/Chest: lungs clear, no respiratory distress, no accessory muscle use Cardiovascular: regular rate, rhythm, no gallop Abdomen/GI: non tender, soft Extremities/Musculoskelatal: normal inspection, no pedal edema Neurologic/Psych: alert, oriented x 3 Skin: no rash Laboratory Results Last 24 Hours Test 04/08/17 06:22 04/08/17 08:41 04/08/17 09:20 White Blood Count 9.44 K/uL Red Blood Count 4.26 M/uL Hemoglobin 12.9 g/dL Hematocrit 39.7 % Mean Corpuscular Volume 93.2 fL Mean Corpuscular Hemoglobin 30.3 pg Mean Corpuscular Hemoglobin Concent 32.5 g/dl RDW Standard Deviation 51.9 fL RDW Coefficient of Variation 15.3 % Platelet Count 189 K/uL Mean Platelet Volume 9.6 fL Sodium Level 142 mmol/L Potassium Level 4.2 mmol/L Chloride Level 116 mmol/L Carbon Dioxide Level 17 mmol/L Anion Gap 9.0 mmol/L Blood Urea Nitrogen 48 mg/dl Creatinine 6.50 mg/dl Est Creatinine Clear Calc Drug Dose 15.7 ml/min Estimated GFR () 10.0 Estimated GFR (Non- 8.6 BUN/Creatinine Ratio 7.3 Random Glucose 133 mg/dl Osmolality 302 mOsm/kg Calcium Level 7.8 mg/dl Total Bilirubin 0.3 mg/dl Aspartate Amino Transf (AST/SGOT) 19 U/L Alanine Aminotransferase (ALT/SGPT) 31 U/L Alkaline Phosphatase 65 U/L Total Protein 5.8 gm/dl Albumin 2.4 gm/dl Globulin 3.4 gm/dl Albumin/Globulin Ratio 0.7 Urine Color YELLOW Urine Appearance CLEAR Urine pH 5.0 Urine Specific [place] 1.016 Urine Protein TRACE Urine Glucose (UA) NEG Urine Ketones NEG Urine Occult Blood 1+ Urine Nitrite NEG Urine Bilirubin NEG Urine Urobilinogen NEG Urine Leukocyte Esterase TRACE Urine WBC (Auto) 1-5 /hpf Urine RBC (Auto) 5-10 /hpf Urine Hyaline Casts (Auto) 5-10 /lpf Urine Epithelial Cells (Auto) 10-20 /lpf Urine Bacteria (Auto) NEG Urine Osmolality 255 mOms/kg Urine Random Creatinine 100.0 mg/dl Urine Random Sodium 47 mEq/L Impression (1) NITIN (acute kidney injury) (2) Alcohol dependence (3) Major depressive disorder (4) Medication overdose Mr. Alejandro Centeno is a 57-year-old male who was admitted amount [facility] on April 05 with an overdose of Vistaril and clonidine. Blood pressure was low but acceptable on admission. It has been stable inappropriate during this hospitalization. He was admitted with acute renal insufficiency. Creatinine has increased from 2.5 to 6.5 milligram/deciliter. He is nonoliguric. Metabolic profile is otherwise normal. His volume status appears appropriate. He has been maintained on an infusion of saline. No specific nephrotoxic medications were identified. Renal ultrasound documented normal size kidney without evidence of chronic changes. There are no acute changes and no evidence of obstruction. An 8 millimeter calculus which is nonobstructing can be appreciated. Urinalysis with microscopic evaluation show some microscopic hematuria. There is trace proteinuria. There is no pyuria. CK was not elevated (measured at 160). Urine microscopy dose show persistent hyaline cast. Recommendations -- Stop saline infusion -- Document I/O's -- Monitor renal profile q 12 hours -- Check hepatitis profile -- Maintain even fluid balance -- Clinical presentation consistent ATN and less likely AIN or acute GN -- I would repeat urine microscopy in several days -- Medications are appropriate for renal function -- Volume status is acceptable -- There is no current indication for SPOOL SALVAGER -- Start HCO3 replacement with NaHCO3 1300 BID
[2017-04-08] MEDS: SODIUM BICARBONATE 650 MG TAB PO SCH (21:09)
[2017-04-09] VITALS (13 sets, daily range): BP systolic 146–203; BP diastolic 87–108; PULSE 60–87; TEMP 36.6–37; O2SAT 95–99
[2017-04-09] MEDS: GABAPENTIN 1200MG LOADING DOSE PO SCH (05:34)
[2017-04-09] MEDS: SODIUM BICARBONATE 650 MG TAB PO SCH ×2 (08:13→21:16)
[2017-04-09] MEDS: MULTIVITAMIN TAB PO SCH (08:13)
[2017-04-09] MEDS: HEPARIN SOD 5000 UNIT/0.5 ML CARP SQ SCH ×2 (08:18→21:18)
[2017-04-09 09:11] LABS: BUN/CREATININE RATIO 6.8 (10-20); CALCIUM 8.1 mg/dl (8.5-10.1); CREATININE 7.2 mg/dl (0.60-1.40); POTASSIUM 4.1 mmol/L (3.5-5.1)
[2017-04-09] MEDS ORDERED: POLYETHYLENE (MIRALAX) 17 GM PACK PO ONE (09:48)
--- NOTE | 2017-04-09 10:28 | Nephrology Progress Note ---
Nephrology Progress Note Date of Service Apr 09, 2017. Chief Complaint Nonoliguric NITIN Subjective Mr. Centeno was seen & examined in his hospital room this morning. He complained of constipation but noted that he was given prune juice this morning. He is trying to remain physically active. He walked in the hallways yesterday accompanied by nursing staff. Mr. Centeno currently denies flank pain, dyspnea or angina Review of Systems Constitutional: No fever Cardiovascular: No chest pain Respiratory: No dyspnea at rest Abdomen: No pain, No nausea, No vomiting Extremities: No leg edema A complete review of systems was performed. Pertinent positives are noted above. All other systems are negative. Vital Signs Last 8 Hrs Date Time Temp Pulse Resp B/P (MAP) Pulse Ox O2 Delivery O2 Flow Rate FiO2 04/09/17 08:00 96 Room Air 04/09/17 07:59 36.7 60 20 151/91 (111) 96 Room Air 04/09/17 04:00 Room Air 04/09/17 03:56 37.0 67 18 146/87 (106) 95 Room Air Last Recorded Weight Weight (Kilograms): 112.600 Physical Exam General Appearance: WD/WN, no apparent distress Head: normocephalic, atraumatic Eyes: PERRL, EOMI Neck: no adenopathy Respiratory/Chest: lungs clear, no respiratory distress Cardiovascular: regular rate, rhythm Abdomen/GI: normal bowel sounds, non tender, soft Extremities/Musculoskelatal: no calf tenderness, no pedal edema Neurologic/Psych: alert, oriented x 3 Family History Unobtainable due to patient's condition Social History Smoking Status: Current every day smoker Smokeless Tobacco Use: No Alcohol Use: heavy Drug Use: none Marital Status: single Housing Status: lives alone Occupation: employed Laboratory Results Past 24 Hours 04/09/17 07:40 Test 04/09/17 07:40 Anion Gap 9.0 mmol/L (3-11) Est Creatinine Clear Calc Drug Dose 14.3 ml/min Estimated GFR () 8.8 Estimated GFR (Non- 7.6 BUN/Creatinine Ratio 6.8 (10-20) Calcium Level 8.1 mg/dl (8.5-10.1) Phosphorus Level 5.0 mg/dl (2.5-4.9) Albumin 2.4 gm/dl (3.4-5.0) Allergies Coded Allergies: Diphenhydramine (Verified Adverse Reaction, Mild, JITTERY/ANXIOUS, 11/30/16 ) ABLE TO TAKE REG. TYLENOL Medications Current Inpatient Medications Medications (Trade) Dose Ordered Sig/Mariana Route Start Time Stop Time Status Last Admin Dose Admin Heparin Sodium (Porcine) (Heparin Sq 5000 Unit/0.5ml) 5,000 unit Q12H SQ 04/06/17 09:00 05/06/17 08:59 04/09/17 08:18 5,000 UNIT Acetaminophen (Tylenol Tab) 650 mg Q4H PRN PO 04/05/17 21:15 05/05/17 21:14 04/07/17 17:23 650 MG Multivitamins (Multivitamin Tab) 1 tab DAILY PO 04/06/17 09:00 05/06/17 08:59 04/09/17 08:13 1 TAB Gabapentin (Neurontin Tab) 1,200 mg TODAY@0600 PO 04/06/17 06:00 05/06/17 05:59 04/09/17 05:34 1,200 MG Gabapentin (Neurontin Tab) 600 mg Q24H PO 04/09/17 22:00 04/09/17 22:01 Lorazepam 1 mg/ Syringe 1 ml @ 0.5 mls/min Q4H PRN IV 04/06/17 06:30 05/06/17 06:29 Lorazepam 2 mg/ Syringe 2 ml @ 0.5 mls/min Q4H PRN IV 04/06/17 06:30 05/06/17 06:29 04/06/17 07:56 0.5 MLS/MIN Metoprolol Tartrate (Lopressor Iv) 5 mg Q6H PRN IV 04/06/17 21:00 05/06/17 20:59 04/07/17 17:36 5 MG Sodium Bicarbonate (Sodium Bicarbonate Tab) 1,300 mg BID PO 04/08/17 21:00 05/08/17 20:59 04/09/17 08:13 1,300 MG Polyethylene (Miralax Powder Packet) 17 gm DAILY PO 04/10/17 09:00 05/10/17 08:59 Impression (1) NITIN (acute kidney injury) (2) Alcohol dependence (3) Major depressive disorder (4) Medication overdose Mr. Centeno was admitted 04/05/17 following an unintentional overdose of Vistaril and Clonidine. Blood pressure was relatively low on admission. His creatinine janay from a baseline of 0.8 to ~6.0. He has remained nonoliguric. Urinalysis revealed low grade hematuria and proteinuria. Renal US was negative for obstruction but did reveal an 8 mm L lower pole calculus. CPK was checked and found to be within normal limits. Recommendations ACUTE KIDNEY INJURY: -- Probable hemodynamically mediated ATN -- Patient remains nonoliguric. Electrolyte balance is acceptable. No acute indication for HD at this time. Monitor daily PRP METABOLIC ACIDOSIS: -- BLAYNE related to NITIN -- Continue w/ NaHCO3 supplementation HYPERTENSION: -- Avoid Clonidine -- Consider low dose Amlodipine w/ target SBP 140 mm HG
--- NOTE | 2017-04-09 12:06 | Progress Note ---
Subjective Date of Service: Apr 09, 2017. Subjective Pt evaluation today including: conversation w/ patient, physical exam, chart review, lab review, review of studies, conversation w/ assessment consultant, review of inpatient medication list Pt resting in bed comfortably No complaints at this time Good urine output No events overnight Problem List Medical Problems: (1) Acute cholecystitis Status: Acute (2) Acute renal failure Status: Acute (3) Alcohol withdrawal Status: Acute (4) Alcoholic intoxication Status: Acute (5) Altered mental status Status: Acute (6) Hypoxia Status: Acute (7) Overdose Status: Acute (8) Suicidal ideation Status: Acute Review of Systems Constitutional: No fever, No chills, No sweats, No weight loss ENT: No hearing loss, No unusual epistaxis, No nasal symptoms, No sore throat Respiratory: No cough, No sputum, No wheezing, No shortness of breath Cardiac: No chest pain, No orthopnea, No PND, No edema Abdomen: No pain, No nausea, No vomiting, No constipation Musculoskeletal: No joint pain, No muscle pain, No swelling, No calf pain Male : No dysuria, No urinary frequency, No incontinence, No slowing stream Neurologic: No memory loss, No paralysis, No weakness, No numbness/tingling Psychiatric: No depression symptoms, No anhedonism, No anxiety, No insomnia Endo: No fatigue, No excessive thirst Skin: No rash, No itch Objective Vital Signs Date Time Temp Pulse Resp B/P (MAP) Pulse Ox O2 Delivery O2 Flow Rate FiO2 04/09/17 11:45 36.7 62 20 174/105 (128) 98 Room Air 173/103 (126) 04/09/17 08:00 96 Room Air 04/09/17 07:59 36.7 60 20 151/91 (111) 96 Room Air 04/09/17 04:00 Room Air 04/09/17 03:56 37.0 67 18 146/87 (106) 95 Room Air 04/09/17 00:00 Room Air 04/08/17 23:36 36.7 69 20 153/88 (109) 96 Room Air 04/08/17 20:00 Room Air 04/08/17 19:57 36.9 61 20 156/91 (112) 96 Room Air 04/08/17 16:00 Room Air 04/08/17 15:30 36.7 67 20 146/91 (109) 97 Room Air 04/08/17 12:05 Room Air Physical Exam General Appearance: WD/WN, no apparent distress Eyes: normal inspection, PERRL, EOMI, sclerae normal ENT: normal ENT inspection, hearing grossly normal, TMs normal, pharynx normal Neck: supple, no adenopathy, thyroid normal Respiratory/Chest: chest non-tender, lungs clear, normal breath sounds, no respiratory distress Cardiovascular: regular rate, rhythm, no edema, no gallop, no JVD Abdomen: normal bowel sounds, non tender, soft, no organomegaly Extremities: normal range of motion, non-tender, normal inspection, no pedal edema Neurologic/Psychiatric: no motor/sensory deficits, alert, normal mood/affect, oriented x 3 Skin: normal color, warm/dry, no rash Lymphatic: no adenopathy Laboratory Results Last 24 Hours Test 04/09/17 07:40 Sodium Level 143 mmol/L Potassium Level 4.1 mmol/L Chloride Level 115 mmol/L Carbon Dioxide Level 19 mmol/L Anion Gap 9.0 mmol/L Blood Urea Nitrogen 49 mg/dl Creatinine 7.20 mg/dl Est Creatinine Clear Calc Drug Dose 14.3 ml/min Estimated GFR () 8.8 Estimated GFR (Non- 7.6 BUN/Creatinine Ratio 6.8 Random Glucose 99 mg/dl Calcium Level 8.1 mg/dl Phosphorus Level 5.0 mg/dl Albumin 2.4 gm/dl Assessment and Plan This is a 57 yo m here for overdose of Vistiril and Clondine resulting in NITIN; questionably other substances; history of alcohol abuse; states that this is accidental Overdose of medications -Admitted to tele -QTc prolongation now resolved -Psych consult, pt agreeable to 201 voluntary stay for substance abuse NITIN secondary to dehydration vs overdose -Worsening despite IVF, Cr 6 04/09 -Stop IVF due to hypervolemia and congestion -Nephrology consulted, renal US unremarkable, sodium bicarb added, no further recs at this time ALBARO?? --pt feels this may been an issue contributing to his anxiety Overnight pulse ox was neg Pt is possibly having irregular breathing patterns at home due to substance abuse History of alcohol abuse - alcohol withdrawal protocol - received banana bag in ED Depression - on Wellbutrin but held due to prolonged QT/QTc, will resume once renal function is more stable DVT Prophylaxis heparin bid
[2017-04-09] MEDS: METOPROLOL TARTRATE 1 MG/ML VIAL IV PRN (17:07)
[2017-04-09] MEDS ORDERED: NURSING VERBAL MED ORDER ONE ×2 (17:30→17:45)
[2017-04-09] MEDS: HydrALAZINE HCL 20 MG/ML VIAL IV. PRN (18:27)
[2017-04-09] MEDS ORDERED: AMLODIPINE BESYLATE 5 MG TAB PO ONE (19:45)
[2017-04-09] MEDS: ACETAMINOPHEN 325 MG TAB PO PRN (20:02)
[2017-04-09] MEDS ORDERED: GABAPENTIN 600MG X1 DOSE PO SCH (22:00)
[2017-04-10] VITALS (15 sets, daily range): BP systolic 158–207; BP diastolic 87–106; PULSE 73–98; TEMP 36.3–37.1; O2SAT 92–98
[2017-04-10] MEDS: METOPROLOL TARTRATE 1 MG/ML VIAL IV PRN ×2 (04:34→17:26)
[2017-04-10] MEDS: GABAPENTIN 1200MG LOADING DOSE PO SCH (05:52)
[2017-04-10] MEDS: HydrALAZINE HCL 20 MG/ML VIAL IV. PRN ×3 (05:54→21:03)
[2017-04-10] MEDS: AMLODIPINE BESYLATE 5 MG TAB PO SCH (08:21)
[2017-04-10] MEDS: SODIUM BICARBONATE 650 MG TAB PO SCH ×2 (08:21→21:05)
[2017-04-10] MEDS: MULTIVITAMIN TAB PO SCH (08:21)
[2017-04-10] MEDS: POLYETHYLENE (MIRALAX) 17 GM PACK PO SCH (08:22)
[2017-04-10] MEDS: NICOTINE 14 MG/24 HR TDSY TD SCH (08:22)
[2017-04-10] MEDS: HEPARIN SOD 5000 UNIT/0.5 ML CARP SQ SCH ×2 (08:26→20:57)
[2017-04-10 08:46] LABS: BUN/CREATININE RATIO 7.1 (10-20); CALCIUM 8.5 mg/dl (8.5-10.1); CREATININE 7.2 mg/dl (0.60-1.40); POTASSIUM 4.3 mmol/L (3.5-5.1)
[2017-04-10] MEDS ORDERED: AMLODIPINE BESYLATE 5 MG TAB PO SCH (09:00)
[2017-04-10] MEDS ORDERED: CLONIDINE HCL 0.1 MG TAB PO SCH (09:00)
--- NOTE | 2017-04-10 10:36 | Nephrology Progress Note ---
Nephrology Progress Note Date of Service Apr 10, 2017. Chief Complaint Nonoliguric NITIN Subjective Mr. Centeno was seen & examined in his hospital room this morning. He denies fever , flank pain or difficulty voiding. He has had no dyspnea or nausea. Mr. Centeno remains active by ambulating in the hallway. His blood pressure has been elevated. His Amlodipine dose has been increased and Clonidine added to his medical regimen. Review of Systems Constitutional: No fever Cardiovascular: No chest pain Respiratory: No dyspnea at rest Abdomen: No pain, No nausea, No vomiting Genitourinary - Male: No dysuria, No gross hematuria, No urinary hesitancy Extremities: + leg edema A complete review of systems was performed. Pertinent positives are noted above. All other systems are negative. Vital Signs Last 8 Hrs Date Time Temp Pulse Resp B/P (MAP) Pulse Ox O2 Delivery O2 Flow Rate FiO2 04/10/17 08:00 97 Room Air 04/10/17 08:00 36.7 86 20 172/91 (118) 96 Room Air 04/10/17 07:31 36.7 82 20 178/94 (122) 97 Room Air 04/10/17 06:33 83 173/92 (119) 04/10/17 05:51 73 178/102 (127) 04/10/17 04:34 74 181/106 04/10/17 04:31 36.7 74 18 181/106 (131) 97 04/10/17 04:00 Room Air Last Recorded Weight Weight (Kilograms): 113.400 Physical Exam General Appearance: no apparent distress Head: normocephalic, atraumatic Eyes: PERRL, EOMI Neck: no adenopathy Respiratory/Chest: lungs clear Cardiovascular: regular rate, rhythm Abdomen/GI: normal bowel sounds, non tender, soft Extremities/Musculoskelatal: no calf tenderness, + swelling (trace to 1+ pretibial pitting edema) Neurologic/Psych: alert, oriented x 3 Family History Unobtainable due to patient's condition Social History Smoking Status: Current every day smoker Smokeless Tobacco Use: No Alcohol Use: heavy Drug Use: none Marital Status: single Housing Status: lives alone Occupation: employed Laboratory Results Past 24 Hours 04/10/17 07:35 Test 04/10/17 07:35 Anion Gap 8.0 mmol/L (3-11) Est Creatinine Clear Calc Drug Dose 14.3 ml/min Estimated GFR () 8.8 Estimated GFR (Non- 7.6 BUN/Creatinine Ratio 7.1 (10-20) Calcium Level 8.5 mg/dl (8.5-10.1) Allergies Coded Allergies: Diphenhydramine (Verified Adverse Reaction, Mild, JITTERY/ANXIOUS, 11/30/16 ) ABLE TO TAKE REG. TYLENOL Medications Current Inpatient Medications Medications (Trade) Dose Ordered Sig/Mariana Route Start Time Stop Time Status Last Admin Dose Admin Heparin Sodium (Porcine) (Heparin Sq 5000 Unit/0.5ml) 5,000 unit Q12H SQ 04/06/17 09:00 05/06/17 08:59 04/10/17 08:26 5,000 UNIT Acetaminophen (Tylenol Tab) 650 mg Q4H PRN PO 04/05/17 21:15 05/05/17 21:14 04/09/17 20:02 650 MG Multivitamins (Multivitamin Tab) 1 tab DAILY PO 04/06/17 09:00 05/06/17 08:59 04/10/17 08:21 1 TAB Gabapentin (Neurontin Tab) 1,200 mg TODAY@0600 PO 04/06/17 06:00 05/06/17 05:59 04/10/17 05:52 1,200 MG Lorazepam 1 mg/ Syringe 1 ml @ 0.5 mls/min Q4H PRN IV 04/06/17 06:30 05/06/17 06:29 Lorazepam 2 mg/ Syringe 2 ml @ 0.5 mls/min Q4H PRN IV 04/06/17 06:30 05/06/17 06:29 04/06/17 07:56 0.5 MLS/MIN Metoprolol Tartrate (Lopressor Iv) 5 mg Q6H PRN IV 04/06/17 21:00 05/06/17 20:59 04/10/17 04:34 5 MG Sodium Bicarbonate (Sodium Bicarbonate Tab) 1,300 mg BID PO 04/08/17 21:00 05/08/17 20:59 04/10/17 08:21 1,300 MG Polyethylene (Miralax Powder Packet) 17 gm DAILY PO 04/10/17 09:00 05/10/17 08:59 Hydralazine HCl (HydrALAZINE INJ) 10 mg Q6H PRN IV. 04/09/17 17:45 05/09/17 17:44 04/10/17 05:54 10 MG Nicotine (Nicoderm Cq 14MG Patch) 1 patch QAM TD 04/10/17 09:00 05/10/17 08:59 04/10/17 08:22 1 PATCH Miscellaneous (Remove Nicoderm Patch) 1 ea HS N/A 04/10/17 21:00 05/10/17 20:59 Amlodipine Besylate (Norvasc Tab) 10 mg QAM PO 04/10/17 09:00 05/10/17 08:59 04/10/17 08:21 10 MG Clonidine HCl (Catapres Tab) 0.1 mg QAM PO 04/10/17 09:00 05/10/17 08:59 04/10/17 08:21 0.1 MG Impression (1) NITIN (acute kidney injury) (2) Alcohol dependence (3) Major depressive disorder (4) Medication overdose Mr. Centeno was admitted 04/05/17 following an unintentional overdose of Vistaril and Clonidine. Blood pressure was relatively low on admission. His creatinine janay from a baseline of 0.8 to ~6.0. He has remained nonoliguric. Urinalysis revealed low grade hematuria and proteinuria. Renal US was negative for obstruction but did reveal an 8 mm L lower pole calculus. CPK was checked and found to be within normal limits. Recommendations ACUTE KIDNEY INJURY: -- Probable hemodynamically mediated ATN. Serum creatinine has stabilized. Expect to see patient enter recovery phase within next 48 - 72 hours -- Patient remains nonoliguric. Electrolyte balance is acceptable. No acute indication for HD at this time. Monitor daily PRP METABOLIC ACIDOSIS: -- BLAYNE related to NITIN -- Continue w/ NaHCO3 supplementation HYPERTENSION: -- Will stop Clonidine -- Continue Amlodipine -- Patient is nearly 6 L volume positive since admission. Will start low dose Furosemide and monitor bp, volume status and kidney function.
--- NOTE | 2017-04-10 13:51 | Progress Note ---
Subjective Date of Service: Apr 10, 2017. Subjective Pt evaluation today including: conversation w/ patient, physical exam, chart review, lab review, review of studies, review of inpatient medication list Resting comfortably in bed Denies any symptoms No acute events overnight Problem List Medical Problems: (1) Acute cholecystitis Status: Acute (2) Acute renal failure Status: Acute (3) Alcohol withdrawal Status: Acute (4) Alcoholic intoxication Status: Acute (5) Altered mental status Status: Acute (6) Hypoxia Status: Acute (7) Overdose Status: Acute (8) Suicidal ideation Status: Acute Review of Systems Constitutional: No fever, No chills, No sweats, No weight loss, No weakness Eyes: No worsening of vision, No eye pain, No redness, No discharge Respiratory: No cough, No sputum, No wheezing, No shortness of breath, No dyspnea on exertion Cardiac: No chest pain, No orthopnea, No PND, No edema, No claudication Abdomen: No pain, No nausea, No vomiting, No diarrhea, No constipation Musculoskeletal: No joint pain, No muscle pain, No swelling, No calf pain Male : No dysuria, No urinary frequency, No incontinence, No slowing stream Neurologic: No memory loss, No paralysis, No weakness, No numbness/tingling Psychiatric: No depression symptoms, No anhedonism, No anxiety, No insomnia Endo: No fatigue, No excessive thirst Skin: No rash, No itch Objective Vital Signs Date Time Temp Pulse Resp B/P (MAP) Pulse Ox O2 Delivery O2 Flow Rate FiO2 04/10/17 12:18 36.7 79 20 164/92 (116) 96 Room Air 04/10/17 12:00 96 Room Air 04/10/17 08:00 97 Room Air 04/10/17 08:00 36.7 86 20 172/91 (118) 96 Room Air 04/10/17 07:31 36.7 82 20 178/94 (122) 97 Room Air 04/10/17 06:33 83 173/92 (119) 04/10/17 05:51 73 178/102 (127) 04/10/17 04:34 74 181/106 04/10/17 04:31 36.7 74 18 181/106 (131) 97 04/10/17 04:00 Room Air 04/10/17 00:52 36.8 98 20 158/91 (113) 92 Room Air 04/10/17 00:00 Room Air 04/09/17 22:06 76 166/96 (119) 04/09/17 21:21 79 192/101 (131) 04/09/17 20:17 36.6 86 20 203/97 (132) 96 Room Air 04/09/17 20:00 99 Room Air 04/09/17 19:10 87 200/108 (138) 04/09/17 18:30 84 187/100 (129) 04/09/17 17:07 80 213/125 04/09/17 16:00 99 Room Air 04/09/17 15:41 36.6 68 20 182/103 (129) 99 Room Air Physical Exam General Appearance: WD/WN, no apparent distress Eyes: normal inspection, PERRL, EOMI, sclerae normal Neck: supple, no adenopathy, thyroid normal, no JVD Respiratory/Chest: chest non-tender, lungs clear, normal breath sounds, no respiratory distress Cardiovascular: regular rate, rhythm, no edema, no gallop, no JVD Abdomen: normal bowel sounds, non tender, soft Neurologic/Psychiatric: no motor/sensory deficits, alert, normal mood/affect Laboratory Results Last 24 Hours Test 04/10/17 07:35 Sodium Level 141 mmol/L Potassium Level 4.3 mmol/L Chloride Level 114 mmol/L Carbon Dioxide Level 19 mmol/L Anion Gap 8.0 mmol/L Blood Urea Nitrogen 51 mg/dl Creatinine 7.20 mg/dl Est Creatinine Clear Calc Drug Dose 14.3 ml/min Estimated GFR () 8.8 Estimated GFR (Non- 7.6 BUN/Creatinine Ratio 7.1 Random Glucose 111 mg/dl Calcium Level 8.5 mg/dl Assessment and Plan This is a 57 yo m here for overdose of Vistiril and Clondine resulting in NITIN; questionably other substances; history of alcohol abuse; states that this is accidental Overdose of medications -Admitted to tele -QTc prolongation now resolved -Psych consult, pt agreeable to 201 voluntary stay for substance abuse NITIN secondary to dehydration vs overdose -Pleateau at 7.2 04/10 -Stop IVF due to hypervolemia and congestion -Nephrology consulted, renal US unremarkable, sodium bicarb cont, no further recs at this time ALBARO?? --pt feels this may been an issue contributing to his anxiety Overnight pulse ox was neg Pt is possibly having irregular breathing patterns at home due to substance abuse History of alcohol abuse - alcohol withdrawal protocol - received banana bag in ED Depression - on Wellbutrin but held due to prolonged QT/QTc, will resume once renal function is more stable DVT Prophylaxis heparin bid
[2017-04-10] MEDS: ACETAMINOPHEN 325 MG TAB PO PRN ×2 (16:11→21:04)
[2017-04-10] MEDS ORDERED: NURSING VERBAL MED ORDER ONE (17:45)
[2017-04-11] VITALS (7 sets, daily range): BP systolic 132–195; BP diastolic 67–91; PULSE 75–101; TEMP 36.4–36.8; O2SAT 95–98
[2017-04-11] MEDS: HydrALAZINE HCL 20 MG/ML VIAL IV. PRN ×2 (00:56→20:53)
[2017-04-11] MEDS: ACETAMINOPHEN 325 MG TAB PO PRN (00:57)
[2017-04-11 05:50] LABS: MEAN CELL VOLUME 90.3 fL (80-100); MEAN CORPUSCULAR HGB CONC 34.4 g/dl (32-36); MEAN PLATELET VOLUME 9.4 fL (7.4-10.4); PLATELET COUNT 229 K/uL (130-400); RED BLOOD COUNT 4.32 M/uL (4.7-6.1)
[2017-04-11] MEDS: GABAPENTIN 1200MG LOADING DOSE PO SCH (06:15)
[2017-04-11 06:32] LABS: BUN/CREATININE RATIO 7.1 (10-20); CALCIUM 8.4 mg/dl (8.5-10.1); CREATININE 6.9 mg/dl (0.60-1.40); POTASSIUM 4.1 mmol/L (3.5-5.1)
[2017-04-11] MEDS: MULTIVITAMIN TAB PO SCH (08:38)
[2017-04-11] MEDS: NICOTINE 14 MG/24 HR TDSY TD SCH (08:38)
[2017-04-11] MEDS: SODIUM BICARBONATE 650 MG TAB PO SCH ×2 (08:38→20:45)
[2017-04-11] MEDS: FUROSEMIDE 20 MG TAB PO SCH (08:39)
[2017-04-11] MEDS: HEPARIN SOD 5000 UNIT/0.5 ML CARP SQ SCH ×2 (08:43→20:45)
[2017-04-11] MEDS: POLYETHYLENE (MIRALAX) 17 GM PACK PO SCH (08:45)
[2017-04-11] MEDS: AMLODIPINE BESYLATE 5 MG TAB PO SCH (09:12)
--- NOTE | 2017-04-11 10:17 | Nephrology Progress Note ---
Nephrology Progress Note Date of Service Apr 11, 2017. Chief Complaint Nonoliguric NITIN Subjective Mr. Centeno was seen & examined in his hospital room this morning. He denies fever , flank pain, nausea or dyspnea. He notes that his blood pressure is improved and his urine output has increased following Lasix therapy. Mr. Centeno remains active by ambulating in the hallway each day Review of Systems Constitutional: No fever Cardiovascular: No chest pain Respiratory: No dyspnea at rest Abdomen: No pain, No nausea, No vomiting Genitourinary - Male: No dysuria, No gross hematuria Extremities: + leg edema A complete review of systems was performed. Pertinent positives are noted above. All other systems are negative. Vital Signs Last 8 Hrs Date Time Temp Pulse Resp B/P (MAP) Pulse Ox O2 Delivery O2 Flow Rate FiO2 04/11/17 08:00 Room Air 04/11/17 07:20 36.4 77 20 144/88 (106) 95 Room Air 04/11/17 04:30 Room Air 04/11/17 04:23 36.7 75 132/67 (88) 95 Room Air Last Recorded Weight Weight (Kilograms): 112.700 Physical Exam General Appearance: no apparent distress Head: normocephalic, atraumatic Eyes: PERRL, EOMI Neck: supple Respiratory/Chest: lungs clear Cardiovascular: regular rate, rhythm Back: no CVA tenderness Abdomen/GI: normal bowel sounds, non tender, soft Extremities/Musculoskelatal: no calf tenderness, no pedal edema Neurologic/Psych: alert, oriented x 3 Family History Unobtainable due to patient's condition Social History Smoking Status: Current every day smoker Smokeless Tobacco Use: No Alcohol Use: heavy Drug Use: none Marital Status: single Housing Status: lives alone Occupation: employed Laboratory Results Past 24 Hours 04/11/17 05:29 04/11/17 05:29 Test 04/11/17 05:29 Red Blood Count 4.32 M/uL (4.7-6.1) Mean Corpuscular Volume 90.3 fL (80-100) Mean Corpuscular Hemoglobin 31.0 pg (25-34) Mean Corpuscular Hemoglobin Concent 34.4 g/dl (32-36) RDW Standard Deviation 50.4 fL (36.4-46.3) RDW Coefficient of Variation 15.2 % (11.5-14.5) Mean Platelet Volume 9.4 fL (7.4-10.4) Anion Gap 11.0 mmol/L (3-11) Est Creatinine Clear Calc Drug Dose 14.9 ml/min Estimated GFR () 9.3 Estimated GFR (Non- 8.0 BUN/Creatinine Ratio 7.1 (10-20) Calcium Level 8.4 mg/dl (8.5-10.1) Allergies Coded Allergies: Diphenhydramine (Verified Adverse Reaction, Mild, JITTERY/ANXIOUS, 11/30/16 ) ABLE TO TAKE REG. TYLENOL Medications Current Inpatient Medications Medications (Trade) Dose Ordered Sig/Mariana Route Start Time Stop Time Status Last Admin Dose Admin Heparin Sodium (Porcine) (Heparin Sq 5000 Unit/0.5ml) 5,000 unit Q12H SQ 04/06/17 09:00 05/06/17 08:59 04/11/17 08:43 5,000 UNIT Acetaminophen (Tylenol Tab) 650 mg Q4H PRN PO 04/05/17 21:15 05/05/17 21:14 04/11/17 00:57 650 MG Multivitamins (Multivitamin Tab) 1 tab DAILY PO 04/06/17 09:00 05/06/17 08:59 04/11/17 08:38 1 TAB Gabapentin (Neurontin Tab) 1,200 mg TODAY@0600 PO 04/06/17 06:00 05/06/17 05:59 04/11/17 06:15 1,200 MG Lorazepam 1 mg/ Syringe 1 ml @ 0.5 mls/min Q4H PRN IV 04/06/17 06:30 05/06/17 06:29 Lorazepam 2 mg/ Syringe 2 ml @ 0.5 mls/min Q4H PRN IV 04/06/17 06:30 05/06/17 06:29 04/06/17 07:56 0.5 MLS/MIN Metoprolol Tartrate (Lopressor Iv) 5 mg Q6H PRN IV 04/06/17 21:00 05/06/17 20:59 04/10/17 17:26 5 MG Sodium Bicarbonate (Sodium Bicarbonate Tab) 1,300 mg BID PO 04/08/17 21:00 05/08/17 20:59 04/11/17 08:38 1,300 MG Polyethylene (Miralax Powder Packet) 17 gm DAILY PO 04/10/17 09:00 05/10/17 08:59 Nicotine (Nicoderm Cq 14MG Patch) 1 patch QAM TD 04/10/17 09:00 05/10/17 08:59 04/11/17 08:38 1 PATCH Miscellaneous (Remove Nicoderm Patch) 1 ea HS N/A 04/10/17 21:00 05/10/17 20:59 04/10/17 21:06 1 EA Amlodipine Besylate (Norvasc Tab) 10 mg QAM PO 04/10/17 09:00 05/10/17 08:59 04/11/17 09:12 10 MG Furosemide (Lasix Tab) 20 mg QAM PO 04/11/17 09:00 05/11/17 08:59 04/11/17 08:39 20 MG Hydralazine HCl (HydrALAZINE INJ) 10 mg Q4H PRN IV. 04/10/17 18:00 05/10/17 17:59 04/11/17 00:56 10 MG Impression (1) NITIN (acute kidney injury) (2) Alcohol dependence (3) Major depressive disorder (4) Medication overdose Mr. Centeno was admitted 04/05/17 following an unintentional overdose of Vistaril and Clonidine. Blood pressure was relatively low on admission. His creatinine janay from a baseline of 0.8 to ~6.0. He has remained nonoliguric. Urinalysis revealed low grade hematuria and proteinuria. Renal US was negative for obstruction but did reveal an 8 mm L lower pole calculus. CPK was checked and found to be within normal limits. Recommendations ACUTE KIDNEY INJURY: -- Probable hemodynamically mediated ATN. Serum creatinine is mildly improved this am. Patient may be entering recovery phase -- Patient remains nonoliguric. Electrolyte balance is acceptable. No acute indication for HD at this time. Monitor daily PRP METABOLIC ACIDOSIS: -- BLAYNE related to NITIN -- Continue w/ NaHCO3 supplementation HYPERTENSION: -- Recommend avoiding Clonidine -- Continue Amlodipine -- Continue low dose Furosemide
--- NOTE | 2017-04-11 12:43 | Progress Note ---
Subjective Date of Service: Apr 11, 2017. Subjective Pt evaluation today including: conversation w/ patient, physical exam, chart review, lab review, review of studies, review of inpatient medication list Pt resting comfortably in bed States new rash located in center of back is itchy Denies any pain or distress No acute events overnight Problem List Medical Problems: (1) Acute cholecystitis Status: Acute (2) Acute renal failure Status: Acute (3) Alcohol withdrawal Status: Acute (4) Alcoholic intoxication Status: Acute (5) Altered mental status Status: Acute (6) Hypoxia Status: Acute (7) Overdose Status: Acute (8) Suicidal ideation Status: Acute Review of Systems Constitutional: No fever, No chills, No sweats, No weight loss Respiratory: No cough, No sputum, No wheezing, No shortness of breath Cardiac: No chest pain, No orthopnea, No PND, No edema Abdomen: No pain, No nausea, No vomiting, No diarrhea, No constipation Musculoskeletal: No joint pain, No muscle pain, No swelling, No calf pain Male : No dysuria, No urinary frequency, No incontinence, No slowing stream Neurologic: No memory loss, No paralysis, No weakness, No numbness/tingling Psychiatric: No depression symptoms, No anhedonism, No anxiety, No insomnia Endo: No fatigue, No excessive thirst Skin: + rash, No itch Objective Vital Signs Date Time Temp Pulse Resp B/P (MAP) Pulse Ox O2 Delivery O2 Flow Rate FiO2 04/11/17 12:00 Room Air 04/11/17 11:12 36.8 85 18 150/81 (104) 96 04/11/17 08:00 Room Air 04/11/17 07:20 36.4 77 20 144/88 (106) 95 Room Air 04/11/17 04:30 Room Air 04/11/17 04:23 36.7 75 132/67 (88) 95 Room Air 04/11/17 00:52 86 168/88 (114) 04/11/17 00:00 Room Air 04/10/17 23:10 36.7 87 20 162/87 (112) 95 Room Air 04/10/17 20:59 80 170/98 (122) 04/10/17 20:00 98 Room Air 04/10/17 19:57 37.1 82 20 172/97 (122) 96 Room Air 04/10/17 17:26 93 187/101 04/10/17 17:14 93 187/101 (129) 04/10/17 16:04 36.3 24 207/103 (137) 98 Room Air 04/10/17 16:00 98 Room Air Physical Exam General Appearance: WD/WN, no apparent distress Eyes: normal inspection, PERRL, EOMI, sclerae normal Neck: supple, no adenopathy, thyroid normal, no JVD Respiratory/Chest: chest non-tender, lungs clear, normal breath sounds, no respiratory distress Cardiovascular: regular rate, rhythm, no edema, no gallop, no JVD Abdomen: normal bowel sounds, non tender, soft, no organomegaly Extremities: normal range of motion, non-tender, normal inspection, no pedal edema Neurologic/Psychiatric: no motor/sensory deficits, alert, normal mood/affect, oriented x 3 Skin: normal color, warm/dry, + rash (raised red papular rash located on center of back) Laboratory Results Last 24 Hours Test 04/11/17 05:29 White Blood Count 10.00 K/uL Red Blood Count 4.32 M/uL Hemoglobin 13.4 g/dL Hematocrit 39.0 % Mean Corpuscular Volume 90.3 fL Mean Corpuscular Hemoglobin 31.0 pg Mean Corpuscular Hemoglobin Concent 34.4 g/dl RDW Standard Deviation 50.4 fL RDW Coefficient of Variation 15.2 % Platelet Count 229 K/uL Mean Platelet Volume 9.4 fL Sodium Level 144 mmol/L Potassium Level 4.1 mmol/L Chloride Level 114 mmol/L Carbon Dioxide Level 19 mmol/L Anion Gap 11.0 mmol/L Blood Urea Nitrogen 49 mg/dl Creatinine 6.90 mg/dl Est Creatinine Clear Calc Drug Dose 14.9 ml/min Estimated GFR () 9.3 Estimated GFR (Non- 8.0 BUN/Creatinine Ratio 7.1 Random Glucose 108 mg/dl Calcium Level 8.4 mg/dl Assessment and Plan This is a 57 yo m here for overdose of Vistiril and Clondine resulting in NITIN; questionably other substances; history of alcohol abuse; states that this is accidental Overdose of medications -Admitted to tele -QTc prolongation now resolved -Psych consult, pt agreeable to 201 voluntary stay for substance abuse NITIN secondary to likely ATN -[place] at 7.2 8/20 now improved to 6.9, no oliguria noted -Stop IVF due to hypervolemia and congestion -Nephrology consulted, renal US unremarkable, sodium bicarb cont, no further recs at this time ALBARO?? --pt feels this may been an issue contributing to his anxiety Overnight pulse ox was neg Pt is possibly having irregular breathing patterns at home due to substance abuse History of alcohol abuse - alcohol withdrawal protocol - received banana bag in ED Depression - on Wellbutrin but held due to prolonged QT/QTc, will resume once renal function is more stable DVT Prophylaxis heparin bid
[2017-04-11] MEDS: METOPROLOL TARTRATE 1 MG/ML VIAL IV PRN (22:05)
[2017-04-11] MEDS ORDERED: LABETALOL HCL IV 5 MG/ML 20ML IV STA (22:54)
[2017-04-12] VITALS (10 sets, daily range): BP systolic 135–179; BP diastolic 77–95; PULSE 74–91; TEMP 36.3–36.9; O2SAT 95–98
[2017-04-12] MEDS: GABAPENTIN 1200MG LOADING DOSE PO SCH (06:13)
[2017-04-12 06:59] LABS: BUN/CREATININE RATIO 7.7 (10-20); CALCIUM 8.4 mg/dl (8.5-10.1); CREATININE 5.9 mg/dl (0.60-1.40); POTASSIUM 3.9 mmol/L (3.5-5.1)
[2017-04-12] MEDS: AMLODIPINE BESYLATE 5 MG TAB PO SCH (07:56)
[2017-04-12] MEDS: SODIUM BICARBONATE 650 MG TAB PO SCH (07:57)
[2017-04-12] MEDS: NICOTINE 14 MG/24 HR TDSY TD SCH (07:57)
[2017-04-12] MEDS: FUROSEMIDE 20 MG TAB PO SCH ×2 (07:57→16:57)
[2017-04-12] MEDS: MULTIVITAMIN TAB PO SCH (07:57)
[2017-04-12] MEDS: POLYETHYLENE (MIRALAX) 17 GM PACK PO SCH (07:57)
[2017-04-12] MEDS: HEPARIN SOD 5000 UNIT/0.5 ML CARP SQ SCH ×2 (07:58→22:23)
--- NOTE | 2017-04-12 09:31 | Nephrology Progress Note ---
Nephrology Progress Note Date of Service Apr 12, 2017. Chief Complaint Nonoliguric NITIN Subjective Mr. Centeno was seen & examined in his hospital room this morning. He denies fever , flank pain or nausea. He reports good urine output. Mr. Centeno remains active by ambulating in the hallway. His only complaint is persistent LE swelling. Review of Systems Constitutional: No fever Cardiovascular: No chest pain Respiratory: No dyspnea at rest Abdomen: No pain, No nausea, No vomiting Extremities: + leg edema A complete review of systems was performed. Pertinent positives are noted above. All other systems are negative. Vital Signs Last 8 Hrs Date Time Temp Pulse Resp B/P (MAP) Pulse Ox O2 Delivery O2 Flow Rate FiO2 04/12/17 08:00 Room Air 04/12/17 07:24 36.6 78 16 167/94 (118) 97 Room Air 04/12/17 04:10 36.4 75 18 135/77 (96) 96 Room Air 04/12/17 04:00 Room Air Last Recorded Weight Weight (Kilograms): 110.000 Physical Exam General Appearance: no apparent distress Head: normocephalic, atraumatic Eyes: PERRL, EOMI Neck: no adenopathy Respiratory/Chest: lungs clear, no respiratory distress Cardiovascular: regular rate, rhythm Abdomen/GI: normal bowel sounds, non tender, soft Extremities/Musculoskelatal: no calf tenderness, no pedal edema, + swelling (1 + pretibial pitting edema) Neurologic/Psych: alert, oriented x 3 Family History Unobtainable due to patient's condition Social History Smoking Status: Current every day smoker Smokeless Tobacco Use: No Alcohol Use: heavy Drug Use: none Marital Status: single Housing Status: lives alone Occupation: employed Laboratory Results Past 24 Hours 04/12/17 05:44 Test 04/12/17 05:44 Anion Gap 9.0 mmol/L (3-11) Est Creatinine Clear Calc Drug Dose 17.2 ml/min Estimated GFR () 11.2 Estimated GFR (Non- 9.7 BUN/Creatinine Ratio 7.7 (10-20) Calcium Level 8.4 mg/dl (8.5-10.1) Allergies Coded Allergies: Diphenhydramine (Verified Adverse Reaction, Mild, JITTERY/ANXIOUS, 11/30/16 ) ABLE TO TAKE REG. TYLENOL Medications Current Inpatient Medications Medications (Trade) Dose Ordered Sig/Mariana Route Start Time Stop Time Status Last Admin Dose Admin Heparin Sodium (Porcine) (Heparin Sq 5000 Unit/0.5ml) 5,000 unit Q12H SQ 04/06/17 09:00 05/06/17 08:59 04/12/17 07:58 5,000 UNIT Acetaminophen (Tylenol Tab) 650 mg Q4H PRN PO 04/05/17 21:15 05/05/17 21:14 04/11/17 00:57 650 MG Multivitamins (Multivitamin Tab) 1 tab DAILY PO 04/06/17 09:00 05/06/17 08:59 04/12/17 07:57 1 TAB Gabapentin (Neurontin Tab) 1,200 mg TODAY@0600 PO 04/06/17 06:00 05/06/17 05:59 04/12/17 06:13 1,200 MG Lorazepam 1 mg/ Syringe 1 ml @ 0.5 mls/min Q4H PRN IV 04/06/17 06:30 05/06/17 06:29 Lorazepam 2 mg/ Syringe 2 ml @ 0.5 mls/min Q4H PRN IV 04/06/17 06:30 05/06/17 06:29 04/06/17 07:56 0.5 MLS/MIN Metoprolol Tartrate (Lopressor Iv) 5 mg Q6H PRN IV 04/06/17 21:00 05/06/17 20:59 04/11/17 22:05 5 MG Sodium Bicarbonate (Sodium Bicarbonate Tab) 1,300 mg BID PO 04/08/17 21:00 05/08/17 20:59 04/12/17 07:57 1,300 MG Polyethylene (Miralax Powder Packet) 17 gm DAILY PO 04/10/17 09:00 05/10/17 08:59 Nicotine (Nicoderm Cq 14MG Patch) 1 patch QAM TD 04/10/17 09:00 05/10/17 08:59 04/12/17 07:57 1 PATCH Miscellaneous (Remove Nicoderm Patch) 1 ea HS N/A 04/10/17 21:00 05/10/17 20:59 04/11/17 20:45 1 EA Amlodipine Besylate (Norvasc Tab) 10 mg QAM PO 04/10/17 09:00 05/10/17 08:59 04/12/17 07:56 10 MG Furosemide (Lasix Tab) 20 mg QAM PO 04/11/17 09:00 05/11/17 08:59 04/12/17 07:57 20 MG Hydralazine HCl (HydrALAZINE INJ) 10 mg Q4H PRN IV. 04/10/17 18:00 05/10/17 17:59 04/11/17 20:53 10 MG Impression (1) NITIN (acute kidney injury) (2) Alcohol dependence (3) Major depressive disorder (4) Medication overdose Mr. Centeno was admitted 04/05/17 following an unintentional overdose of Vistaril and Clonidine. Blood pressure was relatively low on admission. His creatinine janay from a baseline of 0.8 to ~ 6.0. He has remained nonoliguric. Urinalysis revealed low grade hematuria and proteinuria. Renal US was negative for obstruction but did reveal an 8 mm L lower pole calculus. CPK was checked and found to be within normal limits. Recommendations ACUTE KIDNEY INJURY: -- Probable hemodynamically mediated ATN. Patient is now in the recovery phase. Creatinine is trending downward -- Patient remains nonoliguric. Electrolyte balance is acceptable. No acute indication for HD at this time. Monitor daily PRP METABOLIC ACIDOSIS: -- BLAYNE related to NITIN -- Will reduce NaHCO3 to once daily HYPERTENSION: -- Recommend avoiding Clonidine -- Continue Amlodipine -- Patient does have LE edema. Will increase Furosemide to 20 mg po BID to improve volume status and blood pressure.
[2017-04-12] MEDS: HydrALAZINE HCL 20 MG/ML VIAL IV. PRN ×2 (10:49→16:07)
--- NOTE | 2017-04-12 14:57 | Progress Note ---
Subjective Date of Service: Apr 12, 2017. Subjective Pt evaluation today including: conversation w/ patient, physical exam, chart review, lab review, review of studies, review of inpatient medication list Pt resting comfortably in bed No concerns at this time Reports rash has resolved Problem List Medical Problems: (1) Acute cholecystitis Status: Acute (2) Acute renal failure Status: Acute (3) Alcohol withdrawal Status: Acute (4) Alcoholic intoxication Status: Acute (5) Altered mental status Status: Acute (6) Hypoxia Status: Acute (7) Overdose Status: Acute (8) Suicidal ideation Status: Acute Review of Systems Constitutional: No fever, No chills, No sweats, No weakness Eyes: No worsening of vision, No eye pain, No redness, No discharge Respiratory: No cough, No sputum, No wheezing, No shortness of breath, No dyspnea on exertion Cardiac: No chest pain, No orthopnea, No PND, No edema Abdomen: No pain, No nausea, No vomiting, No diarrhea, No constipation Musculoskeletal: No joint pain, No muscle pain, No swelling, No calf pain Male : No dysuria, No urinary frequency, No incontinence, No nocturia more than once/night Neurologic: No memory loss, No paralysis, No weakness, No numbness/tingling Psychiatric: No depression symptoms, No anhedonism, No anxiety, No insomnia Skin: No rash, No itch, No color change, No bleeding Objective Vital Signs Date Time Temp Pulse Resp B/P (MAP) Pulse Ox O2 Delivery O2 Flow Rate FiO2 04/12/17 12:30 Room Air 04/12/17 11:24 36.9 85 18 159/88 (111) 98 04/12/17 08:00 Room Air 04/12/17 07:24 36.6 78 16 167/94 (118) 97 Room Air 04/12/17 04:10 36.4 75 18 135/77 (96) 96 Room Air 04/12/17 04:00 Room Air 04/12/17 00:00 36.6 79 18 160/89 (112) 95 Room Air 04/12/17 00:00 Room Air 04/11/17 22:05 101 195/91 04/11/17 22:04 101 195/91 (125) 04/11/17 20:05 36.7 86 20 188/91 (123) 97 Room Air 04/11/17 20:00 Room Air 04/11/17 16:00 Room Air 04/11/17 15:03 36.6 87 20 161/86 111 98 Room Air Physical Exam General Appearance: WD/WN, no apparent distress Eyes: normal inspection, PERRL, EOMI, sclerae normal ENT: normal ENT inspection, hearing grossly normal, TMs normal, pharynx normal Neck: supple, no adenopathy, thyroid normal, no JVD Respiratory/Chest: chest non-tender, lungs clear, normal breath sounds, no respiratory distress Cardiovascular: regular rate, rhythm, no edema, no gallop, no JVD Abdomen: normal bowel sounds, non tender, soft, no organomegaly Extremities: normal range of motion, non-tender, normal inspection, no pedal edema Neurologic/Psychiatric: no motor/sensory deficits, alert, normal mood/affect, oriented x 3 Laboratory Results Last 24 Hours Test 04/12/17 05:44 Sodium Level 144 mmol/L Potassium Level 3.9 mmol/L Chloride Level 114 mmol/L Carbon Dioxide Level 21 mmol/L Anion Gap 9.0 mmol/L Blood Urea Nitrogen 46 mg/dl Creatinine 5.90 mg/dl Est Creatinine Clear Calc Drug Dose 17.2 ml/min Estimated GFR () 11.2 Estimated GFR (Non- 9.7 BUN/Creatinine Ratio 7.7 Random Glucose 99 mg/dl Calcium Level 8.4 mg/dl Assessment and Plan This is a 57 yo m here for overdose of Vistiril and Clondine resulting in NITIN; questionably other substances; history of alcohol abuse; states that this is accidental Overdose of medications -Admitted to tele -QTc prolongation now resolved -Psych consult, pt agreeable to 201 voluntary stay for substance abuse NITIN secondary to likely ATN -[place] at 7.2 04/10 now improved from 6.9 and now 5.9, no oliguria noted -Stop IVF due to hypervolemia and congestion -Nephrology consulted, renal US unremarkable, sodium bicarb cont, no further recs at this time ALBARO?? --pt feels this may been an issue contributing to his anxiety Overnight pulse ox was neg Pt is possibly having irregular breathing patterns at home due to substance abuse History of alcohol abuse - alcohol withdrawal protocol - received banana bag in ED Depression - on Wellbutrin but held due to prolonged QT/QTc, will resume once renal function is more stable DVT Prophylaxis heparin bid
[2017-04-12] MEDS: ACETAMINOPHEN 325 MG TAB PO PRN ×2 (16:07→22:31)
[2017-04-13] VITALS (12 sets, daily range): BP systolic 137–186; BP diastolic 78–98; PULSE 75–89; TEMP 36.4–36.9; O2SAT 94–97
[2017-04-13] MEDS: AMLODIPINE BESYLATE 5 MG TAB PO SCH ×2 (05:14→07:22)
[2017-04-13] MEDS: GABAPENTIN 1200MG LOADING DOSE PO SCH (05:15)
[2017-04-13] MEDS: HydrALAZINE HCL 20 MG/ML VIAL IV. PRN ×2 (07:29→23:58)
[2017-04-13] MEDS: ACETAMINOPHEN 325 MG TAB PO PRN (07:29)
[2017-04-13] MEDS: FUROSEMIDE 20 MG TAB PO SCH ×2 (07:30→18:05)
[2017-04-13] MEDS: MULTIVITAMIN TAB PO SCH (07:33)
[2017-04-13] MEDS: POLYETHYLENE (MIRALAX) 17 GM PACK PO SCH (07:33)
[2017-04-13] MEDS: NICOTINE 14 MG/24 HR TDSY TD SCH (07:34)
[2017-04-13] MEDS: SODIUM BICARBONATE 650 MG TAB PO SCH (07:34)
[2017-04-13 07:38] LABS: BUN/CREATININE RATIO 9.1 (10-20); CALCIUM 8.8 mg/dl (8.5-10.1); CREATININE 4.6 mg/dl (0.60-1.40); POTASSIUM 3.5 mmol/L (3.5-5.1)
[2017-04-13] MEDS: HEPARIN SOD 5000 UNIT/0.5 ML CARP SQ SCH ×2 (07:39→21:59)
[2017-04-13] MEDS ORDERED: METOPROLOL SUCC 25MG EXT REL TAB PO ONE (09:29)
--- NOTE | 2017-04-13 09:34 | Nephrology Progress Note ---
Nephrology Progress Note Date of Service Apr 13, 2017. Chief Complaint Nonoliguric NITIN Subjective Mr. Centeno was seen & examined in his hospital room this morning. He complains of a mild DANG but denies angina, dyspnea or uremic symptoms. He is voiding without difficulty and denies flank pain. He remains active by ambulating in the hallway. Mr. Centeno reports that his leg swelling is improved with Furosemide therapy Review of Systems Constitutional: No fever Cardiovascular: No chest pain Respiratory: No dyspnea at rest Abdomen: No pain, No nausea, No vomiting Extremities: + leg edema A complete review of systems was performed. Pertinent positives are noted above. All other systems are negative. Vital Signs Last 8 Hrs Date Time Temp Pulse Resp B/P (MAP) Pulse Ox O2 Delivery O2 Flow Rate FiO2 04/13/17 08:00 94 Room Air 04/13/17 07:21 36.4 89 16 172/93 (119) 94 04/13/17 06:34 178/94 (122) 04/13/17 04:10 36.4 79 20 186/92 (123) 96 Room Air 04/13/17 04:00 Room Air Last Recorded Weight Weight (Kilograms): 106.700 Physical Exam General Appearance: no apparent distress Head: normocephalic, atraumatic Eyes: PERRL, EOMI Neck: no adenopathy Respiratory/Chest: lungs clear Cardiovascular: regular rate, rhythm Abdomen/GI: normal bowel sounds, non tender, soft Extremities/Musculoskelatal: + swelling (1+ pretibial pitting edema) Neurologic/Psych: alert, oriented x 3 Family History Unobtainable due to patient's condition Social History Smoking Status: Current every day smoker Smokeless Tobacco Use: No Alcohol Use: heavy Drug Use: none Marital Status: single Housing Status: lives alone Occupation: employed Laboratory Results Past 24 Hours 04/13/17 06:18 Test 04/13/17 06:18 Anion Gap 8.0 mmol/L (3-11) Est Creatinine Clear Calc Drug Dose 21.7 ml/min Estimated GFR () 15.1 Estimated GFR (Non- 13.1 BUN/Creatinine Ratio 9.1 (10-20) Calcium Level 8.8 mg/dl (8.5-10.1) Allergies Coded Allergies: Diphenhydramine (Verified Adverse Reaction, Mild, JITTERY/ANXIOUS, 11/30/16 ) ABLE TO TAKE REG. TYLENOL Medications Current Inpatient Medications Medications (Trade) Dose Ordered Sig/Mariana Route Start Time Stop Time Status Last Admin Dose Admin Heparin Sodium (Porcine) (Heparin Sq 5000 Unit/0.5ml) 5,000 unit Q12H SQ 04/06/17 09:00 05/06/17 08:59 04/13/17 07:39 5,000 UNIT Acetaminophen (Tylenol Tab) 650 mg Q4H PRN PO 04/05/17 21:15 05/05/17 21:14 04/13/17 07:29 650 MG Multivitamins (Multivitamin Tab) 1 tab DAILY PO 04/06/17 09:00 05/06/17 08:59 04/13/17 07:33 1 TAB Gabapentin (Neurontin Tab) 1,200 mg TODAY@0600 PO 04/06/17 06:00 05/06/17 05:59 04/13/17 05:15 1,200 MG Lorazepam 1 mg/ Syringe 1 ml @ 0.5 mls/min Q4H PRN IV 04/06/17 06:30 05/06/17 06:29 Lorazepam 2 mg/ Syringe 2 ml @ 0.5 mls/min Q4H PRN IV 04/06/17 06:30 05/06/17 06:29 04/06/17 07:56 0.5 MLS/MIN Metoprolol Tartrate (Lopressor Iv) 5 mg Q6H PRN IV 04/06/17 21:00 05/06/17 20:59 04/11/17 22:05 5 MG Polyethylene (Miralax Powder Packet) 17 gm DAILY PO 04/10/17 09:00 05/10/17 08:59 04/13/17 07:33 17 GM Nicotine (Nicoderm Cq 14MG Patch) 1 patch QAM TD 04/10/17 09:00 05/10/17 08:59 04/13/17 07:34 1 PATCH Miscellaneous (Remove Nicoderm Patch) 1 ea HS N/A 04/10/17 21:00 05/10/17 20:59 04/12/17 21:00 1 EA Amlodipine Besylate (Norvasc Tab) 10 mg QAM PO 04/10/17 09:00 05/10/17 08:59 04/13/17 05:14 10 MG Hydralazine HCl (HydrALAZINE INJ) 10 mg Q4H PRN IV. 04/10/17 18:00 05/10/17 17:59 04/13/17 07:29 10 MG Furosemide (Lasix Tab) 20 mg BID17 PO 04/12/17 17:00 05/12/17 16:59 04/13/17 07:30 20 MG Sodium Bicarbonate (Sodium Bicarbonate Tab) 1,300 mg QAM PO 04/13/17 09:00 05/08/17 20:59 04/13/17 07:34 1,300 MG Impression (1) NITIN (acute kidney injury) (2) Alcohol dependence (3) Major depressive disorder (4) Medication overdose Mr. Centeno was admitted 04/05/17 following an unintentional overdose of Vistaril and Clonidine. Blood pressure was relatively low on admission. His creatinine janay from a baseline of 0.8 to ~ 6.0. He has remained nonoliguric. Urinalysis revealed low grade hematuria and proteinuria. Renal US was negative for obstruction but did reveal an 8 mm L lower pole calculus. CPK was checked and found to be within normal limits. Recommendations ACUTE KIDNEY INJURY: -- Probable hemodynamically mediated ATN. Patient is now in the recovery phase. Creatinine is trending downward -- Patient remains nonoliguric. Electrolyte balance is acceptable. No acute indication for HD at this time. Monitor daily PRP METABOLIC ACIDOSIS: -- BLAYNE related to NITIN -- Continue NaHCO3 daily HYPERTENSION: -- Recommend avoiding Clonidine -- Continue Amlodipine -- Patient has been receiving IV Metoprolol and Hydralazine. Blood pressure and HR remain elevated. Will schedule Metoprolol Succinate 25 mg po qAM -- Patient does have LE edema. Continue Furosemide 20 mg po BID to improve volume status and blood pressure.
--- NOTE | 2017-04-13 11:06 | Psychiatric Progress Notes ---
Psychiatric Progress Note Date of Service Apr 13, 2017. Notes ID: Patient reviewed with liaison nurse. Interim progress reviewed. CC: "Great, I'm doing really well." HPI: Patient is being seen for follow-up of depression. He states that his mood has improved significantly as his medical issues improve. He states that the problems with his kidneys scared him, and he understands its related to the medications that he took. He is very grateful that he is improving, and feels recommitted to sobriety and taking better care of himself. He denies feeling depressed, and denies thoughts of self injury or suicide. We discussed the option of inpatient psychiatric care, and answered his questions about what this would entail. He ultimately decided that he does not wish to pursue psychiatric hospitalization at this time, and would prefer to follow-up with his outpatient substance abuse counselor, Kelly, at [facility]. He also plans to resume AA. He is able to review his safety plan, and agrees to return to the hospital if he feels suicidal or unsafe. ROS: Continues to report swelling, but is improved, no pain, hallucinations, paranoia, or thoughts of harming others. MSE: White male appearing his stated age, seated in no acute distress in the bedside chair, dressed in a hospital gown, with adequate hygiene and grooming. Alert, cooperative, good eye contact, no abnormal movements. Speech is normal rate, volume, and tone; thoughts are organized and goal-directed, denies SI, HI , hallucinations, and paranoia. Continues to state ingestion wasn't a suicide attempt. Level of intelligence estimated to be average. Insight and judgment are fair. Imp: unspecified depressive disorder and substance use disorder (alcohol). Plan: 1. Depression: Primary team may restart his antidepressant once he is medically stable to do so. He is now declining the offer for a voluntary psychiatric admission, and prefers to follow-up with outpatient care. He does not meet involuntary commitment criteria, and is psychiatrically stable for discharge. He is able to review his discharge safety plan, including returning to AA and working with a sponsor, weekly appointments with his therapist, Kelly , at [facility], and agrees to return to the hospital if he feels suicidal or unsafe. He will need to follow up with a physician for medication management, and prefers to see his PCP if she is willing to manage his antidepressant. We will get a release for Dr. Murry and forward our records, and he indicates he has an appointment with her 04/21/2017. Encouraged him to consider working with a psychiatrist, especially if his mood does not remain stable. We will also forward records to his therapist at [facility], and will ensure he has a follow-up appointment scheduled with her. 2. Alcohol use disorder: Patient has been educated about the risks of ongoing alcohol use and the recommendations for abstinence. He is willing to abstain from alcohol, and plans to return to and his outpatient counselor.
[2017-04-13] MEDS: BUTALBITAL/ACETAMIN/CAFFEINE TAB PO PRN ×2 (11:45→18:05)
--- NOTE | 2017-04-13 15:18 | Progress Note ---
Subjective Date of Service: Apr 13, 2017. Subjective Pt evaluation today including: conversation w/ patient, physical exam, chart review, lab review, review of studies, review of inpatient medication list Resting comfortably in bed No concerns at this time Problem List Medical Problems: (1) Acute cholecystitis Status: Acute (2) Acute renal failure Status: Acute (3) Alcohol withdrawal Status: Acute (4) Alcoholic intoxication Status: Acute (5) Altered mental status Status: Acute (6) Hypoxia Status: Acute (7) Overdose Status: Acute (8) Suicidal ideation Status: Acute Review of Systems Constitutional: No fever, No chills, No sweats, No weight loss, No weakness ENT: No hearing loss, No unusual epistaxis, No nasal symptoms, No sore throat Respiratory: No cough, No sputum, No wheezing, No shortness of breath, No dyspnea on exertion Cardiac: No chest pain, No orthopnea, No PND, No edema Abdomen: No pain, No nausea, No vomiting, No diarrhea, No constipation Musculoskeletal: No joint pain, No muscle pain, No swelling, No calf pain Male : No dysuria, No urinary frequency, No incontinence, No slowing stream Neurologic: No memory loss, No paralysis, No weakness, No numbness/tingling Psychiatric: No depression symptoms, No anhedonism, No anxiety Endo: No fatigue, No excessive thirst, No excessive urination Skin: No rash, No itch Objective Vital Signs Date Time Temp Pulse Resp B/P (MAP) Pulse Ox O2 Delivery O2 Flow Rate FiO2 04/13/17 14:42 36.7 84 18 167/86 (113) 96 Room Air 04/13/17 12:00 94 Room Air 04/13/17 11:14 36.4 82 17 157/85 (109) 97 04/13/17 09:50 137/78 (97) 04/13/17 08:00 94 Room Air 04/13/17 07:21 36.4 89 16 172/93 (119) 94 04/13/17 06:34 178/94 (122) 04/13/17 04:10 36.4 79 20 186/92 (123) 96 Room Air 04/13/17 04:00 Room Air 04/13/17 00:00 Room Air 04/12/17 23:53 36.9 74 20 171/91 (117) 95 Room Air 04/12/17 20:00 96 Room Air 04/12/17 20:00 36.3 88 18 153/82 (105) 95 Room Air 04/12/17 16:57 91 174/94 (120) 04/12/17 16:08 88 179/92 (121) 04/12/17 16:00 96 Room Air 04/12/17 15:41 36.5 88 20 163/95 (117) 96 Physical Exam General Appearance: WD/WN, no apparent distress ENT: normal ENT inspection, hearing grossly normal, TMs normal, pharynx normal Neck: supple, no adenopathy, thyroid normal, no JVD Respiratory/Chest: chest non-tender, lungs clear, normal breath sounds, no respiratory distress Cardiovascular: regular rate, rhythm, no edema, no gallop, no JVD Abdomen: normal bowel sounds, non tender, soft, no organomegaly Extremities: normal range of motion, non-tender, normal inspection, no pedal edema Neurologic/Psychiatric: no motor/sensory deficits, alert, normal mood/affect, oriented x 3 Laboratory Results Last 24 Hours Test 04/13/17 06:18 Sodium Level 145 mmol/L Potassium Level 3.5 mmol/L Chloride Level 113 mmol/L Carbon Dioxide Level 24 mmol/L Anion Gap 8.0 mmol/L Blood Urea Nitrogen 42 mg/dl Creatinine 4.60 mg/dl Est Creatinine Clear Calc Drug Dose 21.7 ml/min Estimated GFR () 15.1 Estimated GFR (Non- 13.1 BUN/Creatinine Ratio 9.1 Random Glucose 100 mg/dl Calcium Level 8.8 mg/dl Assessment and Plan This is a 57 yo m here for overdose of Vistiril and Clondine resulting in NITIN; questionably other substances; history of alcohol abuse; states that this is accidental Overdose of medications -Admitted to tele -QTc prolongation now resolved -Psych consult, pt states he would like to be discharged home now and f/u with [facility] on [place] NITIN secondary to likely ATN -Plateau at 7.2 04/10 now improved from 6.9 --> 5.9 --> 4.6, no oliguria noted -Stop IVF due to hypervolemia and congestion -Nephrology consulted, renal US unremarkable, sodium bicarb cont, no further recs at this time ALBARO?? --Pt feels this may been an issue contributing to his anxiety Overnight pulse ox was neg Pt is possibly having irregular breathing patterns at home due to substance abuse History of alcohol abuse -Alcohol withdrawal protocol -Received banana bag in ED Depression -On Wellbutrin but held due to prolonged QT/QTc, will resume once renal function is more stable DVT Prophylaxis -Heparin bid
[2017-04-13] MEDS: METOPROLOL TARTRATE 1 MG/ML VIAL IV PRN (22:01)
[2017-04-13] MEDS ORDERED: hydrOXYzine HCL 25 MG TAB PO STA (22:14)
[2017-04-14] VITALS (8 sets, daily range): BP systolic 138–167; BP diastolic 84–96; PULSE 70–76; TEMP 36.3–36.6; O2SAT 92–96
[2017-04-14] MEDS: GABAPENTIN 1200MG LOADING DOSE PO SCH (05:54)
[2017-04-14 06:57] LABS: HEMATOCRIT 39.4 % (42-52); MEAN CELL VOLUME 91.8 fL (80-100); MEAN CORPUSCULAR HGB CONC 33.8 g/dl (32-36); MEAN PLATELET VOLUME 9.2 fL (7.4-10.4); PLATELET COUNT 314 K/uL (130-400); RED BLOOD COUNT 4.29 M/uL (4.7-6.1); WHITE BLOOD COUNT 9.77 K/uL (4.8-10.8)
[2017-04-14 07:31] LABS: BUN/CREATININE RATIO 9.3 (10-20); CALCIUM 8.7 mg/dl (8.5-10.1); CREATININE 3.7 mg/dl (0.60-1.40); POTASSIUM 3.5 mmol/L (3.5-5.1)
[2017-04-14] MEDS: MULTIVITAMIN TAB PO SCH (07:44)
[2017-04-14] MEDS: BUTALBITAL/ACETAMIN/CAFFEINE TAB PO PRN (07:44)
[2017-04-14] MEDS: NICOTINE 14 MG/24 HR TDSY TD SCH (07:45)
[2017-04-14] MEDS: POLYETHYLENE (MIRALAX) 17 GM PACK PO SCH (07:45)
[2017-04-14] MEDS: AMLODIPINE BESYLATE 5 MG TAB PO SCH (07:45)
[2017-04-14] MEDS: FUROSEMIDE 20 MG TAB PO SCH ×2 (07:46→17:12)
[2017-04-14] MEDS: SODIUM BICARBONATE 650 MG TAB PO SCH (07:46)
[2017-04-14] MEDS: HEPARIN SOD 5000 UNIT/0.5 ML CARP SQ SCH ×2 (07:54→21:15)
[2017-04-14] MEDS ORDERED: METOPROLOL SUCC 25MG EXT REL TAB PO SCH (09:00)
--- NOTE | 2017-04-14 09:47 | Nephrology Progress Note ---
Nephrology Progress Note Date of Service Apr 14, 2017. Chief Complaint Nonoliguric NITIN Subjective Mr. Centeno was seen & examined in his hospital room this morning. He denies fever or flank pain. His DANG has resolved. Mr. Centeno notes that his blood pressure remains elevated. His leg swelling is markedly improved. Review of Systems Constitutional: No fever Cardiovascular: No chest pain Respiratory: No dyspnea at rest Abdomen: No pain, No nausea, No vomiting Genitourinary - Male: No gross hematuria Extremities: + leg edema A complete review of systems was performed. Pertinent positives are noted above. All other systems are negative. Vital Signs Last 8 Hrs Date Time Temp Pulse Resp B/P (MAP) Pulse Ox O2 Delivery O2 Flow Rate FiO2 04/14/17 07:11 36.5 74 18 167/84 (111) 94 Room Air 04/14/17 04:00 94 Room Air 04/14/17 04:00 36.4 76 18 138/89 (105) 94 Room Air Last Recorded Weight Weight (Kilograms): 105.000 Physical Exam General Appearance: no apparent distress Head: normocephalic, atraumatic Eyes: PERRL, EOMI Neck: no adenopathy Respiratory/Chest: lungs clear, no respiratory distress Cardiovascular: regular rate, rhythm Abdomen/GI: normal bowel sounds, non tender, soft Extremities/Musculoskelatal: + swelling (1+ pretibial pitting edema) Neurologic/Psych: alert, oriented x 3 Family History Unobtainable due to patient's condition Social History Smoking Status: Current every day smoker Smokeless Tobacco Use: No Alcohol Use: heavy Drug Use: none Marital Status: single Housing Status: lives alone Occupation: employed Laboratory Results Past 24 Hours 04/14/17 06:35 04/14/17 06:35 Test 04/14/17 06:35 Red Blood Count 4.29 M/uL (4.7-6.1) Mean Corpuscular Volume 91.8 fL (80-100) Mean Corpuscular Hemoglobin 31.0 pg (25-34) Mean Corpuscular Hemoglobin Concent 33.8 g/dl (32-36) RDW Standard Deviation 52.5 fL (36.4-46.3) RDW Coefficient of Variation 15.7 % (11.5-14.5) Mean Platelet Volume 9.2 fL (7.4-10.4) Anion Gap 9.0 mmol/L (3-11) Est Creatinine Clear Calc Drug Dose 26.8 ml/min Estimated GFR () 19.7 Estimated GFR (Non- 17.0 BUN/Creatinine Ratio 9.3 (10-20) Calcium Level 8.7 mg/dl (8.5-10.1) Allergies Coded Allergies: Diphenhydramine (Verified Adverse Reaction, Mild, JITTERY/ANXIOUS, 11/30/16 ) ABLE TO TAKE REG. TYLENOL Medications Current Inpatient Medications Medications (Trade) Dose Ordered Sig/Mariana Route Start Time Stop Time Status Last Admin Dose Admin Heparin Sodium (Porcine) (Heparin Sq 5000 Unit/0.5ml) 5,000 unit Q12H SQ 04/06/17 09:00 05/06/17 08:59 04/14/17 07:54 5,000 UNIT Acetaminophen (Tylenol Tab) 650 mg Q4H PRN PO 04/05/17 21:15 05/05/17 21:14 04/13/17 07:29 650 MG Multivitamins (Multivitamin Tab) 1 tab DAILY PO 04/06/17 09:00 05/06/17 08:59 04/14/17 07:44 1 TAB Gabapentin (Neurontin Tab) 1,200 mg TODAY@0600 PO 04/06/17 06:00 05/06/17 05:59 04/14/17 05:54 1,200 MG Lorazepam 1 mg/ Syringe 1 ml @ 0.5 mls/min Q4H PRN IV 04/06/17 06:30 05/06/17 06:29 Lorazepam 2 mg/ Syringe 2 ml @ 0.5 mls/min Q4H PRN IV 04/06/17 06:30 05/06/17 06:29 04/06/17 07:56 0.5 MLS/MIN Metoprolol Tartrate (Lopressor Iv) 5 mg Q6H PRN IV 04/06/17 21:00 05/06/17 20:59 04/13/17 22:01 5 MG Polyethylene (Miralax Powder Packet) 17 gm DAILY PO 04/10/17 09:00 05/10/17 08:59 04/13/17 07:33 17 GM Nicotine (Nicoderm Cq 14MG Patch) 1 patch QAM TD 04/10/17 09:00 05/10/17 08:59 04/14/17 07:45 1 PATCH Miscellaneous (Remove Nicoderm Patch) 1 ea HS N/A 04/10/17 21:00 05/10/17 20:59 04/13/17 22:06 1 EA Amlodipine Besylate (Norvasc Tab) 10 mg QAM PO 04/10/17 09:00 05/10/17 08:59 04/14/17 07:45 10 MG Hydralazine HCl (HydrALAZINE INJ) 10 mg Q4H PRN IV. 04/10/17 18:00 05/10/17 17:59 04/13/17 23:58 10 MG Furosemide (Lasix Tab) 20 mg BID17 PO 04/12/17 17:00 05/12/17 16:59 04/14/17 07:46 20 MG Sodium Bicarbonate (Sodium Bicarbonate Tab) 1,300 mg QAM PO 04/13/17 09:00 05/08/17 20:59 04/14/17 07:46 1,300 MG Metoprolol Succinate (Toprol Xl Tab) 25 mg QAM PO 04/14/17 09:00 05/14/17 08:59 04/14/17 07:44 25 MG Acetaminophen/ Butalbital/ Caffeine (Fioricet Tab) 1 tab Q4H PRN PO 04/13/17 11:15 05/13/17 11:14 04/14/17 07:44 1 TAB Impression (1) NITIN (acute kidney injury) (2) Alcohol dependence (3) Major depressive disorder (4) Medication overdose Mr. Centeno was admitted 04/05/17 following an unintentional overdose of Vistaril and Clonidine. Blood pressure was relatively low on admission. His creatinine janay from a baseline of 0.8 to ~ 6.0. He has remained nonoliguric. Urinalysis revealed low grade hematuria and proteinuria. Renal US was negative for obstruction but did reveal an 8 mm L lower pole calculus. CPK was checked and found to be within normal limits. Recommendations ACUTE KIDNEY INJURY: -- Probable hemodynamically mediated ATN. Patient is now in the recovery phase. Creatinine is trending downward -- Patient remains nonoliguric. Electrolyte balance is acceptable. No acute indication for HD at this time. Monitor daily PRP -- EGFR is 17 cc/min this morning. Recommend continued hospital observation until serum creatinine ~ 2.0 or less METABOLIC ACIDOSIS: -- BLAYNE related to NITIN -- BLAYNE has corrected. Will stop NaHCO3 HYPERTENSION: -- Recommend avoiding Clonidine -- Continue Amlodipine -- Patient has been receiving IV Metoprolol and Hydralazine. Blood pressure and HR remain elevated. Will increase Metoprolol Succinate to 50 mg po qAM -- Patient does have LE edema. Continue Furosemide 20 mg po BID to improve volume status and blood pressure.
[2017-04-14] MEDS ORDERED: METOPROLOL SUCC 25MG EXT REL TAB PO ONE (10:15)
--- NOTE | 2017-04-14 12:52 | Progress Note ---
Subjective Date of Service: Apr 14, 2017. Problem List Medical Problems: (1) Acute cholecystitis Status: Acute (2) Acute renal failure Status: Acute (3) Alcohol withdrawal Status: Acute (4) Alcoholic intoxication Status: Acute (5) Altered mental status Status: Acute (6) Hypoxia Status: Acute (7) Overdose Status: Acute (8) Suicidal ideation Status: Acute Objective Vital Signs Date Time Temp Pulse Resp B/P (MAP) Pulse Ox O2 Delivery O2 Flow Rate FiO2 04/14/17 11:23 36.6 71 18 149/96 (113) 96 Room Air 04/14/17 08:00 Room Air 04/14/17 07:11 36.5 74 18 167/84 (111) 94 Room Air 04/14/17 04:00 94 Room Air 04/14/17 04:00 36.4 76 18 138/89 (105) 94 Room Air 04/14/17 00:00 94 Room Air 04/13/17 23:40 36.6 76 18 166/90 (115) 94 Room Air 04/13/17 22:41 75 168/98 (121) 04/13/17 22:01 77 181/97 04/13/17 20:00 Room Air 04/13/17 18:47 36.9 80 20 167/92 (117) 96 Room Air 04/13/17 16:00 94 Room Air 04/13/17 14:42 36.7 84 18 167/86 (113) 96 Room Air Laboratory Results Last 24 Hours Test 04/14/17 06:35 White Blood Count 9.77 K/uL Red Blood Count 4.29 M/uL Hemoglobin 13.3 g/dL Hematocrit 39.4 % Mean Corpuscular Volume 91.8 fL Mean Corpuscular Hemoglobin 31.0 pg Mean Corpuscular Hemoglobin Concent 33.8 g/dl RDW Standard Deviation 52.5 fL RDW Coefficient of Variation 15.7 % Platelet Count 314 K/uL Mean Platelet Volume 9.2 fL Sodium Level 145 mmol/L Potassium Level 3.5 mmol/L Chloride Level 110 mmol/L Carbon Dioxide Level 26 mmol/L Anion Gap 9.0 mmol/L Blood Urea Nitrogen 34 mg/dl Creatinine 3.70 mg/dl Est Creatinine Clear Calc Drug Dose 26.8 ml/min Estimated GFR () 19.7 Estimated GFR (Non- 17.0 BUN/Creatinine Ratio 9.3 Random Glucose 99 mg/dl Calcium Level 8.7 mg/dl Assessment and Plan This is a 57 yo m here for overdose of Vistiril and Clondine resulting in NITIN; questionably other substances; history of alcohol abuse; states that this is accidental Overdose of medications -Admitted to tele -QTc prolongation now resolved -Psych consult, pt states he would like to be discharged home now and f/u with [facility] on [place] NITIN secondary to likely ATN -Plateau at 7.2 04/10 now improved from 6.9 --> 5.9 --> 4.6-->3.7, no oliguria noted -Stop IVF due to hypervolemia and congestion -Nephrology consulted, renal US unremarkable, sodium bicarb cont, DC home when Cr < 2.0 ALBARO?? --Pt feels this may been an issue contributing to his anxiety Overnight pulse ox was neg Pt is possibly having irregular breathing patterns at home due to substance abuse History of alcohol abuse -Alcohol withdrawal protocol, will DC gabapentin, not needed at this time -Received banana bag in ED Depression -On Wellbutrin but held due to prolonged QT/QTc, will resume once renal function is more stable DVT Prophylaxis -Heparin bid
[2017-04-15] VITALS (7 sets, daily range): BP systolic 130–175; BP diastolic 78–98; PULSE 64–75; TEMP 36.4–37; O2SAT 92–96
[2017-04-15] MEDS: BUTALBITAL/ACETAMIN/CAFFEINE TAB PO PRN ×3 (00:31→20:24)
[2017-04-15] MEDS: HydrALAZINE HCL 20 MG/ML VIAL IV. PRN (04:15)
[2017-04-15] MEDS: MULTIVITAMIN TAB PO SCH (08:12)
[2017-04-15] MEDS: AMLODIPINE BESYLATE 5 MG TAB PO SCH (08:12)
[2017-04-15] MEDS: METOPROLOL SUCC 50MG EXT REL TAB PO SCH (08:12)
[2017-04-15] MEDS: NICOTINE 14 MG/24 HR TDSY TD SCH (08:13)
[2017-04-15] MEDS: HEPARIN SOD 5000 UNIT/0.5 ML CARP SQ SCH ×2 (08:15→20:23)
[2017-04-15] MEDS: POLYETHYLENE (MIRALAX) 17 GM PACK PO SCH (08:17)
[2017-04-15] MEDS: FUROSEMIDE 20 MG TAB PO SCH ×2 (08:17→17:11)
[2017-04-15 09:22] LABS: BUN/CREATININE RATIO 10.5 (10-20); CALCIUM 9.2 mg/dl (8.5-10.1); CREATININE 2.9 mg/dl (0.60-1.40); POTASSIUM 3.4 mmol/L (3.5-5.1)
[2017-04-15] MEDS ORDERED: POTASSIUM CHLORIDE 20 MEQ TABCR PO ONE (09:45)
--- NOTE | 2017-04-15 09:50 | Nephrology Progress Note ---
Nephrology Progress Note Date of Service Apr 15, 2017. Chief Complaint Nonoliguric NITIN Subjective Mr. Centeno was seen & examined in his hospital room this morning. He reports that his DANG has resolved and LE edema is markedly improved. He voices no new medical concerns. He requests a medical order to allow him to shower each morning. Review of Systems Constitutional: No fever Cardiovascular: No chest pain Respiratory: No dyspnea at rest Abdomen: No pain, No nausea, No vomiting Genitourinary - Male: No dysuria, No gross hematuria Extremities: + leg edema A complete review of systems was performed. Pertinent positives are noted above. All other systems are negative. Vital Signs Last 8 Hrs Date Time Temp Pulse Resp B/P (MAP) Pulse Ox O2 Delivery O2 Flow Rate FiO2 04/15/17 08:00 Room Air 04/15/17 07:55 36.5 72 14 172/98 (122) 95 Room Air 04/15/17 04:00 36.4 69 16 175/82 (113) 96 Room Air 04/15/17 04:00 92 Room Air Last Recorded Weight Weight (Kilograms): 105.000 Physical Exam General Appearance: no apparent distress Head: normocephalic, atraumatic Eyes: PERRL, EOMI Neck: no adenopathy Respiratory/Chest: lungs clear, no respiratory distress Cardiovascular: regular rate, rhythm Abdomen/GI: normal bowel sounds, non tender, soft Extremities/Musculoskelatal: + swelling (1+ pretibial pitting edema) Neurologic/Psych: alert, oriented x 3 Family History Unobtainable due to patient's condition Social History Smoking Status: Current every day smoker Smokeless Tobacco Use: No Alcohol Use: heavy Drug Use: none Marital Status: single Housing Status: lives alone Occupation: employed Laboratory Results Past 24 Hours 04/15/17 08:21 Test 04/15/17 08:21 Anion Gap 8.0 mmol/L (3-11) Est Creatinine Clear Calc Drug Dose 34.2 ml/min Estimated GFR () 26.4 Estimated GFR (Non- 22.8 BUN/Creatinine Ratio 10.5 (10-20) Calcium Level 9.2 mg/dl (8.5-10.1) Allergies Coded Allergies: Diphenhydramine (Verified Adverse Reaction, Mild, JITTERY/ANXIOUS, 11/30/16 ) ABLE TO TAKE REG. TYLENOL Medications Current Inpatient Medications Medications (Trade) Dose Ordered Sig/Mariana Route Start Time Stop Time Status Last Admin Dose Admin Heparin Sodium (Porcine) (Heparin Sq 5000 Unit/0.5ml) 5,000 unit Q12H SQ 04/06/17 09:00 05/06/17 08:59 04/15/17 08:15 5,000 UNIT Acetaminophen (Tylenol Tab) 650 mg Q4H PRN PO 04/05/17 21:15 05/05/17 21:14 04/13/17 07:29 650 MG Multivitamins (Multivitamin Tab) 1 tab DAILY PO 04/06/17 09:00 05/06/17 08:59 04/15/17 08:12 1 TAB Lorazepam 1 mg/ Syringe 1 ml @ 0.5 mls/min Q4H PRN IV 04/06/17 06:30 05/06/17 06:29 Lorazepam 2 mg/ Syringe 2 ml @ 0.5 mls/min Q4H PRN IV 04/06/17 06:30 05/06/17 06:29 04/06/17 07:56 0.5 MLS/MIN Metoprolol Tartrate (Lopressor Iv) 5 mg Q6H PRN IV 04/06/17 21:00 05/06/17 20:59 04/13/17 22:01 5 MG Polyethylene (Miralax Powder Packet) 17 gm DAILY PO 04/10/17 09:00 05/10/17 08:59 04/13/17 07:33 17 GM Nicotine (Nicoderm Cq 14MG Patch) 1 patch QAM TD 04/10/17 09:00 05/10/17 08:59 04/15/17 08:13 1 PATCH Miscellaneous (Remove Nicoderm Patch) 1 ea HS N/A 04/10/17 21:00 05/10/17 20:59 04/14/17 21:09 1 EA Amlodipine Besylate (Norvasc Tab) 10 mg QAM PO 04/10/17 09:00 05/10/17 08:59 04/15/17 08:12 10 MG Hydralazine HCl (HydrALAZINE INJ) 10 mg Q4H PRN IV. 04/10/17 18:00 05/10/17 17:59 04/15/17 04:15 10 MG Furosemide (Lasix Tab) 20 mg BID17 PO 04/12/17 17:00 05/12/17 16:59 04/15/17 08:17 20 MG Acetaminophen/ Butalbital/ Caffeine (Fioricet Tab) 1 tab Q4H PRN PO 04/13/17 11:15 05/13/17 11:14 04/15/17 07:50 1 TAB Metoprolol Succinate (Toprol Xl Tab) 50 mg QAM PO 04/15/17 09:00 05/15/17 08:59 04/15/17 08:12 50 MG Impression (1) NITIN (acute kidney injury) (2) Alcohol dependence (3) Major depressive disorder (4) Medication overdose Mr. Centeno was admitted 04/05/17 following an unintentional overdose of Vistaril and Clonidine. Blood pressure was relatively low on admission. His creatinine janay from a baseline of 0.8 to ~ 6.0. He has remained nonoliguric. Urinalysis revealed low grade hematuria and proteinuria. Renal US was negative for obstruction but did reveal an 8 mm L lower pole calculus. CPK was checked and found to be within normal limits. Recommendations ACUTE KIDNEY INJURY: -- Probable hemodynamically mediated ATN. Patient remains in the recovery phase. Creatinine is trending downward -- Patient remains nonoliguric. No acute indication for HD at this time. Monitor daily PRP -- EGFR is 22 cc/min this morning. Recommend continued hospital observation until serum creatinine ~ 2.0 or less HYPOKALEMIA: -- Will supplement w/ KCl this morning METABOLIC ACIDOSIS: -- Resolved. NaHCO3 has been stopped HYPERTENSION: -- Recommend avoiding Clonidine -- Continue Amlodipine -- Metoprolol Succinate increased to 50 mg po qAM. Continue to monitor BP -- Patient does have LE edema. Continue Furosemide 20 mg po BID to improve volume status and blood pressure OTHER: -- Order provided to allow patient to shower each morning
--- NOTE | 2017-04-15 15:19 | Progress Note ---
Subjective Date of Service: Apr 15, 2017. Subjective Pt evaluation today including: conversation w/ patient, physical exam, chart review, lab review, review of studies, review of inpatient medication list Resting in bed comfortably No distress noted No acute events overnight Problem List Medical Problems: (1) Acute cholecystitis Status: Acute (2) Acute renal failure Status: Acute (3) Alcohol withdrawal Status: Acute (4) Alcoholic intoxication Status: Acute (5) Altered mental status Status: Acute (6) Hypoxia Status: Acute (7) Overdose Status: Acute (8) Suicidal ideation Status: Acute Review of Systems Constitutional: No fever, No chills, No sweats, No weight loss, No weakness Eyes: No worsening of vision, No eye pain, No redness, No discharge Respiratory: No cough, No sputum, No wheezing, No shortness of breath, No dyspnea on exertion Cardiac: No chest pain, No orthopnea, No PND, No edema, No claudication Abdomen: No pain, No nausea, No vomiting, No diarrhea, No constipation Musculoskeletal: No joint pain, No muscle pain, No swelling, No calf pain Male : No dysuria, No urinary frequency, No incontinence, No slowing stream Neurologic: No memory loss, No paralysis, No weakness, No numbness/tingling Psychiatric: No depression symptoms, No anhedonism, No anxiety, No insomnia Endo: No fatigue, No excessive thirst Skin: No rash, No itch Objective Vital Signs Date Time Temp Pulse Resp B/P (MAP) Pulse Ox O2 Delivery O2 Flow Rate FiO2 04/15/17 12:00 Room Air 04/15/17 11:10 37.0 71 16 131/78 (95) 94 Room Air 04/15/17 10:07 73 130/84 (99) 04/15/17 08:00 Room Air 04/15/17 07:55 36.5 72 14 172/98 (122) 95 Room Air 04/15/17 04:00 36.4 69 16 175/82 (113) 96 Room Air 04/15/17 04:00 92 Room Air 04/15/17 00:00 92 Room Air 04/14/17 23:55 36.5 70 16 157/95 (115) 94 Room Air 04/14/17 20:00 92 Room Air 04/14/17 19:58 36.3 72 16 142/88 (106) 92 Room Air 04/14/17 16:00 Room Air 04/14/17 15:34 36.4 73 18 145/84 (104) 94 Room Air Physical Exam General Appearance: WD/WN, no apparent distress Eyes: normal inspection, PERRL, EOMI, sclerae normal Neck: supple, no adenopathy, thyroid normal, no JVD Respiratory/Chest: chest non-tender, lungs clear, normal breath sounds, no respiratory distress Cardiovascular: regular rate, rhythm, no edema, no gallop, no JVD Abdomen: normal bowel sounds, non tender, soft, no organomegaly Neurologic/Psychiatric: no motor/sensory deficits, alert, normal mood/affect, oriented x 3 Laboratory Results Last 24 Hours Test 04/15/17 08:21 Sodium Level 143 mmol/L Potassium Level 3.4 mmol/L Chloride Level 109 mmol/L Carbon Dioxide Level 26 mmol/L Anion Gap 8.0 mmol/L Blood Urea Nitrogen 31 mg/dl Creatinine 2.90 mg/dl Est Creatinine Clear Calc Drug Dose 34.2 ml/min Estimated GFR () 26.4 Estimated GFR (Non- 22.8 BUN/Creatinine Ratio 10.5 Random Glucose 118 mg/dl Calcium Level 9.2 mg/dl Assessment and Plan This is a 57 yo m here for overdose of Vistiril and Clondine resulting in NITIN; questionably other substances; history of alcohol abuse; states that this is accidental Overdose of medications -Admitted to tele -QTc prolongation now resolved -Restarted on wellbutrin sr 100 mg PO daily -Psych consult, pt states he would like to be discharged home now and f/u with [facility] on [place] NITIN secondary to likely ATN -Plateau at 7.2 04/10 now improved from 6.9 --> 5.9 --> 4.6-->3.7-->2.9, no oliguria noted -Stop IVF due to hypervolemia and congestion -Nephrology consulted, renal US unremarkable, sodium bicarb cont, DC home when Cr < 2.0 ALBARO?? --Pt feels this may been an issue contributing to his anxiety Overnight pulse ox was neg Pt is possibly having irregular breathing patterns at home due to substance abuse History of alcohol abuse -Alcohol withdrawal protocol, will DC gabapentin, not needed at this time -Received banana bag in ED Depression -On Wellbutrin but held due to prolonged QT/QTc, will resume once renal function is more stable DVT Prophylaxis -Heparin bid
[2017-04-15] MEDS ORDERED: FEXOFENADINE HCL 60 MG TAB PO STA (22:21)
[2017-04-16 07:55] LABS: BUN/CREATININE RATIO 12.9 (10-20); CALCIUM 9.3 mg/dl (8.5-10.1); CREATININE 2.4 mg/dl (0.60-1.40); POTASSIUM 3.5 mmol/L (3.5-5.1)
[2017-04-16 07:56] VITALS: BP 148/83; PULSE 68; TEMP 36.6; O2SAT 96
[2017-04-16] MEDS: POLYETHYLENE (MIRALAX) 17 GM PACK PO SCH (08:32)
[2017-04-16] MEDS: BUTALBITAL/ACETAMIN/CAFFEINE TAB PO PRN (08:33)
[2017-04-16] MEDS: AMLODIPINE BESYLATE 5 MG TAB PO SCH (08:34)
[2017-04-16] MEDS: MULTIVITAMIN TAB PO SCH (08:34)
[2017-04-16] MEDS: NICOTINE 14 MG/24 HR TDSY TD SCH (08:34)
[2017-04-16] MEDS: METOPROLOL SUCC 50MG EXT REL TAB PO SCH (08:34)
[2017-04-16] MEDS: HEPARIN SOD 5000 UNIT/0.5 ML CARP SQ SCH (08:35)
[2017-04-16] MEDS: FUROSEMIDE 20 MG TAB PO SCH (08:35)
[2017-04-16] MEDS ORDERED: BuPROPion SR 100 MG TABCR PO SCH (09:00)
[2017-04-16] MEDS ORDERED: NRV5 PO (12:01)
[2017-04-16] MEDS ORDERED: TPRSR50 PO (12:01)
--- NOTE | 2017-04-16 12:04 | Discharge Instructions ---
Discharge Instructions Date of Service Apr 16, 2017. Admission Reason for Admission: Accidental Overdose,[facility] Discharge Diagnosis / Problem: Accidental overdose, acute kidney injury Discharge Goals Goal(s): Decrease discomfort, Improve function, Increase independence, Improve disease control, Learn about illness, Diagnostic testing, Therapeutic intervention, Prevent Disease Progression Activity Recommendations Activity Limitations: resume your previous activity Exercise/Sports Limitations: as tolerated . Instructions / Follow-Up Instructions / Follow-Up Patient to be discharged home Please note addition of norvasc 10 mg tablet to take once daily Please note metoprolol succinate ER 50 mg tablet to take once daily Will need to follow up with Dr Murry in 1-2 weeks Will also need repeat BMP on wednesday 04/18 to revevaluate kidney function Current Hospital Diet Patient's current hospital diet: Regular Diet Discharge Diet Recommended Diet: Regular Diet Pending Studies Studies pending at discharge: no Medical Emergencies . Who to Call and When: Medical Emergencies: If at any time you feel your situation is an emergency, please call 911 immediately. . Non-Emergent Contact Non-Emergency issues call your: Primary Care Provider Call Non-Emergent contact if: your pain is worsening . . "Provider Documentation" section prepared by Zackary Quintana. . VTE Core Measure Inpt VTE Proph given/why not?: Unfractionated heparin SQ
[2017-04-16 12:11] VITALS: BP 148/83; PULSE 68; TEMP 36.6; O2SAT 96
--- NOTE | 2017-04-16 12:49 | Nephrology Progress Note ---
Nephrology Progress Note Date of Service Apr 16, 2017. Chief Complaint Follow-up for acute kidney injury Subjective Mr. Centeno was seen and examined in his room this morning. He has been otherwise feeling well, blood pressure stable, renal function continues to improve creatinine 2.4, electrolyte acceptable, urine output decent. Review of Systems A complete review of systems was performed. Pertinent positives are noted above. All other systems are negative. Vital Signs Last 8 Hrs Date Time Temp Pulse Resp B/P (MAP) Pulse Ox O2 Delivery O2 Flow Rate FiO2 04/16/17 12:11 36.6 68 22 96 Room Air 04/16/17 08:00 Room Air 04/16/17 07:56 36.6 68 22 148/83 (104) 96 Last Recorded Weight Weight (Kilograms): 102.000 Physical Exam GENERAL: Middle-aged male, AAA x 3, pleasant, healthy-appearing, not in any distress. NECK: Supple, no JVD. RESPIRATORY: Normal breathing efforts, no accessory muscle use, clear to auscultation bilaterally, no wheezes or rales. CARDIOVASCULAR: S1, S2 normal, rate rhythm regular. EXTREMITY: No lower extremity edema NEURO: speech fluent. PSYCHIATRY: Normal mood and judgment Family History Unobtainable due to patient's condition Social History Smoking Status: Current every day smoker Smokeless Tobacco Use: No Alcohol Use: heavy Drug Use: none Marital Status: single Housing Status: lives alone Occupation: employed Laboratory Results Past 24 Hours 04/16/17 06:41 Test 04/16/17 06:41 Anion Gap 5.0 mmol/L (3-11) Est Creatinine Clear Calc Drug Dose 40.8 ml/min Estimated GFR () 33.2 Estimated GFR (Non- 28.7 BUN/Creatinine Ratio 12.9 (10-20) Calcium Level 9.3 mg/dl (8.5-10.1) Allergies Coded Allergies: Diphenhydramine (Verified Adverse Reaction, Mild, JITTERY/ANXIOUS, 11/30/16 ) ABLE TO TAKE REG. TYLENOL Impression (1) NITIN (acute kidney injury) (2) Alcohol dependence (3) Major depressive disorder (4) Medication overdose Mr. Centeno was admitted 04/05/17 following an unintentional overdose of Vistaril and Clonidine. Blood pressure was relatively low on admission. His creatinine janay from a baseline of 0.8 to ~ 6.0. He has remained nonoliguric. Urinalysis revealed low grade hematuria and proteinuria. Renal US was negative for obstruction but did reveal an 8 mm L lower pole calculus. CPK was checked and found to be within normal limits. Recommendations -- renal function continues to improve, creatinine came down to 2.4, remain non- oliguric, electrolyte acceptable blood pressure improved. --okay to be discharged with close outpatient lab monitoring, ordered lab in EMR for Tuesday and Tuesday of next week, will be monitored by Dr. Kang. -- continue on amlodipine and metoprolol Metoprolol Succinate 50 mg po qAM on discharge, discontinue Lasix as lower extremity edema improved and blood pressure better . advise patient to monitor blood pressure at home -- please schedule for outpatient follow-up with Dr. Jorge Luis Shaikh in next 2-3 weeks and renal panel before the follow-up visit
--- NOTE | 2017-04-16 12:50 | Discharge Summary ---
Discharge Summary Date of Service Apr 16, 2017. Discharge Summary Admission Date: Apr 05, 2017 at 21:18 Discharge Date: Apr 16, 2017 Discharge Disposition: Home Principal Diagnosis: accidental overdose, acute kidney injury Immunizations: Have You Had Influenza Vaccine: Yes History of Tetanus Vaccine?: Yes History of Pneumococcal: No History of Hepatitis B Vaccine: Unknown Consultations: nephrology psychiatry Medication Reconciliation New Medications: Amlodipine Besylate (Amlodipine Besylate) 5 Mg Tab 10 MG PO QAM for 30 Days, #30 TAB Metoprolol Succinate (Metoprolol Succinate ER) 50 Mg Tabcr 50 MG PO QAM, #30 TABS Continued Medications: Bupropion (Wellbutrin Sr) 100 Mg Ertab 100 MG PO DAILY Multivitamin (Multivitamin) Tab 1 TAB PO DAILY, TAB Discharge Exam Review of Systems: Constitutional: No fever, No chills, No sweats, No weakness Respiratory: No cough, No sputum, No wheezing, No shortness of breath, No dyspnea at rest Cardiovascular: No chest pain, No orthopnea, No PND, No edema Abdomen: No pain, No nausea, No vomiting, No diarrhea Musculoskeletal: No joint pain, No muscle pain, No swelling, No calf pain Genitourinary - Male: No hematuria, No dysuria, No urinary frequency, No urinary urgency Neurologic: No memory loss, No paralysis, No weakness, No numbness/tingling Psychiatric: + substance abuse, No depression symptoms, No anhedonism, No anxiety, No insomnia Endocrine: No fatigue, No excessive thirst Integumentary: No rash, No itch Physical Exam: General Appearance: WD/WN, no apparent distress Eyes: normal inspection, PERRL, EOMI, sclerae normal ENT: normal ENT inspection, hearing grossly normal, TMs normal, pharynx normal Neck: supple, no adenopathy, thyroid normal, no JVD Respiratory/Chest: chest non-tender, lungs clear, normal breath sounds, no respiratory distress Cardiovascular: regular rate, rhythm, no edema, no gallop, no JVD Abdomen / GI: normal bowel sounds, non tender, soft, no organomegaly Neurologic/Psychiatric: no motor/sensory deficits, alert, normal mood/affect , normal reflexes Skin: normal color, warm/dry, no rash Lymphatic: no adenopathy Hospital Course This is a 57 yo m here for overdose of Vistiril and Clondine resulting in NITIN; questionably other substances; history of alcohol abuse; states that this is accidental Overdose of medications -Admitted to tele -QTc prolongation now resolved -Restarted on wellbutrin sr 100 mg PO daily -Psych consult, pt states he would like to be discharged home now and f/u with [facility] on [place] NITIN secondary to likely ATN -Plateau at 7.2 04/10 now improved from 6.9 --> 5.9 --> 4.6-->3.7-->2.9-->2.4, no oliguria noted -Stop IVF due to hypervolemia and congestion -Nephrology consulted, renal US unremarkable, sodium bicarb cont -DC home with recheck BMP on 04/18 ALBARO?? --Pt feels this may been an issue contributing to his anxiety Overnight pulse ox was neg Pt is possibly having irregular breathing patterns at home due to substance abuse History of alcohol abuse -Alcohol withdrawal protocol, will DC gabapentin, not needed at this time -Received banana bag in ED Depression -On Wellbutrin but held due to prolonged QT/QTc, will resume once renal function is more stable DVT Prophylaxis -Heparin bid Total Time Spent: Greater than 30 minutes This includes examination of the patient, discharge planning, medication reconciliation, and communication with other providers. Discharge Instructions Please refer to the electronic Patient Visit Report (Discharge Instructions) for additional information. Additional Copies To RV. Ross MD
== END 2017-04-16 12:39 | disposition home or self-care (01) | DRG 684 ==
LOC: EDBD 18:30 → C.EDC 18:32 → C.MED 21:18 → ENRESERV 21:27
PROVIDERS: ADMIT Internal Medicine; ATTEND Hospitalist
DX: N17.9 Acute kidney failure, unspecified (principal); T43.591A Poisoning by other antipsychotics and neuroleptics, accidental (unintentional), initial encounter; T46.5X1A Poisoning by other antihypertensive drugs, accidental (unintentional), initial encounter; F17.200 Nicotine dependence, unspecified, uncomplicated; E86.0 Dehydration; F10.10 Alcohol abuse, uncomplicated; F32.9 Major depressive disorder, single episode, unspecified; G47.33 Obstructive sleep apnea (adult) (pediatric)

== ENCOUNTER → 2017-07-20 | Outpatient (CLI) | payer OTHER ==
[~2017-07-20] MED LIST changes: +BUPR100T8 PO; -CTP1 PO; -FLV1 PO; -LPR25 PO; +MULT-506 PO; -MULT-589 PO; -NCDT21 TD; +NRV5 PO; -THM100 PO; +TPRSR50 PO
== END | disposition home or self-care (01) ==
LOC: C.LAB1850 10:15
PROVIDERS: ATTEND Internal Medicine
DX: F10.99 Alcohol use, unspecified with unspecified alcohol-induced disorder (principal)

== ENCOUNTER 2017-09-21 18:26 | Emergency (ER) | payer SELFPAY ==
[~2017-09-21] VITALS: Ht 182.9 cm; Wt 102.0 kg
[2017-09-21 18:38] VITALS: Ht 182.9 cm; Wt 102.0 kg
--- NOTE | 2017-09-21 18:52 | EMERGENCY ROOM VISIT NOTE ---
History Report prepared by Timiibkunal: Jamshid Castro Under the Supervision of: Dr. Antonio Wong M.D. First contact with patient: 18:38 Chief Complaint: ALCOHOL OVERDOSE Stated Complaint: ETOH History of Present Illness The patient is a 57 year old male who presents to the Emergency Room with complaints of ETOH overdose that began 9 hours ago. The patient states he was fired from his job today and started drinking vodka this morning. Per the police , he was found by the [employer] publicly intoxicated on a bench. He denies head strike, fevers, and chills. He states he has been living in his sister's second home and states that she will not pick him up due to his intoxicated state. He states that he would prefer to go to penitentiary because he does not have insurance. Of note, he states that he regularly drinks a pint of vodka every day and it is unknown if he still attends AA meetings. Source of History: patient, police Onset: 9 hours ago Position: other (global) Timing: constant Associated Symptoms: No fevers, No chills Note: Patient denies any head strike. Review of Systems See HPI for pertinent positives and negatives. A total of ten systems were reviewed and were otherwise negative. Past Medical & Surgical Medical Problems: (1) Accidental overdose (2) NITIN (acute kidney injury) (3) Alcohol abuse (4) Alcohol dependence (5) Gallstone (6) Hiatal hernia (7) Medication overdose (8) Osteoarthritis Family History Unobtainable due to patient's condition Social History Smoking Status: Current Every Day Smoker Alcohol Use: heavy Drug Use: none Marital Status: single Housing Status: lives alone Occupation Status: unemployed (Fired prior to arrival) Current/Historical Medications Unable to Obtain Active Prescriptions or Reported Meds Allergies Coded Allergies: Diphenhydramine (Verified Adverse Reaction, Mild, JITTERY/ANXIOUS, 11/30/16 ) ABLE TO TAKE REG. TYLENOL Physical Exam Vital Signs Date Time Temp Pulse Resp B/P (MAP) Pulse Ox O2 Delivery O2 Flow Rate FiO2 09/21/17 22:56 89 18 153/114 95 Room Air 09/21/17 20:40 67 18 131/81 99 Room Air 09/21/17 19:23 80 09/21/17 18:38 85 18 126/29 91 Room Air Physical Exam GENERAL: Awake, alert, in no distress, slurred speech from ETOH, disheveled. HENT: Normocephalic, atraumatic. Oropharynx unremarkable. EYES: Normal conjunctiva. Sclera non-icteric. NECK: Supple. No nuchal rigidity. FROM. No JVD. RESPIRATORY: Clear to auscultation. CARDIAC: Regular rate, normal rhythm. Extremities warm and well perfused. Pulses equal. ABDOMEN: Soft, non-distended. No tenderness to palpation. No rebound or guarding. No masses. RECTAL: Deferred. MUSCULOSKELETAL: Chest examination reveals no tenderness. The back is symmetrical on inspection without obvious abnormality. There is no CVA tenderness to palpation. No joint edema. LOWER EXTREMITIES: Calves are equal size bilaterally and non-tender. No edema. No discoloration. NEURO: Normal sensorium. No sensory or motor deficits noted. SKIN: No rash or jaundice noted. Medical Decision & Procedures ED Course 183: The patient was evaluated in room B12B. A complete history and physical exam was performed. Medical Decision I reviewed the patient's past medical history, medications, and the nursing notes as described above. The patient's presentation and history were concerning for etiologies such as alcohol intoxication, toxicologic, infection, hypoglycemia, electrolyte abnormalities, cardiac sources, intracerebral event, neurologic, substance abuse as well as others were entertained. The patient is a 49-year-old gentleman with a past medical history of alcohol abuse, drinks 1 L of vodka daily since emergency Department accompanied by police after he was found sleeping on a bus bench per hpi. On arrival the patient is intoxicated but in no acute distress, cooperative, afebrile with stable vital signs. He is mildly slurred speech but otherwise no significant impairment in coordination. No evidence of trauma. Patient had a breathalyzer in the field of 0.2. Per police the patient is going to be fined for public intoxication but there are no charges to incarcerate the patient this time. Therefore, plan e to observe the patient until he is clinically sober and can be discharged safely where he can return to his home where he currently lives in his sister's house who is living out of state. The patient reports he got fired from his job today and so he began to drink early. Reports symptoms of withdrawal when he stops drinking etoh for more than a day. Denies f/c, cough, congestion, n/v. Patient reassessed after approximately 5 hours of observation and clinically sober. Agreeable to obtain detox facility information from CM. D/ c'd per [facility]. Medication Reconcilliation Current Medication List: was personally reviewed by me Blood Pressure Screening Patient's blood pressure: Normal blood pressure Blood pressure disposition: Did not require urgent referral Impression Primary Impression: Alcohol abuse with intoxication Scribe Attestation The scribe's documentation has been prepared under my direction and personally reviewed by me in its entirety. I confirm that the note above accurately reflects all work, treatment, procedures, and medical decision making performed by me. Departure Information Dispostion Home / Self-Care Prescriptions Unable to Obtain Active Prescriptions or Reported Meds Referrals RV. Ross MD (PCP) Patient Instructions Addiction Alcohol, Alcohol Withdrawal - [facility], Alcoholism, Alcoholism Get Help, My [facility] Additional Instructions Please follow up with your primary care physician in the next 1-3 days for re- evaluation. You should not abuse alcohol. Stopping abruptly without medical management can be dangerous if you experience withdrawal symptoms. Seek help if you are interested in quitting. Return to the emergency department for worsening symptoms as described in the accompanying instructions.
[2017-09-21 22:56] VITALS: BP 153/114; PULSE 89; O2SAT 95
== END 2017-09-21 23:01 | disposition home or self-care (01) ==
LOC: EDBD 18:26 → C.EDB 18:28
DX: F10.129 Alcohol abuse with intoxication, unspecified (principal); N17.9 Acute kidney failure, unspecified; M19.90 Unspecified osteoarthritis, unspecified site; F17.200 Nicotine dependence, unspecified, uncomplicated

== ENCOUNTER → 2017-12-19 | Outpatient (CLI) | payer OTHER ==
[2017-12-19 13:53] LABS: ALBUMIN 3.2 gm/dl (3.4-5.0); ALT/SGPT 23 U/L (12-78); AST/SGOT 17 U/L (15-37); BLOOD UREA NITROGEN 17 mg/dl (7-18); CALCIUM 8.8 mg/dl (8.5-10.1); CARBON DIOXIDE 26 mmol/L (21-32); CREATININE 1.01 mg/dl (0.60-1.40); GLUCOSE 82 mg/dl (70-99); SODIUM 139 mmol/L (136-145)
[2017-12-19 14:04] LABS: ALKALINE PHOSPHATASE 76 U/L (45-117); TOTAL PROTEIN 6.8 gm/dl (6.4-8.2)
== END | disposition home or self-care (01) ==
LOC: C.LAB1850 12:10
PROVIDERS: ATTEND Internal Medicine
DX: E03.9 Hypothyroidism, unspecified (principal); F10.99 Alcohol use, unspecified with unspecified alcohol-induced disorder

== ENCOUNTER → 2018-04-05 | Outpatient (CLI) | payer OTHER ==
--- NOTE | 2018-04-05 09:25 | DIAGNOSTIC IMAGING REPORT ---
R WRIST MIN 3 VIEWS ROUTINE CLINICAL HISTORY: 58 years-old Male presenting with M15.9 Generalized osteoarthritis of multiple [id number] Pain,. TECHNIQUE: Frontal, bilateral oblique, and lateral views of the right wrist were obtained. COMPARISON: Comparison made to plain radiographs of the left wrist performed the same day. FINDINGS: Mild joint space loss at the radial scaphoid articulation. No widening of the scapholunate articulation. Mild joint space loss, osteophytosis, subchondral sclerosis, and cystic change noted at the scaphoid-trapezium, trapezium-first metacarpal, and first metacarpophalangeal joints. There is also degenerative change at the articulation of the bases of the first and second metacarpals. Osteophytosis also suggested at the first interphalangeal joint. Prominent hook-like osteophytes also noted at the head of the third and fifth metacarpals along the radial aspects. No evidence of joint space loss at the third or fifth MCP joints. No acute fracture or malalignment. No radiographic soft tissue abnormality. IMPRESSION: 1. Hook-like osteophytes at the third and fifth metacarpals can be seen in the setting of calcium prior phosphate deposition or hemachromatosis. 2. Findings characteristic of osteoarthritis at the radial carpus, first CMC, and first interphalangeal joint. Electronically signed by: Frank Elizondo M.D. 04/05/2018 9:23 AM Dictated Date/Time: 04/05/2018 9:18 AM
--- NOTE | 2018-04-05 09:25 | DIAGNOSTIC IMAGING REPORT ---
RIGHT HAND 3 VIEWS CLINICAL HISTORY: Osteoarthritis. FINDINGS: 3 views of the right hand are obtained. No prior studies are available for comparison at the time of dictation. Mild periarticular osteopenia is observed. No fracture is seen. There is moderate osteoarthritic change with bony overgrowth, sclerosis, and mild subluxation seen at the first carpometacarpal joint. There is moderate osteoarthritic change seen involving the first metacarpophalangeal joint as well as the interphalangeal joints. 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 Soft tissue edema is noted in the fingers. Degenerative spurs are present arising from the metatarsal heads. IMPRESSION: 1. No acute bony abnormality is seen in the right hand. 2. Changes of osteoarthritis and erosive osteoarthritis as above. 3. Soft tissue swelling is noted in the fingers. Electronically signed by: Alejandro Murphy M.D. 04/05/2018 9:24 AM Dictated Date/Time: 04/05/2018 9:20 AM
--- NOTE | 2018-04-05 09:40 | DIAGNOSTIC IMAGING REPORT ---
LEFT HAND 3 VIEWS HISTORY: M15.9 Generalized osteoarthritis of multiple sites M25.539 Pain, COMPARISON: None. FINDINGS: No acute fracture or dislocation within the left hand. Mild soft tissue swelling within the wrist. No erosive changes identified. Moderate cartilage space narrowing with osteophyte seen within the interphalangeal joints of the left hand as well as the first carpometacarpal joint. There is mild osteoarthritis seen within the radiocarpal, STT, and MCP joints. Mild soft tissue swelling within the DIP and PIP joints may be due to the long-standing degenerative change. No radiopaque foreign bodies. IMPRESSION: 1. Mild to moderate osteoarthritis within the left hand as described above. 2. No erosive changes Electronically signed by: Ranjith Whitman M.D. 04/05/2018 9:38 AM Dictated Date/Time: 04/05/2018 9:35 AM
--- NOTE | 2018-04-05 09:55 | DIAGNOSTIC IMAGING REPORT ---
L WRIST MIN 3 VIEWS ROUTINE CLINICAL HISTORY: 58 years-old Male presenting with M15.9 Generalized osteoarthritis of multiple [id number] Pain,. TECHNIQUE: Frontal, bilateral oblique, and lateral views of the left wrist were obtained. COMPARISON: Comparison made to plain radiographs of the right wrist performed the same day. FINDINGS: Ossicle noted in the region of the triangular fibrocartilage complex. Joint space loss evident at the radial aspect of the radial scaphoid articulation. Osteophytosis and subchondral sclerosis evident at the scaphoid-trapezium and trapezium-metacarpal articulation. No acute fracture or malalignment. Hook-like osteophytes evident at the first through third as well as the fifth metacarpal heads. Deformity of the fifth metacarpal may suggest prior fracture. Mild degenerative changes of the interphalangeal joint of the first finger. IMPRESSION: 1. Hook-like osteophytes at the heads of multiple metacarpals can be seen in the setting of calcium pyrophosphate deposition disease or hemachromatosis. 2. Findings characteristic of osteoarthritis at the radial carpus, first CMC, and first interphalangeal joint. Electronically signed by: Frank Elizondo M.D. 04/05/2018 9:54 AM Dictated Date/Time: 04/05/2018 9:50 AM
[2018-04-05 10:01] LABS: BASO % 0.6 %; BASO ABS # 0.05 K/uL (0-0.2); EOS % 2.5 %; EOS ABS # 0.22 K/uL (0-0.5); HEMATOCRIT 47.9 % (42-52); HEMOGLOBIN 15.6 g/dL (14.0-18.0); IG# 0.06 K/uL (0.00-0.02); LYMPH % 23.7 %; LYMPH ABS # 2.11 K/uL (1.2-3.4); MEAN CELL VOLUME 90.7 fL (80-100); MEAN CORPUSCULAR HEMOGLOBIN 29.5 pg (25-34); MEAN CORPUSCULAR HGB CONC 32.6 g/dl (32-36); MEAN PLATELET VOLUME 9.5 fL (7.4-10.4); MONO % 8.7 %; MONO ABS # 0.77 K/uL (0.11-0.59); NEUT % 63.8 %; NEUT ABS # 5.69 K/uL (1.4-6.5); PLATELET COUNT 311 K/uL (130-400); RED CELL DISTRIBUTION WIDTH CV 14.7 % (11.5-14.5); RED CELL DISTRIBUTION WIDTH SD 49.1 fL (36.4-46.3)
[2018-04-05 10:24] LABS: ALBUMIN 3.6 gm/dl (3.4-5.0); ALKALINE PHOSPHATASE 87 U/L (45-117); ALT/SGPT 31 U/L (12-78); AST/SGOT 17 U/L (15-37); CREATININE 1.11 mg/dl (0.60-1.40); TOTAL PROTEIN 7.5 gm/dl (6.4-8.2)
== END | disposition home or self-care (01) ==
LOC: C.RAD1850 08:54
PROVIDERS: ATTEND Internal Medicine Rheumatology
DX: M15.9 Polyosteoarthritis, unspecified (principal); M25.539 Pain in unspecified wrist; M79.641 Pain in right hand; M79.642 Pain in left hand; Z79.1 Long term (current) use of non-steroidal anti-inflammatories (NSAID)

== ENCOUNTER 2020-01-30 13:34 | Inpatient (IN) ==
[2020-01-30 14:37] LABS: Appearance Urine Cloudy (Clear); Bacteria Urine Automated Negative (Negative); Blood Urine Negative (Negative); Color Urine Dark Yellow; Glucose Urine UA Trace (Negative); Ketones Urine 2+ (Negative); Leukocyte Esterase Urine Negative (Negative); Nitrite Urine Negative (Negative); Protein Urine 1+ (Negative); Specific Gravity Urine 1.035 (1.000-1.030); Urobilinogen Urine Negative (Negative); pH Urine 5.5 (4.5-7.5)
[2020-01-30 14:48] LABS: Bilirubin Urine Negative (Negative); Ictotest Urine Negative (Negative)
[2020-01-30 14:52] LABS: Basophils # (auto) 0.08 K/uL (0-0.2); Basophils % (auto) 1.4 %; Eosinophils # (auto) 0.06 K/uL (0-0.5); Hematocrit (blood only) 47.9 % (42-52); Hemoglobin 15.6 g/dL (14.0-18.0); Immature Granulocytes # (auto) 0.02 K/uL (0.00-0.02); Immature Granulocytes % (auto) 0.3 %; Lymphocytes # (auto) 1.95 K/uL (1.2-3.4); Lymphocytes % (auto) 34.1 %; Mean Corpuscular Hemoglobin 29.7 pg (25-34); Mean Corpuscular Hgb Conc 32.6 g/dL (32-36); Mean Corpuscular Volume 91.1 fL (80-100); Monocytes # (auto) 0.43 K/uL (0.11-0.59); Monocytes % (auto) 7.5 %; Neutrophils # (auto) 3.18 K/uL (1.4-6.5); Neutrophils % (auto) 55.7 %; Platelet Count 212 K/uL (130-400); RDW Coefficient of Variation 15.5 % (11.5-14.5); RDW Standard Deviation 50.8 fL (36.4-46.3); Red Blood Count 5.26 M/uL (4.7-6.1); White Blood Count 5.72 K/uL (4.8-10.8)
[2020-01-30 15:01] LABS: Calcium Oxalate Crystals Urine Present (None Prsent); RBC Urine Automated 0-4 /hpf (0-4)
[2020-01-30 15:09] LABS: Amphetamines+Metham, Urine Neg (Neg); Barbiturates, Urine Neg (Neg); Benzodiazepine, Urine Neg (Neg); Cocaine, Urine Neg (Neg); MDMA (Ecstacy), Urine Neg (Neg); Methadone, Urine Neg (Neg); Opiate, Urine Neg (Neg); Phencyclidine, Urine Neg (Neg)
[2020-01-30 15:15] LABS: Albumin Level 3.7 gm/dl (3.4-5.0); BUN Creatinine Ratio 15.8 (10-20); Calcium 8.7 mg/dl (8.5-10.1); Creatinine Clr Calc Pharmacy 95.2 ml/min; Est GFR (Non-African American) 77.7; Potassium 3.5 mmol/L (3.5-5.1)
[2020-01-30 15:17] LABS: Acetaminophen < 2 ug/ml (10-30); Salicylate < 1.7 mg/dl (2.8-20)
[2020-01-30 15:25] LABS: Albumin Globulin Ratio 0.9 (0.9-2); Bilirubin,Total 0.2 mg/dl (0.2-1); Globulin 4.2 gm/dl (2.5-4.0); Thyroid Stimulating Hormone 3.76 uIu/ml (0.300-4.500); Total Protein 7.9 gm/dl (6.4-8.2)
--- NOTE | 2020-01-30 15:33 | Emergency Department Note ---
History of Present Illness General Chief complaint: Detox Request Stated complaint: ALCOHOL WITHDRAWAL Time Seen by Provider: 01/30/20 14:01 History of Present Illness Provider complaint: Detox request Onset (ago): hour(s) 1 59-year-old chronic alcoholic male presents to the emergency department requesting detoxification treatment. He states he has been binge drinking and wants help with his alcoholism. He denies any falls. He does state that he smokes. He denies any suicidal homicidal ideation. He denies any loss of taste or loss of smell. Denies any chest pain, abdominal pain, or difficulty breathing. Patient states he had some vodka right before he came into the emergency department today. Home Medications Home Medications Medication Instructions Recorded Confirmed Type atorvastatin 10 mg tablet 10 mg PO DAILY #90 tab 11/13/19 01/30/20 Rx levothyroxine 75 mcg tablet 75 mcg PO DAILY #90 tab 11/13/19 01/30/20 Rx lisinopril 20 mg tablet 20 mg PO DAILY #90 tab 11/13/19 01/30/20 Rx pantoprazole 20 mg tablet,delayed 20 mg PO DAILY #90 tab 11/13/19 01/30/20 Rx release meloxicam 7.5 mg tablet 7.5 mg PO DAILY #90 tab 11/14/19 01/30/20 Rx Allergies Allergy/AdvReac Type Severity Reaction Status Date / Time acetaminophen Allergy Unknown Verified 01/04/20 09:48 [From Tylenol PM] diphenhydramine AdvReac Mild JITTERY/ANX Verified 01/04/20 09:48 IOUS Past Med/Surg History Medical History Accidental overdose NITIN (acute kidney injury) Alcohol abuse (Chronic) Alcohol dependence (Chronic) Basal cell carcinoma of skin (Inactive) Hiatal hernia Major depressive disorder (Acute) Medication overdose No pertinent family history Osteoarthritis Renal insufficiency (Chronic) Surgical History History of neck surgery (~1999) Herniated disc in neck History of total hip replacement (~2013) Double hip replacement No significant past surgical history S/P cholecystectomy (Inactive ~2015) S/P hernia repair (~2005) S/P lumbar fusion S/P thyroid biopsy Family History Father Emphysema, unspecified Diabetes Grandmother Stroke Mother Cancer Cardiovascular disease Heart disease Brother Myocardial infarction Sister Myocardial infarction Other Esophageal cancer Social History Preferred Language: Latvian Communication Ability: Effective Visual Impairment: No Limitations Hearing Ability: Normal marital status: Single current occupational status: employed 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 Feels Safe at Home: Yes Smoking Status: Current every day smoker Hx Alcohol Use: Yes (1 bottle of Vodka perday) Alcohol type: hard liquor Hx Substance Use: No Seatbelt Use: always Review of Systems A total of 10 systems reviewed and were otherwise negative Physical Exam Vital Signs Vital Signs - 24 hr 01/30/20 13:44 01/30/20 15:07 01/30/20 15:15 Temperature 37.1 C Temperature Source Oral Pulse Rate 109 H Pulse Rate [Right Finger] 88 Respiratory Rate 18 20 Respiratory Effort / Characteristics Non-Labored Spontaneous Respiratory Depth Normal Blood Pressure 110/67 Blood Pressure [Right Arm] 127/76 Blood Pressure Mean 81 Blood Pressure Mean [Right Arm] 93 Pulse Oximetry 94 88 L 88 L Oxygen Delivery Method Room Air Room Air Room Air Oxygen Flow Rate Sepsis Recent Fever Within 48 Hours No Sepsis New/Unexplained Change in Mental Status No Sepsis Action Taken by Nursing No Action Required Oxygen Flow Rate - Titration 2 Pulse Oximetry Post Tiitration 93 01/30/20 16:35 Temperature Temperature Source Pulse Rate Pulse Rate [Right Finger] 83 Respiratory Rate 20 Respiratory Effort / Characteristics Respiratory Depth Blood Pressure Blood Pressure [Right Arm] 166/100 H Blood Pressure Mean Blood Pressure Mean [Right Arm] 122 Pulse Oximetry 95 Oxygen Delivery Method Nasal Cannula Oxygen Flow Rate 2 Sepsis Recent Fever Within 48 Hours Sepsis New/Unexplained Change in Mental Status Sepsis Action Taken by Nursing Oxygen Flow Rate - Titration Pulse Oximetry Post Tiitration Physical Exam GENERAL: He is oriented to person, place, and time. He appears well-developed and well-nourished. He does not appear distressed. Patient appears intoxicated. HENT: Exam performed. - Head: Normocephalic and atraumatic. - Right Ear: External ear normal. No mastoid tenderness. - Left Ear: External ear normal. No mastoid tenderness. - Mouth/Throat: The oropharynx is clear and moist. No trismus in the jaw. No dental abscesses or uvula swelling. No oropharyngeal exudate or tonsillar abscesses. EYES: Conjunctivae and EOM are normal. Pupils are equal, round, and reactive to light. Right eye exhibits no discharge. Left eye exhibits no discharge. No scleral icterus. NECK: Normal range of motion. Neck supple. No JVD present. No spinous process tenderness present. No carotid bruit present. No rigidity. No tracheal deviation and normal range of motion present. No Brudzinski's sign and no Kernig's sign noted. CV: Normal rate, regular rhythm, normal heart sounds and intact distal pulses. There is no peripheral edema. Palpable radial pulses bue. PULM/CHEST: Effort normal and breath sounds normal. No respiratory distress. No stridor. He has no wheezes. He has no rales. - Chest Wall: He exhibits no tenderness. ABD: The abdomen is soft. Bowel sounds are normal. He has no distension. No mass is present. There is no tenderness. There is no rebound, no guarding, no Murp hy's sign and no tenderness at McBurney's point. Rovsig negative. MUSC/SKEL: Normal range of motion. There is no peripheral edema, tenderness or deformity. LYMPH: No cervical adenopathy. NEURO: He is alert and oriented to person, place, and time. He has normal strength. No cranial nerve deficit or sensory deficit. Coordination and gait normal. GCS eye subscore is 4. GCS verbal subscore is 5. GCS motor subscore is 6. Cerebellar tests wnl. SKIN: Skin is warm and dry. He is not diaphoretic. PSYCH: Patient denies suicidal or homicidal ideation. Course Course 1425: The patient was evaluated in room A8. A complete history and physical exam was performed. 1530: Patient was found to be hypoxic on room air. Supplemental oxygen was applied to the patient and improve the oxygen saturation. Patient was placed on residential monitor. Patient reports no chest pain or difficulty breathing. He reports no fevers or loss of taste or smell. Given his hypoxia, the patient will have further work-up done and we will plan on medical admission before possibly sending patient to rehab for his alcohol abuse. Cardiac monitoring: An order was placed for continuous cardiac monitoring. The monitor shows a rate of 88 with sinus rhythm 1705: Vital signs continue be stable on supplemental oxygen. Patient no respiratory distress. Labs and imaging within normal limits with exception of the serum alcohol concentration. Patient will be [facility]. Administered Medications Ioversol (Optiray 320 100ml) 120 ml IV ONCE PRN PRN Reason: Interaction Checking Stop: 02/03/20 16:17 Last Admin: 01/30/20 16:18 Dose: 120 ml Documented by: [id number] Discontinued Medications Lorazepam (Ativan) 1 mg in 2 mls @ 2 mls/min IV NOW STA Stop: 01/30/20 16:38 Last Admin: 01/30/20 16:44 Dose: 2 mls/min Documented by: [id number] Critical Care Time Critical Care Time: Yes Total Critical Care Time: 51 I have personally spent greater than 51 minutes of critical care time in the direct management of this patient. This includes bedside care, interpretation of diagnostic studies, and testing, discussion with consultants, patient, and family members, and other required patient management activities. This 51 minutes is in excess of all separately billable procedures. Medical Decision Making Laboratory Data Result diagrams: 01/30/20 14:35 01/30/20 14:35 Lab Results 01/30/20 01/30/20 01/30/20 Range/Units 14:10 14:10 14:35 WBC 5.72 (4.8-10.8) K/uL RBC 5.26 (4.7-6.1) M/uL Hgb 15.6 (14.0-18.0) g/dL Hct 47.9 (42-52) % MCV 91.1 (80-100) fL MCH 29.7 (25-34) pg MCHC 32.6 (32-36) g/dL RDW Std Deviation 50.8 H (36.4-46.3) fL RDW Coeff of Kendal 15.5 H (11.5-14.5) % Plt Count 212 (130-400) K/uL MPV 9.0 (7.4-10.4) fL Immature Gran % (Auto) 0.3 % Neut % (Auto) 55.7 % Lymph % (Auto) 34.1 % Callahan % (Auto) 7.5 % Eos % (Auto) 1.0 % Baso % (Auto) 1.4 % Immature Gran # (Auto) 0.02 (0.00-0.02) K/uL Neut # (Auto) 3.18 (1.4-6.5) K/uL Lymph # (Auto) 1.95 (1.2-3.4) K/uL Callahan # (Auto) 0.43 (0.11-0.59) K/uL Eos # (Auto) 0.06 (0-0.5) K/uL Baso # (Auto) 0.08 (0-0.2) K/uL VBG pH (7.36-7.41) VBG pCO2 (38-50) mmHg VBG pO2 mmHg VBG HCO3 mmol/L VBG O2 Saturation % VBG Base Excess mEq/L Barometric Pressure mm/Hg Sodium (136-145) mmol/L Potassium (3.5-5.1) mmol/L Chloride (98-107) mmol/L Carbon Dioxide (21-32) mmol/L Anion Gap (3-11) BUN (7-18) mg/dl Creatinine (0.6-1.4) mg/dl Est Cr Clr Drug Dosing ml/min Est GFR ( Amer) Est GFR (Non-Af Amer) BUN/Creatinine Ratio (10-20) Glucose (70-99) mg/dl Calcium (8.5-10.1) mg/dl Total Bilirubin (0.2-1) mg/dl AST (15-37) U/L ALT (12-78) U/L Alkaline Phosphatase (45-117) U/L Troponin I (0-0.045) ng/ml NT-Pro-B Natriuret Pep (0-900) pg/ml Total Protein (6.4-8.2) gm/dl Albumin (3.4-5.0) gm/dl Globulin (2.5-4.0) gm/dl Albumin/Globulin Ratio (0.9-2) TSH (0.300-4.500) uIu/ml Urine Color Dark Yellow Urine Appearance Cloudy A (Clear) Urine pH 5.5 (4.5-7.5) Ur Specific [place] 1.035 H (1.000-1.030) Urine Protein 1+ H (Negative) Urine Glucose (UA) Trace H (Negative) Urine Ketones 2+ H (Negative) Urine Blood Negative (Negative) Urine Nitrite Negative (Negative) Urine Bilirubin Negative (Negative) Urine Urobilinogen Negative (Negative) Ur Leukocyte Esterase Negative (Negative) Urine WBC (Auto) 1-5 (0-5) /hpf Urine RBC (Auto) 0-4 (0-4) /hpf U Hyaline Cast (Auto) 10-30 H (0-5) /lpf U Epithel Cells (Auto) 10-20 H (0-5) /lpf Urine Bacteria (Auto) Negative (Negative) Urine Crystals Not Reportable Calcium Oxalate Crystal Present A (None Prsent) Salicylates (2.8-20) mg/dl Urine Opiates Screen Neg (Neg) Ur Methadone, Qual Neg (Neg) Acetaminophen (10-30) ug/ml Urine Barbiturates Neg (Neg) Ur Phencyclidine (PCP) Neg (Neg) U Amphetamin/Meth Scrn Neg (Neg) MDMA (Ecstasy) Screen Neg (Neg) U Benzodiazepines Scrn Neg (Neg) Ur Cocaine Metabolite Neg (Neg) U Marijuana (THC) Screen Neg (Neg) Ethyl Alcohol mg/dL (0-3) mg/dl 01/30/20 01/30/20 01/30/20 Range/Units 14:35 14:35 14:35 WBC (4.8-10.8) K/uL RBC (4.7-6.1) M/uL Hgb (14.0-18.0) g/dL Hct (42-52) % MCV (80-100) fL MCH (25-34) pg MCHC (32-36) g/dL RDW Std Deviation (36.4-46.3) fL RDW Coeff of Kendal (11.5-14.5) % Plt Count (130-400) K/uL MPV (7.4-10.4) fL Immature Gran % (Auto) % Neut % (Auto) % Lymph % (Auto) % Callahan % (Auto) % Eos % (Auto) % Baso % (Auto) % Immature Gran # (Auto) (0.00-0.02) K/uL Neut # (Auto) (1.4-6.5) K/uL Lymph # (Auto) (1.2-3.4) K/uL Callahan # (Auto) (0.11-0.59) K/uL Eos # (Auto) (0-0.5) K/uL Baso # (Auto) (0-0.2) K/uL VBG pH (7.36-7.41) VBG pCO2 (38-50) mmHg VBG pO2 mmHg VBG HCO3 mmol/L VBG O2 Saturation % VBG Base Excess mEq/L Barometric Pressure mm/Hg Sodium 140 (136-145) mmol/L Potassium 3.5 (3.5-5.1) mmol/L Chloride 106 (98-107) mmol/L Carbon Dioxide 23 (21-32) mmol/L Anion Gap 11.0 (3-11) BUN 16 (7-18) mg/dl Creatinine 1.04 (0.6-1.4) mg/dl Est Cr Clr Drug Dosing 95.2 ml/min Est GFR ( Amer) 90.0 Est GFR (Non-Af Amer) 77.7 BUN/Creatinine Ratio 15.8 (10-20) Glucose 96 (70-99) mg/dl Calcium 8.7 (8.5-10.1) mg/dl Total Bilirubin 0.2 (0.2-1) mg/dl AST 71 H (15-37) U/L ALT 86 H (12-78) U/L Alkaline Phosphatase 126 H (45-117) U/L Troponin I (0-0.045) ng/ml NT-Pro-B Natriuret Pep (0-900) pg/ml Total Protein 7.9 (6.4-8.2) gm/dl Albumin 3.7 (3.4-5.0) gm/dl Globulin 4.2 H (2.5-4.0) gm/dl Albumin/Globulin Ratio 0.9 (0.9-2) TSH 3.760 (0.300-4.500) uIu/ml Urine Color Urine Appearance (Clear) Urine pH (4.5-7.5) Ur Specific [place] (1.000-1.030) Urine Protein (Negative) Urine Glucose (UA) (Negative) Urine Ketones (Negative) Urine Blood (Negative) Urine Nitrite (Negative) Urine Bilirubin (Negative) Urine Urobilinogen (Negative) Ur Leukocyte Esterase (Negative) Urine WBC (Auto) (0-5) /hpf Urine RBC (Auto) (0-4) /hpf U Hyaline Cast (Auto) (0-5) /lpf U Epithel Cells (Auto) (0-5) /lpf Urine Bacteria (Auto) (Negative) Urine Crystals Calcium Oxalate Crystal (None Prsent) Salicylates < 1.7 L (2.8-20) mg/dl Urine Opiates Screen (Neg) Ur Methadone, Qual (Neg) Acetaminophen < 2 L (10-30) ug/ml Urine Barbiturates (Neg) Ur Phencyclidine (PCP) (Neg) U Amphetamin/Meth Scrn (Neg) MDMA (Ecstasy) Screen (Neg) U Benzodiazepines Scrn (Neg) Ur Cocaine Metabolite (Neg) U Marijuana (THC) Screen (Neg) Ethyl Alcohol mg/dL 266.3 H (0-3) mg/dl 01/30/20 01/30/20 Range/Units 14:35 15:56 WBC (4.8-10.8) K/uL RBC (4.7-6.1) M/uL Hgb (14.0-18.0) g/dL Hct (42-52) % MCV (80-100) fL MCH (25-34) pg MCHC (32-36) g/dL RDW Std Deviation (36.4-46.3) fL RDW Coeff of Kendal (11.5-14.5) % Plt Count (130-400) K/uL MPV (7.4-10.4) fL Immature Gran % (Auto) % Neut % (Auto) % Lymph % (Auto) % Callahan % (Auto) % Eos % (Auto) % Baso % (Auto) % Immature Gran # (Auto) (0.00-0.02) K/uL Neut # (Auto) (1.4-6.5) K/uL Lymph # (Auto) (1.2-3.4) K/uL [place]ahan # (Auto) (0.11-0.59) K/uL Eos # (Auto) (0-0.5) K/uL Baso # (Auto) (0-0.2) K/uL VBG pH 7.44 H (7.36-7.41) VBG pCO2 40 (38-50) mmHg VBG pO2 43 mmHg VBG HCO3 27 mmol/L VBG O2 Saturation 79.0 % VBG Base Excess 2.4 mEq/L Barometric Pressure 728.7 mm/Hg Sodium (136-145) mmol/L Potassium (3.5-5.1) mmol/L Chloride (98-107) mmol/L Carbon Dioxide (21-32) mmol/L Anion Gap (3-11) BUN (7-18) mg/dl Creatinine (0.6-1.4) mg/dl Est Cr Clr Drug Dosing ml/min Est GFR ( Amer) Est GFR (Non-Af Amer) BUN/Creatinine Ratio (10-20) Glucose (70-99) mg/dl Calcium (8.5-10.1) mg/dl Total Bilirubin (0.2-1) mg/dl AST (15-37) U/L ALT (12-78) U/L Alkaline Phosphatase (45-117) U/L Troponin I < 0.015 (0-0.045) ng/ml NT-Pro-B Natriuret Pep 14 (0-900) pg/ml Total Protein (6.4-8.2) gm/dl Albumin (3.4-5.0) gm/dl Globulin (2.5-4.0) gm/dl Albumin/Globulin Ratio (0.9-2) TSH (0.300-4.500) uIu/ml Urine Color Urine Appearance (Clear) Urine pH (4.5-7.5) Ur Specific [place] (1.000-1.030) Urine Protein (Negative) Urine Glucose (UA) (Negative) Urine Ketones (Negative) Urine Blood (Negative) Urine Nitrite (Negative) Urine Bilirubin (Negative) Urine Urobilinogen (Negative) Ur Leukocyte Esterase (Negative) Urine WBC (Auto) (0-5) /hpf Urine RBC (Auto) (0-4) /hpf U Hyaline Cast (Auto) (0-5) /lpf U Epithel Cells (Auto) (0-5) /lpf Urine Bacteria (Auto) (Negative) Urine Crystals Calcium Oxalate Crystal (None Prsent) Salicylates (2.8-20) mg/dl Urine Opiates Screen (Neg) Ur Methadone, Qual (Neg) Acetaminophen (10-30) ug/ml Urine Barbiturates (Neg) Ur Phencyclidine (PCP) (Neg) U Amphetamin/Meth Scrn (Neg) MDMA (Ecstasy) Screen (Neg) U Benzodiazepines Scrn (Neg) Ur Cocaine Metabolite (Neg) U Marijuana (THC) Screen (Neg) Ethyl Alcohol mg/dL (0-3) mg/dl Imaging Data Radiologist's Impression: HEAD CT NONCONTRAST CT DOSE: 638.56 mGycm HISTORY: Altered mental status. TECHNIQUE: Multiaxial CT images of the head were performed without the use of intravenous contrast. Automated exposure control was utilized for this study. A dose lowering technique was utilized adhering to the principles of ALARA. Comparison: None. Findings: The paranasal sinuses and mastoid air cells are clear. No calvarial or skull base fractures. There is no mass, hematoma, midline shift, acute infarct. There is a 4 cm left frontal extra-axial CSF density lesion resulting in mild mass effect along the left frontal lobe and remodeling of the inner table of the calvarium. This likely represents an arachnoid cyst. Impression: 1. No acute intracranial abnormality. 2. A 4 cm left frontal arachnoid cyst. ACT 112: Negative or not required by law. Electronically signed by: Ranjith Whitman M.D. 01/30/2020 4:23 PM Dictated: 01/30/20 1619 Transcribed: 01/30/201618 XR chest 1V portable CLINICAL HISTORY: Shortness of breath COMPARISON STUDY: 08/03/2018 FINDINGS: The cardiac and mediastinal contours remain stable. Postsurgical changes are present within the cervical spine. There is no failure. There is no focal pulmonary consolidation. There are no pleural effusions. Degenerative changes are present within the left shoulder.[ IMPRESSION: No active disease in the chest. ACT 112: Negative or not required by law. Electronically signed by: Gilmer Watson M.D. 01/30/2020 4:10 PM Dictated: 01/30/20 1610 Transcribed: 01/30/20 1610 CHEST CTA for PULMONARY ARTERIES CT DOSE: 545.58 mGycm HISTORY: Hypoxia. Assess for pulmonary embolus. TECHNIQUE: Multiaxial CT images of the chest were performed following the intravenous administration of contrast to evaluate the pulmonary arteries. Maximal intensity projection images were also obtained. A dose lowering technique was utilized adhering to the principles of ALARA. COMPARISON STUDY: Chest CTA 08/03/2018. FINDINGS: CTA: Heart is normal in size. No pericardial effusion. Coronary arterial calcifications are noted. The ascending thoracic aorta measures 4.1 x 4.0 cm in AP and transverse dimension. Mild mixed plaque formation of the thoracic aorta. Patency of the imaged great vessels. The pulmonary arterial tree demonstrates no focal filling defects to suggest pulmonary thromboembolic disease. CT CHEST: 1.6 cm peripherally calcified nodule the right thyroid lobe, unchanged. No adenopathy. No pneumothorax or pleural effusion. Mild subsegmental bibasilar atelectasis. There are no suspicious pulmonary nodules or masses identified. Central airways appear patent. Hepatic steatosis. No acute process of the imaged upper abdomen. Soft tissues are unremarkable. Bones appear to be intact. Partially imaged anterior fusion hardware of the cervical spine. Degenerative changes are noted about the spine and shoulders. IMPRESSION: 1. No acute intrathoracic abnormality identified, specifically no evidence of pulmonary thromboembolic disease. 2. Mild aneurysmal dilatation of the ascending thoracic aorta, 4.1 x 4.0 cm. No dissection. 3. No focal airspace consolidation to suggest pneumonia. 4. No adenopathy. 5. Additional findings as above include coronary arterial disease and hepatic steatosis. ACT 112: Negative or not required by law. Electronically signed by: Ranjith Whitman M.D. 01/30/2020 4:36 PM Dictated: 01/30/201626 Transcribed: 01/30/201626 CT OF THE CERVICAL SPINE CLINICAL HISTORY: Neck pain status post trauma COMPARISON STUDY: No previous studies for comparison. CT DOSE: 508.63 mGycm TECHNIQUE: CT scan of the cervical spine was performed from the skull base to the thoracic inlet. Images are reviewed in the axial, sagittal, and coronal planes. IV contrast was not administered for this examination. A dose lowering technique was utilized adhering to the principles of ALARA. FINDINGS: There is a 17 mm rim calcified right lobe thyroid nodule. There is no pneumothorax. There are atherosclerotic carotid calcifications with possible aneurysmal dilatation of the right internal carotid with rim calcification just proximal to the carotid canal The prevertebral soft tissues are normal. No fractures or subluxations are visualized. There are multilevel degenerative changes. There is C5-6 spinal stenosis. There are postsurgical changes at the C6-T1 level. IMPRESSION: 1. No evidence of acute fracture or traumatic subluxation 2. 17 mm rim calcified right lobe thyroid nodule 3. Atherosclerotic carotid calcifications with possible mild aneurysmal dilatation of the right internal carotid with brain calcification just proximal to the carotid canal ACT 112: Negative or not required by law. Electronically signed by: Gilmer Watson M.D. 01/30/2020 4:27 PM Dictated: 01/30/20 1623 Transcribed: 01/30/20 1627 ECG Data Indication: + SOB/dyspnea Rate (beats per minute): 80 Rhythm: + normal sinus ECG Intervals/blocks: + Normal QRS, + Normal UT and + Normal QT-c ECG ST segments: + Normal ST segments [facility] Narrative 1425: The patient was evaluated in room A8. A complete history and physical exam was performed. 1530: Patient was found to be hypoxic on room air. Supplemental oxygen was applied to the patient and improve the oxygen saturation. Patient was placed on residential monitor. Patient reports no chest pain or difficulty breathing. He reports no fevers or loss of taste or smell. Given his hypoxia, the patient will have further work-up done and we will plan on medical admission before possibly sending patient to rehab for his alcohol abuse. Cardiac monitoring: An order was placed for continuous cardiac monitoring. The monitor shows a rate of 88 with sinus rhythm 1705: Vital signs continue be stable on supplemental oxygen. Patient no respiratory distress. Labs and imaging within normal limits with exception of the serum alcohol concentration. Patient will be admitted for hypoxia to Dr. [facility]ano [facility] hospitalist service. Impression & Plan Hypoxia, Alcohol abuse Discharge Plan Visit Data Chief Complaint: Detox Request Stated Complaint: ALCOHOL WITHDRAWAL ED Provider: Vinny Moya Discharge Problem: Hypoxia, Alcohol abuse Patient Disposition: Being Evaluated by Hospitalist Forms Stand Alone Forms: [facility], Suicide Prevention Resources Prescriptions Prescriptions: No Action atorvastatin 10 mg tablet 10 mg PO DAILY Qty: 90 RF: 3 levothyroxine 75 mcg tablet 75 mcg PO DAILY Qty: 90 RF: 3 lisinopril 20 mg tablet 20 mg PO DAILY Qty: 90 RF: 3 pantoprazole 20 mg tablet,delayed release (DR/EC) 20 mg PO DAILY Qty: 90 RF: 3 meloxicam 7.5 mg tablet 7.5 mg PO DAILY Qty: 90 RF: 3 Referrals Referrals: Melia Rodriguez MD [Primary Care Provider] -
[2020-01-30 15:56] LABS: NT Pro B Type Natriuretic Pept 14 pg/ml (0-900); Troponin I < 0.015 ng/ml (0-0.045)
[2020-01-30 16:08] LABS: Base Excess VBG 2.4 mEq/L; pH VBG 7.44 (7.36-7.41)
--- NOTE | 2020-01-30 16:12 | XRay Report ---
XR chest 1V portable CLINICAL HISTORY: Shortness of breath COMPARISON STUDY: 08/03/2018 FINDINGS: The cardiac and mediastinal contours remain stable. Postsurgical changes are present within the cervical spine. There is no failure. There is no focal pulmonary consolidation. There are no ple ural effusions. Degenerative changes are present within the left shoulder.[ IMPRESSION: No active disease in the chest. ACT 112: Negative or not required by law. Electronically signed by: Gilmer Watson M.D. 01/30/2020 4:10 PM
[2020-01-30] MEDS ORDERED: IOVERSOL 100ml IV PRN (16:18)
--- NOTE | 2020-01-30 16:24 | CT Scan Report ---
HEAD CT NONCONTRAST CT DOSE: 638.56 mGycm HISTORY: Altered mental status. TECHNIQUE: Multiaxial CT images of the head were performed without the use of intravenous contrast. A utomated exposure control was utilized for this study. A dose lowering technique was utilized adheri ng to the principles of ALARA. Comparison: None. Findings: The paranasal sinuses and mastoid air cells are clear. No calvarial or skull base fractures . There is no mass, hematoma, midline shift, acute infarct. There is a 4 cm left frontal extra-axial CSF density lesion resulting in mild mass effect along the left frontal lobe and remodeling of the in ner table of the calvarium. This likely represents an arachnoid cyst. Impression: 1. No acute intracranial abnormality. 2. A 4 cm left frontal arachnoid cyst. ACT 112: Negative or not required by law. Electronically signed by: Ranjith Whitman M.D. 01/30/2020 4:23 PM
--- NOTE | 2020-01-30 16:28 | CT Scan Report ---
CT OF THE CERVICAL SPINE CLINICAL HISTORY: Neck pain status post trauma COMPARISON STUDY: No previous studies for comparison. CT DOSE: 508.63 mGycm TECHNIQUE: CT scan of the cervical spine was performed from the skull base to the thoracic inlet. Milagros ges are reviewed in the axial, sagittal, and coronal planes. IV contrast was not administered for thi s examination. A dose lowering technique was utilized adhering to the principles of ALARA. FINDINGS: There is a 17 mm rim calcified right lobe thyroid nodule. There is no pneumothorax. There are atheros clerotic carotid calcifications with possible aneurysmal dilatation of the right internal carotid wit h rim calcification just proximal to the carotid canal The prevertebral soft tissues are normal. No fractures or subluxations are visualized. There are multilevel degenerative changes. There is C5-6 spinal stenosis. There are postsurgical martinez ges at the C6-T1 level. IMPRESSION: 1. No evidence of acute fracture or traumatic subluxation 2. 17 mm rim calcified right lobe thyroid nodule 3. Atherosclerotic carotid calcifications with possible mild aneurysmal dilatation of the right inter nal carotid with brain calcification just proximal to the carotid canal ACT 112: Negative or not required by law. Electronically signed by: Gilmer Watson M.D. 01/30/2020 4:27 PM
[2020-01-30] MEDS ORDERED: LORazepam 1 MG/2 ML VIAL IV STA (16:37)
--- NOTE | 2020-01-30 16:37 | CT Scan Report ---
CHEST CTA for PULMONARY ARTERIES CT DOSE: 545.58 mGycm HISTORY: Hypoxia. Assess for pulmonary embolus. TECHNIQUE: Multiaxial CT images of the chest were performed following the intravenous administration of contrast to evaluate the pulmonary arteries. Maximal intensity projection images were also obtaine d. A dose lowering technique was utilized adhering to the principles of ALARA. COMPARISON STUDY: Chest CTA 08/03/2018. FINDINGS: CTA: Heart is normal in size. No pericardial effusion. Coronary arterial calcifications are noted. The asc ending thoracic aorta measures 4.1 x 4.0 cm in AP and transverse dimension. Mild mixed plaque formati on of the thoracic aorta. Patency of the imaged great vessels. The pulmonary arterial tree demonstrat es no focal filling defects to suggest pulmonary thromboembolic disease. CT CHEST: 1.6 cm peripherally calcified nodule the right thyroid lobe, unchanged. No adenopathy. No pneumothorax or pleural effusion. Mild subsegmental bibasilar atelectasis. There are no suspicious pulmonary nodules or masses identified. Central airways appear patent. Hepatic steatosis. No acute process of the imaged upper abdomen. Soft tissues are unremarkable. Bones appear to be intact. Partially imaged anterior fusion hardware of the cervical spine. Degenerative c hanges are noted about the spine and shoulders. IMPRESSION: 1. No acute intrathoracic abnormality identified, specifically no evidence of pulmonary thromboemboli c disease. 2. Mild aneurysmal dilatation of the ascending thoracic aorta, 4.1 x 4.0 cm. No dissection. 3. No focal airspace consolidation to suggest pneumonia. 4. No adenopathy. 5. Additional findings as above include coronary arterial disease and hepatic steatosis. ACT 112: Negative or not required by law. Electronically signed by: Ranjith Whitman M.D. 01/30/2020 4:36 PM
--- NOTE | 2020-01-30 18:36 | History & Physical Report ---
Date of Service January 30, 2020 Assessment & Plan (1) Alcohol dependence: At risk of alcohol withdrawal. Jittery in ER therefore given lorazepam 1mg IV. AWSS with lorazepam PRN dosing No prior history of withdrawal seizures Thiamine 100mg PO daily (2) Hypoxia: Aim O2 sats > 94%. Suspect due to lorazepam and alcohol use causing sedation and reduced respiratory effort. (3) Nicotine dependence: Declines nicotine replacement at present (4) Hypothyroidism: TSH WNL Continue levothyroxine 75 mcg PO daily (5) Thyroid nodule: Suggest outpatient US if not previously performed to better clarify risk of malignancy although not changed in size since last scan in 2017 is reassuring (6) Elevated LFTs: Secondary to binge alcohol use. Trend to make sure downtrending and not resulting in acute hepatitis. (7) Intracranial arachnoid cyst: Follow up outpatient. Unclear if symptomatic from this given current alcohol intoxication. Majority are asymptomatic and no focal neurology on exam today. (8) DVT prophylaxis: Deferred as likely short stay and ambulatory Admission and Anticipated Discharge Date Admission Date: 01/30/20 History of Present Illness Chief Complaint: Alcohol detox requested, hypoxia Primary Care Provider: Melia Rodriguez MD Alejandro Centeno is a 59 year old male with known alcohol use disorder who presents to the ER requested detox. He reports drinking a 5th of vodka daily for the past 2 weeks, last time he drank was this morning. He has been to alcohol rehab previously and was most recently in outpatient counselling and rehab with and [facility]. Last went through alcohol withdrawal approximately a month a go without medications at home and gets very jittery for 2 days and then starts getting better. He denies any prior history of alcohol withdrawal seizures. No current tremors, anxiety, agitation, palpitations, diaphoresis, hallucinations. While in the ER he became hypoxic. This was prior to lorazepam being given. Th erefore he was referred to the medicine service for admission prior to potential placement with inpatient alcohol rehabilitation. When seen in the ER he was not having any tremors and appeared relatively lethargic after lorazepam was given. Workup with CT for PE, CXR, CT head, cervical spine unremarkable for acute pathology. Allergies Allergy/AdvReac Type Severity Reaction Status Date / Time acetaminophen Allergy Unknown Verified 01/04/20 09:48 [From Tylenol PM] diphenhydramine AdvReac Mild JITTERY/ANX Verified 01/04/20 09:48 IOUS Home Medications Home Medications Medication Instructions Recorded Confirmed Type atorvastatin 10 mg tablet 10 mg PO DAILY #90 tab 11/13/19 01/30/20 Rx levothyroxine 75 mcg tablet 75 mcg PO DAILY #90 tab 11/13/19 01/30/20 Rx lisinopril 20 mg tablet 20 mg PO DAILY #90 tab 11/13/19 01/30/20 Rx pantoprazole 20 mg tablet,delayed 20 mg PO DAILY #90 tab 11/13/19 01/30/20 Rx release meloxicam 7.5 mg tablet 7.5 mg PO DAILY #90 tab 11/14/19 01/30/20 Rx Past Med/Surg History Medical History Accidental overdose NITIN (acute kidney injury) Alcohol abuse (Chronic) Alcohol dependence (Chronic) Basal cell carcinoma of skin (Inactive) Hiatal hernia Major depressive disorder (Acute) Medication overdose No pertinent family history Osteoarthritis Renal insufficiency (Chronic) Surgical History History of neck surgery (~1999) Herniated disc in neck History of total hip replacement (~2013) Double hip replacement No significant past surgical history S/P cholecystectomy (Inactive ~2015) S/P hernia repair (~2005) S/P lumbar fusion S/P thyroid biopsy Family History Father Emphysema, unspecified Diabetes Grandmother Stroke Mother Cancer Cardiovascular disease Heart disease Brother Myocardial infarction Sister Myocardial infarction Other Esophageal cancer Social History Preferred Language: Yakut Communication Ability: Effective Visual Impairment: No Limitations Hearing Ability: Normal Bus Boy Required: No Beliefs That Will Affect Care: None marital status: Single Current Living Situation: Alone current occupational status: employed 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 Other Information That Helps Us Care for You: No Feels Safe at Home: Yes Safety Concerns: Feels Safe At This Time Smoking Status: Heavy tobacco smoker Tobacco Type: cigarettes ; Do You Dip or Chew Tobacco: No ; Second Hand Exposure: No ; Hx Alcohol Use: Yes Alcohol type: hard liquor Hx Substance Use: No Seatbelt Use: always Review of Systems Review of Systems: All systems reviewed & are unremarkable except as noted in HPI & below Physical Exam Constitutional: well developed; + not well nourished and no acute distress Eyes: PERRL, conjunctivae normal, anicteric sclerae ENMT: external ear and nose normal, oropharynx normal Neck: trachea midline, no thyromegaly Respiratory: normal respiratory effort, lungs clear to auscultation Cardiovascular: RRR, no murmur, no edema Gastrointestinal (Abdomen): normal bowel sounds, soft, nontender, no hepatosplenomegaly Musculoskeletal: no cyanosis or clubbing, extremities motor strength 5/5 Skin: no rashes, warm and dry Neurologic: moves all extremities and awake; no focal motor deficits and not confused Motor/Sensory: no tremor, no pronator drift and no sensory deficit Psychiatric: Orientation: alert and oriented x 3 Eye Contact: + fair eye contact Motor Behavior: no abnormal motor movements Speech: normal rate/rhythm/volume of speech Affect: + flat affect Thought Process: li near/logical thought process Thought Content: not paranoid and no delusions Results & Data Results & Data ([facility]) Vital Signs (Past 12 Hours) Vital Signs Temp Pulse Pulse Resp BP BP Pulse Ox 01/30/20 18:27 89 22 144/91 H 96 01/30/20 16:35 83 20 166/100 H 95 01/30/20 15:15 88 L 01/30/20 15:07 88 20 127/76 88 L 01/30/20 13:44 37.1 C 109 H 18 110/[address] NONCONTRAST Impression: 1. No acute intracranial abnormality. 2. A 4 cm left frontal arachnoid cyst. CT OF THE CERVICAL SPINE IMPRESSION: 1. No evidence of acute fracture or traumatic subluxation 2. 17 mm rim calcified right lobe thyroid nodule 3. Atherosclerotic carotid calcifications with possible mild aneurysmal di latation of the right internal carotid with brain calcification just proximal to the carotid canal XR chest 1V portable IMPRESSION: No active disease in the chest. CHEST CTA for PULMONARY ARTERIES IMPRESSION: 1. No acute intrathoracic abnormality identified, specifically no evidence of pulmonary thromboembolic disease. 2. Mild aneurysmal dilatation of the ascending thoracic aorta, 4.1 x 4.0 cm. No dissection. 3. No focal airspace consolidation to suggest pneumonia. 4. No adenopathy. 5. Additional findings as above include coronary arterial disease and hepatic steatosis. ECG Indication: altered mental status Rate (beats per minute): 80 Rhythm: normal sinus Findings: + RBBB (incomplete); no acute ischemic change Comparison ECG Date: from (08/03/2018) Change: no significant change Code Status & VTE Plan Code Status Full VTE Prophylaxis Plan VTE Prophylaxis will be ordered: No PG Care Time/CCT Total # of Minutes Spent Total Time Spent with Patient: Total time spent is greater than 50% in coordination of care (as documented) at patient's floor/unit and/or counseling patient: Coding Level of Care Code 85453 Initial Inpt Care Lvl 2 Diagnoses Alcohol dependence F10.29 Substance use status: unspecified alcohol-induced disorder Hypoxia R09.02 Nicotine dependence F17.200 Hypothyroidism E03.9 Thyroid nodule E04.1 Elevated LFTs R79.89 Intracranial arachnoid cyst G93.0 DVT prophylaxis Z29.9 (1) Alcohol dependence Substance use status: unspecified alcohol-induced disorder Qualified Code(s): F10.29 - Alcohol dependence with unspecified alcohol-induced disorder
[2020-01-30] MEDS ORDERED: MULTI-VITAMIN INFUSION 10 ML, THIAMINE HCL 100 MG, FOLIC ACID 1 MG in SODIUM CHLORIDE 0... IV ONE (19:00)
[2020-01-30] MEDS ORDERED: ALUMINUM/MAGNESIUM SUSP 30 ML UDC PO PRN (20:04)
[2020-01-30] MEDS ORDERED: POLYETHYLENE (MIRALAX) 17 GM PACK PO PRN (20:04)
[2020-01-30] MEDS ORDERED: LORazepam 1 MG TAB PO PRN (20:04)
[2020-01-30] MEDS ORDERED: ONDANSETRON INJ 2 MG/ML 2 ML VIAL IV PRN (20:04)
[2020-01-30] MEDS ORDERED: MAGNESIUM HYDROXIDE SUSP 30 ML UDC PO PRN (20:04)
[2020-01-30] MEDS: LACTATED RINGER'S 1,000 ML IV SCH (21:10)
[2020-01-31] MEDS: LORazepam 1 MG TAB PO PRN ×2 (04:59→21:05)
[2020-01-31] MEDS: LEVOTHYROXINE SODIUM 75 MCG TABLET PO SCH (05:00)
--- NOTE | 2020-01-31 06:07 | Electrocardiogram Report ---
Test Reason : Blood Pressure : / mmHG Vent. Rate : 080 BPM Atrial Rate : 080 BPM P-R Int : 160 ms QRS Dur : 092 ms QT Int : 366 ms P-R-T Axes : -02 076 048 degrees QTc Int : 422 ms Normal sinus rhythm Incomplete right bundle branch block Borderline ECG When compared with ECG of 03-AUG-2018 18:10, No significant change was found Confirmed by Freddie Domiinque ([id number]) on 01/31/2020 6:07:04 AM Referred By: REFERRED SELF Confirmed By:Freddie Dominique
[2020-01-31] MEDS: LACTATED RINGER'S 1,000 ML IV SCH ×2 (06:18→16:53)
[2020-01-31 07:54] LABS: Basophils # (auto) 0.04 K/uL (0-0.2); Basophils % (auto) 0.7 %; Eosinophils # (auto) 0.05 K/uL (0-0.5); Eosinophils % (auto) 0.9 %; Hemoglobin 13.8 g/dL (14.0-18.0); Immature Granulocytes # (auto) 0.01 K/uL (0.00-0.02); Immature Granulocytes % (auto) 0.2 %; Lymphocytes % (auto) 21.7 %; Mean Corpuscular Hemoglobin 29.8 pg (25-34); Mean Corpuscular Hgb Conc 32.9 g/dL (32-36); Mean Corpuscular Volume 90.7 fL (80-100); Mean Platelet Volume 9.1 fL (7.4-10.4); Monocytes # (auto) 0.46 K/uL (0.11-0.59); Monocytes % (auto) 8.3 %; Neutrophils # (auto) 3.77 K/uL (1.4-6.5); Neutrophils % (auto) 68.2 %; Platelet Count 167 K/uL (130-400); RDW Coefficient of Variation 15.3 % (11.5-14.5); RDW Standard Deviation 50.1 fL (36.4-46.3); Red Blood Count 4.63 M/uL (4.7-6.1); White Blood Count 5.53 K/uL (4.8-10.8)
[2020-01-31 08:26] LABS: Albumin Level 3.3 gm/dl (3.4-5.0); Calcium 8.7 mg/dl (8.5-10.1); Creatinine Clr Calc Pharmacy 124.1 ml/min; Est GFR (Non-African American) 96.6; Potassium 3.6 mmol/L (3.5-5.1)
[2020-01-31 08:37] LABS: Albumin Globulin Ratio 0.9 (0.9-2); Bilirubin,Total 0.7 mg/dl (0.2-1); Globulin 3.5 gm/dl (2.5-4.0); Total Protein 6.8 gm/dl (6.4-8.2)
[2020-01-31] MEDS: lisinopriL 20 MG TAB PO SCH (08:37)
[2020-01-31] MEDS: PANTOprazole 40 MG TAB PO SCH (08:37)
[2020-01-31] MEDS: THIAMINE HCL 100 MG TAB PO SCH (08:37)
[2020-01-31] MEDS: chlordiazePOXIDE HCl 25 MG CAP PO SCH ×2 (08:37→21:05)
--- NOTE | 2020-01-31 12:58 | Hospitalist Progress Note ---
Date of Service January 31, 2020 Assessment & Plan (1) Alcohol dependence: At lower risk of alcohol withdrawal as he has only been drinking again for 1 week. Jittery in ER therefore given lorazepam 1mg IV. - AWSS with lorazepam PRN dosing - Only one dose needed so far, and this was mostly for subjective agitation. - Thiamine 100mg PO daily (2) Hypoxia: Suspect due to lorazepam and alcohol use causing sedation and reduced respiratory effort. - Resolved by 01/30 (3) Nicotine dependence: Declines nicotine replacement at present (4) Hypothyroidism: TSH was 3.75 on 01/29. - Continue levothyroxine 75 mcg PO daily (5) Thyroid nodule: Suggest outpatient US if not previously performed to better clarify risk of malignancy although not changed in size since last scan in Jul 2018 is reassuring. (6) Elevated LFTs: Secondary to binge alcohol use. Resolving by 01/30. - No steroids needed; alcoholic hepatitis is very mild. (7) Intracranial arachnoid cyst: Follow up outpatient. Unclear if symptomatic from this given current alcohol intoxication. Majority are asymptomatic and no focal neurology on exam today. (8) DVT prophylaxis: SCDs - Low DVT risk per admission calculator Admission and Anticipated Discharge Date Admission Date: January 30, 2020 Subjective Minimal agitation today. No tremors. Not much withdrawal symptoms. Reports no fevers/chills, chest pain, shortness of breath, abdominal pain, nausea, or vomiting. Physical Exam Constitutional: WD/WN, vitals as above Eyes: EOM intact bilaterally; no conjunctival abnormality ENMT: external ear and nose normal, oropharynx normal (No tongue fasciulations) Neck: trachea midline, no thyromegaly normal visual inspection Respiratory: normal respiratory effort, lungs clear to auscultation no respiratory distress Cardiovascular: RRR, no murmur, no edema Gastrointestinal (Abdomen): Inspection/Auscultation: abdomen normal to inspection; abdomen not distended Musculoskeletal: no cyanosis or clubbing, extremities motor strength 5/5 Extremities: extremities normal to inspection (No arm tremor) Skin: no rashes, warm and dry Neurologic: moves all extremities and awake Psychiatric: Orientation: alert, oriented to person and cooperative Results & Data Results & Data ([facility]) Vital Signs (Past 12 Hours) Vital Signs Temp Pulse Pulse Resp BP Pulse Ox 01/31/20 11:02 36.7 C 63 20 154/89 H 94 01/31/20 08:00 36.8 C 82 22 173/80 H 95 01/31/20 07:06 75 01/31/20 04:07 36.6 C 75 19 145/85 H 95 01/31/20 01:49 78 PG Care Time/CCT Total # of Minutes Spent Total Time Spent with Patient: Total time spent is greater than 50% in coordination of care (as documented) at patient's floor/unit and/or counseling patient: Coding Level of Care Code 78663 Subseq Hosp Care Lvl 2 Diagnoses Alcohol dependence F10.29 Substance use status: unspecified alcohol-induced disorder Hypoxia R09.02 Nicotine dependence F17.200 Hypothyroidism E03.9 Thyroid nodule E04.1 Elevated LFTs R79.89 Intracranial arachnoid cyst G93.0 DVT prophylaxis Z29.9 (1) Alcohol dependence Substance use status: unspecified alcohol-induced disorder Qualified Code(s): F10.29 - Alcohol dependence with unspecified alcohol-induced disorder
[2020-02-01] MEDS: LACTATED RINGER'S 1,000 ML IV SCH (02:49)
[2020-02-01] MEDS: LEVOTHYROXINE SODIUM 75 MCG TABLET PO SCH (05:48)
[2020-02-01] MEDS: lisinopriL 20 MG TAB PO SCH (07:41)
[2020-02-01] MEDS: THIAMINE HCL 100 MG TAB PO SCH (07:42)
[2020-02-01] MEDS: PANTOprazole 40 MG TAB PO SCH (07:42)
--- NOTE | 2020-02-01 15:49 | Discharge Summary ---
Date of Service February 01, 2020 Admission HPI Per Admitting Provider Alejandro Centeno is a 59 year old male with known alcohol use disorder who presents to the ER requested detox. He reports drinking a 5th of vodka daily for the past 2 weeks, last time he drank was this morning. He has been to alcohol rehab previously and was most recently in outpatient counselling and rehab with and [facility]. Last went through alcohol withdrawal approximately a month a go without medications at home and gets very jittery for 2 days and then starts getting better. He denies any prior history of alcohol withdrawal seizures. No current tremors, anxiety, agitation, palpitations, diaphoresis, hallucinations. While in the ER he became hypoxic. This was prior to lorazepam being given. Therefore he was referred to the medicine service for admission prior to potential placement with inpatient alcohol rehabilitation. When seen in the ER he was not having any tremors and appeared relatively lethargic after lorazepam was given. Workup with CT for PE, CXR, CT head, cervical spine unremarkable for acute pathology. Principal Diagnosis Mild alcohol detox Discharge Exam Constitutional WD/WN, vitals as above Eyes EOM intact bilaterally; no conjunctival abnormality ENMT external ear and nose normal, oropharynx normal (No tongue fasciulations) Neck trachea midline, no thyromegaly normal visual inspection Respiratory normal respiratory effort, lungs clear to auscultation no respiratory distress Cardiovascular RRR, no murmur, no edema Gastrointestinal (Abdomen) Inspection/Auscultation: abdomen normal to inspection; abdomen not distended Musculoskeletal no cyanosis or clubbing, extremities motor strength 5/5 Extremities: extremities normal to inspection (No arm tremor) Skin no rashes, warm and dry Neurologic moves all extremities and awake Psychiatric Orientation: alert, oriented to person and cooperative Discharge Data Allergies Allergy/AdvReac Type Severity Reaction Status Date / Time acetaminophen Allergy Unknown Verified 01/04/20 09:48 [From Tylenol PM] diphenhydramine AdvReac Mild JITTERY/ANX Verified 01/04/20 09:48 IOUS Consultations 01/30/20 16:39 ED Decision to Admit Stat 01/30/20 20:22 Consult Case Management - Discharge Planning Routine Ordered Studies 01/30/20 15:27 CT angio chest PE protocol Stat CT cervical spine wo con Stat CT head/brain wo con Stat Hospital Course (1) Alcohol dependence: At lower risk of alcohol withdrawal as he has only been drinking again for 1 week. Jittery in ER therefore given lorazepam 1mg IV. - AWSS with lorazepam PRN dosing - Only one dose needed so far, and this was mostly for subjective agitation. - Thiamine 100mg PO daily - Will follow up with AA as outpatient. (2) Hypoxia: Suspect due to lorazepam and alcohol use causing sedation and reduced respiratory effort. - Resolved by 01/30 (3) Nicotine dependence: Declines nicotine replacement at present (4) Hypothyroidism: TSH was 3.75 on 01/29. - Continue levothyroxine 75 mcg PO daily (5) Thyroid nodule: Suggest outpatient US if not previously performed to better clarify risk of malignancy although not changed in size since last scan in Jul 2018 is reassuring. (6) Elevated LFTs: Secondary to binge alcohol use. Resolving by 01/30. - No steroids needed; alcoholic hepatitis is very mild. (7) Intracranial arachnoid cyst: Follow up outpatient. Unclear if symptomatic from this given current alcohol intoxication. Majority are asymptomatic and no focal neurology on exam today. (8) DVT prophylaxis: SCDs - Low DVT risk per admission calculator Total Time Total Time Spent Total Time Spent (In Minutes): 35 Discharge Plan Discharge Items Patient Disposition: Home - Self-Care Reason For Visit: DETOX,HYPOXIA Discharge Diagnosis: Alcohol detox Activity: Resume your previous activity Non-emergency contact: Primary Care Provider Call non-emergency contact if: your symptoms worsen Follow-up/Referrals: Melia Rodriguez MD [Primary Care Provider] - Diet: Regular Addtl Attending Provider Instructions: Please follow up with AA or other alcohol resources. Pending Studies at Discharge: No Stand-Alone Forms: My [facility], Smoking Cessation, Suicide Prevention Resources Medications and DC Order Prescriptions: Continued atorvastatin 10 mg tablet 10 mg PO DAILY Qty: 90 RF: 3 levothyroxine 75 mcg tablet 75 mcg PO DAILY Qty: 90 RF: 3 lisinopril 20 mg tablet 20 mg PO DAILY Qty: 90 RF: 3 pantoprazole 20 mg tablet,delayed release (DR/EC) 20 mg PO DAILY Qty: 90 RF: 3 meloxicam 7.5 mg tablet 7.5 mg PO DAILY Qty: 90 RF: 3 Discharge Orders: Discharge Order (Routine); Ordered 02/01/20 Ordered By: Fran Murrieta Admission Data Admit Date/Time: 01/30/20 18:33 Attending Provider: Fran Murrieta Admit Provider: Vern Castano Primary Care Provider: Melia Rodriguez V. Other Providers: Fran Murrieta Other Interventions: Discharge Summary Assessment (RN) Last Done: 02/01/20 10:20 DC Date/Time DO NOT enter until pt leaves facility: 02/01/20 11:15 Coding Level of Care Code D/C Day Management >30 mins Diagnoses Alcohol dependence F10.29 Substance use status: unspecified alcohol-induced disorder Hypoxia R09.02 Nicotine dependence F17.200 Hypothyroidism E03.9 Thyroid nodule E04.1 Elevated LFTs R79.89 Intracranial arachnoid cyst G93.0 DVT prophylaxis Z29.9
[2020-02-02] MEDS ORDERED: chlordiazePOXIDE HCl 5 MG CAP PO PRN (00:34)
== END 2020-02-01 11:15 | disposition home or self-care (01) | DRG 897 ==
LOC: ED 13:34 → 2W 18:33 → SUATTDRO 18:33 → 2W 19:30

== ENCOUNTER 2020-02-15 10:21 | Inpatient (IN) ==
[2020-02-15] MEDS ORDERED: LORazepam 2 MG/ML VIAL (IM USE) IM STA (11:05)
[2020-02-15] MEDS ORDERED: HALOPERIDOL LACTATE 5 MG/ML 1 ML VIAL IM STA (11:05)
[2020-02-15] MEDS ORDERED: LORazepam 2 MG/ML VIAL (IM USE) IM PRN (11:07)
--- NOTE | 2020-02-15 11:34 | Emergency Department Note ---
Impression & Plan Alcohol abuse, Suicidal ideation ED Provider Note NAME: ABUNDIO ORTIZ AGE: 59 SEX: M : 1960 ARRIVES VIA: Ambulance INFORMANT: Patient, ED PROVIDER(S): Remi Ortiz MD Chief Complaint: Alcohol intoxication, suicidal ideation HPI: She does present to be a police and sister due to concern for alcohol intoxication and suicidal ideation. The patient is currently intoxicated and admits to drinking 2 bottles of hard liquor. Reportedly from the sister the patient had been sending her test of suicidality. Patient is not very cooperative doing during the exam and declines to answer most questions. There was no reported trauma or falls. Patient does have a known history of alcohol abuse. ROS: Unobtainable secondary to clinical condition. Past medical history: See below Surgical history: See below Social history: See below Physical Exam: GENERAL: Clinically intoxicated, NAD, non-toxic. EYE EXAM: Normal conjunctiva. PERRL, no anisocoria and EOM's grossly intact w/o pain. NECK: Supple, no nuchal rigidity, no adenopathy, non-tender. No signs of meningismus. LUNGS: Clear to auscultation. Normal chest wall mechanics. HEART: NSR, no MRG. ABDOMEN: Abdomen soft, non-tender, normo-active bowel sounds, no masses, no rebound or guarding. BACK: No CVA TTP. SKIN: No rashes and no bruising. UPPER EXTREMITIES: Upper extremities are grossly normal. LOWER EXTREMITIES: Grossly normal, no edema. NEURO EXAM: Slurred speech, awake, moves all 4 extremities. Psych: Occasionally states "I want to ." Differential diagnoses: Mood disorder, infection, hypoglycemia, electrolyte abnormalities, cardiac sources, intracerebral event, toxicologic, trauma, neurologic, as well as other pathologies. Course: Patient was seen and evaluated the bedside. Full history physical exam was performed. EKG: None MDM: Patient was seen due to concern for alcohol abuse. Patient is wanting to leave and is slightly agitated and is not compliant with questioning or with an exam at this time. The patient reportedly had voiced suicidal statements to his sister. Currently the patient is not on a threat to warrant. Blood work is obtained. The patient does have a normal white count H&H and platelet count. K idney function is unremarkable. The patient's salicylate and Tylenol is not elevated but the patient's alcohol is 387. IV fluids thiamine folic acid and Ativan were ordered. Patient is pending reevaluation when he is more clinically sober. Patient does suffer from chronic alcohol abuse. Patient was signed out to Dr. good pending reevaluation disposition. Critical Care: I have personally spent 35 minutes of critical care time in direct management of this patient. This includes bedside care, interpretation of diagnostic studies, and testing, discussion with consultants, patient, and family members, and other require inpatient management activities. This 35 minutes is in excess of all separately billable procedures. Past Med/Surg History Medical History Accidental overdose NITIN (acute kidney injury) Alcohol abuse (Chronic) Alcohol dependence (Chronic) Basal cell carcinoma of skin (Inactive) Hiatal hernia Major depressive disorder (Acute) Medication overdose No pertinent family history Osteoarthritis Renal insufficiency (Chronic) Surgical History History of neck surgery (~1999) Herniated disc in neck History of total hip replacement (~2013) Double hip replacement No significant past surgical history S/P cholecystectomy (Inactive ~2015) S/P hernia repair (~2005) S/P lumbar fusion S/P thyroid biopsy Family History Father Emphysema, unspecified Diabetes Grandmother Stroke Mother Cancer Cardiovascular disease Heart disease Brother Myocardial infarction Sister Myocardial infarction Other Esophageal cancer Social History Preferred Language: Bulgarian Communication Ability: Effective Visual Impairment: No Limitations Hearing Ability: Normal Resource Development Director Required: No Beliefs That Will Affect Care: None marital status: Single Current Living Situation: Alone current occupational status: employed 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 Feels Safe at Home: Yes Smoking Status: Unknown if ever smoked Hx Alcohol Use: Yes Alcohol type: hard liquor Hx Substance Use: No Seatbelt Use: always Allergies Allergies Allergy/AdvReac Type Severity Reaction Status Date / Time acetaminophen Allergy Unknown Verified 01/04/20 09:48 [From Tylenol PM] diphenhydramine AdvReac Mild JITTERY/ANX Verified 01/04/20 09:48 IOUS Home Meds Previous Rx's Medication Instructions Recorded atorvastatin 10 mg tablet 10 mg PO DAILY #90 tab 11/13/19 levothyroxine 75 mcg tablet 75 mcg PO DAILY #90 tab 11/13/19 lisinopril 20 mg tablet 20 mg PO DAILY #90 tab 11/13/19 pantoprazole 20 mg tablet,delayed 20 mg PO DAILY #90 tab 11/13/19 release meloxicam 7.5 mg tablet 7.5 mg PO DAILY #90 tab 11/14/19 Results & Data (ED) Vital Signs Vital Signs - 24 hr 02/15/20 10:34 02/15/20 11:53 02/15/20 11:57 Temperature 36.7 C 36.6 C Temperature Source Oral Oral Pulse Rate 93 H 102 H Pulse Rate [Apical] Pulse Rhythm Regular Pulse Rhythm [Apical] Pulse Strength [Apical] Respiratory Rate 19 18 Respiratory Effort / Characteristics Non-Labored Spontaneous Respiratory Depth Normal Respiratory Pattern Regular Blood Pressure 161/102 H Blood Pressure [Right Arm] 143/94 H Blood Pressure Mean 121 Blood Pressure Mean [Right Arm] 110 Blood Pressure Position [Right Arm] Pulse Oximetry 93 92 93 Oxygen Delivery Method Room Air Room Air Room Air Oxygen Flow Rate Sepsis Recent Fever Within 48 Hours No Sepsis New/Unexplained Change in Mental Status No Sepsis Action Taken by Nursing No Action Required Oxygen Flow Rate - Titration Pulse Oximetry Post Tiitration 02/15/20 12:18 02/15/20 12:30 02/15/20 12:45 Temperature Temperature Source Pulse Rate Pulse Rate [Apical] 87 Pulse Rhythm Pulse Rhythm [Apical] Regular Pulse Strength [Apical] Normal Respiratory Rate 15 Respiratory Effort / Characteristics Non-Labored Spontaneous Respiratory Depth Normal Respiratory Pattern Regular Blood Pressure Blood Pressure [Right Arm] 122/74 Blood Pressure Mean Blood Pressure Mean [Right Arm] 90 Blood Pressure Position [Right Arm] Lying Pulse Oximetry 87 L 81 L 95 Oxygen Delivery Method Room Air Nasal Cannula Nasal Cannula Oxymask Oxymask Oxygen Flow Rate 3 4 Sepsis Recent Fever Within 48 Hours Sepsis New/Unexplained Change in Mental Status Sepsis Action Taken by Nursing Oxygen Flow Rate - Titration 3 4 Pulse Oximetry Post Tiitration 95 94 02/15/20 13:33 Temperature Temperature Source Pulse Rate Pulse Rate [Apical] 106 H Pulse Rhythm Pulse Rhythm [Apical] Pulse Strength [Apical] Respiratory Rate 24 Respiratory Effort / Characteristics Non-Labored Spontaneous Respiratory Depth Normal Respiratory Pattern Regular Blood Pressure Blood Pressure [Right Arm] 141/91 H Blood Pressure Mean Blood Pressure Mean [Right Arm] 107 Blood Pressure Position [Right Arm] Lying Pulse Oximetry 92 Oxygen Delivery Method Room Air Oxygen Flow Rate Sepsis Recent Fever Within 48 Hours Sepsis New/Unexplained Change in Mental Status Sepsis Action Taken by Nursing Oxygen Flow Rate - Titration Pulse Oximetry Post Tiitration Home Medications Current Medication List: was personally reviewed by me Laboratory Data Attestation: I reviewed the patient's lab results. Result diagrams: 02/15/20 11:44 02/15/20 11:44 Lab Results 02/15/20 02/15/20 02/15/20 Range/Units 11:44 11:44 11:44 WBC 5.61 (4.8-10.8) K/uL RBC 5.28 (4.7-6.1) M/uL Hgb 16.0 (14.0-18.0) g/dL Hct 48.7 (42-52) % MCV 92.2 (80-100) fL MCH 30.3 (25-34) pg MCHC 32.9 (32-36) g/dL RDW Std Deviation 55.8 H (36.4-46.3) fL RDW Coeff of [place] 16.4 H (11.5-14.5) % Plt Count 291 (130-400) K/uL MPV 9.0 (7.4-10.4) fL Immature Gran % (Auto) 0.5 % Neut % (Auto) 55.0 % Lymph % (Auto) 34.2 % [place] % (Auto) 7.1 % Eos % (Auto) 1.1 % Baso % (Auto) 2.1 % Neut # (Auto) 3.08 (1.4-6.5) K/uL Lymph # (Auto) 1.92 (1.2-3.4) K/uL [place] # (Auto) 0.40 (0.11-0.59) K/uL Eos # (Auto) 0.06 (0-0.5) K/uL Baso # (Auto) 0.12 (0-0.2) K/uL Immature Gran # (Auto) 0.03 H (0.00-0.02) K/uL Sodium 143 (136-145) mmol/L Potassium 3.5 (3.5-5.1) mmol/L Chloride 109 H (98-107) mmol/L Carbon Dioxide 24 (21-32) mmol/L Anion Gap 10.0 (3-11) BUN 12 (7-18) mg/dl Creatinine 1.01 (0.6-1.4) mg/dl Est Cr Clr Drug Dosing Not Reportable Est GFR ( Amer) 93.3 Est GFR (Non-Af Amer) 80.5 BUN/Creatinine Ratio 11.6 (10-20) Glucose 108 H (70-99) mg/dl Calcium 8.6 (8.5-10.1) mg/dl Total Bilirubin 0.2 (0.2-1) mg/dl AST 84 H (15-37) U/L ALT 126 H (12-78) U/L Alkaline Phosphatase 122 H (45-117) U/L Total Protein 7.8 (6.4-8.2) gm/dl Albumin 3.7 (3.4-5.0) gm/dl Globulin 4.1 H (2.5-4.0) gm/dl Albumin/Globulin Ratio 0.9 (0.9-2) TSH 2.520 (0.300-4.500) uIu/ml Salicylates (2.8-20) mg/dl Acetaminophen (10-30) ug/ml Ethyl Alcohol mg/dL 387.8 H (0-3) mg/dl 02/15/20 Range/Units 11:44 WBC (4.8-10.8) K/uL RBC (4.7-6.1) M/uL Hgb (14.0-18.0) g/dL Hct (42-52) % MCV (80-100) fL MCH (25-34) pg MCHC (32-36) g/dL RDW Std Deviation (36.4-46.3) fL RDW Coeff of [place] (11.5-14.5) % Plt Count (130-400) K/uL MPV (7.4-10.4) fL Immature Gran % (Auto) % Neut % (Auto) % Lymph % (Auto) % [place] % (Auto) % Eos % (Auto) % Baso % (Auto) % Neut # (Auto) (1.4-6.5) K/uL Lymph # (Auto) (1.2-3.4) K/uL [place] # (Auto) (0.11-0.59) K/uL Eos # (Auto) (0-0.5) K/uL Baso # (Auto) (0-0.2) K/uL Immature Gran # (Auto) (0.00-0.02) K/uL Sodium (136-145) mmol/L Potassium (3.5-5.1) mmol/L Chloride (98-107) mmol/L Carbon Dioxide (21-32) mmol/L Anion Gap (3-11) BUN (7-18) mg/dl Creatinine (0.6-1.4) mg/dl Est Cr Clr Drug Dosing Est GFR ( Amer) Est GFR (Non-Af Amer) BUN/Creatinine Ratio (10-20) Glucose (70-99) mg/dl Calcium (8.5-10.1) mg/dl Total Bilirubin (0.2-1) mg/dl AST (15-37) U/L ALT (12-78) U/L Alkaline Phosphatase (45-117) U/L Total Protein (6.4-8.2) gm/dl Albumin (3.4-5.0) gm/dl Globulin (2.5-4.0) gm/dl Albumin/Globulin Ratio (0.9-2) TSH (0.300-4.500) uIu/ml Salicylates < 1.7 L (2.8-20) mg/dl Acetaminophen < 2 L (10-30) ug/ml Ethyl Alcohol mg/dL (0-3) mg/dl Administered Medications Lorazepam (Ativan) 1 mg in 2 mls @ 2 mls/min IV Q1H PRN PRN Reason: Alcohol Withdrawal Stop: 03/16/20 13:43 Last Admin: 02/15/20 14:42 Dose: 2 mls/min Documented by: [id number] Discontinued Medications Haloperidol Lactate (Haldol) 5 mg IM NOW STA Stop: 02/15/20 11:06 Last Admin: 02/15/20 11:15 Dose: 5 mg Documented by: [id number] Lorazepam (Ativan) 1 mg in 2 mls @ 2 mls/min IV NOW STA Stop: 02/15/20 11:45 Last Admin: 02/15/20 11:45 Dose: 2 mls/min Documented by: [id number] Sodium Chloride (Nss 1000ml) 1,000 mls @ 999 mls/hr IV .Q1H1M ONE Stop: 02/15/20 14:43 Last Infusion: 02/15/20 14:29 Dose: 0 mls/hr Documented by: [id number] Admin: 02/15/20 13:45 Dose: 999 mls/hr Documented by: [id number] Folic Acid 1 mg/ Syringe 10 mls @ 5 mls/min IV NOW STA Stop: 02/15/20 13:44 Last Admin: 02/15/20 14:06 Dose: 5 mls/min Documented by: [id number] Thiamine HCl 200 mg/ Sodium (Chloride) 52 mls @ 208 mls/hr IV NOW STA Stop: 02/15/20 13:57 Last Infusion: 02/15/20 14:21 Dose: 0 mls/hr Documented by: [id number] Admin: 02/15/20 14:06 Dose: 208 mls/hr Documented by: [id number] Lorazepam (Ativan) 1 mg IM NOW STA Stop: 02/15/20 11:06 Last Admin: 02/15/20 11:14 Dose: 1 mg Documented by: [id number] Lorazepam (Ativan) Confirm Administered Dose 2 mg .ROUTE .STK-MED ONE Stop: 02/15/20 11:42 Last Admin: 02/15/20 11:52 Dose: Not Given Documented by: [id number] Discharge Plan Visit Data Chief Complaint: Mental Health Evaluation Stated Complaint: Alcohol Intox. Other Complaint: Alcohol Intoxication ED Provider: Remi Ortiz Discharge Problem: Alcohol abuse, Suicidal ideation Forms Stand Alone Forms: [facility], Suicide Prevention Resources Prescriptions Prescriptions: No Action atorvastatin 10 mg tablet 10 mg PO DAILY Qty: 90 RF: 3 levothyroxine 75 mcg tablet 75 mcg PO DAILY Qty: 90 RF: 3 lisinopril 20 mg tablet 20 mg PO DAILY Qty: 90 RF: 3 pantoprazole 20 mg tablet,delayed release (DR/EC) 20 mg PO DAILY Qty: 90 RF: 3 meloxicam 7.5 mg tablet 7.5 mg PO DAILY Qty: 90 RF: 3
[2020-02-15] MEDS ORDERED: LORazepam 2 MG/4 ML VIAL ONE (11:41)
[2020-02-15] MEDS ORDERED: LORazepam 1 MG/2 ML VIAL IV STA (11:44)
[2020-02-15 12:03] LABS: Basophils # (auto) 0.12 K/uL (0-0.2); Basophils % (auto) 2.1 %; Eosinophils # (auto) 0.06 K/uL (0-0.5); Eosinophils % (auto) 1.1 %; Hematocrit (blood only) 48.7 % (42-52); Immature Granulocytes # (auto) 0.03 K/uL (0.00-0.02); Immature Granulocytes % (auto) 0.5 %; Lymphocytes # (auto) 1.92 K/uL (1.2-3.4); Lymphocytes % (auto) 34.2 %; Mean Corpuscular Hemoglobin 30.3 pg (25-34); Mean Corpuscular Hgb Conc 32.9 g/dL (32-36); Mean Corpuscular Volume 92.2 fL (80-100); Monocytes % (auto) 7.1 %; Neutrophils # (auto) 3.08 K/uL (1.4-6.5); Platelet Count 291 K/uL (130-400); RDW Coefficient of Variation 16.4 % (11.5-14.5); RDW Standard Deviation 55.8 fL (36.4-46.3); Red Blood Count 5.28 M/uL (4.7-6.1); White Blood Count 5.61 K/uL (4.8-10.8)
[2020-02-15 12:22] LABS: Alanine Aminotransferase 126 U/L (12-78); Albumin Level 3.7 gm/dl (3.4-5.0); Aspartate Aminotransferase 84 U/L (15-37); BUN Creatinine Ratio 11.6 (10-20); Blood Urea Nitrogen 12 mg/dl (7-18); Calcium 8.6 mg/dl (8.5-10.1); Carbon Dioxide 24 mmol/L (21-32); Chloride 109 mmol/L (98-107); Est GFR (African American) 93.3; Est GFR (Non-African American) 80.5; Glucose 108 mg/dl (70-99); Potassium 3.5 mmol/L (3.5-5.1); Sodium 143 mmol/L (136-145)
[2020-02-15 12:24] LABS: Acetaminophen < 2 ug/ml (10-30); Salicylate < 1.7 mg/dl (2.8-20)
[2020-02-15 12:33] LABS: Albumin Globulin Ratio 0.9 (0.9-2); Alkaline Phosphatase 122 U/L (45-117); Bilirubin,Total 0.2 mg/dl (0.2-1); Globulin 4.1 gm/dl (2.5-4.0); Total Protein 7.8 gm/dl (6.4-8.2)
[2020-02-15] MEDS ORDERED: THIAMINE HCL 200 MG in SODIUM CHLORIDE 0.9% 50 ML IV STA (13:43)
[2020-02-15] MEDS ORDERED: SODIUM CHLORIDE 0.9% 1000ML 1,000 ML IV ONE (13:43)
[2020-02-15] MEDS ORDERED: FOLIC ACID 1 MG in SYRINGE 9.8 ML IV STA (13:43)
[2020-02-15] MEDS: LORazepam 1 MG/2 ML VIAL IV PRN ×3 (14:42→16:48)
[2020-02-15] MEDS ORDERED: LORazepam 1 MG TAB PO PRN ×2 (16:43→19:51)
[2020-02-15] MEDS ORDERED: ATIVAN IV ALCOHOL WITHDRAWL IV PRN ×2 (18:13→19:51)
[2020-02-15] MEDS ORDERED: LORazepam 2 MG/4 ML VIAL IV PRN (18:13)
[2020-02-15] MEDS ORDERED: LORazepam 1 MG/2 ML VIAL IV PRN (18:13)
[2020-02-15] MEDS ORDERED: LORazepam 3 MG/6 ML VIAL IV PRN ×2 (18:13→19:51)
[2020-02-15] MEDS ORDERED: MULTI-VITAMIN INFUSION 10 ML, THIAMINE HCL 100 MG, FOLIC ACID 1 MG in SODIUM CHLORIDE 0... IV ONE ×2 (18:13→23:00)
--- NOTE | 2020-02-15 18:23 | Emergency Department Note ---
ED Visit Note The patient was taken in signout from Dr. Ortiz at the change of shift. Please see that note for details. The patient was pending clinical sobriety after arriving intoxicated with report of suicidal comments to his sister. The patient had blood work which was unremarkable and the patient was medically cleared. Of note, the patient was agitated on arrival and did receive Haldol and Ativan. Subsequently he was given as needed Ativan for any restlessness and received 2 doses by nursing. However, they reported that he would not necessarily come down with this and continues to be restless and confused. Given the patient's alcohol was 387 on arrival and has now been here approximately 8 hours with worsening confusion suspicion is raised for alcohol withdrawal and delirium tremens. Therefore reasonable to admit the patient for further management of this. For completeness given lack of improvement we will repeat his BMP, perform a CT of the head as well as a chest x-ray. Case was discussed with Dr. Vane Flores, [facility] hospitalist, who will evaluate the patient for admission. CT head and CXR negative. Repeat BMP unremarkable. Troponin negative/undetectable. EKG without overt acute ischemia. --- EKG: NSR, 78 bpm, no ectopy, no overt ST elevation or depression, normal intervals. HEAD CT NONCONTRAST CT DOSE: 691.05 mGy.cm HISTORY: Altered mental status. Confusion. TECHNIQUE: Multiaxial CT images of the head were performed without the use of intravenous contrast. Automated exposure control was utilized for this study. A dose lowering technique was utilized adhering to the principles of ALARA. Comparison: Head CT 01/30/2020. Findings: The paranasal sinuses and mastoid air cells are clear. Motion artifact. The paranasal sinuses and mastoid air cells are clear. The calvarium and skull base appear intact. Peripheral calcified 1 cm structure within the right medial skull base which is either within or abutting the distal right internal carotid artery. This remains unchanged and is likely chronic. This is best seen image 2. Stable 4 cm left frontal arachnoid cyst. This results in mild mass effect along the left anterior frontal lobe. There is no definite mass, hematoma,, midline shift. The ventricles and sulci remain unchanged. Impression: Mild motion artifact. No definite acute intracranial abnormality. No significant change compared to the prior study. -- XR chest 1V portable HISTORY: Shortness of breath. COMPARISON: Chest CTA 01/30/2020. FINDINGS: Cervical spinal fusion hardware is again noted. No pneumothorax. No pleural effusions. The heart remains borderline enlarged. The lungs are clear. No evidence for pulmonary edema. Mildly tortuous thoracic aorta, unchanged. Degenerative changes noted within the shoulders. IMPRESSION: No significant change compared to the prior study. No acute process.
--- NOTE | 2020-02-15 18:35 | History & Physical Report ---
Date of Service February 15, 2020 Assessment & Plan (1) Alcohol abuse: EtOH on admission is 387, repeat pending PRN ativan Will hold on gabapentin protocol for now given sedation Neg for acetaminophen, salicylates CT head pending CBC, PRP WNL (2) Suicidal ideation: Planning for psych eval once sober Psych c/s pending (3) Elevated LFTs: Minimal, monitor (4) Essential hypertension: continue home meds (5) Hyperlipidemia: holding statin (6) Hypothyroidism: continue home meds (7) DVT prophylaxis: SCDs History of Present Illness Primary Care Provider: Melia Rodriguez MD 59 y/o M c/o accidental overdose. Per ED physician HPI: She does present to be a police and sister due to concern for alcohol intoxication and suicidal ideation. The patient is currently intoxicated and admits to drinking 2 bottles of hard liquor. Reportedly from the sister the patient had been sending her test of suicidality. Patient is not very cooperative doing during the exam and declines to answer most questions. There was no reported trauma or falls. Patient does have a known history of alcohol abuse. Per nursing: pt has been intermittently difficult to arouse and then agitated. He has been given multiple rounds of ativan. Pt has been shaky at times, but then sleeping soundly at other times. No c/o fever, SOB, chest pain, abd pain, n/v/c/d, LE pain or swelling per nursing. Pt has requested to go home several times as well. Allergies Allergy/AdvReac Type Severity Reaction Status Date / Time acetaminophen Allergy Unknown Verified 01/04/20 09:48 [From Tylenol PM] diphenhydramine AdvReac Mild JITTERY/ANX Verified 01/04/20 09:48 IOUS Home Medications Home Medications Medication Instructions Recorded Confirmed Type atorvastatin 10 mg tablet 10 mg PO DAILY #90 tab 11/13/19 02/15/20 Rx levothyroxine 75 mcg tablet 75 mcg PO DAILY #90 tab 11/13/19 02/15/20 Rx lisinopril 20 mg tablet 20 mg PO DAILY #90 tab 11/13/19 02/15/20 Rx pantoprazole 20 mg tablet,delayed 20 mg PO DAILY #90 tab 11/13/19 02/15/20 Rx release meloxicam 7.5 mg tablet 7.5 mg PO DAILY #90 tab 11/14/19 02/15/20 Rx Past Med/Surg History Medical History Accidental overdose NITIN (acute kidney injury) Alcohol abuse (Chronic) Alcohol dependence (Chronic) Basal cell carcinoma of skin (Inactive) Hiatal hernia Major depressive disorder (Acute) Medication overdose No pertinent family history Osteoarthritis Renal insufficiency (Chronic) Surgical History History of neck surgery (~1999) Herniated disc in neck History of total hip replacement (~2013) Double hip replacement No significant past surgical history S/P cholecystectomy (Inactive ~2015) S/P hernia repair (~2005) S/P lumbar fusion S/P thyroid biopsy Family History Father Emphysema, unspecified Diabetes Grandmother Stroke Mother Cancer Cardiovascular disease Heart disease Brother Myocardial infarction Sister Myocardial infarction Other Esophageal cancer Social History Preferred Language: Turkish Communication Ability: Effective Visual Impairment: No Limitations Hearing Ability: Normal Item Repair Manager Required: No Beliefs That Will Affect Care: None marital status: Single Current Living Situation: Alone current occupational status: employed 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 Feels Safe at Home: Yes Smoking Status: Unknown if ever smoked Hx Alcohol Use: Yes Alcohol type: hard liquor Hx Substance Use: No Seatbelt Use: always Review of Systems Review of Systems: Pertinent positives and negatives reviewed in HPI--all others negative Physical Exam Constitutional: WD/WN, vitals as above Eyes: normal visual dominguez by confrontation and + anicteric sclerae Neck: normal visual inspection and trachea midline Respiratory: normal respiratory effort, lungs clear to auscultation Cardiovascular: Rate/Rhythm: regular rate and regular rhythm Gastrointestinal (Abdomen): Inspection/Auscultation: abdomen not distended Percussion/Palpation: abdomen soft; abdomen nontender Musculoskeletal: Head/Neck/Chest: normocephalic and head atraumatic negative for edema, peripheral pulses intact Skin: no rashes, warm and dry Neurologic: + not awake Moving all extremities per nursing Psychiatric: Pt does not arouse to gentle verbal or physical stimuli, he is snoring and appears comfortable Results & Data Results & Data ([facility]) Vital Signs (Past 12 Hours) Vital Signs Temp Pulse Pulse Resp BP BP Pulse Ox 02/15/20 17:58 96 H 20 166/92 H 92 02/15/20 17:19 65 20 166/100 H 90 02/15/20 16:30 109 H 20 168/98 H 94 02/15/20 14:54 36.6 C 90 17 160/100 H 92 02/15/20 13:33 106 H 24 141/91 H 92 02/15/20 12:45 87 15 122/74 95 02/15/20 12:30 81 L 02/15/20 12:18 87 L 02/15/20 11:57 93 02/15/20 11:53 36.6 C 102 H 18 143/94 H 92 02/15/20 10:34 36.7 C 93 H 19 161/[address] head pending Code Status & VTE Plan Code Status Full code for now given pt unable to answer VTE Prophylaxis Plan VTE Prophylaxis will be ordered: Yes PG Care Time/CCT Total # of Minutes Spent Total Time Spent with Patient: Total time spent is greater than 50% in coordination of care (as documented) at patient's floor/unit and/or counseling patient: Coding Level of Care Code 44905 Initial Inpt Care Lvl 3 Diagnoses Alcohol abuse F10.10 Suicidal ideation R45.851 Elevated LFTs R79.89 Essential hypertension I10 Hyperlipidemia E78.5 Hypothyroidism E03.9 DVT prophylaxis Z29.9
--- NOTE | 2020-02-15 19:06 | CT Scan Report ---
HEAD CT NONCONTRAST CT DOSE: 691.05 mGy.cm HISTORY: Altered mental status. Confusion. TECHNIQUE: Multiaxial CT images of the head were performed without the use of intravenous contrast. A utomated exposure control was utilized for this study. A dose lowering technique was utilized adheri ng to the principles of ALARA. Comparison: Head CT 01/30/2020. Findings: The paranasal sinuses and mastoid air cells are clear. Motion artifact. The paranasal sinus es and mastoid air cells are clear. The calvarium and skull base appear intact. Peripheral calcified 1 cm structure within the right medial skull base which is either within or abutting the distal right internal carotid artery. This remains unchanged and is likely chronic. This is best seen image 2. St able 4 cm left frontal arachnoid cyst. This results in mild mass effect along the left anterior front al lobe. There is no definite mass, hematoma,, midline shift. The ventricles and sulci remain unchang ed. Impression: Mild motion artifact. No definite acute intracranial abnormality. No significant change compared to t prior study. ACT 112: Negative or not required by law. Electronically signed by: Ranjith Whitman M.D. 02/15/2020 7:04 PM
[2020-02-15 19:08] LABS: BUN Creatinine Ratio 10.9 (10-20); Blood Urea Nitrogen 10 mg/dl (7-18); Calcium 8.2 mg/dl (8.5-10.1); Carbon Dioxide 24 mmol/L (21-32); Chloride 110 mmol/L (98-107); Est GFR (African American) 99.2; Est GFR (Non-African American) 85.6; Glucose 91 mg/dl (70-99); Magnesium 1.8 mg/dl (1.8-2.4); Potassium 3.8 mmol/L (3.5-5.1); Sodium 143 mmol/L (136-145)
[2020-02-15 19:13] LABS: Phosphorus 2.6 mg/dl (2.5-4.9); Troponin I < 0.015 ng/ml (0-0.045)
--- NOTE | 2020-02-15 19:40 | XRay Report ---
XR chest 1V portable HISTORY: Shortness of breath. COMPARISON: Chest CTA 01/30/2020. FINDINGS: Cervical spinal fusion hardware is again noted. No pneumothorax. No pleural effusions. The heart remains borderline enlarged. The lungs are clear. No evidence for pulmonary edema. Mildly tortu ous thoracic aorta, unchanged. Degenerative changes noted within the shoulders. IMPRESSION: No significant change compared to the prior study. No acute process. ACT 112: Negative or not required by law. Electronically signed by: Ranjith Whitman M.D. 02/15/2020 7:39 PM
[2020-02-15] MEDS ORDERED: MAGNESIUM HYDROXIDE SUSP 30 ML UDC PO PRN (19:51)
[2020-02-15] MEDS: LORazepam 2 MG/4 ML VIAL IV PRN (22:08)
[2020-02-15 22:59] LABS: Appearance Urine Clear (Clear); Bilirubin Urine Negative (Negative); Blood Urine Negative (Negative); Color Urine Dark Yellow; Glucose Urine UA Negative (Negative); Ketones Urine 1+ (Negative); Leukocyte Esterase Urine Negative (Negative); Nitrite Urine Negative (Negative); Protein Urine Negative (Negative); Specific Gravity Urine 1.021 (1.000-1.030); Urobilinogen Urine Negative (Negative)
[2020-02-15 23:18] LABS: Amphetamines+Metham, Urine Neg (Neg); Barbiturates, Urine Neg (Neg); Benzodiazepine, Urine Neg (Neg); Cocaine, Urine Neg (Neg); MDMA (Ecstacy), Urine Neg (Neg); Methadone, Urine Neg (Neg); Opiate, Urine Neg (Neg); Phencyclidine, Urine Neg (Neg)
[2020-02-15] MEDS: NICOTINE 14 MG/24 HR PATCH TD SCH (23:30)
[2020-02-16] MEDS: LORazepam 2 MG/4 ML VIAL IV PRN ×2 (00:14→04:29)
[2020-02-16] MEDS: LEVOTHYROXINE SODIUM 75 MCG TABLET PO SCH (06:16)
[2020-02-16 06:18] LABS: Albumin Level 3.6 gm/dl (3.4-5.0); BUN Creatinine Ratio 12.9 (10-20); Calcium 8.7 mg/dl (8.5-10.1); Creatinine Clr Calc Pharmacy 106.1 ml/min; Est GFR (African American) 100.4; Est GFR (Non-African American) 86.7; Potassium 3.7 mmol/L (3.5-5.1)
[2020-02-16 06:32] LABS: Bilirubin Direct 0.1 mg/dl (0-0.2); Bilirubin,Total 0.8 mg/dl (0.2-1); Total Protein 7.4 gm/dl (6.4-8.2)
[2020-02-16] MEDS: lisinopriL 20 MG TAB PO SCH (08:28)
[2020-02-16] MEDS: NICOTINE 14 MG/24 HR PATCH TD SCH (08:30)
[2020-02-16] MEDS: LORazepam 1 MG/2 ML VIAL IV PRN ×2 (08:31→15:54)
--- NOTE | 2020-02-16 10:46 | Electrocardiogram Report ---
Test Reason : Blood Pressure : / mmHG Vent. Rate : 078 BPM Atrial Rate : 078 BPM P-R Int : 172 ms QRS Dur : 086 ms QT Int : 392 ms P-R-T Axes : 053 073 059 degrees QTc Int : 446 ms Poor data quality, interpretation may be adversely affected Normal sinus rhythm Normal ECG When compared with ECG of 30-JAN-2020 15:43, Incomplete right bundle branch block is no longer Present Confirmed by Christian Castillo ([id number]) on 02/16/2020 10:46:21 AM Referred By: REFERRED SELF Confirmed By:Ramy Castillo
--- NOTE | 2020-02-16 10:48 | Electrocardiogram Report ---
Test Reason : Blood Pressure : / mmHG Vent. Rate : 085 BPM Atrial Rate : 085 BPM P-R Int : 158 ms QRS Dur : 084 ms QT Int : 368 ms P-R-T Axes : 078 096 048 degrees QTc Int : 437 ms Poor data quality, interpretation may be adversely affected Normal sinus rhythm Rightward axis Incomplete right bundle branch block Abnormal ECG Confirmed by Christian Castillo ([id number]) on 02/16/2020 10:47:45 AM Referred By: REFERRED SELF Confirmed By:Ramy Castillo
[2020-02-16] MEDS: HydrALAZINE HCL 20 MG/ML VIAL IV PRN ×2 (12:09→18:48)
--- NOTE | 2020-02-16 13:56 | Psychiatric Consultation ---
Date of Consultation February 16, 2020 Impression / Recommendations Impression 59-year-old gentleman with what appears to be a long history of alcohol dependency. Looking through his record it appears he has relapsed since October 2019 with now 3 medical presentations associated with alcohol ingestion. Presently withdrawing being managed by primary team with Ativan as needed. Suicidal texts appear to have been made in setting of acute intoxication to sister however he does have a history of reported passive suicidal ideation and para-suicidal behavior in the past as well. Unfortunately psychiatric interview limited today due to suppressed sensorium. As such, sitter should be maintained for now until he is more alert and able to participate in psychiatric interview. I would suggest considering the gabapentin loading and taper in addition to ativan prn to help manage his alcohol withdrawal. Review of record suggests a history of sedation with Ativan previously. Presently it is unclear if he will require psychiatric hospitalization following resolution of acute detoxification from alcohol. We will also be encouraging consideration for inpatient rehab disposition for treatment of alcohol use disorder as appropriate. Thank you for allowing us to participate in this patient's care. We will continue to follow (1) Alcohol abuse: (2) Suicidal ideation: CPT Code 25550 Psych History Identifying Data Alejandro is a 59-year-old gentleman with a history of alcohol abuse and this appears to be his third medical presentation for alcohol related illness since October 2019. Chief Complaint Consultation requested due to concern for suicidal ideation in setting of intoxication History of Present Illness Unfortunately patient is not able to participate in psychiatric interview at time of consultation today after receiving 3 mg of Ativan triggered by alcohol withdrawal protocol. He appears confused, somnolent, disconjugate gaze when he opens his eyes, and does not respond to simple direct questions. Prior to the Ativan he reportedly had been more conversant but still mildly confused. As such, majority of information is obtained today from psychiatric liaison nurse contact and other available medical documentation. Per admission documentation, patient presented intoxicated reporting ingestion of 2 bottles of hard liquor. Patient had reportedly made suicidal statements via text to sister. He was not participatory with evaluation at that time. Agitated when aroused. Multiple administrations of Ativan reported. Shaky at times. Nursing note by Ariella Arias 02/15/2020 at 1235 indicates phone conversation with patient's sister, Eli Wilson. On that day around 0300 she reportedly received text message from patient expressing passive suicidal thoughts. She noted that she and her brother had witnessed their sister struck and killed by a car at a young age which she will bring up when feeling suicidal making comments such as "I would rather , and my only wishes to go to [facility] to be with her." She traveled from 3 hours away to assist him and upon arriving to the house was surrounded by 3-4 bottles of vodka and covered in vomit and brought to the ER by EMS and local police. She indicated that he has a history of similar episodes in the past "every couple of years" and that he has engaged in some para-suicidal behavior in the past. Per conversation with psychiatric liaison nurse, patient has been cleaning out home of sister who in June which has been a stressor. He complained of feeling that he has too much time on his hands contributing to recent alcohol use. He reported good sleep and appetite as well as focus and energy at that time. He denied suicidal ideation or intent at that time. Unit nursing staff deny any recurrence of expressed suicidal ideation since admission. He has received more than 10 mg of Ativan today per AWSS protocol. He is not known to have a formalized psychiatric history. It appears he was treated with Wellbutrin at some point in the past for smoking cessation. Past Psychiatric History Previous Psych History: Some form of treatment previously at [facility] Current Psychiatric Diagnosis: Alcohol use disorder Outpatient Services: None History of Previous Suicide Attempt: No Past Medication Trials: Wellbutrin for smoking cessation Clonidine Hydroxyzine Allergies Allergy/AdvReac Type Severity Reaction Status Date / Time acetaminophen Allergy Unknown Verified 01/04/20 09:48 [From Tylenol PM] diphenhydramine AdvReac Mild JITTERY/ANX Verified 01/04/20 09:48 IOUS Home Medications Home Medications Medication Instructions Recorded Confirmed Type atorvastatin 10 mg tablet 10 mg PO DAILY #90 tab 11/13/19 02/15/20 Rx levothyroxine 75 mcg tablet 75 mcg PO DAILY #90 tab 11/13/19 02/15/20 Rx lisinopril 20 mg tablet 20 mg PO DAILY #90 tab 11/13/19 02/15/20 Rx pantoprazole 20 mg tablet,delayed 20 mg PO DAILY #90 tab 11/13/19 02/15/20 Rx release meloxicam 7.5 mg tablet 7.5 mg PO DAILY #90 tab 11/14/19 02/15/20 Rx Family History Brother with history of alcohol use disorder. Otherwise denies family psychiatric history per available records. Substance Abuse History Patient is unable to provide substance abuse history at this time. Per available records it appears he has a long history of alcohol dependency, withdrawal, multiple presentations for alcohol detox. He has a history of inpatient alcohol rehab at [place]. Date of last inpatient rehabilitation program presently unknown. He has reported drinking 1/5 of vodka daily for the past 2 weeks earlier in this admission. Participates in Alcoholics Anonymous 5 days/week. He has reported a distant history of cocaine use. Smoking 5 cigarettes/day. Personal History Living Arrangements Comments: Reportedly born in [place]. 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 Most recently let go from [employer] in setting of [place] [id number] Beliefs That Will Affect Care: None Psychological Trauma History Comment: Witnessed of sister at young age Patient History Medical History Accidental overdose NITIN (acute kidney injury) Alcohol abuse (Chronic) Alcohol dependence (Chronic) Basal cell carcinoma of skin (Inactive) Hiatal hernia Major depressive disorder (Acute) Medication overdose No pertinent family history Osteoarthritis Renal insufficiency (Chronic) Surgical History History of neck surgery (~1999) Herniated disc in neck History of total hip replacement (~2013) Double hip replacement No significant past surgical history S/P cholecystectomy (Inactive ~2015) S/P hernia repair (~2005) S/P lumbar fusion S/P thyroid biopsy Family History Father Emphysema, unspecified Diabetes Grandmother Stroke Mother Cancer Cardiovascular disease Heart disease Brother Myocardial infarction Sister Myocardial infarction Other Esophageal cancer Social History Preferred Language: Pashto Communication Ability: Effective Visual Impairment: No Limitations Hearing Ability: Normal Fiber Worker Required: No Beliefs That Will Affect Care: None marital status: Single Current Living Situation: Alone current occupational status: employed 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 Other Information That Helps Us Care for You: No Feels Safe at Home: Yes Safety Concerns: Feels Safe At This Time Smoking Status: Current every day smoker Tobacco Type: cigarettes ; Cigarettes Per Day: 10 ; Do You Dip or Chew Tobacco: No ; Second Hand Exposure: No ; Hx Alcohol Use: Yes Alcohol type: hard liquor Hx Substance Use: No Seatbelt Use: always Physical Exam Psychiatric: Orientation: + not alert Patient appears confused, lethargic Apperance: + disheveled Eye Contact: + poor eye contact Gaze appears disconjugate Motor Behavior: + psychomotor retardation Nonverbal Affect: + flat affect Unable to characterize mood Thought Process: + incoherent thought process Unable to appreciate Unable to assess Unable to assess No overt evidence of response to internal stim. Certainly cannot be ruled out at this time Cognition: + attention not intact Unable to assess Judgement: + impaired judgement (Associated with recent alcohol ingestion) Vital Signs (Past 24 Hours): Last Vital Signs Temp 36.4 C L 02/16/20 12:21 Pulse 90 02/16/20 12:21 Resp 22 02/16/20 12:21 BP 172/98 H 02/16/20 12:21 Pulse Ox 94 02/16/20 12:21 Review of Systems Patient unable to participate in review of systems secondary to suppressed sensorium Results & Data (PSY) Medications Administered Hydralazine HCl (Hydralazine Hcl) 10 mg IV Q6 PRN PRN Reason: Blood Pressure - High Stop: 03/17/20 12:02 Last Admin: 02/16/20 12:09 Dose: 10 mg Documented by: [id number] Lorazepam (Ativan) 1 mg in 2 mls @ 2 mls/min IV UD PRN; Protocol PRN Reason: EtOH Withdrawl AWSS Score 6,7 Stop: 03/16/20 19:50 Last Admin: 02/16/20 08:31 Dose: 2 mls/min Documented by: [id number] Lorazepam (Ativan) 2 mg in 4 mls @ 4 mls/min IV UD PRN; Protocol PRN Reason: EtOH Withdrawl AWSS Score 8,9 Stop: 03/16/20 19:50 Last Admin: 02/16/20 04:29 Dose: 4 mls/min Documented by: [id number] Admin: 02/16/20 00:14 Dose: 4 mls/min Documented by: [id number] Admin: 02/15/20 22:08 Dose: 4 mls/min Documented by: [id number] Lorazepam (Ativan) 3 mg in 6 mls @ 4 mls/min IV ONCE PRN; Protocol PRN Reason: EtOH Withdrawl AWSS Score >=10 Stop: 03/16/20 19:50 Last Admin: 02/16/20 11:55 Dose: 4 mls/min Documented by: [id number] [facility]othy[facility]ine [facility]) [facility] Stop: 03/17/20 06:29 Last Admin: 02/16/20 06:16 Dose: 75 mcg Documented by: [id number] Lisinopril (Zestril) 20 mg PO DAILY [facility] Stop: 03/17/20 08:59 Last Admin: 02/16/20 08:28 Dose: 20 mg Documented by: [id number] Miscellaneous (Remove Nicoderm Patch) 1 ea N/A DAILY@0859 [facility] Stop: 03/17/20 08:58 Last Admin: 02/16/20 08:27 Dose: 1 ea Documented by: [id number] Nicotine (Nicoderm Cq) 14 mg TD QAM [facility] Stop: 03/16/20 22:54 Last Admin: 02/16/20 08:30 Dose: 14 mg Documented by: [id number] Admin: 02/15/20 23:30 Dose: 14 mg Documented by: [id number] Coding Level of Care Code 87378 [facility] Intl Hosp Care Lvl 2 Diagnoses Alcohol abuse F10.10 Suicidal ideation R45.851
[2020-02-16] MEDS: ONDANSETRON INJ 2 MG/ML 2 ML VIAL IV PRN (14:42)
[2020-02-16] MEDS ORDERED: GABAPENTIN 1200MG ALCOHOL WITHDRAWAL LOAD PO STA (15:15)
--- NOTE | 2020-02-16 15:22 | Hospitalist Progress Note ---
Date of Service February 16, 2020 Assessment & Plan (1) Alcohol abuse: EtOH on admission is 387, repeat down to 240 PRN ativan will start Gabapentin withdrawal taper, 1200mg loading dose CT head normal CBC, PRP WNL (2) Suicidal ideation: psychiatry following they will re-interview him when he is more alert, too lethargic with Ativan today continue one to one sitter (3) Elevated LFTs: minimally elevated (4) Essential hypertension: continue Lisinopril BP quite high today, maybe due to withdrawal Hydralazine ordered PRN (5) Hyperlipidemia: holding statin (6) Hypothyroidism: continue home meds (7) DVT prophylaxis: SCDs Admission and Anticipated Discharge Date Admission Date: February 15, 2020 Subjective patient sitting up in a chair, slightly lethargic as he just received some Ativan he says he was having some tremors but nothing severe he admits to drinking a lot more since quarantine due to COVID 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 so he has had nothing to do except drink at his house he has been sitting in the sun a lot, reading books, drinking Vodka he says he drank 2 bottles of vodka two days ago he does not remember sending texts of suicide to his sister, but he has a history of doing such he denies any active suicide thoughts right now he is hungry, will give him a diet appreciate psychiatry consult Review of Systems Review of Systems: All systems reviewed & are unremarkable except as noted in HPI & below Respiratory: no cough and no dyspnea Cardiovascular: no chest pain and no edema Gastrointestinal: no abdominal pain, no nausea, no vomiting, no constipation and no diarrhea/loose stools Neurologic: + tremor(s) Psychiatric: + depression and + substance abuse Physical Exam Constitutional: well developed, well nourished, + disheveled and + lethargic Eyes: PERRL, conjunctivae normal, anicteric sclerae ENMT: external ear and nose normal, oropharynx normal Neck: trachea midline, no thyromegaly Respiratory: normal respiratory effort, lungs clear to auscultation Cardiovascular: RRR, no murmur, no edema Gastrointestinal (Abdomen): normal bowel sounds, soft, nontender, no hepatosplenomegaly Musculoskeletal: no cyanosis or clubbing, extremities motor strength 5/5 Skin: no rashes, warm and dry Neurologic: patellar DTR's 2+ bilat, sensation intact and PERRL, EOMI, accommodation nl, no face palsy, no dysarthria Psychiatric: Orientation: oriented x 3; + not alert Apperance: + disheveled Eye Contact: good eye contact Lymphatic: no cervical or axillary lymphadenopathy Results & Data Results & Data ([facility]) Vital Signs (Past 12 Hours) Vital Signs Temp Pulse Resp BP BP Pulse Ox 02/16/20 12:21 36.4 C L 90 22 172/98 H 94 02/16/20 11:46 36.6 C 93 H 22 207/100 H 94 02/16/20 08:19 36.6 C 97 H 20 189/99 H 95 02/16/20 03:27 36.9 C 91 H 21 194/125 H 94 Laboratory Results Laboratory Results - last 24 hr 02/15/20 02/15/20 02/15/20 18:34 18:34 19:57 Sodium 143 Potassium 3.8 Chloride 110 H Carbon Dioxide 24 Anion Gap 10.0 BUN 10 Creatinine 0.96 Est Cr Clr Drug Dosing Not Reportable Est GFR ( Amer) 99.2 Est GFR (Non-Af Amer) 85.6 BUN/Creatinine Ratio 10.9 Glucose 91 POC Glucose Calcium 8.2 L Phosphorus 2.6 Magnesium 1.8 Total Bilirubin Direct Bilirubin AST ALT Alkaline Phosphatase Troponin I < 0.015 Total Protein Albumin Folate 15.80 Urine Color Urine Appearance Urine pH Ur Specific [place] Urine Protein Urine Glucose (UA) Urine Ketones Urine Blood Urine Nitrite Urine Bilirubin Urine Urobilinogen Ur Leukocyte Esterase Urine Opiates Screen Ur Methadone, Qual Urine Barbiturates Ur Phencyclidine (PCP) U Amphetamin/Meth Scrn MDMA (Ecstasy) Screen U Benzodiazepines Scrn Ur Cocaine Metabolite U Marijuana (THC) Screen Ethyl Alcohol mg/dL 240.4 H 02/15/20 02/15/20 02/16/20 22:42 22:42 04:49 Sodium 141 Potassium 3.7 Chloride 107 Carbon Dioxide 21 Anion Gap 13.0 H BUN 12 Creatinine 0.95 Est Cr Clr Drug Dosing 106.1 Est GFR ( Amer) 100.4 Est GFR (Non-Af Amer) 86.7 BUN/Creatinine Ratio 12.9 Glucose 104 H POC Glucose Calcium 8.7 Phosphorus Magnesium Total Bilirubin 0.8 D Direct Bilirubin 0.1 AST 80 H ALT 108 H Alkaline Phosphatase 124 H Troponin I Total Protein 7.4 Albumin 3.6 Folate Urine Color Dark Yellow Urine Appearance Clear Urine pH 5.0 Ur Specific [place] 1.021 Urine Protein Negative Urine Glucose (UA) Negative Urine Ketones 1+ H Urine Blood Negative Urine Nitrite Negative Urine Bilirubin Negative Urine Urobilinogen Negative Ur Leukocyte Esterase Negative Urine Opiates Screen Neg Ur Methadone, Qual Neg Urine Barbiturates Neg Ur Phencyclidine (PCP) Neg U Amphetamin/Meth Scrn Neg MDMA (Ecstasy) Screen Neg U Benzodiazepines Scrn Neg Ur Cocaine Metabolite Neg U Marijuana (THC) Screen Neg Ethyl Alcohol mg/dL 02/16/20 11:55 Sodium Potassium Chloride Carbon Dioxide Anion Gap BUN Creatinine Est Cr Clr Drug Dosing Est GFR ( Amer) Est GFR (Non-Af Amer) BUN/Creatinine Ratio Glucose POC Glucose 111 H Calcium Phosphorus Magnesium Total Bilirubin Direct Bilirubin AST ALT Alkaline Phosphatase Troponin I Total Protein Albumin Folate Urine Color Urine Appearance Urine pH Ur Specific [place] Urine Protein Urine Glucose (UA) Urine Ketones Urine Blood Urine Nitrite Urine Bilirubin Urine Urobilinogen Ur Leukocyte Esterase Urine Opiates Screen Ur Methadone, Qual Urine Barbiturates Ur Phencyclidine (PCP) U Amphetamin/Meth Scrn MDMA (Ecstasy) Screen U Benzodiazepines Scrn Ur Cocaine Metabolite U Marijuana (THC) Screen Ethyl Alcohol mg/dL Medications Administered Current Inpatient Medications Gabapentin (Neurontin) 1,200 mg PO TODAY@1600 [facility] Stop: 02/16/20 16:01 Gabapentin (Neurontin) 600 mg PO Q6H [facility] Stop: 02/17/20 03:17 Gabapentin (Neurontin) 600 mg PO Q8H [facility] Stop: 02/18/20 03:17 Gabapentin (Neurontin) 600 mg PO Q12H [facility] Stop: 02/19/20 03:17 Gabapentin (Neurontin) 600 mg PO Q24H [facility] Stop: 02/20/20 03:17 Hydralazine HCl (Hydralazine Hcl) 10 mg IV Q6 PRN PRN Reason: Blood Pressure - High Stop: 03/17/20 12:02 Last Admin: 02/16/20 12:09 Dose: 10 mg Documented by: Lorazepam (Ativan) 1 mg in 2 mls @ 2 mls/min IV UD PRN; Protocol PRN Reason: EtOH Withdrawl AWSS Score 6,7 Stop: 03/16/20 19:50 Last Admin: 02/16/20 08:31 Dose: 2 mls/min Documented by: Lorazepam (Ativan) 2 mg in 4 mls @ 4 mls/min IV UD PRN; Protocol PRN Reason: EtOH Withdrawl AWSS Score 8,9 Stop: 03/16/20 19:50 Last Admin: 02/16/20 04:29 Dose: 4 mls/min Documented by: Lorazepam (Ativan) 3 mg in 6 mls @ 4 mls/min IV ONCE PRN; Protocol PRN Reason: EtOH Withdrawl AWSS Score >=10 Stop: 03/16/20 19:50 Last Admin: 02/16/20 11:55 Dose: 4 mls/min Documented by: [facility]othy[facility]ine [facility] Stop: 03/17/20 06:29 Last Admin: 02/16/20 06:16 Dose: 75 mcg Documented by: Lisinopril (Zestril) 20 mg PO DAILY [facility] Stop: 03/17/20 08:59 Last Admin: 02/16/20 08:28 Dose: 20 mg Documented by: Lorazepam (Ativan) 1 mg PO ONE PRN; Protocol PRN Reason: EtoH Withdrawal AWSS 6-10 Magnesium Hydroxide (Milk Of Magnesia) 30 ml PO Q12H PRN PRN Reason: Constipation Stop: 03/16/20 19:50 Miscellaneous (Remove Nicoderm Patch) 1 ea N/A DAILY@0859 [facility] Stop: 03/17/20 08:58 Last Admin: 02/16/20 08:27 Dose: 1 ea Documented by: Nicotine (Nicoderm Cq) 14 mg TD QAM [facility] Stop: 03/16/20 22:54 Last Admin: 02/16/20 08:30 Dose: 14 mg Documented by: Ondansetron HCl (Zofran) 4 mg IV Q6H PRN PRN Reason: Nausea Stop: 03/16/20 19:50 Last Admin: 02/16/20 14:42 Dose: 4 mg Documented by: PG Care Time/CCT Total # of Minutes Spent Total Time Spent with Patient: Total time spent is greater than 50% in coordination of care (as documented) at patient's floor/unit and/or counseling patient: Coding Level of Care Code 65807 Subseq Hosp Care Lvl 3 Diagnoses Alcohol abuse F10.10 Suicidal ideation R45.851 Elevated LFTs R79.89 Essential hypertension I10 Hyperlipidemia E78.5 Hypothyroidism E03.9 DVT prophylaxis Z29.9
[2020-02-16] MEDS ORDERED: GABAPENTIN 600 MG TAB PO SCH (16:00)
[2020-02-16] MEDS: GABAPENTIN 600 MG TAB PO SCH (20:11)
[2020-02-17] MEDS: LEVOTHYROXINE SODIUM 75 MCG TABLET PO SCH (06:12)
[2020-02-17] MEDS: GABAPENTIN 600 MG TAB PO SCH ×3 (06:13→22:08)
[2020-02-17] MEDS: lisinopriL 20 MG TAB PO SCH (07:51)
[2020-02-17] MEDS: NICOTINE 14 MG/24 HR PATCH TD SCH (07:52)
[2020-02-17] MEDS: HydrALAZINE HCL 20 MG/ML VIAL IV PRN (11:13)
--- NOTE | 2020-02-17 13:55 | Hospitalist Progress Note ---
Date of Service February 17, 2020 Assessment & Plan (1) Alcohol abuse: EtOH on admission is 387, repeat down to 240 yesterday PRN ativan will start Gabapentin withdrawal taper, 1200mg loading dose tolerating well, a little foggy in the head but no tremors CT head normal CBC, PRP WNL check routine labs tomorrow AM (2) Suicidal ideation: psychiatry following they will re-interview him when he is more alert, too lethargic with Ativan he denies any suicidal thoughts, he has been pleasant and cooperative while here will stop one to one sitter (3) Elevated LFTs: minimally elevated on admission, likely from EtOH abuse repeat tomorrow AM (4) Essential hypertension: continue Lisinopril BP better today Hydralazine ordered PRN (5) Hyperlipidemia: holding statin (6) Hypothyroidism: continue home meds (7) DVT prophylaxis: SCDs Admission and Anticipated Discharge Date Admission Date: February 15, 2020 Subjective patient feeling better, no tremors he admits that he feels a little "foggy" but overall good he is eating well no labs today as labs yesterday were normal he has been walking in the halls, did 4 laps in the morning then 5 laps after lunch he says he is not suicidal, we can remove the one to one sitter reviewed tele, no arrhythmias, will down grade to medical floor Review of Systems Review of Systems: All systems reviewed & are unremarkable except as noted in HPI & below Constitutional: no fever and no body aches Respiratory: no cough and no dyspnea Cardiovascular: no chest pain and no edema Gastrointestinal: no abdominal pain, no nausea, no vomiting, no constipation and no diarrhea/loose stools Neurologic: no tremor(s) Psychiatric: + anxiety; no depression and no suicidal ideation Physical Exam Constitutional: well developed, well nourished, + disheveled and + lethargic Eyes: PERRL, conjunctivae normal, anicteric sclerae ENMT: external ear and nose normal, oropharynx normal Neck: trachea midline, no thyromegaly Respiratory: normal respiratory effort, lungs clear to auscultation Cardiovascular: RRR, no murmur, no edema Gastrointestinal (Abdomen): normal bowel sounds, soft, nontender, no hepatosplenomegaly Musculoskeletal: no cyanosis or clubbing, extremities motor strength 5/5 Skin: no rashes, warm and dry Neurologic: patellar DTR's 2+ bilat, sensation intact and PERRL, EOMI, accommodation nl, no face palsy, no dysarthria Psychiatric: Orientation: oriented x 3; + not alert Apperance: + disheveled Eye Contact: good eye contact Lymphatic: no cervical or axillary lymphadenopathy Results & Data Results & Data ([facility]) Vital Signs (Past 12 Hours) Vital Signs Temp Pulse Pulse Resp BP BP Pulse Ox 02/17/20 12:01 114 H 154/78 H 02/17/20 10:58 36.6 C 95 H 20 188/109 H 174/108 H 93 02/17/20 07:19 36.7 C 90 18 167/95 H 93 02/17/20 03:44 36.8 C 87 18 159/97 H 94 Medications Administered Current Inpatient Medications Gabapentin (Neurontin) 600 mg PO Q8H [facility] Stop: 02/18/20 06:01 Gabapentin (Neurontin) 600 mg PO Q12H [facility] Stop: 02/19/20 06:01 Gabapentin (Neurontin) 600 mg PO Q24H [facility] Stop: 02/20/20 06:01 Hydralazine HCl (Hydralazine Hcl) 10 mg IV Q6 PRN PRN Reason: Blood Pressure - High Stop: 03/17/20 12:02 Last Admin: 02/17/20 11:13 Dose: 10 mg Documented by: Lorazepam (Ativan) 1 mg in 2 mls @ 2 mls/min IV UD PRN; Protocol PRN Reason: EtOH Withdrawl AWSS Score 6,7 Stop: 03/16/20 19:50 Last Admin: 02/16/20 15:54 Dose: 2 mls/min Documented by: Lorazepam (Ativan) 2 mg in 4 mls @ 4 mls/min IV UD PRN; Protocol PRN Reason: EtOH Withdrawl AWSS Score 8,9 Stop: 03/16/20 19:50 Last Admin: 02/16/20 04:29 Dose: 4 mls/min Documented by: Lorazepam (Ativan) 3 mg in 6 mls @ 4 mls/min IV ONCE PRN; Protocol PRN Reason: EtOH Withdrawl AWSS Score >=10 Stop: 03/16/20 19:50 Last Admin: 02/16/20 11:55 Dose: 4 mls/min Documented by: Levothyroxine Sodium (Synthroid) 75 mcg PO DAILYBB [facility] Stop: 03/17/20 06:29 Last Admin: 02/17/20 06:12 Dose: 75 mcg Documented by: Lisinopril (Zestril) 20 mg PO DAILY [facility] Stop: 03/17/20 08:59 Last Admin: 02/17/20 07:51 Dose: 20 mg Documented by: Lorazepam (Ativan) 1 mg PO ONE PRN; Protocol PRN Reason: EtoH Withdrawal AWSS 6-10 Magnesium Hydroxide (Milk Of Magnesia) 30 ml PO Q12H PRN PRN Reason: Constipation Stop: 03/16/20 19:50 Miscellaneous (Remove Nicoderm Patch) 1 ea N/A DAILY@0859 [facility] Stop: 03/17/20 08:58 Last Admin: 02/17/20 07:51 Dose: 1 ea Documented by: Nicotine (Nicoderm Cq) 14 mg TD QAM [facility] Stop: 03/16/20 22:54 Last Admin: 02/17/20 07:52 Dose: 14 mg Documented by: Ondansetron HCl (Zofran) 4 mg IV Q6H PRN PRN Reason: Nausea Stop: 03/16/20 19:50 Last Admin: 02/16/20 14:42 Dose: 4 mg Documented by: PG Care Time/CCT Total # of Minutes Spent Total Time Spent with Patient: Total time spent is greater than 50% in coordination of care (as documented) at patient's floor/unit and/or counseling patient: Coding Level of Care Code 83586 Subseq Hosp Care Lvl 2 Diagnoses Alcohol abuse F10.10 Suicidal ideation R45.851 Elevated LFTs R79.89 Essential hypertension I10 Hyperlipidemia E78.5 Hypothyroidism E03.9 DVT prophylaxis Z29.9
--- NOTE | 2020-02-17 14:51 | Psychiatric Progress Note ---
Date of Service February 17, 2020 Impression / Recommendations Impression 59-year-old gentleman with what appears to be a long history of alcohol dependency. Looking through his record it appears he has relapsed since October 2019 with now 3 medical presentations associated with alcohol abuse. Symptoms of withdrawal appear less acute on gabapentin. Mild mood disorder associated with alcohol use disorder may contribute or perpetuate binges historically. No evidence of suicidal ideation or intent with clearing of mental status (1) Alcohol abuse: -Patient was advised of recommendation to pursue inpatient rehab disposition directly from medical hospitalization. Referrals pending -Encouraged him to discuss openly with sister dispositional concerns today to assist with her ability to help him plan (2) Suicidal ideation: -No evidence of suicidal ideation following resolution of intoxication -Patient describes a tendency for more depressive ruminative recollection while drinking and was educated regarding the potential impact of central nervous system depressant ingestion. As he reports longer periods of sobriety when taking Wellbutrin in the past, we discussed potential therapeutic benefit of another antidepressant trial. Wellbutrin would not be recommended at this time due to increased risk for seizure however he has never been treated with an SSRI and was accepting of low-dose Prozac trial following discussion of risks and benefits. We will start Prozac 20 mg p.o. every morning tomorrow which can be titrated as an outpatient pending indication and tolerability -Patient able to convincingly contract for safety today. No evidence of suicidal ideation. Okay to discontinue sitter Interval History Chief Complaint "I feel pretty good". Review of Systems Notes Denies suicidal or homicidal ideation. Denies hallucinations. Describes mentation as "foggy" and reports mild tremor Subjective Subjective Patient was seen & assessed. Patient was not sufficiently alert yesterday for psychiatric interview. He was started on the gabapentin yesterday and symptoms of withdrawal appear much improved today. He is much more alert and conversant. He has denied consistently that he was or remains suicidal and convincingly denies thoughts of harm to self or others presently. He readily acknowledges alcoholism as a problem. States he seems to go in binges. Reviewed that he had been able to maintain abstinence for about a year and a half before pain associated with dental extraction in October was a sufficient enough trigger for relapse and binging episodically since. He acknowledges that he tends to feel more down and will ruminate about the of his sister when he was young more so when drinking heavily. He expresses desire for sobriety however feels a little ambivalent about returning to inpatient rehab but is willing to consider. "In rehab they are not living a solution." He attributes loneliness and insufficient level of engaging activity to recent drinking behavior as well. Considering moving in with his sister and was encouraged to discuss dispositional options with her today if able. He recalls a positive mood response on Wellbutrin taken in the past prescribed by PCP which coincided with a period of sobriety. He denies recollection of other prior psychotropic treatment but does note that his sister seemed to do very well on Prozac. Physical Exam Psychiatric Orientation: alert, oriented x 3 and cooperative Apperance: + disheveled Eye Contact: good eye contact Motor Behavior: + tremor (High-frequency low amplitude tremor in distal outstretched upper extremities) Speech: normal rate/rhythm/volume of speech Affect: euthymic affect Mood: no depressed mood Thought Process: linear/logical thought process Thought Content: no hopelessness Suicidal Thoughts: denies suicidal thoughts, denies suicidal plan and denies suicidal intent Homicidal Thoughts: denies homicidal thoughts Hallucinations: no auditory hallucinations, no visual hallucinations and no tactile hallucinations Cognition: language grossly intact Insight: good insight Judgement: + fair judgement Vital Signs (Past 24 Hours) Last Vital Signs Temp 36.6 C 02/17/20 10:58 Pulse 114 H 02/17/20 12:01 Resp 20 02/17/20 10:58 BP 154/78 H 02/17/20 12:01 Pulse Ox 93 02/17/20 10:58 Results & Data ([facility]) Current Inpatient Medications Current Inpatient Medications: Current Inpatient Medications Gabapentin (Neurontin) 600 mg PO Q8H DOLLY Stop: 02/18/20 06:01 Last Admin: 02/17/20 13:55 Dose: 600 mg Documented by: Gabapentin (Neurontin) 600 mg PO Q12H DOLLY Stop: 02/19/20 06:01 Gabapentin (Neurontin) 600 mg PO Q24H DOLLY Stop: 02/20/20 06:01 Hydralazine HCl (Hydralazine Hcl) 10 mg IV Q6 PRN PRN Reason: Blood Pressure - High Stop: 03/17/20 12:02 Last Admin: 02/17/20 11:13 Dose: 10 mg Documented by: Lorazepam (Ativan) 1 mg in 2 mls @ 2 mls/min IV UD PRN; Protocol PRN Reason: EtOH Withdrawl AWSS Score 6,7 Stop: 03/16/20 19:50 Last Admin: 02/16/20 15:54 Dose: 2 mls/min Documented by: Lorazepam (Ativan) 2 mg in 4 mls @ 4 mls/min IV UD PRN; Protocol PRN Reason: EtOH Withdrawl AWSS Score 8,9 Stop: 03/16/20 19:50 Last Admin: 02/16/20 04:29 Dose: 4 mls/min Documented by: Lorazepam (Ativan) 3 mg in 6 mls @ 4 mls/min IV ONCE PRN; Protocol PRN Reason: EtOH Withdrawl AWSS Score >=10 Stop: 03/16/20 19:50 Last Admin: 02/16/20 11:55 Dose: 4 mls/min Documented by: [facility] Stop: 03/17/20 06:29 Last Admin: 02/17/20 06:12 Dose: 75 mcg Documented by: Lisinopril (Zestril) 20 mg PO DAILY [facility] Stop: 03/17/20 08:59 Last Admin: 02/17/20 07:51 Dose: 20 mg Documented by: Lorazepam (Ativan) 1 mg PO ONE PRN; Protocol PRN Reason: EtoH Withdrawal AWSS 6-10 Magnesium Hydroxide (Milk Of Magnesia) 30 ml PO Q12H PRN PRN Reason: Constipation Stop: 03/16/20 19:50 Miscellaneous (Remove Nicoderm Patch) 1 ea N/A DAILY@0859 [facility] Stop: 03/17/20 08:58 Last Admin: 02/17/20 07:51 Dose: 1 ea Documented by: Nicotine (Nicoderm Cq) 14 mg TD QAM [facility] Stop: 03/16/20 22:54 Last Admin: 02/17/20 07:52 Dose: 14 mg Documented by: Ondansetron HCl (Zofran) 4 mg IV Q6H PRN PRN Reason: Nausea Stop: 03/16/20 19:50 Last Admin: 02/16/20 14:42 Dose: 4 mg Documented by:
[2020-02-17] MEDS: ONDANSETRON INJ 2 MG/ML 2 ML VIAL IV PRN (20:24)
[2020-02-18] MEDS: GABAPENTIN 600 MG TAB PO SCH ×2 (05:49→17:22)
[2020-02-18] MEDS: LEVOTHYROXINE SODIUM 75 MCG TABLET PO SCH (05:49)
[2020-02-18 06:44] LABS: Hematocrit (blood only) 46.9 % (42-52); Hemoglobin 15.7 g/dL (14.0-18.0); Mean Corpuscular Hemoglobin 30.3 pg (25-34); Mean Corpuscular Hgb Conc 33.5 g/dL (32-36); Mean Corpuscular Volume 90.4 fL (80-100); Mean Platelet Volume 9.6 fL (7.4-10.4); Platelet Count 234 K/uL (130-400); RDW Coefficient of Variation 15.8 % (11.5-14.5); RDW Standard Deviation 52.2 fL (36.4-46.3); Red Blood Count 5.19 M/uL (4.7-6.1); White Blood Count 6.55 K/uL (4.8-10.8)
[2020-02-18 07:20] LABS: Albumin Level 3.6 gm/dl (3.4-5.0); BUN Creatinine Ratio 9.2 (10-20); Calcium 9.3 mg/dl (8.5-10.1); Creatinine Clr Calc Pharmacy 98.2 ml/min; Est GFR (African American) 93.3; Est GFR (Non-African American) 80.5; Potassium 3.5 mmol/L (3.5-5.1)
[2020-02-18 07:22] LABS: Albumin Globulin Ratio 0.9 (0.9-2); Bilirubin,Total 0.9 mg/dl (0.2-1); Phosphorus 2.7 mg/dl (2.5-4.9); Total Protein 7.6 gm/dl (6.4-8.2)
[2020-02-18] MEDS: FLUOXETINE HCL 20 MG CAP PO SCH (09:01)
[2020-02-18] MEDS: lisinopriL 20 MG TAB PO SCH (09:01)
[2020-02-18] MEDS: NICOTINE 14 MG/24 HR PATCH TD SCH (09:01)
--- NOTE | 2020-02-18 13:52 | Hospitalist Progress Note ---
Date of Service February 18, 2020 Assessment & Plan (1) Alcohol abuse: EtOH on admission is 387, repeat down to 240 02/15 PRN ativan (not needing) Gabapentin withdrawal taper, 1200mg loading dose, tolerating well, finish after discharge tolerating well CT head normal CBC, PRP normal again today stable for discharge tomorrow he is willing to go to inpatient alcohol rehab CM made referral to [facility], should have answer later today/tomorrow unsure if she need negative COVID 19 test, this would delay discharge if they do, CM will ask them (2) Suicidal ideation: psychiatry following he denies any suicidal thoughts, he has been pleasant and cooperative while here will stop one to one sitter has been on Wellbutrin in the past, not indicated at this time started on Prozac 20mg daily for depression, can be titrated upward in a few weeks as outpatient (3) Elevated LFTs: minimally elevated on admission, likely from EtOH abuse still minimally elevated with AST 67 and ALT 86 and Alk phos 121 no need to follow at this point (4) Essential hypertension: continue Lisinopril BP better today Hydralazine ordered PRN (5) Hyperlipidemia: holding statin (6) Hypothyroidism: continue home meds (7) DVT prophylaxis: SCDs Admission and Anticipated Discharge Date Admission Date: February 15, 2020 Subjective patient doing well, eating his meals, walking the halls, requesting to take a shower today d/w [facility] will not take his insurance but [facility] is reviewing his referral patient still willing to go to rehab, feel he will be ready clinically tomorrow hope that we will get accepted tomorrow CBC and BMP normal today Review of Systems Review of Systems: All systems reviewed & are unremarkable except as noted in HPI & below Psychiatric: + depression; no suicidal ideation Physical Exam Constitutional: well developed, well nourished, + disheveled and + lethargic Eyes: PERRL, conjunctivae normal, anicteric sclerae ENMT: external ear and nose normal, oropharynx normal Neck: trachea midline, no thyromegaly Respiratory: normal respiratory effort, lungs clear to auscultation Cardiovascular: RRR, no murmur, no edema Gastrointestinal (Abdomen): normal bowel sounds, soft, nontender, no hepatosplenomegaly Musculoskeletal: no cyanosis or clubbing, extremities motor strength 5/5 Skin: no rashes, warm and dry Neurologic: patellar DTR's 2+ bilat, sensation intact and PERRL, EOMI, accommodation nl, no face palsy, no dysarthria Motor/Sensory: no tremor Psychiatric: Orientation: alert and oriented x 3 Apperance: + disheveled Eye Contact: good eye contact Lymphatic: no cervical or axillary lymphadenopathy Results & Data Results & Data ([facility]) Vital Signs (Past 12 Hours) Vital Signs Temp Pulse Resp BP BP Pulse Ox 02/18/20 09:58 86 16 164/94 H 93 02/18/20 07:13 36.7 C 60 16 164/103 H 93 Laboratory Results Laboratory Results - last 24 hr 02/17/20 02/17/20 02/18/20 17:19 20:22 06:05 WBC 6.55 RBC 5.19 Hgb 15.7 Hct 46.9 MCV 90.4 MCH 30.3 MCHC 33.5 RDW Std Deviation 52.2 H RDW Coeff of Kendal 15.8 H Plt Count 234 MPV 9.6 Sodium Potassium Chloride Carbon Dioxide Anion Gap BUN Creatinine Est Cr Clr Drug Dosing Est GFR ( Amer) Est GFR (Non-Af Amer) BUN/Creatinine Ratio Glucose POC Glucose 91 126 H Calcium Phosphorus Magnesium Total Bilirubin AST ALT Alkaline Phosphatase Total Protein Albumin Globulin Albumin/Globulin Ratio 02/18/20 06:05 WBC RBC Hgb Hct MCV MCH MCHC RDW Std Deviation RDW Coeff of Kendal Plt Count MPV Sodium 138 Potassium 3.5 Chloride 106 Carbon Dioxide 25 Anion Gap 7.0 BUN 9 Creatinine 1.01 Est Cr Clr Drug Dosing 98.2 Est GFR ( Amer) 93.3 Est GFR (Non-Af Amer) 80.5 BUN/Creatinine Ratio 9.2 L Glucose 106 H POC Glucose Calcium 9.3 Phosphorus 2.7 Magnesium 2.0 Total Bilirubin 0.9 AST 67 H ALT 86 H Alkaline Phosphatase 121 H Total Protein 7.6 Albumin 3.6 Globulin 4.0 Albumin/Globulin Ratio 0.9 Medications Administered Current Inpatient Medications Fluoxetine HCl (Prozac) 20 mg PO QAM DOLLY Stop: 03/19/20 08:59 Last Admin: 02/18/20 09:01 Dose: 20 mg Documented by: Gabapentin (Neurontin) 600 mg PO Q12H DOLLY Stop: 02/19/20 06:01 Gabapentin (Neurontin) 600 mg PO Q24H DOLLY Stop: 02/20/20 06:01 Hydralazine HCl (Hydralazine Hcl) 10 mg IV Q6 PRN PRN Reason: Blood Pressure - High Stop: 03/17/20 12:02 Last Admin: 02/17/20 11:13 Dose: 10 mg Documented by: Lorazepam (Ativan) 1 mg in 2 mls @ 2 mls/min IV UD PRN; Protocol PRN Reason: EtOH Withdrawl AWSS Score 6,7 Stop: 03/16/20 19:50 Last Admin: 02/16/20 15:54 Dose: 2 mls/min Documented by: Lorazepam (Ativan) 2 mg in 4 mls @ 4 mls/min IV UD PRN; Protocol PRN Reason: EtOH Withdrawl AWSS Score 8,9 Stop: 03/16/20 19:50 Last Admin: 02/16/20 04:29 Dose: 4 mls/min Documented by: Lorazepam (Ativan) 3 mg in 6 mls @ 4 mls/min IV ONCE PRN; Protocol PRN Reason: EtOH Withdrawl AWSS Score >=10 Stop: 03/16/20 19:50 Last Admin: 02/16/20 11:55 Dose: 4 mls/min Documented by: Levothyroxine Sodium (Synthroid) 75 mcg PO DAILYBB [facility] Stop: 03/17/20 06:29 Last Admin: 02/18/20 05:49 Dose: 75 mcg Documented by: Lisinopril (Zestril) 20 mg PO DAILY [facility] Stop: 03/17/20 08:59 Last Admin: 02/18/20 09:01 Dose: 20 mg Documented by: Lorazepam (Ativan) 1 mg PO ONE PRN; Protocol PRN Reason: EtoH Withdrawal AWSS 6-10 Magnesium Hydroxide (Milk Of Magnesia) 30 ml PO Q12H PRN PRN Reason: Constipation Stop: 03/16/20 19:50 Miscellaneous (Remove Nicoderm Patch) 1 ea N/A DAILY@0859 [facility] Stop: 03/17/20 08:58 Last Admin: 02/18/20 09:01 Dose: 1 ea Documented by: Nicotine (Nicoderm Cq) 14 mg TD QAM [facility] Stop: 03/16/20 22:54 Last Admin: 02/18/20 09:01 Dose: 14 mg Documented by: Ondansetron HCl (Zofran) 4 mg IV Q6H PRN PRN Reason: Nausea Stop: 03/16/20 19:50 Last Admin: 02/17/20 20:24 Dose: 4 mg Documented by: PG Care Time/CCT Total # of Minutes Spent Total Time Spent with Patient: Total time spent is greater than 50% in coordination of care (as documented) at patient's floor/unit and/or counseling patient: Coding Level of Care Code 71828 Subseq Hosp Care Lvl 2 Diagnoses Alcohol abuse F10.10 Suicidal ideation R45.851 Elevated LFTs R79.89 Essential hypertension I10 Hyperlipidemia E78.5 Hypothyroidism E03.9 DVT prophylaxis Z29.9
[2020-02-18] MEDS ORDERED: Nursing to Pharmacy Communication SCH (17:45)
[2020-02-18] MEDS ORDERED: PANTOprazole 40 MG TAB PO ONE (18:00)
[2020-02-19] MEDS: HydrALAZINE HCL 20 MG/ML VIAL IV PRN (00:52)
[2020-02-19] MEDS: LEVOTHYROXINE SODIUM 75 MCG TABLET PO SCH (05:57)
[2020-02-19] MEDS: GABAPENTIN 600 MG TAB PO SCH (05:57)
[2020-02-19] MEDS: lisinopriL 20 MG TAB PO SCH (08:48)
[2020-02-19] MEDS: PANTOprazole 40 MG TAB PO SCH (08:49)
[2020-02-19] MEDS: NICOTINE 14 MG/24 HR PATCH TD SCH (08:49)
[2020-02-19] MEDS: FLUOXETINE HCL 20 MG CAP PO SCH (08:49)
[2020-02-19] MEDS: FOLIC ACID 1 MG TAB PO SCH (10:19)
[2020-02-19] MEDS: CEROVITE ADV FORMULA TAB PO SCH (10:19)
[2020-02-19] MEDS: THIAMINE HCL 100 MG TAB PO SCH ×2 (10:19→20:42)
--- NOTE | 2020-02-19 19:10 | Hospitalist Progress Note ---
Date of Service February 19, 2020 Assessment & Plan (1) Alcohol withdrawal: improved/nearly resolved. cont gabapentin protocol/wean. (2) Alcohol abuse: patient very interested in etoh rehab post-d/c. case management assisting with such. add thiamine 200mg BID. add folate 1mg daily. add MVI daily. (3) Suicidal ideation: resolved. seen by psych - no indication for admission to psych unit. started on Prozac 20mg daily for depression. tolerating such so far. repeat Na level in am. (4) Elevated LFTs: likely from EtOH abuse. repeat in am. hold statin. (5) Essential hypertension: continue Lisinopril. BPs high - may be due to etoh withdrawal. if still high at discharge consider additional BP agent. (6) Hyperlipidemia: holding statin due to high LFTs. (7) Hypothyroidism: continue home meds. TSH wnl this admission. (8) Intracranial arachnoid cyst: 4cm - left frontal lobe. will inquire about headaches, other symptoms. if present - neurosurgery consult as outpatient. (9) DVT prophylaxis: SCDs. ambulating well. low risk. send COVID test. appreciate telehealth case manager assistance. Admission and Anticipated Discharge Date Admission Date: February 15, 2020 Subjective patient w/o complaints except ongoing insomnia. tremors nearly resolved. not as anxious. eating well. moving bowels. still very interested in inpatient rehab for etoh. 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 Review of Systems Constitutional: no fever Respiratory: no cough and no dyspnea Cardiovascular: no chest pain Gastrointestinal: no abdominal pain and no nausea Physical Exam Constitutional: well developed and well nourished; no acute distress and no altered mental status ENMT: external ear and nose normal, oropharynx normal Respiratory: normal respiratory effort, lungs clear to auscultation Cardiovascular: Rate/Rhythm: regular rate and regular rhythm Heart Sounds: normal S1 and normal S2; no murmur Vessels: posterior tibial pulses present and dorsalis pedis pulses present; no JVD Extremities: no edema Gastrointestinal (Abdomen): normal bowel sounds, soft, nontender, no hepatosplenomegaly Neurologic: Motor/Sensory: no tremor Psychiatric: A+Ox3, euthymic affect Results & Data Results & Data ([facility]) Vital Signs (Past 12 Hours) Vital Signs Temp Pulse Pulse Resp BP Pulse Ox 02/19/20 16:00 91 H 166/95 H 02/19/20 15:05 36.4 C L 93 H 17 168/103 H 97 02/19/20 11:19 95 H 18 162/91 H 96 02/19/20 07:22 36.6 C 91 H 16 165/100 H 95 Laboratory Results Laboratory Results - last 24 hr 02/19/20 12:45 SARS-CoV-2 RNA (RT-PCR) Pending PG Care Time/CCT Total # of Minutes Spent Total Time Spent with Patient: Total time spent is greater than 50% in coordination of care (as documented) at patient's floor/unit and/or counseling patient: Coding Level of Care Code 03440 Subseq Hosp Care Lvl 2 Diagnoses Alcohol withdrawal F10.230 Complication of substance-induced condition: uncomplicated Alcohol abuse F10.10 Suicidal ideation R45.851 Elevated LFTs R79.89 Essential hypertension I10 Hyperlipidemia E78.2 Hyperlipidemia type: mixed hyperlipidemia Hypothyroidism E03.9 Hypothyroidism type: acquired Intracranial arachnoid cyst G93.0 DVT prophylaxis Z29.9 (1) Hyperlipidemia Hyperlipidemia type: mixed hyperlipidemia Qualified Code(s): E78.2 - Mixed hyperlipidemia (2) Hypothyroidism Hypothyroidism type: acquired Qualified Code(s): E03.9 - Hypothyroidism, unspecified (3) Alcohol withdrawal Complication of substance-induced condition: uncomplicated Qualified Code(s): F10.230 - Alcohol dependence with withdrawal, uncomplicated
[2020-02-19] MEDS ORDERED: LORazepam 1 MG TAB PO SCH (21:00)
[2020-02-20] MEDS ORDERED: GABAPENTIN 600 MG TAB PO SCH (06:00)
[2020-02-20] MEDS: LEVOTHYROXINE SODIUM 75 MCG TABLET PO SCH (06:26)
[2020-02-20 07:48] LABS: Albumin Level 3.2 gm/dl (3.4-5.0); Calcium 9.3 mg/dl (8.5-10.1); Creatinine Clr Calc Pharmacy 93.6 ml/min; Est GFR (Non-African American) 75.9; Potassium 3.8 mmol/L (3.5-5.1)
[2020-02-20 07:50] LABS: Albumin Globulin Ratio 0.8 (0.9-2); Bilirubin,Total 0.7 mg/dl (0.2-1); Total Protein 7.2 gm/dl (6.4-8.2)
[2020-02-20] MEDS: FOLIC ACID 1 MG TAB PO SCH (08:31)
[2020-02-20] MEDS: THIAMINE HCL 100 MG TAB PO SCH ×2 (08:31→20:59)
[2020-02-20] MEDS: lisinopriL 20 MG TAB PO SCH (08:31)
[2020-02-20] MEDS: PANTOprazole 40 MG TAB PO SCH (08:31)
[2020-02-20] MEDS: FLUOXETINE HCL 20 MG CAP PO SCH (08:31)
[2020-02-20] MEDS: NICOTINE 14 MG/24 HR PATCH TD SCH (08:32)
[2020-02-20] MEDS: CEROVITE ADV FORMULA TAB PO SCH (08:32)
--- NOTE | 2020-02-20 17:20 | Ultrasound Report ---
US liver CLINICAL HISTORY: ?cirrhosis COMPARISON STUDY: No previous studies for comparison. FINDINGS: Fatty infiltration of the liver. Normal caliber bile ducts. Gallbladder surgically absent. Common bile duct 5 mm. Pancreas is normal. Right kidney is negative for hydronephrosis. IMPRESSION: 1. Fatty infiltration of the liver. 2. Prior cholecystectomy. 3. Normal caliber bile ducts. ACT 112: Negative or not required by law. The above report was generated using voice recognition software. It may contain grammatical, syntax or spelling errors. Electronically signed by: Emiliano De La Rosa M.D. 02/20/2020 5:19 PM
[2020-02-20] MEDS ORDERED: LORazepam 1 MG TAB PO SCH (21:00)
--- NOTE | 2020-02-20 23:29 | Hospitalist Progress Note ---
Date of Service February 20, 2020 Assessment & Plan (1) Alcohol withdrawal: resolved. completed gabapentin protocol. ativan prn. (2) Alcohol abuse: patient still very interested in etoh rehab post-d/c. case management assisting with such. awaiting acceptance from "[facility]" rehab facility. cont thiamine 200mg BID, folate, MVI. (3) Suicidal ideation: resolved. seen by psych - no indication for admission to psych unit. started on Prozac 20mg daily for depression. tolerating such so far. (4) Elevated LFTs: likely from EtOH abuse. repeat today still high (actually janay a bit). check liver u/s - rule out cirrhosis from chronic etoh abuse. hold statin. would check HepB and C titers before d/c. (5) Essential hypertension: continue Lisinopril. BPs high - may be due to etoh withdrawal. if still high next 1-2 days consider adding metoprolol or calcium channel obdulia. (6) Hyperlipidemia: holding statin due to high LFTs. (7) Hypothyroidism: continue home meds. TSH wnl this admission. (8) Intracranial arachnoid cyst: 4cm - left frontal lobe. no obvious symptoms from this. would refer to neurology post-d/c to follow this. (9) DVT prophylaxis: SCDs. ambulating well. low risk. COVID-19 screen pending. appreciate case liner assistance with dispo planning. Admission and Anticipated Discharge Date Admission Date: February 15, 2020 Subjective no complaints except ongoing insomnia even despite scheduled ativan at [facility] last night. otherwise feels good. still wanting inpatient alcohol rehab post-d/c. shakes resolved. eating well. ambulating. Review of Systems Respiratory: no dyspnea and no dyspnea on exertion Cardiovascular: no chest pain Gastrointestinal: no abdominal pain, no nausea and no vomiting Physical Exam Constitutional: well developed and well nourished; no acute distress and no altered mental status looks great today! ENMT: external ear and nose normal, oropharynx normal Respiratory: normal respiratory effort, lungs clear to auscultation Cardiovascular: Rate/Rhythm: regular rate and regular rhythm Heart Sounds: normal S1 and normal S2; no murmur Vessels: posterior tibial pulses present and dorsalis pedis pulses present; no JVD Extremities: no edema Gastrointestinal (Abdomen): normal bowel sounds, soft, nontender, no hepatosplenomegaly Neurologic: Motor/Sensory: no tremor Psychiatric: A+Ox3, euthymic affect Results & Data Results & Data ([facility]) Vital Signs (Past 12 Hours) Vital Signs Temp Pulse Resp BP Pulse Ox 02/20/20 15:08 36.5 C 79 17 135/87 94 Laboratory Results Laboratory Results - last 24 hr 02/20/20 06:17 Sodium 138 Potassium 3.8 Chloride 107 Carbon Dioxide 26 Anion Gap 5.0 BUN 15 Creatinine 1.06 Est Cr Clr Drug Dosing 93.6 Est GFR ( Amer) 88.0 Est GFR (Non-Af Amer) 75.9 BUN/Creatinine Ratio 14.0 Glucose 102 H Calcium 9.3 Total Bilirubin 0.7 AST 86 H ALT 124 H Alkaline Phosphatase 107 Total Protein 7.2 Albumin 3.2 L Globulin 4.0 Albumin/Globulin Ratio 0.8 L PG Care Time/CCT Total # of Minutes Spent Total Time Spent with Patient: Total time spent is greater than 50% in coordination of care (as documented) at patient's floor/unit and/or counseling patient: Coding Level of Care Code 27326 Subseq Hosp Care Lvl 2 Diagnoses Alcohol withdrawal F10.230 Complication of substance-induced condition: uncomplicated Alcohol abuse F10.10 Suicidal ideation R45.851 Elevated LFTs R79.89 Essential hypertension I10 Hyperlipidemia E78.2 Hyperlipidemia type: mixed hyperlipidemia Hypothyroidism E03.9 Hypothyroidism type: acquired Intracranial arachnoid cyst G93.0 DVT prophylaxis Z29.9 (1) Alcohol withdrawal Complication of substance-induced condition: uncomplicated Qualified Code(s): F10.230 - Alcohol dependence with withdrawal, uncomplicated (2) Hyperlipidemia Hyperlipidemia type: mixed hyperlipidemia Qualified Code(s): E78.2 - Mixed hyperlipidemia (3) Hypothyroidism Hypothyroidism type: acquired Qualified Code(s): E03.9 - Hypothyroidism, unspecified
[2020-02-21] MEDS: LEVOTHYROXINE SODIUM 75 MCG TABLET PO SCH (05:42)
[2020-02-21] MEDS: THIAMINE HCL 100 MG TAB PO SCH (08:51)
[2020-02-21] MEDS: PANTOprazole 40 MG TAB PO SCH (08:52)
[2020-02-21] MEDS: FLUOXETINE HCL 20 MG CAP PO SCH (08:52)
[2020-02-21] MEDS: CEROVITE ADV FORMULA TAB PO SCH (08:52)
[2020-02-21] MEDS: lisinopriL 20 MG TAB PO SCH (08:52)
[2020-02-21] MEDS: FOLIC ACID 1 MG TAB PO SCH (08:52)
--- NOTE | 2020-02-21 15:36 | Discharge Summary ---
Date of Service February 21, 2020 Admission HPI Per Admitting Provider 59 y/o M c/o accidental overdose. Per ED physician HPI: She does present to be a police and sister due to concern for alcohol intoxication and suicidal ideation. The patient is currently intoxicated and admits to drinking 2 bottles of hard liquor. Reportedly from the sister the patient had been sending her test of suicidality. Patient is not very cooperative doing during the exam and declines to answer most questions. There was no reported trauma or falls. Patient does have a known history of alcohol abuse. Per nursing: pt has been intermittently difficult to arouse and then agitated. He has been given multiple rounds of ativan. Pt has been shaky at times, but then sleeping soundly at other times. No c/o fever, SOB, chest pain, abd pain, n/v/c/d, LE pain or swelling per nursing. Pt has requested to go home several times as well. Principal Diagnosis Pt feels he is doing much better. No further SI. States he would like to go home and go to rehab from home once they have an opening. Pt denies fever, SOB, chest pain, abd pain, n/v/c/d, LE pain or swelling. Tolerating PO without issue. Discharge Exam Constitutional WD/WN, vitals as above Eyes normal visual dominguez by confrontation and + anicteric sclerae Neck normal visual inspection and trachea midline Respiratory normal respiratory effort, lungs clear to auscultation Cardiovascular Rate/Rhythm: regular rate and regular rhythm Gastrointestinal (Abdomen) Inspection/Auscultation: abdomen not distended Percussion/Palpation: abdomen soft; abdomen nontender Musculoskeletal Head/Neck/Chest: normocephalic and head atraumatic Skin no rashes, warm and dry Neurologic awake; not confused Speech / Cognition: normal speech Psychiatric A+Ox3, euthymic affect Discharge Data Allergies Allergy/AdvReac Type Severity Reaction Status Date / Time acetaminophen Allergy Unknown Verified 01/04/20 09:48 [From Tylenol PM] diphenhydramine AdvReac Mild JITTERY/ANX Verified 01/04/20 09:48 IOUS Consultations 02/15/20 18:12 ED Decision to Admit Stat 02/15/20 19:51 Consult Case Management - Discharge Planning Routine Consult Psychiatry Routine Ordered Studies 02/15/20 18:12 CT head/brain wo con Stat 02/20/20 15:36 liver Routine Hospital Course (1) Alcohol withdrawal: resolved. completed gabapentin protocol. ativan prn. (2) Alcohol abuse: patient still very interested in etoh rehab post-d/c. case management assisting with such. awaiting acceptance from [facility]. There have been multiple communication issues with rehab as CM continues to fax them requesting information, however they are not receiving it for some reason. It is unclear what the break down is on this issue, however pt is now frustrated and wants to d/c to home to f/u with [facility] on his own. Advised to avoid all alcohol cont thiamine 200mg BID, folate, MVI. (3) Suicidal ideation: resolved. seen by psych - no indication for admission to psych unit. started on Prozac 20mg daily for depression. tolerating such so far. (4) Elevated LFTs: likely from EtOH abuse. Liver US neg for cirrhosis, noted for fatty liver I d/w pt and advised to limit sugar and carbs, as well as alcohol to prevent progression of fatty liver (5) Essential hypertension: continue Lisinopril. (6) Hyperlipidemia: holding statin due to high LFTs. (7) Hypothyroidism: continue home meds. TSH wnl this admission. (8) Intracranial arachnoid cyst: 4cm - left frontal lobe. no obvious symptoms from this. Neuro to be arranged by PCP post-d/c from rehab to follow this. (9) DVT prophylaxis: SCDs. ambulating well. low risk. COVID-19 screen pending on d/c as required by rehab Total Time Total Time Spent Total Time Spent (In Minutes): >30 Discharge Plan Discharge Items Patient Disposition: Home - Self-Care Reason For Visit: ACCIDENTAL ETOH OVERDOSE,SI Discharge Diagnosis: Accidental alcohol overdose Activity: Resume your previous activity Non-emergency contact: Primary Care Provider Call non-emergency contact if: you have any medication questions and your symptoms worsen Follow-up/Referrals: Melia Rodriguez MD [Primary Care Provider] - Diet: Regular Addtl Attending Provider Instructions: You should follow up with [facility] via the contact info given to you prior to discharge. You should call them daily to ask about your rehab plan. It is very important that you do not drink any alcohol. Your liver ultrasound showed a fatty liver, meaning you should decrease your sugar and carbohydate intake to prevent further damage to your liver. Alcohol also turns to sugar in the body, so it is even more important that you don't drink to prevent further damage to your liver. Pending Studies at Discharge: No Stand-Alone Forms: [facility], Smoking Cessation, Suicide Prevention Resources Medications and DC Order Prescriptions: New thiamine HCl (vitamin B1) [Vitamin B-1] 100 mg Tablet 200 mg PO BID Qty: 60 RF: 0 folic acid 1 mg Tablet 1 mg PO QAM Qty: 30 RF: 0 fluoxetine 20 mg Capsule 20 mg PO QAM Qty: 30 RF: 0 Continued atorvastatin 10 mg tablet 10 mg PO DAILY Qty: 90 RF: 3 levothyroxine 75 mcg tablet 75 mcg PO DAILY Qty: 90 RF: 3 lisinopril 20 mg tablet 20 mg PO DAILY Qty: 90 RF: 3 pantoprazole 20 mg tablet,delayed release (DR/EC) 20 mg PO DAILY Qty: 90 RF: 3 meloxicam 7.5 mg tablet 7.5 mg PO DAILY Qty: 90 RF: 3 Discharge Orders: Discharge Order (Routine); Ordered 02/21/20 Ordered By: Vane Cuevas/Other Patient Handouts: Alcoholism: Myths and Facts, Alcoholism How to be Part of the Solution Admission Data Admit Date/Time: 02/15/20 18:38 Attending Provider: Vane Flores Admit Provider: Vane Flores Primary Care Provider: Melia Rodriguez V. Other Providers: Vane Flores ; Heather Jensen Other Interventions: Discharge Summary Assessment (RN) Last Done: 02/21/20 16:29 Coding Level of Care Code D/C Day Management >30 mins Diagnoses Alcohol withdrawal F10.230 Complication of substance-induced condition: uncomplicated Alcohol abuse F10.10 Suicidal ideation R45.851 Elevated LFTs R79.89 Essential hypertension I10 Hyperlipidemia E78.2 Hyperlipidemia type: mixed hyperlipidemia Hypothyroidism E03.9 Hypothyroidism type: acquired Intracranial arachnoid cyst G93.0 DVT prophylaxis Z29.9
== END 2020-02-21 17:53 | disposition home or self-care (01) | DRG 897 ==
LOC: ED 10:21 → SUATTDRO 18:38 → 2S 18:38 → 3N 02-17 16:02